=== PATIENT | female | born 1935 | race Caucasian/White ===

== ENCOUNTER 2016-11-14 12:20 | Day surgery (SDC) | payer MEDICARE, MEDICAID ==
[~2016-11-14] VITALS: Ht 154.9 cm; Wt 43.5 kg
[2016-11-14] MEDS ORDERED: NORC7.5T PO (12:42)
[2016-11-14] MEDS ORDERED: NITR0.4S14 PO (12:42)
[2016-11-14] MEDS ORDERED: VITA50003 PO (12:42)
[2016-11-14] MEDS ORDERED: LEVO112T2 PO (12:42)
[2016-11-14] MEDS ORDERED: CLOP75TA2 PO (12:42)
[2016-11-14] MEDS ORDERED: ONDA4TAB6 PO (12:42)
[2016-11-14] MEDS ORDERED: LINZ290C PO ×2 (12:42→16:04)
[2016-11-14] MEDS ORDERED: LOSA25TA8 PO ×2 (12:42→16:04)
[2016-11-14] MEDS ORDERED: MAXI0.1S4 IO (12:42)
[2016-11-14] MEDS ORDERED: NEO/POLY/DEX IO (12:42)
[2016-11-14] MEDS ORDERED: ENEMENE3 PR (12:49)
--- NOTE | 2016-11-14 14:30 | REP ---
CHEST, ONE VIEW: HISTORY: Port placement. COMPARISON: 02/27/2014. The lungs are hyperinflated. The heart is normal in size. The pulmonary vasculature is normal in appearance. An Rtxvny-X-Eklx catheter is present. The catheter tubing is broken and is located in the heart. IMPRESSION: An Ykdkxe-Y-Ltgz catheter is present. The catheter tubing is broken and located in the heart. Results were discussed the Akin Poon at 2:07 p.m. this date. Signed by Mike Guzman MD 11/14/2016 02:41 P
[2016-11-14 15:06] LABS: INR 0.94
[2016-11-14 15:18] LABS: ANION GAP 9 MEQ/L (8-16); BLOOD UREA NITROGEN 20 MG/DL (7-18); CALCIUM LEVEL 8.6 MG/DL (8.8-10.2); CARBON DIOXIDE LEVEL 25 MEQ/L (21-32); CHLORIDE LEVEL 106 MEQ/L (98-107); CREATININE FOR GFR 0.69 MG/DL (0.55-1.02); GLOMERULAR FILTRATION RATE > 60.0 (>39); GLUCOSE, FASTING 100 MG/DL (83-110); POTASSIUM SERUM 4.6 MEQ/L (3.5-5.1); SODIUM LEVEL 140 MEQ/L (136-145)
[2016-11-14 15:20] LABS: BASO % 0.5 % (0.0-1.0); EOS % 0.4 % (0.0-3.0); LARGE UNSTAINED CELL # 0.2 K/mm3 (0.0-0.4); LARGE UNSTAINED CELL % 3.6 % (0.0-4.0); LYMPH # 1.3 K/mm3 (1.5-4.5); LYMPH % 26.2 % (24.0-44.0); MEAN CORPUSCULAR HEMOGLOBIN 31.7 pg (27.0-33.0); MEAN CORPUSCULAR VOLUME 99.3 fl (80.0-96.0); MONO # 0.4 K/mm3 (0.0-0.8); MONO % 8.7 % (0.0-5.0); NEUTROPHILS # 2.9 K/mm3 (1.8-7.7); NEUTROPHILS % 60.7 % (36.0-66.0); PLATELET COUNT, AUTOMATED 229 k/mm3 (150-450); RED CELL DISTRIBUTION WIDTH 13.1 % (11.5-14.5); WHITE BLOOD COUNT 4.8 K/mm3 (4.0-10.0)
[2016-11-14] MEDS ORDERED: HYDR-3716 PO (16:00)
[2016-11-14] MEDS ORDERED: DRIS50002 PO (16:00)
[2016-11-14] MEDS ORDERED: PLAV75TA38 PO (16:00)
[2016-11-14] MEDS ORDERED: NITR4TASL SL (16:04)
[2016-11-14] MEDS ORDERED: LEVO112T25 PO (16:04)
[2016-11-14] MEDS ORDERED: ENEM1ENE4 PR (16:04)
[2016-11-14] MEDS ORDERED: ZOFR4TAB3 PO (16:04)
[2016-11-14] MEDS ORDERED: SYST1SOL OU (16:04)
[2016-11-14] MEDS ORDERED: fentaNYL 100 MCG/2 ML INJECTION (J3010) IV ONE (20:45)
[2016-11-14] MEDS ORDERED: fentaNYL 100 MCG/2 ML INJECTION (J3010) As Ordered ONE ×2 (20:50→22:30)
[2016-11-14] MEDS ORDERED: CONRAY-60 60% 50ML VIAL (Q9961) As Ordered ONE (22:11)
[2016-11-14] MEDS ORDERED: HEPARIN SOD (PORCINE) 5000 UNITS/ML VIAL As Ordered ONE (22:11)
[2016-11-14] MEDS ORDERED: CLINDAMYCIN 600 MG/50 ML PREMIX BAG As Ordered ONE (22:11)
[2016-11-14] MEDS ORDERED: MIDAZOLAM INJ 2 MG/2 ML VIAL (J2250) As Ordered ONE (22:30)
[2016-11-14] MEDS ORDERED: ISOVUE-300 61% 50ML VIAL (Q9967) As Ordered ONE (22:37)
[2016-11-14] MEDS ORDERED: LIDOCAINE 1% SDV INJ 30 ML VIAL As Ordered ONE (22:44)
[2016-11-14] MEDS ORDERED: PROPOFOL 200 MG/20 ML VIAL As Ordered ONE (22:46)
[2016-11-14] MEDS ORDERED: LIDOCAINE 2% INJ 100 MG/5 ML SDV (FOR ANES.) As Ordered ONE (22:46)
[2016-11-15] VITALS (7 sets, daily range): BP systolic 128–177; BP diastolic 61–79
[2016-11-15] MEDS ORDERED: ONDANSETRON 4MG/2ML VIAL (J2405) IV PRN
[2016-11-15] MEDS ORDERED: LR 1,000 ML IV SCH
[2016-11-15] MEDS: fentaNYL 100 MCG/2 ML INJECTION (J3010) IV PRN ×2 (00:14→00:21)
[2016-11-15] MEDS ORDERED: ACETAMINOPHEN TAB 650MG DOSE (2X325MG) PO PRN (06:30)
[2016-11-15] MEDS ORDERED: ACET-654 PO (09:37)
--- NOTE | 2016-11-15 13:57 | REP ---
SINGLE VIEW CHEST: Single view of the chest is performed in the region of the heart during foreign body removal. 15 minutes 6 seconds fluoroscopy time utilized. Signed by Dami Brown MD 11/15/2016 02:28 P
--- NOTE | 2016-11-16 07:10 | ECGEPIP ---
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 Order Number: [id number] Reading MD: Xenia Ponce Measurements Intervals [place] Rate: 74 P: 62 IL: 164 QRS: 62 QRSD: 95 T: 64 QT: 383 QTc: 426 Interpretive Statements SINUS RHYTHM INCREASED RATE 02/28/14 Electronically Signed On 11-16-2016 7:09:36 EDT by Xenia Ponce
--- NOTE | 2016-12-05 13:47 | RO ---
DATE OF PROCEDURE: 11/14/2016 PREPROCEDURE DIAGNOSIS: Pulmonary artery foreign body, right subclavian vein Zybyql-a-Klzy. POSTPROCEDURE DIAGNOSIS: Pulmonary artery foreign body, right subclavian vein Peqqoy-k-Qypq. PROCEDURE: Selective placement with foreign body retrieval, right subclavian vein Umsqje-i-Vhpr removal. Ultrasound-guided right brachial vein cannulation. ATTENDING SURGEON: Dr. Teo Hale [place] [employer] LIMOUSINE: None. ANESTHESIA: Local, monitored anesthesia care (MAC). INDICATION: Patient is a 81-year-old female with an Qnxxbx-t-Ksvg in her right subclavian vein, that had difficulty with flushing and subsequent infiltration in the subcutaneous tissue. An x-ray was performed showing the catheter had fractured and migrated into the left pulmonary artery. Patient will undergo foreign body retrieval and Kbipdy-r-Vmfd removal. Risks, benefits, and alternative treatment options were discussed with the patient. Alternative treatment options included, but were not limited to, no intervention. Risks included, but were not limited to, infection, bleeding, renal failure requiring hemodialysis, possible need for open surgical intervention, cerebrovascular accident, myocardial infarction, pulmonary embolus, deep venous thrombosis (DVT), loss of limb, loss of life, and poor outcome. Patient understands, accepts these risks, and consents to proceed. ESTIMATED BLOOD LOSS: 50 mL. IV FLUID: 400 mL. HEPARIN: None. COMPLICATIONS: None. DRAINS: None. SPECIMENS: Fractured catheter from the right subclavian vein Vgwsbc-a-Kjsh. DESCRIPTION OF PROCEDURE: Patient was taken to the operating room, placed supine on the operating room table, and the right upper extremity neck and chest region was prepped and draped in a standard surgical fashion. Ultrasound was used to evaluate the right upper extremity, and the right brachial vein was noted to be easily compressed but widely patent and free of thrombus. This was cannulated with a micropuncture needle after anesthetizing the overlying skin with 1% lidocaine. The micropuncture wire was advanced through the micropuncture needle, which was upsized to a micropuncture sheath. A Bentson wire was advanced through the micropuncture sheath, which was upsized to a #5-Setswana sheath. A long-angle [place] catheter and angle Glidewire, Bentson wire, and Orellana wires were used to traverse through the heart and into the left pulmonary artery where the catheter was lodged. A snare was then placed with removal of the catheter through the sheath placed in the right brachial vein. The sheath was then removed and manual compression was applied at the puncture site for hemostasis. A small incision was then made overlying the right chest Mravgs-d-Svnp, after anesthetizing the overlying skin with 1% lidocaine mixed with 0.5% Marcaine. The Eiirxz-e-Yiac was then sharply dissected free and removed. The portions of the catheter that were removed matched the fracture site from the hub of the catheter. Final fluoroscopic image showed no further foreign body in the heart, lungs, or pulmonary arteries. The Wjukju-w-Veyk site was then closed using #2-0 Vicryl to approximate the deeper layers and #3-0 Monocryl to approximate the skin in a running subcuticular fashion. Steri-Strips and dressings were applied. Patient tolerated the procedure well. All instruments, sponge, and needle counts were correct at the end of the case. There were no complications. Dr. Hale was present for and directed the entire case. Patient was transferred to the recovery room, awake, alert, extubated, and in stable condition.
== END 2016-11-15 10:20 | disposition home or self-care (01) ==
LOC: M ED 13:05 → M SDC 16:15 → M MS5PR 11-15 01:00 → M SDC 11-15 10:20
PROVIDERS: ATTEND Surgery Vascular Surgery
DX: Z95.828 Presence of other vascular implants and grafts (principal); I10 Essential (primary) hypertension; E03.9 Hypothyroidism, unspecified; M41.9 Scoliosis, unspecified; Z88.0 Allergy status to penicillin; Z88.5 Allergy status to narcotic agent; Z88.6 Allergy status to analgesic agent; Z88.8 Allergy status to other drugs, medicaments and biological substances; Z79.01 Long term (current) use of anticoagulants; Z86.73 Personal history of transient ischemic attack (TIA), and cerebral infarction without residual deficits
CPT/HCPCS: 36590; 37197; 71010; 76000; 80048; 85025; 85610; 85730; 88300; 93005; 93041; 99285; J2250; J3010; Q9961; Q9967

== ENCOUNTER → 2016-12-10 | Outpatient (CLI) | payer MEDICARE, MEDICAID ==
[~2016-12-10] MED LIST: ACET-654 PO; CLOP75TA2 PO; DRIS50002 PO; ENEM1ENE4 PR; ENEMENE3 PR; HYDR-3716 PO; LEVO112T2 PO; LEVO112T25 PO; LINZ290C PO; LOSA25TA8 PO; MAXI0.1S4 IO; NEO/POLY/DEX IO; NITR0.4S14 PO; NITR4TASL SL; NORC7.5T PO; ONDA4TAB6 PO; PLAV75TA38 PO; SYST1SOL OU; VITA50003 PO; ZOFR4TAB3 PO
== END ==
LOC: M LAB 06:05
PROVIDERS: ATTEND Internal Medicine Endocrinology, Diabetes & Metabolism
DX: M81.0 Age-related osteoporosis without current pathological fracture (principal)

== ENCOUNTER → 2017-03-04 | Outpatient (CLI) | payer MEDICARE, MEDICAID ==
[~2017-03-04] MED LIST changes: -ACET-654 PO; +ACET1TAB17 PO; +ENEMENE16 PR; -ENEMENE3 PR; -NORC7.5T PO; +NORC7.5T35 PO; +PLAV1TAB2 PO; -PLAV75TA38 PO; +VITA1CAP40 PO; -VITA50003 PO
[2017-03-04 06:57] LABS: ALBUMIN 3.5 GM/DL (3.2-5.2); ANION GAP 8 MEQ/L (8-16); BLOOD UREA NITROGEN 12 MG/DL (7-18); CALCIUM LEVEL 8.6 MG/DL (8.8-10.2); CARBON DIOXIDE LEVEL 28 MEQ/L (21-32); CHLORIDE LEVEL 104 MEQ/L (98-107); CREATININE FOR GFR 0.56 MG/DL (0.55-1.02); GLOMERULAR FILTRATION RATE > 60.0 (>39); GLUCOSE, FASTING 110 MG/DL (83-110); PHOSPHORUS LEVEL 3.4 MG/DL (2.5-4.9); POTASSIUM SERUM 4.1 MEQ/L (3.5-5.1); SODIUM LEVEL 140 MEQ/L (136-145)
== END ==
LOC: M LAB 06:08
PROVIDERS: ATTEND Internal Medicine Cardiovascular Disease
DX: I11.9 Hypertensive heart disease without heart failure (principal)

== ENCOUNTER 2017-06-04 10:23 | Emergency (ER) | payer MEDICARE, MEDICAID ==
[~2017-06-04] VITALS: Ht 157.5 cm; Wt 43.9 kg
[2017-06-04 12:19] LABS: BASO % 0.4 % (0.0-1.0); EOS % 0.4 % (0.0-3.0); IMMATURE GRANULOCYTE % 0.2 % (0-0); LYMPH # 1.1 10^3/uL (1.5-4.5); LYMPH % 22.7 % (24.0-44.0); MEAN CORPUSCULAR HEMOGLOBIN 31.5 pg (27.0-33.0); MEAN CORPUSCULAR HGB CONC 33.4 g/dl (32.0-36.5); MEAN CORPUSCULAR VOLUME 94.2 fl (80.0-96.0); MONO # 0.5 10^3/uL (0.0-0.8); MONO % 10.8 % (0.0-5.0); NEUTROPHILS % 65.5 % (36.0-66.0); PLATELET COUNT, AUTOMATED 245 10^3/uL (150-450); RED CELL DISTRIBUTION WIDTH 13.2 % (11.5-14.5); WHITE BLOOD COUNT 4.6 10^3/uL (4.0-10.0)
[2017-06-04 12:54] LABS: ANION GAP 7 MEQ/L (8-16); BLOOD UREA NITROGEN 14 MG/DL (7-18); CALCIUM LEVEL 9.1 MG/DL (8.8-10.2); CARBON DIOXIDE LEVEL 28 MEQ/L (21-32); CHLORIDE LEVEL 102 MEQ/L (98-107); CREATININE FOR GFR 0.62 MG/DL (0.55-1.02); GLOMERULAR FILTRATION RATE > 60.0 (>32); GLUCOSE, FASTING 100 MG/DL (83-110); POTASSIUM SERUM 3.9 MEQ/L (3.5-5.1); SODIUM LEVEL 137 MEQ/L (136-145)
[2017-06-04] MEDS ORDERED: CYCL5TAB PO (13:32)
[2017-06-04] MEDS ORDERED: CYCLOBENZAPRINE 5MG TABLET PO ONE (13:45)
[2017-06-04 13:57] VITALS: BP 170/90
--- NOTE | 2017-06-04 19:35 | ECGEPIP ---
Stationary ECG Study [facility] - ED Test Date: 2017-06-04 Pat Name: TODD ADKINS Department: Room: - Gender: F Latrine Cleaner: jackeline : 1935 Requested By: DEREK Hernandez PA-C Order Number: [id number] Reading MD: Sanya Peck Measurements Intervals Fine Rate: 74 P: 75 SD: 149 QRS: 67 QRSD: 89 T: 76 QT: 363 QTc: 404 Interpretive Statements SINUS RHYTHM SIMILAR TO 11/14/16 Electronically Signed On 06-04-2017 19:35:18 EST by Sanya Peck
--- NOTE | 2017-06-04 19:40 | REP ---
LUMBOSACRAL SPINE: Five views of the lumbosacral spine are performed. There is no compression fracture. There is relatively normal lumbar lordosis. There is moderate spurring diffusely. There is moderate disc space narrowing at L1-L2, L2-L3, and L3-L4 with subchondral sclerosis and vacuum. There is sclerosis at the posterior facet joints inferiorly. Moderate curvature of the thoracolumbar spine is noted convex to the left with a rotatory component. The posterior elements appear intact. Multiple metallic clips and sutures are seen in the pelvis. IMPRESSION: Diffuse degenerative changes without evidence of compression fracture. Moderate curvature toward the left. Signed by Dami Brown MD 06/05/2017 08:30 P
--- NOTE | 2017-06-04 19:44 | REP ---
ULTRASOUND ABDOMINAL AORTA: Real-time sonographic of the abdominal aorta performed. Mid abdominal aorta is not visualized due to overlying bowel gas. Proximal abdominal aorta demonstrates no aneurysm with a maximum AP diameter of 2.5 cm, there is also no aneurysm of the distal abdominal aorta which measures 1.4 cm. Common iliac artery is normal in caliber, right measuring 1.0 x 1.2 cm and left 1.1 x 1.3 cm. There is tortuosity and moderate arthrosclerotic calcification of the abdominal aorta. IMPRESSION: Midabdominal aorta is not visualized due to overlying bowel gas. There is no aneurysm of the proximal or distal abdominal aorta. It should be noted that there was no abdominal aortic aneurysm on the CT of the abdomen in 2011. Signed by Dami Brown MD 06/05/2017 08:30 P
== END 2017-06-04 14:07 | disposition home or self-care (01) ==
LOC: M ED 10:23
DX: G89.29 Other chronic pain (principal); M54.5 Low back pain; M41.9 Scoliosis, unspecified; I10 Essential (primary) hypertension; Z86.73 Personal history of transient ischemic attack (TIA), and cerebral infarction without residual deficits; Z79.899 Other long term (current) drug therapy; Z79.01 Long term (current) use of anticoagulants; Z88.0 Allergy status to penicillin; Z88.5 Allergy status to narcotic agent; Z88.8 Allergy status to other drugs, medicaments and biological substances

== ENCOUNTER → 2017-07-02 | Outpatient (CLI) | payer MEDICARE, MEDICAID ==
[2017-07-02 09:58] LABS: CALCIUM LEVEL 8.5 MG/DL (8.8-10.2)
[2017-07-02 10:48] LABS: TOTAL 25(OH) VITAMIN D 58.6 NG/ML (30.0-100.0)
== END ==
LOC: M LAB 08:50
DX: M81.0 Age-related osteoporosis without current pathological fracture (principal); E55.9 Vitamin D deficiency, unspecified
CPT/HCPCS: 82310

== ENCOUNTER → 2017-07-08 | Outpatient (CLI) | payer MEDICARE, MEDICAID ==
[2017-07-08 07:34] LABS: ALBUMIN 3.9 GM/DL (3.2-5.2); ANION GAP 7 MEQ/L (8-16); BLOOD UREA NITROGEN 18 MG/DL (7-18); CALCIUM LEVEL 9.2 MG/DL (8.8-10.2); CARBON DIOXIDE LEVEL 26 MEQ/L (21-32); CHLORIDE LEVEL 105 MEQ/L (98-107); CREATININE FOR GFR 0.69 MG/DL (0.55-1.02); GLOMERULAR FILTRATION RATE > 60.0 (>32); GLUCOSE, FASTING 107 MG/DL (70-100); PHOSPHORUS LEVEL 3.3 MG/DL (2.5-4.9); POTASSIUM SERUM 4.5 MEQ/L (3.5-5.1); SODIUM LEVEL 138 MEQ/L (136-145)
== END ==
LOC: M LAB 06:20
DX: I11.9 Hypertensive heart disease without heart failure (principal)
CPT/HCPCS: 80069

== ENCOUNTER → 2017-08-04 | Outpatient (CLI) | payer MEDICARE, MEDICAID | LOC: M RAD 16:22 | DX: M51.36 Other intervertebral disc degeneration, lumbar region (principal) | CPT/HCPCS: 72148 ==

== ENCOUNTER 2017-08-18 17:56 | Inpatient (IN) | payer MEDICARE, MEDICAID ==
[2017-08-18] MEDS: HEPARIN SOD (PORCINE) 5000 UNITS/ML VIAL SC ×3 (06:00→22:00)
[2017-08-18] MEDS: NS 500 ML IV ×2 (18:30→21:17)
[2017-08-18 19:12] LABS: BASO % 0.1 % (0.0-1.0); HEMATOCRIT 31.4 % (36.0-47.0); HEMOGLOBIN 10.8 g/dl (12.0-16.0); IMMATURE GRANULOCYTE % 0.5 % (0-3.0); LYMPH # 0.9 10^3/uL (1.5-4.5); LYMPH % 9.4 % (24.0-44.0); MEAN CORPUSCULAR HEMOGLOBIN 31.5 pg (27.0-33.0); MEAN CORPUSCULAR HGB CONC 34.4 g/dl (32.0-36.5); MEAN CORPUSCULAR VOLUME 91.5 fl (80.0-96.0); MONO # 0.8 10^3/uL (0.0-0.8); MONO % 8.1 % (0.0-5.0); NEUTROPHILS # 7.7 10^3/uL (1.8-7.7); NEUTROPHILS % 81.9 % (36.0-66.0); PLATELET COUNT, AUTOMATED 197 10^3/uL (150-450); RED BLOOD COUNT 3.43 10^6/uL (4.00-5.40); RED CELL DISTRIBUTION WIDTH 12.9 % (11.5-14.5); WHITE BLOOD COUNT 9.4 10^3/uL (4.0-10.0)
[2017-08-18 19:26] LABS: INR 0.95; PROTHROMBIN TIME 12.8 SECONDS (12.4-14.5)
[2017-08-18 19:47] LABS: LACTIC ACID SEPSIS PROTOCOL 2.4 MMOL/L (0.4-2.0)
[2017-08-18] MEDS: NS 1,000 ML IV (19:50)
[2017-08-18] MEDS: HYDROmorphone HCL 1 MG/ML SYRINGE (J1170) IV ×2 (19:52→21:17)
[2017-08-18] MEDS: GASTROGRAFIN SOLUTION 30ML (Q9963) PO ×2 (20:25→20:45)
[2017-08-18 20:53] LABS: ALBUMIN 3.5 GM/DL (3.2-5.2); ALBUMIN/GLOBULIN RATIO 1.25 (1.00-1.93); ALKALINE PHOSPHATASE 58 U/L (45-117); ALT/SGPT 20 U/L (12-78); ANION GAP 8 MEQ/L (8-16); AST/SGOT 29 U/L (7-37); BILIRUBIN,DIRECT 0.1 MG/DL (0.0-0.2); BILIRUBIN,TOTAL 0.3 MG/DL (0.2-1.0); BLOOD UREA NITROGEN 12 MG/DL (7-18); CALCIUM LEVEL 7.5 MG/DL (8.8-10.2); CARBON DIOXIDE LEVEL 24 MEQ/L (21-32); CHLORIDE LEVEL 99 MEQ/L (98-107); CREATININE FOR GFR 0.58 MG/DL (0.55-1.30); GLOMERULAR FILTRATION RATE > 60.0 (>32); GLUCOSE, FASTING 117 MG/DL (70-100); LIPASE 282 U/L (73-393); POTASSIUM SERUM 4.4 MEQ/L (3.5-5.1); SODIUM LEVEL 131 MEQ/L (136-145); TOTAL PROTEIN 6.3 GM/DL (6.4-8.2)
[2017-08-18] MEDS: ONDANSETRON 4MG/2ML VIAL (J2405) IV (21:17)
[2017-08-18] MEDS ORDERED: ISOVUE-370 76% 100ML VIAL (Q9967) As Ordered (21:37)
[2017-08-18] MEDS ORDERED: HYDROmorphone 2 MG TAB PO (23:30)
[2017-08-19] MEDS ORDERED: SENOKOT S TAB PO
[2017-08-19] MEDS ORDERED: MOM 30ML SUSPENSION UDC PO
[2017-08-19] MEDS: LevoFLOXacin IV 750 MG in APPROPRIATE DILUENT 1 EA IV (00:10)
[2017-08-19] MEDS: PERCOCET 5MG/325MG TAB PO (00:55)
[2017-08-19] MEDS ORDERED: CYCLOBENZAPRINE 5MG TABLET PO (01:00)
[2017-08-19] MEDS ORDERED: POLYVINYL ALCOHOL OPHTH SOLN 15 ML(LIQUITEARS) OU (01:00)
[2017-08-19] MEDS: ONDANSETRON 4MG/2ML VIAL (J2405) IV (01:37)
[2017-08-19] MEDS: HYDROmorphone HCL 1 MG/ML SYRINGE (J1170) IV ×4 (02:06→16:13)
[2017-08-19] MEDS: NS 1,000 ML IV ×2 (02:10→16:09)
[2017-08-19 05:33] LABS: HEMOGLOBIN 9.3 g/dl (12.0-16.0); MEAN CORPUSCULAR HEMOGLOBIN 31.3 pg (27.0-33.0); MEAN CORPUSCULAR HGB CONC 34.4 g/dl (32.0-36.5); MEAN CORPUSCULAR VOLUME 90.9 fl (80.0-96.0); PLATELET COUNT, AUTOMATED 171 10^3/uL (150-450); RED BLOOD COUNT 2.97 10^6/uL (4.00-5.40); RED CELL DISTRIBUTION WIDTH 12.8 % (11.5-14.5); WHITE BLOOD COUNT 11.3 10^3/uL (4.0-10.0)
[2017-08-19 05:44] LABS: ANION GAP 7 MEQ/L (8-16); BLOOD UREA NITROGEN 9 MG/DL (7-18); CARBON DIOXIDE LEVEL 23 MEQ/L (21-32); CHLORIDE LEVEL 104 MEQ/L (98-107); CREATININE FOR GFR 0.53 MG/DL (0.55-1.30); GLOMERULAR FILTRATION RATE > 60.0 (>32); GLUCOSE, FASTING 106 MG/DL (70-100); MAGNESIUM LEVEL 1.2 MG/DL (1.8-2.4); POTASSIUM SERUM 3.9 MEQ/L (3.5-5.1); SODIUM LEVEL 134 MEQ/L (136-145)
[2017-08-19] MEDS: HEPARIN SOD (PORCINE) 5000 UNITS/ML VIAL SC ×3 (06:00→22:00)
[2017-08-19] MEDS: LEVOTHYROXINE 112MCG TABLET (0.112MG) PO (06:18)
[2017-08-19] MEDS: PANTOPRAZOLE 40MG TAB (PROTONIX) PO (08:39)
[2017-08-19] MEDS: CLOPIDOGREL 75 MG TAB PO (08:40)
[2017-08-19] MEDS: LOSARTAN 25 MG TAB PO (08:40)
[2017-08-19] MEDS: ATENOLOL 12.5MG PER 1/2 TABLET PO (08:40)
[2017-08-19] MEDS: OSELTAMIVIR PHOSPHATE 75 MG CAP (TAMIFLU) PO ×2 (08:41→20:05)
[2017-08-19] MEDS: MAG SULF 1GM/100ML (MAG RUN) 1 GM in APPROPRIATE DILUENT 1 EA IV ×3 (09:32→12:13)
[2017-08-19] MEDS ORDERED: ISOVUE-370 76% 100ML VIAL (Q9967) As Ordered (09:52)
[2017-08-19] MEDS: LIDOCAINE 5% (LIDODERM) PATCH TD (14:18)
[2017-08-19 17:17] LABS: MAGNESIUM LEVEL 2.7 MG/DL (1.8-2.4)
[2017-08-19] MEDS: traMADol 50 MG TAB PO (20:05)
[2017-08-19] MEDS: **NOTE PATIENT COMMENT** MISC XX (21:00)
[2017-08-20] MEDS ORDERED: CEPACOL LOZENGE PO (04:45)
[2017-08-20] MEDS: LEVOTHYROXINE 112MCG TABLET (0.112MG) PO (05:29)
[2017-08-20 05:30] LABS: HEMATOCRIT 26.3 % (36.0-47.0); MEAN CORPUSCULAR HEMOGLOBIN 31.6 pg (27.0-33.0); MEAN CORPUSCULAR HGB CONC 34.2 g/dl (32.0-36.5); MEAN CORPUSCULAR VOLUME 92.3 fl (80.0-96.0); PLATELET COUNT, AUTOMATED 174 10^3/uL (150-450); RED BLOOD COUNT 2.85 10^6/uL (4.00-5.40); RED CELL DISTRIBUTION WIDTH 13.3 % (11.5-14.5); WHITE BLOOD COUNT 11.1 10^3/uL (4.0-10.0)
[2017-08-20] MEDS: NS 1,000 ML IV (05:30)
[2017-08-20] MEDS: HEPARIN SOD (PORCINE) 5000 UNITS/ML VIAL SC ×3 (05:30→20:26)
[2017-08-20] MEDS: traMADol 50 MG TAB PO (05:32)
[2017-08-20 06:01] LABS: ANION GAP 8 MEQ/L (8-16); BLOOD UREA NITROGEN 9 MG/DL (7-18); CALCIUM LEVEL 6.9 MG/DL (8.8-10.2); CARBON DIOXIDE LEVEL 23 MEQ/L (21-32); CHLORIDE LEVEL 106 MEQ/L (98-107); CREATININE FOR GFR 0.37 MG/DL (0.55-1.30); GLOMERULAR FILTRATION RATE > 60.0 (>32); GLUCOSE, FASTING 80 MG/DL (70-100); MAGNESIUM LEVEL 2.3 MG/DL (1.8-2.4); POTASSIUM SERUM 3.8 MEQ/L (3.5-5.1); SODIUM LEVEL 137 MEQ/L (136-145)
[2017-08-20] MEDS: CALCIUM GLUCONATE 1,000 MG in D5W MINI-BAG PLUS 100 ML IV (08:45)
[2017-08-20] MEDS: LIDOCAINE 5% (LIDODERM) PATCH TD (08:45)
[2017-08-20] MEDS: LOSARTAN 25 MG TAB PO (08:45)
[2017-08-20] MEDS: OSELTAMIVIR PHOSPHATE 75 MG CAP (TAMIFLU) PO ×2 (08:46→20:56)
[2017-08-20] MEDS: PANTOPRAZOLE 40MG TAB (PROTONIX) PO (08:46)
[2017-08-20] MEDS: CLOPIDOGREL 75 MG TAB PO (08:46)
[2017-08-20] MEDS: ATENOLOL 12.5MG PER 1/2 TABLET PO (08:46)
[2017-08-20] MEDS: PERCOCET 5MG/325MG TAB PO ×3 (09:44→19:53)
[2017-08-20] MEDS: FLEET ENEMA PR (18:00)
[2017-08-20] MEDS: **NOTE PATIENT COMMENT** MISC XX (20:56)
[2017-08-21] MEDS: LEVOTHYROXINE 112MCG TABLET (0.112MG) PO (05:04)
[2017-08-21] MEDS: HEPARIN SOD (PORCINE) 5000 UNITS/ML VIAL SC ×2 (05:04→14:11)
[2017-08-21] MEDS: PERCOCET 5MG/325MG TAB PO ×2 (05:05→11:04)
[2017-08-21 05:34] LABS: HEMOGLOBIN 8.8 g/dl (12.0-16.0); MEAN CORPUSCULAR HEMOGLOBIN 31.5 pg (27.0-33.0); MEAN CORPUSCULAR HGB CONC 33.8 g/dl (32.0-36.5); MEAN CORPUSCULAR VOLUME 93.2 fl (80.0-96.0); PLATELET COUNT, AUTOMATED 183 10^3/uL (150-450); RED BLOOD COUNT 2.79 10^6/uL (4.00-5.40); RED CELL DISTRIBUTION WIDTH 13.5 % (11.5-14.5); WHITE BLOOD COUNT 8.6 10^3/uL (4.0-10.0)
[2017-08-21 05:58] LABS: ANION GAP 7 MEQ/L (8-16); BLOOD UREA NITROGEN 7 MG/DL (7-18); CARBON DIOXIDE LEVEL 25 MEQ/L (21-32); CHLORIDE LEVEL 108 MEQ/L (98-107); CREATININE FOR GFR 0.46 MG/DL (0.55-1.30); GLOMERULAR FILTRATION RATE > 60.0 (>32); GLUCOSE, FASTING 85 MG/DL (70-100); MAGNESIUM LEVEL 1.9 MG/DL (1.8-2.4); POTASSIUM SERUM 3.8 MEQ/L (3.5-5.1); SODIUM LEVEL 140 MEQ/L (136-145)
[2017-08-21] MEDS: CALCIUM GLUCONATE 1,000 MG in D5W MINI-BAG PLUS 100 ML IV (09:31)
[2017-08-21] MEDS: LIDOCAINE 5% (LIDODERM) PATCH TD (09:32)
[2017-08-21] MEDS: LOSARTAN 25 MG TAB PO (09:32)
[2017-08-21] MEDS: ATENOLOL 12.5MG PER 1/2 TABLET PO (09:32)
[2017-08-21] MEDS: CLOPIDOGREL 75 MG TAB PO (09:33)
[2017-08-21] MEDS: OSELTAMIVIR PHOSPHATE 75 MG CAP (TAMIFLU) PO (09:33)
[2017-08-21] MEDS: PANTOPRAZOLE 40MG TAB (PROTONIX) PO (09:33)
== END 2017-08-21 15:59 | disposition home or self-care (01) | DRG 866 ==
LOC: M ED INP 23:45 → M PCU 08-19 01:30 → M ED 17:56
DX: J10.2 Influenza due to other identified influenza virus with gastrointestinal manifestations (principal); R10.31 Right lower quadrant pain; K52.9 Noninfective gastroenteritis and colitis, unspecified; E03.9 Hypothyroidism, unspecified; K21.9 Gastro-esophageal reflux disease without esophagitis; I10 Essential (primary) hypertension; Z90.710 Acquired absence of both cervix and uterus

== ENCOUNTER → 2017-10-01 | Outpatient (CLI) | payer MEDICARE, MEDICAID ==
[2017-10-01 12:21] LABS: HEMOGLOBIN 9.6 g/dl (12.0-15.5); MEAN CORPUSCULAR HEMOGLOBIN 32.9 pg (27.0-33.0); MEAN CORPUSCULAR HGB CONC 33.1 g/dl (32.0-36.5); MEAN CORPUSCULAR VOLUME 99.3 fl (80.0-96.0); PLATELET COUNT, AUTOMATED 223 10^3/uL (150-450); RED BLOOD COUNT 2.92 10^6/uL (4.00-5.40); RED CELL DISTRIBUTION WIDTH 14.7 % (11.5-14.5)
[2017-10-01 13:32] LABS: ALBUMIN 3.5 GM/DL (3.2-5.2); ALBUMIN/GLOBULIN RATIO 1.25 (1.00-1.93); ALKALINE PHOSPHATASE 54 U/L (45-117); ALT/SGPT 18 U/L (12-78); ANION GAP 7 MEQ/L (8-16); AST/SGOT 19 U/L (7-37); BILIRUBIN,TOTAL 0.3 MG/DL (0.2-1.0); BLOOD UREA NITROGEN 16 MG/DL (7-18); CALCIUM LEVEL 8.5 MG/DL (8.8-10.2); CARBON DIOXIDE LEVEL 25 MEQ/L (21-32); CHLORIDE LEVEL 108 MEQ/L (98-107); CREATININE FOR GFR 0.64 MG/DL (0.55-1.30); FERRITIN 36 NG/ML (8-252); GLOMERULAR FILTRATION RATE > 60.0 (>32); GLUCOSE, FASTING 84 MG/DL (70-100); IRON (FE) 65 UG/DL (50-170); PERCENT SATURATION 20.3 % (13.2-45.0); POTASSIUM SERUM 4.8 MEQ/L (3.5-5.1); SODIUM LEVEL 140 MEQ/L (136-145); TOTAL IRON BINDING CAPACITY 320 UG/DL (250-450); TOTAL PROTEIN 6.3 GM/DL (6.4-8.2)
[2017-10-03 08:18] LABS: VITAMIN B12 LEVEL 379 PG/ML (247-911)
== END ==
LOC: M LAB 11:43
DX: D64.9 Anemia, unspecified (principal); I10 Essential (primary) hypertension; M17.11 Unilateral primary osteoarthritis, right knee; B59 Pneumocystosis; M51.36 Other intervertebral disc degeneration, lumbar region
CPT/HCPCS: 71046

== ENCOUNTER → 2017-12-04 | Outpatient (CLI) | payer MEDICARE, MEDICAID ==
[2017-12-04 09:12] LABS: AMYLASE 72 U/L (25-115)
[2017-12-04 09:12] LABS: C REACTIVE PROTEIN QUANTITATIV < 0.30 MG/DL (0.00-0.30); LIPASE 148 U/L (73-393)
[2017-12-04 09:23] LABS: ERYTHROCYTE SEDIMENTATION RATE 12 mm/hr (0-30)
[2017-12-09 00:07] LABS: CHROMOGRANIN A 3 nmol/L (0-5)
[2017-12-09 00:07] LABS: GASTRIN 21 pg/mL (0-115)
== END ==
LOC: M LAB 06:18
DX: K82.9 Disease of gallbladder, unspecified (principal); A04.9 Bacterial intestinal infection, unspecified; R63.4 Abnormal weight loss; R13.10 Dysphagia, unspecified; M41.9 Scoliosis, unspecified; R35.0 Frequency of micturition
CPT/HCPCS: 82150

== ENCOUNTER → 2017-12-05 | Outpatient (CLI) | payer MEDICARE, MEDICAID | LOC: M RAD 07:19 | DX: K82.9 Disease of gallbladder, unspecified (principal); A04.9 Bacterial intestinal infection, unspecified; K59.00 Constipation, unspecified; R63.4 Abnormal weight loss; R13.10 Dysphagia, unspecified; M41.9 Scoliosis, unspecified; N28.1 Cyst of kidney, acquired; K82.4 Cholesterolosis of gallbladder | CPT/HCPCS: 76705 ==

== ENCOUNTER → 2017-12-31 | Outpatient (CLI) | payer MEDICARE, MEDICAID | LOC: M LAB 13:04 | DX: M81.0 Age-related osteoporosis without current pathological fracture (principal) | CPT/HCPCS: 82310 ==

== ENCOUNTER → 2018-01-13 | Outpatient (CLI) | payer MEDICARE, MEDICAID ==
[2018-01-13 06:56] LABS: BASO % 0.7 % (0.0-1.0); EOS # 0.1 10^3/uL (0.0-0.50); EOS % 1.3 % (0.0-3.0); HEMATOCRIT 28.7 % (36.0-47.0); HEMOGLOBIN 9.6 g/dl (12.0-15.5); IMMATURE GRANULOCYTE % 0.5 % (0-3.0); LYMPH # 1.1 10^3/uL (1.5-4.5); LYMPH % 19.8 % (24.0-44.0); MEAN CORPUSCULAR HEMOGLOBIN 32.2 pg (27.0-33.0); MEAN CORPUSCULAR HGB CONC 33.4 g/dl (32.0-36.5); MEAN CORPUSCULAR VOLUME 96.3 fl (80.0-96.0); NEUTROPHILS # 3.3 10^3/uL (1.8-7.7); NEUTROPHILS % 59.7 % (36.0-66.0); PLATELET COUNT, AUTOMATED 214 10^3/uL (150-450); RED BLOOD COUNT 2.98 10^6/uL (4.00-5.40); WHITE BLOOD COUNT 5.6 10^3/uL (4.0-10.0)
[2018-01-13 07:18] LABS: FERRITIN 27 NG/ML (8-252); IRON (FE) 55 UG/DL (50-170); PERCENT SATURATION 16.2 % (13.2-45.0); TOTAL IRON BINDING CAPACITY 340 UG/DL (250-450)
== END ==
LOC: M LAB 06:05
DX: N30.01 Acute cystitis with hematuria (principal)
CPT/HCPCS: 83550

== ENCOUNTER → 2018-02-05 | Outpatient (CLI) | payer MEDICARE, MEDICAID | LOC: M RAD 07:45 | DX: K59.00 Constipation, unspecified (principal); K82.9 Disease of gallbladder, unspecified; R07.81 Pleurodynia | CPT/HCPCS: 74018 ==

== ENCOUNTER → 2018-04-09 | Outpatient (CLI) | payer MEDICARE, MEDICAID ==
[2018-04-09 11:24] LABS: BASO % 0.4 % (0.0-1.0); HEMATOCRIT 30.6 % (36.0-47.0); IMMATURE GRANULOCYTE % 0.4 % (0-3.0); LYMPH # 1.2 10^3/uL (1.5-4.5); LYMPH % 21.3 % (24.0-44.0); MEAN CORPUSCULAR HEMOGLOBIN 32.2 pg (27.0-33.0); MEAN CORPUSCULAR HGB CONC 32.7 g/dl (32.0-36.5); MEAN CORPUSCULAR VOLUME 98.4 fl (80.0-96.0); MONO # 0.6 10^3/uL (0.0-0.8); MONO % 10.5 % (0.0-5.0); NEUTROPHILS # 3.7 10^3/uL (1.8-7.7); NEUTROPHILS % 67.4 % (36.0-66.0); PLATELET COUNT, AUTOMATED 228 10^3/uL (150-450); RED BLOOD COUNT 3.11 10^6/uL (4.00-5.40); RED CELL DISTRIBUTION WIDTH 13.5 % (11.5-14.5); WHITE BLOOD COUNT 5.4 10^3/uL (4.0-10.0)
[2018-04-09 11:36] LABS: TROPONIN I < 0.02 NG/ML (< 0.10)
[2018-04-09 12:01] LABS: ERYTHROCYTE SEDIMENTATION RATE 17 mm/hr (0-30)
== END ==
LOC: M LAB 09:51
DX: R07.2 Precordial pain (principal)
CPT/HCPCS: 84484

== ENCOUNTER 2018-05-05 07:53 | Emergency (ER) | payer MEDICARE, MEDICAID ==
[2018-05-05 08:27] LABS: BASO % 0.4 % (0.0-1.0); HEMATOCRIT 32.6 % (36.0-47.0); HEMOGLOBIN 10.3 g/dl (12.0-15.5); IMMATURE GRANULOCYTE % 0.3 % (0-3.0); LYMPH # 1.4 10^3/uL (1.5-4.5); LYMPH % 21.3 % (24.0-44.0); MEAN CORPUSCULAR HGB CONC 31.6 g/dl (32.0-36.5); MEAN CORPUSCULAR VOLUME 98.2 fl (80.0-96.0); MONO # 0.7 10^3/uL (0.0-0.8); MONO % 9.9 % (0.0-5.0); NEUTROPHILS # 4.6 10^3/uL (1.8-7.7); NEUTROPHILS % 68.1 % (36.0-66.0); PLATELET COUNT, AUTOMATED 246 10^3/uL (150-450); RED BLOOD COUNT 3.32 10^6/uL (4.00-5.40); RED CELL DISTRIBUTION WIDTH 12.9 % (11.5-14.5); WHITE BLOOD COUNT 6.8 10^3/uL (4.0-10.0)
[2018-05-05 08:58] LABS: ANION GAP 6 MEQ/L (8-16); BLOOD UREA NITROGEN 14 MG/DL (7-18); CALCIUM LEVEL 8.8 MG/DL (8.8-10.2); CARBON DIOXIDE LEVEL 29 MEQ/L (21-32); CHLORIDE LEVEL 105 MEQ/L (98-107); CPK CREATINE PHOSPHOKINASE 134 U/L (26-192); CREATININE FOR GFR 0.72 MG/DL (0.55-1.30); GLOMERULAR FILTRATION RATE > 60.0 (>32); GLUCOSE, FASTING 120 MG/DL (70-100); MB/CK RELATIVE INDEX 1.94 (< OR =4); POTASSIUM SERUM 4.5 MEQ/L (3.5-5.1); SODIUM LEVEL 140 MEQ/L (136-145); TROPONIN I < 0.02 NG/ML (< 0.10)
[2018-05-05] MEDS ORDERED: ANEXSIA, NORCO 7.5MG/325MG TABLET(HYDROCODONE/APAP) As Ordered (09:50)
[2018-05-05] MEDS: ANEXSIA, NORCO 7.5MG/325MG TABLET(HYDROCODONE/APAP) PO (09:51)
[2018-05-05] MEDS: GI COCKTAIL 50ML BTL(HYOSCYAMINE/MAALOX/LIDOCAINE VISCOUS)(1:3:1) PO (13:15)
[2018-05-05 14:15] LABS: CPK CREATINE PHOSPHOKINASE 122 U/L (26-192); MB/CK RELATIVE INDEX 2.21 (< OR =4); TROPONIN I < 0.02 NG/ML (< 0.10)
== END 2018-05-05 15:29 | disposition home or self-care (01) ==
LOC: M ED 07:53
DX: R07.89 Other chest pain (principal); R06.02 Shortness of breath; I10 Essential (primary) hypertension; K21.9 Gastro-esophageal reflux disease without esophagitis; K92.2 Gastrointestinal hemorrhage, unspecified; M54.9 Dorsalgia, unspecified; R10.9 Unspecified abdominal pain; M25.551 Pain in right hip; G89.29 Other chronic pain; Z86.73 Personal history of transient ischemic attack (TIA), and cerebral infarction without residual deficits; Z87.891 Personal history of nicotine dependence; Z88.6 Allergy status to analgesic agent; Z88.5 Allergy status to narcotic agent; Z88.0 Allergy status to penicillin; Z88.8 Allergy status to other drugs, medicaments and biological substances; Z79.899 Other long term (current) drug therapy
CPT/HCPCS: 71045

== ENCOUNTER 2018-06-13 06:57 | Emergency (ER) | payer MEDICARE, MEDICAID ==
[~2018-06-13] VITALS: Ht 157.5 cm; Wt 43.6 kg
[~2018-06-13 06:57] MED LIST changes: -ACET1TAB17 PO; +ACET1TAB55 PO; +AMLO2.5T3 PO; +ATEN25TA PO; +CHLO25TA PO; +CYCL5TAB PO; -DRIS50002 PO; +DRIS50003 PO; +DULC5TAB PO; -ENEMENE16 PR; +ENEMENE4 PR; +FLEEENE4 PR; +LOSA25TA14 PO; -LOSA25TA8 PO; +ONDA4TAB5 PO; +OSEL75CA2 PO; +SENN1TAB10 PO; -VITA1CAP40 PO; +VITA50005 PO; +ZANT150T15 PO; +ZOFR4TAB14 PO; -ZOFR4TAB3 PO; +[UNRECOGNIZED DRUG - CODE] PO
[2018-06-13 06:58] VITALS: BP 200/82
[2018-06-13] MEDS ORDERED: DOXY100C37 PO (07:17)
== END 2018-06-13 07:38 | disposition home or self-care (01) ==
LOC: M ED 06:57
DX: H66.92 Otitis media, unspecified, left ear (principal); H91.92 Unspecified hearing loss, left ear; K21.9 Gastro-esophageal reflux disease without esophagitis; E03.9 Hypothyroidism, unspecified; F41.9 Anxiety disorder, unspecified; M41.9 Scoliosis, unspecified; Z86.73 Personal history of transient ischemic attack (TIA), and cerebral infarction without residual deficits; Z79.899 Other long term (current) drug therapy; Z88.6 Allergy status to analgesic agent; Z88.5 Allergy status to narcotic agent; Z88.0 Allergy status to penicillin

== ENCOUNTER → 2018-07-14 | Outpatient (CLI) | payer MEDICARE, MEDICAID ==
[~2018-07-14] MED LIST changes: +DOXY100C37 PO
[2018-07-14 14:07] LABS: CALCIUM LEVEL 8.2 MG/DL (8.8-10.2)
[2018-07-14 14:22] LABS: TOTAL 25(OH) VITAMIN D 62.5 NG/ML (30.0-100.0)
== END ==
LOC: M LAB 13:04
PROVIDERS: ATTEND Internal Medicine Endocrinology, Diabetes & Metabolism
DX: M81.0 Age-related osteoporosis without current pathological fracture (principal)

== ENCOUNTER 2018-08-15 09:47 | Emergency (ER) | payer MEDICARE, MEDICAID ==
[~2018-08-15] VITALS: Ht 152.4 cm; Wt 42.7 kg
[2018-08-15] MEDS ORDERED: PROL60SO SC (09:54)
--- NOTE | 2018-08-15 10:34 | REP ---
Clinical: Trauma/fall. Comparison: 05/21/2007 Findings: Age-related atrophy and microvascular ischemic changes are appreciated. The ventricles and sulci are symmetric. Brown-white differentiation is maintained. There is no evidence for acute intracranial hemorrhage, mass/mass effect, pathology or infarction. No extra-axial fluid collection. Calvarium is intact. Paranasal sinuses and mastoid air cells are clear. Impression: Age related atrophy and microvascular ischemic changes. No acute intracranial hemorrhage, infarction, or mass/mass effect. Electronically Signed by Shay Prince MD 08/15/2018 10:25 A
--- NOTE | 2018-08-15 10:41 | REP ---
Clinical: Trauma/fall. Technique: Axial noncontrast images from the skull base to the thoracic inlet with coronal and sagittal re-formations. Comparison: 08/03/2012. Findings: Advanced degenerative disc osteophyte complexes are appreciated primarily involving the C3-4 through C5-6 levels including elements of anterolisthesis and retrolisthesis along with endplate sclerosis/heterogeneity, osteophytosis, and disc space narrowing. Findings are mildly progressive when compared to 2012. Remainder examination demonstrates moderate multilevel degenerative changes. There is no evidence for acute fracture / compression injury. Impression: Advanced progressive degenerative changes as compared to 2012. No acute fracture / compression injury. Electronically Signed by Shay Prince MD 08/15/2018 10:33 A
--- NOTE | 2018-08-15 10:42 | REP ---
Clinical: Left hip pain. Fall. Technique: Neutral and frog lateral views of the left hip. Findings: No acute fracture dislocation. Skeletal structures, joint spaces, and surrounding soft tissues are normal for age. Impression: No acute fracture or dislocation. Electronically Signed by Shay Prince MD 08/15/2018 10:34 A
[2018-08-15 10:52] LABS: BASO % 0.3 % (0.0-1.0); EOS % 0.1 % (0.0-3.0); HEMATOCRIT 33.5 % (36.0-47.0); HEMOGLOBIN 10.9 g/dl (12.0-15.5); LYMPH # 1.1 10^3/uL (1.5-4.5); LYMPH % 16.1 % (24.0-44.0); MEAN CORPUSCULAR HEMOGLOBIN 31.5 pg (27.0-33.0); MEAN CORPUSCULAR HGB CONC 32.5 g/dl (32.0-36.5); MEAN CORPUSCULAR VOLUME 96.8 fl (80.0-96.0); MONO # 0.6 10^3/uL (0.0-0.8); MONO % 8.3 % (0.0-5.0); NEUTROPHILS # 5.3 10^3/uL (1.8-7.7); NEUTROPHILS % 74.9 % (36.0-66.0); PLATELET COUNT, AUTOMATED 221 10^3/uL (150-450); RED BLOOD COUNT 3.46 10^6/uL (4.00-5.40)
[2018-08-15 11:15] LABS: BLOOD UREA NITROGEN 13 MG/DL (7-18); CALCIUM LEVEL 8.6 MG/DL (8.8-10.2); CARBON DIOXIDE LEVEL 31 MEQ/L (21-32); CHLORIDE LEVEL 104 MEQ/L (98-107); CPK CREATINE PHOSPHOKINASE 243 U/L (26-192); CREATININE FOR GFR 0.66 MG/DL (0.55-1.30); GLOMERULAR FILTRATION RATE > 60.0 (>32); GLUCOSE, FASTING 101 MG/DL (70-100); MB/CK RELATIVE INDEX 1.65 (< OR =4); POTASSIUM SERUM 4.1 MEQ/L (3.5-5.1); SODIUM LEVEL 140 MEQ/L (136-145); TROPONIN I 0.02 NG/ML (< 0.10)
[2018-08-15 11:38] VITALS: BP 176/74
--- NOTE | 2018-08-15 19:16 | ECGEPIP ---
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
== END 2018-08-15 11:42 | disposition home or self-care (01) ==
LOC: M ED 09:47
DX: S06.9X1A Unspecified intracranial injury with loss of consciousness of 30 minutes or less, initial encounter (principal); S70.02XA Contusion of left hip, initial encounter; I20.8 Other forms of angina pectoris; X58.XXXA Exposure to other specified factors, initial encounter; Y92.520 Airport as the place of occurrence of the external cause; Y93.02 Activity, running; Z86.73 Personal history of transient ischemic attack (TIA), and cerebral infarction without residual deficits; Z88.8 Allergy status to other drugs, medicaments and biological substances; Z88.5 Allergy status to narcotic agent; Z88.0 Allergy status to penicillin; Z79.899 Other long term (current) drug therapy

== ENCOUNTER 2018-08-29 09:01 | Emergency (ER) | payer MEDICARE, MEDICAID ==
[~2018-08-29] VITALS: Ht 152.4 cm; Wt 40.9 kg
[~2018-08-29 09:01] MED LIST changes: +PROL60SO SC
[2018-08-29 10:24] LABS: BASO % 0.4 % (0.0-1.0); EOS % 0.1 % (0.0-3.0); HEMATOCRIT 35.7 % (36.0-47.0); HEMOGLOBIN 11.7 g/dl (12.0-15.5); LYMPH # 1.4 10^3/uL (1.5-4.5); LYMPH % 16.8 % (24.0-44.0); MEAN CORPUSCULAR HEMOGLOBIN 31.8 pg (27.0-33.0); MEAN CORPUSCULAR HGB CONC 32.8 g/dl (32.0-36.5); MONO # 0.8 10^3/uL (0.0-0.8); MONO % 9.6 % (0.0-5.0); NEUTROPHILS # 5.8 10^3/uL (1.8-7.7); NEUTROPHILS % 72.7 % (36.0-66.0); PLATELET COUNT, AUTOMATED 279 10^3/uL (150-450); RED BLOOD COUNT 3.68 10^6/uL (4.00-5.40)
[2018-08-29 10:50] LABS: BLOOD UREA NITROGEN 14 MG/DL (7-18); CALCIUM LEVEL 8.8 MG/DL (8.8-10.2); CARBON DIOXIDE LEVEL 28 MEQ/L (21-32); CHLORIDE LEVEL 104 MEQ/L (98-107); CREATININE FOR GFR 0.75 MG/DL (0.55-1.30); GLOMERULAR FILTRATION RATE > 60.0 (>32); GLUCOSE, FASTING 98 MG/DL (70-100); POTASSIUM SERUM 4.8 MEQ/L (3.5-5.1); SODIUM LEVEL 137 MEQ/L (136-145)
[2018-08-29] MEDS ORDERED: ISOVUE-370 76% 125ML VIAL (Q9967 PER ML) As Ordered ONE (10:54)
[2018-08-29] MEDS ORDERED: ACETAMINOPHEN 325 MG TAB PO ONE (11:15)
[2018-08-29] MEDS ORDERED: LIDOCAINE 5% (LIDODERM) PATCH TD ONE (11:15)
--- NOTE | 2018-08-29 12:04 | REP ---
CT Head without contrast HISTORY: Rule out bleed COMPARISON: 08/15/2018 Areas of decreased attenuation are present in the periventricular white matter. This represents small-vessel ischemic disease. There is no intraparenchymal hemorrhage, acute infarct, mass or midline shift. The ventricular system and cortical sulci are dilated consistent with mild volume loss. There is no extra cerebral collection. There is no fracture. The visualized sinuses are clear. IMPRESSION: 1. Small vessel ischemic disease. 2. Mild volume loss. Electronically Signed by Mike Guzman MD 08/29/2018 11:55 A
--- NOTE | 2018-08-29 12:19 | REP ---
CT ANGIO HEAD: HISTORY: Rule out dissection. CONTRAST: Isovue-370, 90 mL There is no aneurysm or arteriovenous malformation. Calcified atherosclerotic plaques are present in the cavernous internal carotid arteries. There is no significant stenosis. Major intracranial vessels are patent. The left vertebral body is dominant. IMPRESSION: 1. There is no aneurysm or arteriovenous malformation. 2. Atherosclerotic disease as described above. Electronically Signed by Mike Guzman MD 08/29/2018 12:21 P
--- NOTE | 2018-08-29 13:20 | REP ---
CT ANGIO HEAD: HISTORY: Rule out dissection. CONTRAST: Isovue-370, 90 mL Small calcified atherosclerotic plaques are present at the origins of the right external and internal carotid arteries. There is no significant stenosis. A calcified atherosclerotic plaque is present at the origin of the left internal carotid artery. There is mild stenosis of 30% of the left internal carotid artery at its origin. The origin of the left external carotid artery is normal. Small calcified atherosclerotic plaques are present at the origins of the subclavian arteries and in the proximal left subclavian artery. There is no significant stenosis. The origins of the remaining great vessels are normal. The vertebral arteries are patent. The left vertebral artery is dominant. There is no definite dissection IMPRESSION: Mild stenosis of 30% of the left internal carotid artery at its origin. There is no definite dissection, however, a small vertebral artery dissection cannot be excluded. Electronically Signed by Mike Guzman MD 08/29/2018 01:28 P
[2018-08-29 13:51] VITALS: BP 136/69
--- NOTE | 2018-08-30 18:36 | ECGEPIP ---
Stationary ECG Study [facility] - ED Test Date: 2018-08-29 Pat Name: TODD ADKINS Department: Room: - Gender: F Program Scheduler: ct : 1935 Requested By: Chuyita Ley PA-C Order Number: [id number] Reading MD: Xenia Ponce Measurements Intervals [place] Rate: 69 P: 60 ME: 160 QRS: 56 QRSD: 86 T: 62 QT: 357 QTc: 383 Interpretive Statements SINUS RHYTHM NSTTW ABNORMALITY BASELINE ARTIFACT LIMITS INTERPRETATION SIMILAR 08/15/18 Electronically Signed On 08-30-2018 18:36:09 EDT by Xenia Ponce
--- NOTE | 2018-08-31 13:41 | ED PDOC ---
Post-Departure Follow-Up dr harvey faxed formal report of cta head and neck for fu Janey Cortez MD Aug 31, 2018 13:41
== END 2018-08-29 14:07 | disposition home or self-care (01) ==
LOC: M ED 09:01
DX: D53.9 Nutritional anemia, unspecified (principal); R27.0 Ataxia, unspecified; F07.81 Postconcussional syndrome; I67.81 Acute cerebrovascular insufficiency; G31.9 Degenerative disease of nervous system, unspecified; I65.23 Occlusion and stenosis of bilateral carotid arteries; I10 Essential (primary) hypertension; E03.9 Hypothyroidism, unspecified; K21.9 Gastro-esophageal reflux disease without esophagitis; M54.9 Dorsalgia, unspecified; G89.29 Other chronic pain; M41.9 Scoliosis, unspecified; Z79.899 Other long term (current) drug therapy; Z79.890 Hormone replacement therapy; Z88.8 Allergy status to other drugs, medicaments and biological substances; Z88.5 Allergy status to narcotic agent; Z88.0 Allergy status to penicillin; Z86.73 Personal history of transient ischemic attack (TIA), and cerebral infarction without residual deficits; Z98.890 Other specified postprocedural states
CPT/HCPCS: 70450; 70496; 70498; 80048; 85025; 93005; 99284; Q9967

== ENCOUNTER 2019-01-06 07:16 | Day surgery (SDC) | payer MEDICARE, MEDICAID ==
[~2019-01-06] VITALS: Ht 157.5 cm; Wt 42.1 kg
[~2019-01-06 07:16] MED LIST changes: +FLEEENE12 PR; +LIDOCAINE 2% INJ 100 MG/5 ML SDV (FOR ANES.) As Ordered ONE; +NORC1TAB8 PO; -NORC7.5T35 PO; +NS 1,000 ML IV ONE; +PROPOFOL 200 MG/20 ML VIAL As Ordered ONE; +ZANT150T40 PO
--- NOTE | 2019-01-06 08:57 | ROOR ---
Patient Name: Suma Forrest Procedure Date: 01/06/2019 8:38 AM Date of : 1935 Age: 83 Room: [facility] Gender: Female Note Status: Finalized Procedure: Upper Endoscopy + Biopsies Indications: Dysphagia Providers: Darrel Stanley MD Referring MD: Harrison Beltran Requesting Provider: Medicines: Monitored Anesthesia Care Complications: No immediate complications. Procedure: Pre-Anesthesia Assessment: - The heart rate, respiratory rate, oxygen saturations, blood pressure, adequacy of pulmonary ventilation, and response to care were monitored throughout the procedure. The Endoscope was introduced through the mouth, and advanced to the second part of duodenum. The upper GI endoscopy was accomplished without difficulty. The patient tolerated the procedure well. Findings: Diffuse, white plaques were found in the entire esophagus. Biopsies were taken with a cold forceps for histology. A large hiatal hernia was present. No other significant abnormalities were identified in a careful examination of the stomach. The exam of the duodenum was otherwise normal. Impression: - Esophageal plaques were found, suspicious for candidiasis. Biopsied. - Large hiatal hernia. - The examination was otherwise normal. Recommendation: - Await pathology results. - Discharge patient to home. - Follow an antireflux regimen. - Diflucan (fluconazole) 100 mg PO daily for 10 days. - Return to referring physician. - The findings and recommendations were discussed with the patient's family. Darrel Stanley MD Darrel Stanley MD 01/06/2019 8:57:01 AM Electronically signed by Darrel Stanley MD Number of Addenda: 0 Note Initiated On: 01/06/2019 8:38 AM Estimated Blood Loss: Estimated blood loss: none.
[2019-01-06 09:20] VITALS: BP 119/60
== END 2019-01-06 09:25 | disposition home or self-care (01) ==
LOC: M OPP 07:16
PROVIDERS: ATTEND Internal Medicine Gastroenterology
DX: K22.9 Disease of esophagus, unspecified (principal); K44.9 Diaphragmatic hernia without obstruction or gangrene; R13.10 Dysphagia, unspecified; Z79.899 Other long term (current) drug therapy; Z88.0 Allergy status to penicillin; Z88.5 Allergy status to narcotic agent; Z88.6 Allergy status to analgesic agent; Z88.8 Allergy status to other drugs, medicaments and biological substances

== ENCOUNTER → 2019-01-18 | Outpatient (CLI) | payer MEDICARE, MEDICAID ==
[~2019-01-18] MED LIST changes: -LIDOCAINE 2% INJ 100 MG/5 ML SDV (FOR ANES.) As Ordered ONE; -NS 1,000 ML IV ONE; -PROPOFOL 200 MG/20 ML VIAL As Ordered ONE
[2019-01-18 13:41] LABS: IONIZED CALCIUM 4.5 MG/DL (4.5-5.3)
[2019-01-18 14:37] LABS: CALCIUM LEVEL 9.1 MG/DL (8.8-10.2)
== END ==
LOC: M LAB 13:19
PROVIDERS: ATTEND Internal Medicine Endocrinology, Diabetes & Metabolism
DX: M81.0 Age-related osteoporosis without current pathological fracture (principal)

== ENCOUNTER 2019-05-02 13:15 | Emergency (ER) | payer MEDICARE, MEDICAID ==
[~2019-05-02] VITALS: Ht 152.4 cm; Wt 42.3 kg
[2019-05-02] MEDS ORDERED: NS 1,000 ML IV ONE (14:30)
[2019-05-02] MEDS ORDERED: ONDANSETRON 4MG/2ML VIAL (J2405) IV ONE (14:30)
[2019-05-02 15:16] LABS: BASO % 0.3 % (0.0-1.0); EOS % 0.2 % (0.0-3.0); HEMATOCRIT 30.9 % (36.0-47.0); HEMOGLOBIN 10.1 g/dl (12.0-15.5); LYMPH # 1.3 10^3/uL (1.5-5.0); LYMPH % 20.4 % (24.0-44.0); MEAN CORPUSCULAR HEMOGLOBIN 32.1 pg (27.0-33.0); MEAN CORPUSCULAR HGB CONC 32.7 g/dl (32.0-36.5); MEAN CORPUSCULAR VOLUME 98.1 fl (80.0-96.0); MONO # 0.6 10^3/uL (0.0-0.8); MONO % 9.8 % (0.0-5.0); NEUTROPHILS # 4.4 10^3/uL (1.5-8.5); PLATELET COUNT, AUTOMATED 236 10^3/uL (150-450); RED BLOOD COUNT 3.15 10^6/uL (4.00-5.40); WHITE BLOOD COUNT 6.4 10^3/uL (4.0-10.0)
[2019-05-02] MEDS ORDERED: NORC1TAB8 (15:30)
[2019-05-02] MEDS ORDERED: ISOVUE-370 76% 100ML VIAL (Q9967) As Ordered ONE (15:40)
[2019-05-02 17:08] VITALS: BP 167/75
[2019-05-02] MEDS ORDERED: ONDA4TAB6 PO (17:25)
--- NOTE | 2019-05-03 07:05 | REP ---
CT abdomen and pelvis with IV but without oral contrast: History: Nausea times 4 days. History of constipation. Comparison abdomen film February 05, 2018. Comparison CT study August 18, 2017. CT contrast dose: 100 ml of intravenous Isovue 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 There are surgical clips in the left mid abdomen and pelvis. On axial CT images, the lung bases are essentially clear. There is a hiatal hernia. Heart is mildly enlarged. No focal liver or spleen lesion is seen. There are bilateral small renal cysts. The gallbladder is unremarkable. The common bile duct is somewhat prominent measuring 10 mm in greatest diameter. Upper abdominal anatomy is somewhat distorted by the scoliosis. No pancreatic cyst or mass is seen. The patient appears to be status post colonic resection, possibly some total colectomy. There is an anastomosis in the left upper abdomen another in the left lower abdomen with scattered clips. There are dilated air and fluid filled loops of small bowel in the right lower quadrant. There is some liquid content in the remaining distal colon. No obstructive lesion is appreciated. Gas pattern is similar to that seen previously and with less dilation. Urinary bladder is intact. The uterus is surgically absent. No bony destructive lesion is seen. No abdominal wall defect is observed. Impression: Hiatal hernia. Bilateral renal cysts. Scoliosis. Mildly dilated extrahepatic biliary tree, 10 mm CBD, unchanged from August 18, 2017 CT. Postoperative changes in the bowel loops with fluid distension of multiple small bowel loops. No obstructive lesion. Post hysterectomy. Electronically Signed by Tyler Hoffman MD 05/03/2019 08:38 A
== END 2019-05-02 17:57 | disposition home or self-care (01) ==
LOC: M ED 13:15
DX: K59.01 Slow transit constipation (principal); R11.0 Nausea; K44.9 Diaphragmatic hernia without obstruction or gangrene; N28.1 Cyst of kidney, acquired; M41.9 Scoliosis, unspecified; Z79.899 Other long term (current) drug therapy; Z88.0 Allergy status to penicillin; Z88.8 Allergy status to other drugs, medicaments and biological substances; Z88.5 Allergy status to narcotic agent
CPT/HCPCS: 74177; 80047; 85025; 96361; 96374; 99284; J2405; Q9967

== ENCOUNTER → 2019-07-15 | Outpatient (CLI) | payer MEDICARE, MEDICAID ==
[~2019-07-15] MED LIST changes: +NORC1TAB8; +ONDA-83 PO; -ONDA4TAB5 PO
[2019-07-15 06:46] LABS: BASO % 0.7 % (0.0-1.0); EOS % 0.3 % (0.0-3.0); HEMATOCRIT 32.6 % (36.0-47.0); HEMOGLOBIN 10.5 g/dl (12.0-15.5); LYMPH # 1.1 10^3/uL (1.5-5.0); LYMPH % 18.9 % (24.0-44.0); MEAN CORPUSCULAR HEMOGLOBIN 31.8 pg (27.0-33.0); MEAN CORPUSCULAR HGB CONC 32.2 g/dl (32.0-36.5); MEAN CORPUSCULAR VOLUME 98.8 fl (80.0-96.0); MONO # 0.6 10^3/uL (0.0-0.8); MONO % 9.4 % (0.0-5.0); NEUTROPHILS # 4.2 10^3/uL (1.5-8.5); NEUTROPHILS % 70.4 % (36.0-66.0); PLATELET COUNT, AUTOMATED 223 10^3/uL (150-450); WHITE BLOOD COUNT 5.9 10^3/uL (4.0-10.0)
[2019-07-15 07:23] LABS: ALBUMIN 3.8 GM/DL (3.2-5.2); ALT/SGPT 21 U/L (12-78); BILIRUBIN,TOTAL 0.3 MG/DL (0.2-1.0); BLOOD UREA NITROGEN 12 MG/DL (7-18); CALCIUM LEVEL 8.1 MG/DL (8.8-10.2); CARBON DIOXIDE LEVEL 28 MEQ/L (21-32); CHLORIDE LEVEL 104 MEQ/L (98-107); CHOLESTEROL LEVEL 163 MG/DL (<200); CHOLESTEROL RISK RATIO 2.232 (<5); CREATININE FOR GFR 0.66 MG/DL (0.55-1.30); FREE T4 0.86 NG/DL (0.76-1.46); GLOMERULAR FILTRATION RATE > 60.0 (>32); GLUCOSE, FASTING 89 MG/DL (70-100); HDL CHOLESTEROL 73 MG/DL (>40); LDL CHOLESTEROL 63 MG/DL (<100); NON-HDL-C 90 MG/DL; POTASSIUM SERUM 3.9 MEQ/L (3.5-5.1); SODIUM LEVEL 138 MEQ/L (136-145); TOTAL PROTEIN 6.5 GM/DL (6.4-8.2); TRIGLYCERIDES LEVEL 135 MG/DL (<150)
[2019-07-15 08:06] LABS: TOTAL 25(OH) VITAMIN D 49.1 NG/ML (30.0-100.0)
== END ==
LOC: M LAB 06:13
PROVIDERS: ATTEND Internal Medicine
DX: M81.0 Age-related osteoporosis without current pathological fracture (principal); I10 Essential (primary) hypertension; E03.9 Hypothyroidism, unspecified

== ENCOUNTER 2019-08-19 09:47 | Emergency (ER) | payer MEDICARE, MEDICAID ==
[~2019-08-19] VITALS: Ht 152.4 cm; Wt 47.2 kg
[2019-08-19] MEDS ORDERED: LIDOCAINE 5% (LIDODERM) PATCH TD ONE (11:00)
[2019-08-19 11:36] LABS: BASO % 0.4 % (0.0-1.0); HEMATOCRIT 35.4 % (36.0-47.0); HEMOGLOBIN 11.4 g/dl (12.0-15.5); LYMPH # 1.5 10^3/uL (1.5-5.0); LYMPH % 18.3 % (24.0-44.0); MEAN CORPUSCULAR HGB CONC 32.2 g/dl (32.0-36.5); MEAN CORPUSCULAR VOLUME 99.4 fl (80.0-96.0); MONO # 0.8 10^3/uL (0.0-0.8); MONO % 9.2 % (0.0-5.0); NEUTROPHILS % 71.7 % (36.0-66.0); PLATELET COUNT, AUTOMATED 237 10^3/uL (150-450); RED BLOOD COUNT 3.56 10^6/uL (4.00-5.40); WHITE BLOOD COUNT 8.4 10^3/uL (4.0-10.0)
--- NOTE | 2019-08-19 11:42 | REP ---
CT abdomen and pelvis without IV or oral contrast: History: Left flank pain. A skin nodule left suprapelvic. Comparison CT study May 02, 2019. CT findings: Preliminary digital network management specialist radiograph demonstrates a marked levoconvex thoracolumbar scoliosis. There is diffuse osteopenia. Multiple surgical clips are noted in the pelvis. Mild gaseous distension of the right colon is seen. On axial CT images there is a ncpsxcbe-sy-haynf hiatal hernia. The lung bases are clear with some linear fibrosis in the left base. No pleural effusion is seen. No abnormalities noted in the gallbladder the common bile duct remains somewhat prominent measuring 10 mm in diameter unchanged from May 02, 2019 prior study. No focal liver lesion is seen. The spleen is unremarkable. There is no visible adrenal lesion. No pancreatic abnormality is observed. There are postoperative bowel sutures. There is moderate gas and fluid content throughout the colon. The rectum is distended with gas and stool. No obstructive lesion is appreciated. No small bowel dilation is appreciated. There is no evidence of abdominal wall defect. No skin or subcutaneous nodule is visible in the left lower quadrant. The anterior abdominal wall bulges asymmetrically in the left lower quadrant from underlying distended colon loops. This is similar to the prior study. No hernia is seen. Uterus is surgically absent. Urinary bladder is unremarkable. There is no evidence of hydronephrosis. Impression: Significant scoliosis. Stool and gas distended colon loops without obvious obstructive lesion. Postoperative changes. Mildly dilated common bile duct, 10 mm. This is unchanged from May 02, 2019. No abdominal wall defect seen. Electronically Signed by Tyler Hoffman MD 08/19/2019 08:03 P
[2019-08-19 11:58] LABS: BLOOD UREA NITROGEN 11 MG/DL (7-18); CALCIUM LEVEL 8.8 MG/DL (8.8-10.2); CARBON DIOXIDE LEVEL 33 MEQ/L (21-32); CHLORIDE LEVEL 102 MEQ/L (98-107); CREATININE FOR GFR 0.69 MG/DL (0.55-1.30); GLOMERULAR FILTRATION RATE > 60.0 (>32); GLUCOSE, FASTING 105 MG/DL (70-100); POTASSIUM SERUM 4.3 MEQ/L (3.5-5.1); SODIUM LEVEL 137 MEQ/L (136-145)
[2019-08-19 13:09] VITALS: BP 129/87
[2019-08-19] MEDS ORDERED: **NOTE PATIENT COMMENT** MISC XX SCH (21:00)
--- NOTE | 2019-08-20 14:42 | ED PDOC ---
Post-Departure Follow-Up maximus diaz faxed formal report of ct abd/p for fu Janey Cortez MD Aug 20, 2019 14:42
== END 2019-08-19 13:11 | disposition home or self-care (01) ==
LOC: M ED 09:47
DX: M54.5 Low back pain (principal); M51.9 Unspecified thoracic, thoracolumbar and lumbosacral intervertebral disc disorder; M41.9 Scoliosis, unspecified; Z79.899 Other long term (current) drug therapy; Z88.0 Allergy status to penicillin; Z88.8 Allergy status to other drugs, medicaments and biological substances; Z88.1 Allergy status to other antibiotic agents; Z88.5 Allergy status to narcotic agent

== ENCOUNTER → 2019-10-02 | Outpatient (CLI) | payer MEDICARE, MEDICAID ==
[2019-10-02 11:37] LABS: IONIZED CALCIUM 4.6 MG/DL (4.5-5.3)
[2019-10-02 11:56] LABS: CALCIUM LEVEL 8.9 MG/DL (8.8-10.2)
[2019-10-07 15:53] LABS: FREE T4 1.8 NG/DL (0.76-1.46); THYROID STIMULATING HORMONE 0.045 uIU/ML (0.358-3.740)
== END ==
LOC: M LAB 10:59
PROVIDERS: ATTEND Internal Medicine Endocrinology, Diabetes & Metabolism
DX: M81.0 Age-related osteoporosis without current pathological fracture (principal); E03.9 Hypothyroidism, unspecified

== ENCOUNTER → 2019-11-23 | Outpatient (CLI) | payer MEDICARE, MEDICAID ==
[2019-11-23 11:26] LABS: FREE T4 1.38 NG/DL (0.76-1.46); THYROID STIMULATING HORMONE 0.278 uIU/ML (0.358-3.740)
== END ==
LOC: M LAB 09:27
PROVIDERS: ATTEND Internal Medicine Endocrinology, Diabetes & Metabolism
DX: E03.9 Hypothyroidism, unspecified (principal)

== ENCOUNTER → 2020-01-25 | Outpatient (CLI) | payer MEDICARE, MEDICAID ==
[~2020-01-25] MED LIST changes: +D31000TA2 PO
[2020-03-09 13:26] LABS: CALCIUM LEVEL 8.7 MG/DL (8.8-10.2); TOTAL 25(OH) VITAMIN D 56.9 NG/ML (30.0-100.0)
== END ==
LOC: M LAB 13:25
PROVIDERS: ATTEND Internal Medicine Endocrinology, Diabetes & Metabolism
DX: E55.9 Vitamin D deficiency, unspecified (principal); M81.0 Age-related osteoporosis without current pathological fracture

== ENCOUNTER → 2020-02-14 | Outpatient (CLI) | payer MEDICARE, MEDICAID ==
[2020-02-14 18:02] LABS: BASO % 0.2 % (0.0-1.0); HEMATOCRIT 32.8 % (36.0-47.0); HEMOGLOBIN 10.7 g/dl (12.0-15.5); LYMPH # 0.9 10^3/uL (1.5-5.0); LYMPH % 9.5 % (24.0-44.0); MEAN CORPUSCULAR HEMOGLOBIN 31.8 pg (27.0-33.0); MEAN CORPUSCULAR HGB CONC 32.6 g/dl (32.0-36.5); MEAN CORPUSCULAR VOLUME 97.6 fl (80.0-96.0); MONO % 10.5 % (0.0-5.0); NEUTROPHILS # 7.5 10^3/uL (1.5-8.5); NEUTROPHILS % 79.5 % (36.0-66.0); PLATELET COUNT, AUTOMATED 259 10^3/uL (150-450); RED BLOOD COUNT 3.36 10^6/uL (4.00-5.40); WHITE BLOOD COUNT 9.4 10^3/uL (4.0-10.0)
[2020-02-14 18:29] LABS: ALBUMIN 3.6 GM/DL (3.2-5.2); ALT/SGPT 24 U/L (12-78); BILIRUBIN,TOTAL 0.5 MG/DL (0.2-1.0); BLOOD UREA NITROGEN 17 MG/DL (7-18); CALCIUM LEVEL 8.5 MG/DL (8.8-10.2); CARBON DIOXIDE LEVEL 23 MEQ/L (21-32); CHLORIDE LEVEL 97 MEQ/L (98-107); CREATININE FOR GFR 0.68 MG/DL (0.55-1.30); GLOMERULAR FILTRATION RATE > 60.0 (>32); GLUCOSE, FASTING 93 MG/DL (70-100); LIPASE 77 U/L (73-393); POTASSIUM SERUM 4.2 MEQ/L (3.5-5.1); SODIUM LEVEL 128 MEQ/L (136-145); TOTAL PROTEIN 6.7 GM/DL (6.4-8.2)
== END ==
LOC: M WUC 14:58
PROVIDERS: ATTEND Physician Assistant
DX: R10.84 Generalized abdominal pain (principal); R19.7 Diarrhea, unspecified

== ENCOUNTER → 2020-03-10 | Outpatient (CLI) | payer MEDICARE, MEDICAID ==
[2020-03-10 12:45] LABS: BASO % 0.3 % (0.0-1.0); HEMATOCRIT 32.7 % (36.0-47.0); HEMOGLOBIN 10.7 g/dl (12.0-15.5); LYMPH # 1.1 10^3/uL (1.5-5.0); LYMPH % 15.8 % (24.0-44.0); MEAN CORPUSCULAR HEMOGLOBIN 32.2 pg (27.0-33.0); MEAN CORPUSCULAR HGB CONC 32.7 g/dl (32.0-36.5); MEAN CORPUSCULAR VOLUME 98.5 fl (80.0-96.0); MONO # 0.7 10^3/uL (0.0-0.8); MONO % 9.5 % (0.0-5.0); NEUTROPHILS # 5.3 10^3/uL (1.5-8.5); PLATELET COUNT, AUTOMATED 275 10^3/uL (150-450); RED BLOOD COUNT 3.32 10^6/uL (4.00-5.40); WHITE BLOOD COUNT 7.2 10^3/uL (4.0-10.0)
[2020-03-10 13:06] LABS: ALBUMIN 3.6 GM/DL (3.2-5.2); ALT/SGPT 20 U/L (12-78); BILIRUBIN,TOTAL 0.2 MG/DL (0.2-1.0); BLOOD UREA NITROGEN 16 MG/DL (7-18); CALCIUM LEVEL 8.5 MG/DL (8.8-10.2); CARBON DIOXIDE LEVEL 28 MEQ/L (21-32); CHLORIDE LEVEL 106 MEQ/L (98-107); CREATININE FOR GFR 0.57 MG/DL (0.55-1.30); GLOMERULAR FILTRATION RATE > 60.0 (>32); GLUCOSE, FASTING 93 MG/DL (70-100); LIPASE 77 U/L (73-393); POTASSIUM SERUM 4.1 MEQ/L (3.5-5.1); SODIUM LEVEL 140 MEQ/L (136-145); TOTAL PROTEIN 6.3 GM/DL (6.4-8.2)
== END ==
LOC: M LAB 12:03
PROVIDERS: ATTEND Internal Medicine Gastroenterology
DX: R19.7 Diarrhea, unspecified (principal); R10.9 Unspecified abdominal pain

== ENCOUNTER → 2020-03-16 | Outpatient (CLI) | payer MEDICARE, MEDICAID ==
[~2020-03-16] MED LIST changes: +GASTROGRAFIN SOLUTION 30ML (Q9963) As Ordered ONE; +ISOVUE-370 76% 100ML VIAL As Ordered ONE
--- NOTE | 2020-03-22 13:15 | REP ---
CT ABDOMEN AND PELVIS WITH INTRAVENOUS (IV) AND ORAL CONTRAST HISTORY: Diarrhea. COMPARISON: CT study 08/19/2019 and 05/02/2019. CT CONTRAST DOSE: 100 mL of intravenous Isovue-370. CT FINDINGS: Preliminary digital crm architect radiograph demonstrates surgical clips in the left pelvis and left mid abdomen. There is a levoconvex thoracolumbar scoliotic curve again noted. There is mild gaseous distention of the transverse colon in the mid abdomen. The patient is status post multiple colonic resections. There is minimal linear fibrosis in the left lung base. The lung bases are otherwise clear. Mildly prominent cardiac chambers. There is a sliding type hiatal hernia again noted. No adrenal mass lesion is seen. There are bilateral small renal cortical cysts. No hydronephrosis or renal mass is observed. The aorta is normal in caliber and quite tortuous in coarse. Gallbladder shows no abnormality. Common bile duct is dilated measuring up to 12 to 13 mm in greatest diameter. This is not a new finding, although it appears slightly more prominent. There is mild intrahepatic ductal dilation. No gallstone is visible. No mass or cyst is appreciated within the pancreas. The main pancreatic duct is slightly prominent 3 to 4 mm in size, unchanged. The spleen is normal in size and homogeneous in texture. There are dilated fluid-filled oral contrast labeled small bowel loops in the central abdomen. No obstructive lesion is seen. There are anastomotic suture lines visible in the pelvis. Uterus is surgically absent. No abdominal wall defect is appreciated. IMPRESSION: Diffusely dilated small and large bowel loops without obstructive lesion seen. Bilateral renal cysts. Prominent common bile duct, somewhat increased from prior study. Mildly prominent intrahepatic bile ducts. Scoliosis is again seen. No mass, ascites, or abscess. No obstructive lesion seen. MTDD
== END ==
LOC: M RAD 11:22
PROVIDERS: ATTEND Internal Medicine Gastroenterology
DX: R19.7 Diarrhea, unspecified (principal); R10.9 Unspecified abdominal pain
CPT/HCPCS: 74177; Q9963; Q9967

== ENCOUNTER → 2020-03-29 | Outpatient (CLI) | payer MEDICARE, MEDICAID ==
[~2020-03-29] MED LIST changes: -GASTROGRAFIN SOLUTION 30ML (Q9963) As Ordered ONE; -ISOVUE-370 76% 100ML VIAL As Ordered ONE
== END ==
LOC: M LABSMTC 11:30
PROVIDERS: ATTEND Anesthesiology
DX: Z01.812 Encounter for preprocedural laboratory examination (principal); Z20.828 Contact with and (suspected) exposure to other viral communicable diseases
CPT/HCPCS: C9803; U0003

== ENCOUNTER 2020-04-03 09:30 | Day surgery (SDC) | payer MEDICARE, MEDICAID ==
[~2020-04-03] VITALS: Ht 170.2 cm; Wt 40.4 kg
[~2020-04-03 09:30] MED LIST changes: +LIDOCAINE 2% 100MG/5ML SDV (FOR ANES.) As Ordered ONE; +NS 1,000 ML IV ONE; +propofoL 200 MG/20 ML VIAL As Ordered ONE
--- NOTE | 2020-04-03 11:02 | ROOR ---
Patient Name: Suma Forrest Procedure Date: 04/03/2020 10:47 AM Date of : 1935 Age: 85 Room: [facility] Gender: Female Note Status: Finalized Procedure: Upper Endoscopy + Biopsies Indications: Abdominal pain in the right upper quadrant, Abdominal pain in the right lower quadrant, Iron deficiency anemia Providers: Darrel Stanley MD Referring MD: 1. No Referring Physician 1. No Referring Physician, Admin. Requesting Provider: Medicines: Monitored Anesthesia Care Complications: No immediate complications. Procedure: Pre-Anesthesia Assessment: - The heart rate, respiratory rate, oxygen saturations, blood pressure, adequacy of pulmonary ventilation, and response to care were monitored throughout the procedure. The Colonoscope was introduced through the anus and advanced to the second part of duodenum. The Endoscope was introduced through the and advanced to the. The upper GI endoscopy was accomplished without difficulty. The patient tolerated the procedure well. Findings: The Z-line was regular and was found 35 cm from the incisors. A large hiatal hernia was present. No other significant abnormalities were identified in a careful examination of the stomach. Biopsies were taken with a cold forceps in the gastric antrum for Helicobacter pylori testing. The exam of the duodenum was otherwise normal. Biopsies for histology were taken with a cold forceps in the first portion of the duodenum for evaluation of celiac disease. The exam was otherwise without abnormality. Impression: - Z-line regular, 35 cm from the incisors. - Large hiatal hernia. - The examination was otherwise normal. - Biopsies were taken with a cold forceps for Helicobacter pylori testing. - Biopsies were taken with a cold forceps for evaluation of celiac disease. - The examination was otherwise normal. Recommendation: - Patient has a contact number available for emergencies. The signs and symptoms of potential delayed complications were discussed with the patient. Return to normal activities tomorrow. Written discharge instructions were provided to the patient. - High fiber diet. - Discharge patient to home. - Follow an antireflux regimen. - Continue present medications. - Await pathology results. - Telephone GI clinic for pathology results in 1 week. - Return to referring physician. - The findings and recommendations were discussed with the patient. Darrel Stanley MD Darrel Stanley MD 04/03/2020 11:02:10 AM Electronically signed by Darrel Stanley MD Number of Addenda: 0 Note Initiated On: 04/03/2020 10:47 AM Estimated Blood Loss: Estimated blood loss: none.
--- NOTE | 2020-04-03 11:17 | ROOR ---
Patient Name: Suma Forrest Procedure Date: 04/03/2020 10:42 AM Date of : 1935 Age: 85 Room: OP03 Gender: Female Note Status: Finalized Procedure: Total Colonoscopy to Cecum + Bx. To r/o Microscopic Colitis Indications: Abdominal pain in the right lower quadrant, Abdominal pain in the right upper quadrant, Iron deficiency anemia Providers: Darrel Stanley MD Referring MD: 1. No Referring Physician 1. No Referring Physician, Admin. Requesting Provider: Medicines: Monitored Anesthesia Care Complications: No immediate complications. Procedure: Pre-Anesthesia Assessment: - The heart rate, respiratory rate, oxygen saturations, blood pressure, adequacy of pulmonary ventilation, and response to care were monitored throughout the procedure. The Colonoscope was introduced through the anus and advanced to the cecum, identified by appendiceal orifice and ileocecal valve. The colonoscopy was performed without difficulty. The patient tolerated the procedure well. The quality of the bowel preparation was excellent. Findings: The perianal and digital rectal examinations were normal. Non-bleeding internal hemorrhoids were found during retroflexion. The hemorrhoids were small and Grade I (internal hemorrhoids that do not prolapse). Scattered small-mouthed diverticula were found in the recto-sigmoid colon, sigmoid colon and descending colon. Biopsies for histology were taken with a cold forceps from the ascending colon, transverse colon and rectosigmoid colon for evaluation of microscopic colitis. The exam was otherwise without abnormality. Impression: - Non-bleeding internal hemorrhoids. - Diverticulosis in the recto-sigmoid colon, in the sigmoid colon and in the descending colon. - The examination was otherwise normal. - Biopsies were taken with a cold forceps from the ascending colon, transverse colon and rectosigmoid colon for evaluation of microscopic colitis. - The exam was otherwise normal to the cecum. Recommendation: - Patient has a contact number available for emergencies. The signs and symptoms of potential delayed complications were discussed with the patient. Return to normal activities tomorrow. Written discharge instructions were provided to the patient. - High fiber diet. - Discharge patient to home. - Continue present medications. - Await pathology results. - Telephone GI clinic for pathology results in 1 week. - Repeat colonoscopy is not recommended due to current age (66 years or older) for screening purposes. - Return to referring physician. - The findings and recommendations were discussed with the patient. Darrel Stanley MD Darrel Stanley MD 04/03/2020 11:17:11 AM Electronically signed by Darrel Stanley MD Number of Addenda: 0 Note Initiated On: 04/03/2020 10:42 AM Estimated Blood Loss: Estimated blood loss: none.
[2020-04-03 11:45] VITALS: BP 105/56
== END 2020-04-03 11:49 | disposition home or self-care (01) ==
LOC: M OPP 09:30
PROVIDERS: ATTEND Internal Medicine Gastroenterology
DX: D50.9 Iron deficiency anemia, unspecified (principal); R10.84 Generalized abdominal pain; K64.0 First degree hemorrhoids; K57.30 Diverticulosis of large intestine without perforation or abscess without bleeding; K44.9 Diaphragmatic hernia without obstruction or gangrene

== ENCOUNTER → 2020-04-21 | Outpatient (CLI) | payer MEDICARE, MEDICAID ==
[~2020-04-21] MED LIST changes: -LIDOCAINE 2% 100MG/5ML SDV (FOR ANES.) As Ordered ONE; -NS 1,000 ML IV ONE; -propofoL 200 MG/20 ML VIAL As Ordered ONE
[2020-04-21 14:57] LABS: FREE T4 1.15 NG/DL (0.76-1.46); THYROID STIMULATING HORMONE 1.36 uIU/ML (0.358-3.740)
== END ==
LOC: M LAB 13:13
PROVIDERS: ATTEND Internal Medicine Endocrinology, Diabetes & Metabolism
DX: E03.9 Hypothyroidism, unspecified (principal)

== ENCOUNTER 2020-07-05 08:52 | Emergency (ER) | payer MEDICARE, MEDICAID ==
[~2020-07-05] VITALS: Ht 152.4 cm; Wt 42.3 kg
--- OUTSIDE RECORDS SUMMARY | 2020-07-05 08:59 | CCD | Continuity of Care Document ---
Author Author Suma COUCH CARD CLOTHIER Organization Unknown Address [address] [place] [address] Phone [phone] Care Team Providers Care Seasonal Delivery Driver Name Role Phone BeauLavon AUTM [phone] Darrel Stanley MD AUTM [phone] Problems Description No Information Available Social History Type Date Description Comments Sex Unknown ETOH Use Occasionally consumes alcohol Tobacco Use Start: Unknown The patient has never vaped Tobacco Use Start: Unknown Patient has never smoked Smoking Status Reviewed: 06/18/20 Patient has never smoked Allergies, Adverse Reactions, Alerts Active Allergies Reaction Severity Comments Date Reglan 02/14/2020 Keflex 02/14/2020 Morphine 02/14/2020 Compazine 02/14/2020 Penicillins 02/14/2020 Aspirin 02/14/2020 Codeine 02/14/2020 Medications Active Medications SIG Qnty Indications Ordering Provide r Date Clindamycin HCL 300mg Capsules 1 tab by mouth four times a day as directed x 7 days 28caps L03.011 Neal Madrigal JR., M.D. 06/18/2020 Mupirocin 2% Ointment apply to affected area twice a day for 7 days 44gm L03.011 Neal Kemp M.D. 06/18/2020 Levothyroxine Sodium 112mcg Tablets qd Unknown Ondansetron 4mg Tablets Dispers dissolve 1 tablet in mouth every 8 hours as needed for nausea Unknown [place] 7.5-325mg Tablets 1 tablet by mouth every 6 hours as needed for severe pain Unknown Prolia 60mg/ml Soln Prefill Syringe Q 6mo Unknown Amlodipine Besylate 2.5mg Tablets qd Unknown Vitamin D 25mcg (1000 Ut) Tablets every other week Unknown Nitroglycerin 0.4mg Tablets Sub Unknown Linzess 290mcg Capsules qd Unknown History Medications Doxycycline Monohydrate 100mg Tabl ets 1 tab by mouth twice a day for 10 days 20tabs L02.512 Col jason Madrigal JR., M.D. 05/26/2020 - 06/05/2020 Immunizations Description No Information Available Vital Signs Date Vital Result Comment 06/18/2020 10:44am BP Systolic 142 mmHg BP Diastolic 74 mmHg Heart Rate 74 /min Respiratory Rate 15 /min O2 % BldC Oximetry 98 % Body Temperature 98.7 F Weight 86.00 lb Height 60 inches 5'0" BMI (Body Mass Index) 16.8 kg/m2 Pain Level 7 05/26/2020 9:03am BP Systolic 118 mmHg BP Diastolic 62 mmHg Heart Rate 68 /min Respiratory Rate 18 /min O2 % BldC Oximetry 97 % Body Temperature 97.8 F Weight 92.00 lb Pain Level 7 Results Test Acquired Date Facility Test Result H/L Range Note CBC With Differential 02/14/2020 [place] [id number] [phone] White Blood Count 9.4 10 Normal 4.0-10.0 Red Blood Count 3.36 10 Low 4.00-5.40 Hemoglobin 10.7 g/dL Low 12.0-15.5 Hematocrit 32.8 % Low 36.0-47.0 Mean Corpuscular Volume 97.6 fl High 80.0-96.0 Mean Corpuscular Hemoglobin 31.8 pg Normal 27.0-33.0 Mean Corpuscular HGB Conc 32.6 g/dL Normal 32.0-36.5 Red Cell Distribution Width 12.5 % Normal 11.5-14.5 Platelet Count, Automated 259 10 Normal 150-450 Neutrophils % 79.5 % High 36.0-66.0 Lymph % 9.5 % Low 24.0-44.0 [place] % 10.5 % High 0.0-5.0 Eos % 0.0 % Normal 0.0-3.0 Baso % 0.2 % Normal 0.0-1.0 Immature Granulocyte % 0.3 % Normal 0-3.0 Nucleated Red Blood Cell % 0.0 % Normal 0-0 Neutrophils # 7.5 10 Normal 1.5-8.5 Lymph # 0.9 10 Low 1.5-5.0 [place] # 1.0 10 High 0.0-0.8 Eos # 0.0 10 Normal 0.0-0.5 Baso # 0.0 10 Normal 0.0-0.2 Comprehensive Metabolic Profil 02/14/[address] [address] [phone] Glucose, Fasting 93 mg/dL Normal 70-100 Blood Urea Nitrogen 17 mg/dL Normal 7-18 Creatinine For GFR 0.68 mg/dL Normal 0.55-1.30 Glomerular Filtration Rate > 60.0 Normal >32 1 Sodium Level 128 mEq/L Low 136-145 Potassium Serum 4.2 mEq/L Normal 3.5-5.1 Chloride Level 97 mEq/L Low 98-107 Carbon Dioxide Level 23 mEq/L Normal 21-32 Anion Gap 8 mEq/L Normal 8-16 Calcium Level 8.5 mg/dL Low 8.8-10.2 Ast/Sgot 23 U/L Normal 7-37 Alt/SGPT 24 U/L Normal 12-78 Alkaline Phosphatase 57 U/L Normal 45-117 Bilirubin,Total 0.5 mg/dL Normal 0.2-1.0 Total Protein 6.7 GM/DL Normal 6.4-8.2 Albumin 3.6 GM/DL Normal 3.2-5.2 Albumin/Globulin Ratio 1.2 Normal 1.2-2.2 Laboratory test finding 02/14/[address] [address] [phone] Lipase 77 U/L Normal 73-393 2 Laboratory test finding 02/14/[address] [address] [phone] Urine Culture FULL REPORT IN L <SEE NOTE> Normal 3 Gastrointestinal (GI) Panel 02/14/[address] [address] [phone] Gastrointestinal (GI) Panel This Gastrointes <SEE NOTE > 4 1 Units are mL/min/1.73 m2 Chronic Kidney Disease Staging per NKF: Stage I & II GFR >=60 Normal to Mildly Decreased Stage III GFR 30-59 Moderately Decreased Stage IV GFR 15-29 Severely Decreased Stage V GFR <15 Very Little GFR Left ESRD GFR <15 on MELT HOUSE CENTRIFUGAL OPERATOR 2 note:<nlbl:uri_chang ed> 3 FULL REPORT IN LAB NOTES (eC W and Medent). NO GROWTH CLINICAL SIGNIFICANCE 2 OR MORE ORGANISMS 4 This Gastrointestinal PCR Pa jonna detects the following bacteria, parasites and viruses: Campylobacter (jejuni, coli and upsaliensis), Clostridium difficile (toxin A/B), Plesiomonas shigelloides, Salmonella, Yersinia enterocolitica, Vibrio (parahaemolyticus, vulnificus and cholerae), Vibrio clolerae, Enteroaggregative E. coli (EAEC), Enteropathogenis E. coli (EPEC), Enterotoxigenic E. coli (ETEC) it/st, Shiga-like producing E. coli (STEC) stx1/stc2, E.coli O157, Shigella/Enteroinvasive E. coli (EIEC), Cryptosporidium, Cyclospora cayetanensis, Entamoeba histolytica, Giardia lamblia, Adenovirus F 40/41, Astrovirus, Norovirus GI/GII, Rotavirus A and Sapovirus (I, II, IV, V). NEGATIVE by MULTIPLEXED NUCLEIC ACID PCR Procedures Description No Information Available Medical Devices Description No Information Available Encounters Type Date Location Provider Dx Diagnosis Office Visit 06/18/2020 9:20a Main Office Ebonie Couch NP L03. 011 Cellulitis of right finger Office Visit 05/26/2020 8:40a Main Office GRAYSON Guaman L02 .512 Cutaneous abscess of left hand Office Visit 02/14/2020 11:50a Main Office Hossein Ochoa R1 9.7 Diarrhea, unspecified R10.84 Generalized abdominal pain Assessments Date Code Description Provider 06/18/2020 L03.011 Cellulitis of right finger Jazlyn Couch NP 05/26/2020 L02.512 Cutaneous abscess of left hand GRAYSON Villafuerte 02/14/2020 R19.7 Diarrhea, unspecified Hossein Ochoa 02/14/2020 R10.84 Generalized abdominal pain Keny VillatoroA. Plan of Treatment 06/18/2020 - Ebonie Couch NP* L03.011 Cellulitis of right finger* New Medication:* Clindamycin HCL 300 mg - 1 tab by mouth four times a day as directed x 7 days * Mupirocin 2 % - apply to affected area twice a day for 7 days * Comments:* warm soaks BIDwound care reviewed with mupirocinabx as directedf/u PRN or with PCPpatient v/u & agrees to plan Functional Status Description No Information Available Mental Status Description No Information Available Referrals Description No Information Available
--- OUTSIDE RECORDS SUMMARY | 2020-07-05 08:59 | CCD | Continuity of Care Document ---
Author Author Suma COUCH MEDICAL STAFF COORDINATOR Organization Unknown Address [address] [place] [address] Phone [phone] Care Team Providers Care Header Operator Name Role Phone BeauLavon AUTM [phone] Darrel Stanley MD AUTM [phone] Problems Description No Information Available Social History [...] 8 hours as needed for nausea Unknown [place] 7.5-325mg Tablets 1 tablet by mouth every [...] H/L Range Note CBC With Differential 02/14/2020 [place] 2008367 [phone] White Blood Count 9.4 10 Normal 4.0-10.0 [...] 36.0-66.0 Lymph % 9.5 % Low 24.0-44.0 [place] % 10.5 % High 0.0-5.0 Eos % 0.0 % Normal 0.0-3.0 Baso % 0.2 % Normal 0.0-1.0 Immature Granulocyte % 0.3 % Normal 0-3.0 Nucleated Red Blood Cell % 0.0 % Normal 0-0 Neutrophils # 7.5 10 Normal 1.5-8.5 Lymph # 0.9 10 Low 1.5-5.0 [place] # 1.0 10 High 0.0-0.8 Eos # 0.0 10 Normal 0.0-0.5 Baso # 0.0 10 Normal 0.0-0.2 Comprehensive Metabolic Profil 02/14/[address] [address] [phone] Glucose, Fasting 93 mg/dL Normal 70-100 Blood [...] 1.2 Normal 1.2-2.2 Laboratory test finding 02/14/[address] [address] [phone] Lipase 77 U/L Normal 73-393 2 Laboratory test finding 02/14/[address] [address] [phone] Urine Culture FULL REPORT IN L <SEE NOTE> Normal 3 Gastrointestinal (GI) Panel 02/14/[address] [address] [phone] Gastrointestinal (GI) Panel This Gastrointes <SEE NOTE > 4 1 Units are mL/min/1.73 m2 Chronic Kidney Disease Staging per NKF: Stage I & II GFR >=60 Normal to Mildly Decreased Stage III GFR 30-59 Moderately Decreased Stage IV GFR 15-29 Severely Decreased Stage V GFR <15 Very Little GFR Left ESRD GFR <15 on METAL BONDING CRIB ATTENDANT 2 note:<nlbl:uri_chang ed> 3 FULL REPORT IN [...]
--- OUTSIDE RECORDS SUMMARY | 2020-07-05 08:59 | CCD | Continuity of Care Document ---
Author Author Suma DUMONT Organization Unknown Address [address] [place] [address] [address] [place] [address] Phone [phone] Care Team Providers Care Shingle Weaver Name Role Phone EZIO DUMONT AUTM [phone] Social History Type Date Description Comments Sex Unknown Encounters Type Date Location Provider Dx Diagnosis Office Visit 06/01/2020 11:30a [facility] GRAYSON James Z03.818 Encntr for obs for susp exps r to oth biolg agents ruled out Assessments Date Code Description Provider 06/01/2020 Z03.818 Encounter for observ ation for suspected exposure to other biological agents ruled out GRAYSON Westbrook
--- OUTSIDE RECORDS SUMMARY | 2020-07-05 09:00 | CCD ---
Continuity of Care Document (CCD) Created on: 05/02/2020 Suma Momin External Reference #: [id number] : 1935 Sex: Female Author Author Suma VOGEL MD Organization Unknown Address [address] [place] [address], [address] [address] Phone [phone] Problems Active Problems Provider Date Senile osteoporosis Alaina Vogel MD Onset: 07/11/2011 Disorder of digestive system Alaina Vogel MD Onset: 06/17 Vitamin D deficiency Alaina Vogel MD Onset: 07/11/2011 Hypocalcemia Alaina Vogel MD Onset: 07/11/2011 Disorder of back Alaina Vogel MD Onset: 07/11/2011 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 Alaina Vogel MD Onset: 05/24/2013 Hypo-osmolality and or hyponatremia Alaina Vogel MD Onse t: 11/25/2013 Acute pancreatitis Alaina Vogel MD Onset: 11/25/2013 Age-related osteoporosis without current pathological fracture Uma Elizabeth PA-C Onset: 05/03/2015 Hematuria syndrome Alaina Vogel MD Onset: 01/12/2018 Malaise and fatigue Alaina Vogel MD Onset: 04/25/2020 Hypothyroidism Alaina Vogel MD Onset: 04/25/2020 Social History Type Date Description Comments Sex Unknown Cigarette Use denies cigarette use Tobacco Use Start: Unknown Patient has never smoked Smoking Status Reviewed: 04/25/20 Patient has never smoked Allergies, Adverse Reactions, Alerts Active Allergies Reaction Severity Comments Date Reglan 06/21/2009 compazine 06/21/2009 Morphine 06/21/2009 Penicillins 06/21/2009 Keflex 06/21/2009 Aspirin 06/21/2009 Medications Active Medications SIG Qnty Indications Ordering Provide r Date Vitamin D (Ergocalciferol) 1.25mg (53887 Ut) Capsules Take 1 Capsule By Mouth Every Other Week. 6caps Alaina Vogel MD 12/26/2019 Levothyroxine Sodium 112mcg Tablet s 1 by mouth every day 90tabs Alaina Vogel MD 10/11/2019 Prolia 60mg/ml Solution once every 6 months subcutaneous 1units Alaina Vogel MD 07/21/19 19 Ondansetron HCL 4mg Tablets p rn Unknown [place] 7.5-325mg Tablets 1-2 po q4hrs prn pain Unknown Linzess 290mg Capsules 1 by mouth every day Unknown Nitroglycerin 0.4mg Tablets Sub one under tongue every 5 minutes x 3 as needed for chest discomfort Unknown Gas Relief Ultra Strength Capsule s 1 by mouth prn Unknown Womens Laxative Tablets DR 1 by mouth prn Unknown Enema Enema daily Unknown Phazyme 180mg Capsules 1 po q d prn Unknown Amlodipine Besylate 2.5mg Tablets 1 by mouth every day Unknown Indapamide 1.25mg Tablets 1 tab by mouth every morning Unknown Pepcid 20mg Tablets 1 daily Unknown Vitamin B12 100mcg Tablets 1 po daily Alaina Vogel MD Medications Administered in Office Medication SIG Qnty Indications Ordering Provider Date Rosalinda FARRELL#[id number] (60mg Syringe) 1M G Injection Alaina Vogel MD 01/31/20 20 Rosalinda FARRELL#[id number] (60mg Syringe) 1M G Injection Alaina Vogel MD 07/29/19 20 Rosalinda FARRELL#[id number] (60mg Syringe) 1M G Injection Alaina Vogel MD 01/26/20 19 Rosalinda FARRELL#[id number] (60mg Syringe) 1M G Injection Alaina Vogel MD 07/21/19 19 Rosalinda FARRELL#[id number] (60mg Syringe) 1M G Injection Alaina Vogel MD 01/13/20 18 Rosalinda FARRELL#[id number] (60mg Syringe) 1M G Injection Alaina Vogel MD 07/10/19 18 Prolia [facility]#[id number] (60mg Syringe) 1M G Injection Alaina Vogel MD 12/14/19 17 Immunizations Description No Information Available Vital Signs Date Vital Result Comment 04/25/2020 10:18am Body Temperature 97.1 F Height 61 inches 5'1" Weight 90.00 lb BMI (Body Mass Index) 17.0 kg/m2 01/31/2020 10:16am BP Systolic 136 mmHg BP Diastolic 70 mmHg Heart Rate 70 /min Height 61 inches 5'1" Weight 91.50 lb BMI (Body Mass Index) 17.3 kg/m2 O2 % BldC Oximetry 98 % Results Test Acquired Date Facility Test Result H/L Range Note FT4&TSH Panel 04/21/2020 [facility] ntr [address] [place] [address] [phone] - Thyroid Stimulating Hormone 1.360 uIU/ML Normal 0.358- 3.740 Free T4 1.15 ng/dL Normal 0.76-1.46 Laboratory test finding 01/25/2020 [facility] [address] [place] [address] [phone] - Calcium Level 8.7 mg/dL Low 8.8-10.2 1 Total 25(Oh) Vitamin D 56.9 NG/ML Normal 30.0-100.0 2 FT4&TSH Panel 11/23/2019 [facility] ntr [address] [place] [address] (315)- - Thyroid Stimulating Hormone 0.278 uIU/ML Low 0.358- 3.740 Free T4 1.38 ng/dL Normal 0.76-1.46 1 note:<nlbl:demographic_chang ed> 2 note:<nlbl:demographic_chang ed> Procedures Date Code Description Status 01/31/2020 83671 Injec Therapeutic Or Diagnostic Subcut Or Intramuscular Completed Medical Devices Description No Information Available Encounters Type Date Location Provider Dx Diagnosis Office Visit 04/25/2020 10:45a DR. Alaina Vogel MD E 03.9 Hypothyroidism, unspecified R53.83 Other fatigue Office Visit 01/31/2020 10:30a DR. Alaina Vogel MD E 03.9 Hypothyroidism, unspecified M81.0 Age-related osteoporosis w/o current pathological fracture E55.9 Vitamin D deficiency, unspec ified Office Visit 12/06/2019 2:30p DR. Alaina Cuenca NP E0 3.9 Hypothyroidism, unspecified Assessments Date Code Description Provider 04/25/2020 E03.9 Hypothyroidism, unspecified Sandra Vogel MD 04/25/2020 R53.83 Other fatigue Alaina Vogel MD 01/31/2020 E03.9 Hypothyroidism, unspecified Sandra Vogel MD 01/31/2020 M81.0 Age-related osteoporosis without current pathological fractu Alaina Vogel MD 01/31/2020 E55.9 Vitamin D deficiency, unspecifie d Alaina Vogel MD 12/06/2019 E03.9 Hypothyroidism, unspecified Pako Cuenca NP Plan of Treatment Future Appointment(s):* 08/03/2020 10:00 am - Alaina Vogel MD at DR. Alaina Vogel 04/25/2020 - Alaina Vogel MD* E03.9 Hypothyroidism, unspecified* Comments:* Labs from PCP show elevated TSH, She " just started taking Pepcid" instead of zantac. Timing unclear. 06/2019 TSH= 33, FT4=0.86--Dose raised from 0.112 mg up to 0.125 mg09/2019 TSH= 0.045, FT4=1.80--Dose lowered to 0.112 mg dailyCurrently on Levothyroxine 112mcg po qd 11/23/2019- TSH= 0.278, FT4= 1.38 04/21/2020, TSH = 1.36, free T4 = 1.15. No change in dosing. * Follow up:* 6 months prolia * R53.83 Other fatigue* Comments:* She continues to complain of fatigue. She had esophageal stretching. Drinking and short twice a day. Encouraged to drink milk shakes and high calorie foods whenever possible. Has lost 1 pound. Also advised to take a multivitamin daily. She reports she has taken in vitamin B12. Functional Status Description No Information Available Mental Status Description No Information Available Referrals Refer to Dr Reason for Referral Status Appt Date Alaina Vogel MD PROLIA- PER TAYLOR @ [facility] NO AUTH REQUIRED. 20% COIN. REF # [id number]. LS Created [address] [facility], [address] [place] [address] [phone]
--- OUTSIDE RECORDS SUMMARY | 2020-07-05 09:00 | CCD | Continuity of Care Document ---
Author Author Suma VOGEL MD Organization Unknown Address [address] [place] [address], [address] [address] Phone [phone] Problems Active Problems Provider Date Senile osteoporosis [...] Hematuria syndrome Alaina Vogel MD Onset: 01/12/2018 Social History Type Date Description Comments Sex [...] Provide r Date Vitamin D (Ergocalciferol) 1.25mg (99274 Ut) Capsules Take 1 Capsule By Mouth Every Other Week. 6caps E55.9 Alaina Vogel MD 12/26/2019 Levothyroxine Sodium 112mcg Tablet s 1 by mouth every day 90tabs Alaina Vogel MD 10/11/2019 Prolia 60mg/ml Solution once every 6 months subcutaneous 1units Alaina Vogel MD 07/21/19 19 Ondansetron HCL 4mg Tablets p rn Unknown [place] 7.5-325mg Tablets 1-2 po q4hrs prn pain [...] SIG Qnty Indications Ordering Provider Date Rosalinda FARRELL#[id number] (60mg Syringe) 1M G Injection Alaina Vogel MD 01/31/20 20 Rosalinda FARRELL#[id number] (60mg Syringe) 1M G Injection Alaina Vogel MD 07/29/19 20 Rosalidna FARRELL#[id number] (60mg Syringe) 1M G Injection Alaina Vogel MD 01/26/20 19 Rosalinda FARRELL#[id number] (60mg Syringe) 1M G Injection Alaina Vogel MD 07/21/19 19 Rosalinda FARRELL#[id number] (60mg Syringe) 1M G Injection Alaina Vogel MD 01/13/20 18 Rosalinda FARRELL#[id number] (60mg Syringe) 1M G Injection Alaina Vogel MD 07/10/19 18 Rosalinda FARRELL#[id number] (60mg Syringe) 1M G Injection Alaina Vogel [...] Result H/L Range Note FT4&TSH Panel 04/21/2020 [email or web address] n[facility] [address] [place] [address] (315)- - Thyroid Stimulating Hormone 1.360 uIU/ML Normal 0.358- 3.740 Free T4 1.15 ng/dL Normal 0.76-1.46 Laboratory test finding 01/25/2020 [facility] [address] [place] [address] (315)- - Calcium Level 8.7 mg/dL Low 8.8-10.2 1 Total 25(Oh) Vitamin D 56.9 NG/ML Normal 30.0-100.0 2 FT4&TSH Panel 11/23/2019 [email or web address] [address] [place] [address] (315)- - Thyroid Stimulating Hormone 0.278 uIU/ML Low 0.358- 3.740 Free T4 1.38 ng/dL Normal 0.76-1.46 1 note:<nlbl:demographic_chang ed> 2 note:<nlbl:demographic_chang ed> Procedures Date Code Description Status 01/31/2020 61200 Injec Therapeutic Or Diagnostic Subcut Or Intramuscular Completed Medical Devices Description No Information Available Encounters Type Date Location Provider Dx Diagnosis Office Visit 01/31/2020 10:30a DR. Alaina Vogel MD E 03.9 Hypothyroidism, unspecified M81.0 Age-related osteoporosis w/o current pathological fracture E55.9 Vitamin D deficiency, unspec ified Office Visit 12/06/2019 2:30p DR. Alaina Cuenca NP E0 3.9 Hypothyroidism, unspecified Assessments Date Code Description Provider 04/25/2020 E03.9 Hypothyroidism, unspecified Sandra cam B. Fish, MD 04/25/2020 M81.0 Age-related osteoporosis without current pathological fractu Alaina Vogel MD 04/25/2020 E55.9 Vitamin D deficiency, unspecifie d Alaina Vogel MD 01/31/2020 E03.9 Hypothyroidism, unspecified Sandra cam Vogel MD 01/31/2020 M81.0 Age-related osteoporosis without [...] of zantac. Timing unclear. 06/2019 TSH= 33, FT4=0.86Dose was raised from 0.112 mg up to 0.125 mg09/2019 TSH= 0.045, FT4=1.80Dose lowered to 0.112 mg dailyCurrently on Levothyroxine 112mcg po qdLabs done 11/23/2019- TSH= 0.278, FT4= 1.38 * Follow up:* 6 months prolia * M81.0 Age-related osteoporosis without current pathological fractu* Comments: * Calcium- 07/15/2019: 8.1- low due to poor absorption of oral cacliumInstructed on calcium 1200 mg daily in divided doses with meals. But has difficulty since she is so constipated.Patient reports stress fracture of left hip diagnosed via Xray by Dr. Chambers ([facility] [place] 04/2016. fell 07/2018- hit front of head, no fracturesDEXA :November 2016 Remains osteoporotic with a T score in the left femoral neck = -2.8. She has had a 5% increase in total hip scores over the past 5 years.based on age no need for further DXA- she agrees.Prolia is indicated for :--women with osteoporosis at high risk for fracture (hx of fracture or multiple risk factors for fracture)FRAX tool demonstrated she is at high risk for fracture--postmenopausal women with osteoporosis who have failed/intolerant to other therapies calcium=8.6 01/25/2020 * E55.9 Vitamin D deficiency, unspecified* Comments:* Vitamin D normal at 56, 01/25/2020Stable. Current dose: Drisdol every other week. * All * Comments:* The risks and benefits of Prolia were reviewed with the patient and included but were not limited to:The risk of infection,including infections of the abdomen, urinary tract and ear. Skin problems including dermatitis, eczema and other skin infections.Low blood calcium, and osteonecrosis of the jaw.Patient reviewed the medication guide and agreed to the injection.The patient is aware to contact us with any concerns or signs of the above. Prolia (denosumab) 60 mg was injected SQ into the right upper extremityLot #, [id number] 04/06 Functional Status Description No Information Available Mental Status Description No Information Available Referrals Refer to Reason for Referral Status Appt Date Alaina Vogel MD PROLIA- JIMMY VAZQUEZ @ [facility] NO AUTH REQUIRED. 20% COIN. REF # [id number]. LS Created [facility], [address] [place] [address] [phone]
--- OUTSIDE RECORDS SUMMARY | 2020-07-05 09:00 | CCD | Continuity of Care Document ---
Author Author Suma STANLEY Organization Unknown Address [address] [place] [address] Phone [phone] Care Team Providers Care Merchandise Presentation Associate Name Role Phone Lavon Yanez M.D. AUTM [phone] Problems Active Problems Provider Date Anemia Darrel Stanley M.D. Onset: 03/21/20 20 Diarrhea Darrel Stanley M.D. Onset: 02/17/20 20 Gastroesophageal reflux disease Darrel Stanley M.D. Ons et: 12/04/2018 Social History Type Date Description Comments Sex Unknown ETOH Use Denies alcohol use Tobacco Use Start: Unknown Patient has never smoked Allergies, Adverse Reactions, Alerts Active Allergies Reaction Severity Comments Date Reglan 12/04/2018 Keflex 12/04/2018 Morphine 12/04/2018 Compazine 12/04/2018 Penicillin 12/04/2018 Codeine 12/04/2018 Aspirin 12/04/2018 Medications Active Medications SIG Qnty Indications Ordering Provide r Date Levothyroxine Sodium 112mcg Tablet s TK 1 T PO D Unknown [place] 7.5-325mg Tablets TK 2 TS PO qid prn P. MDD 8 TS Unknown Amlodipine Besylate 5mg Tablets TK 1 T PO qd Unknown Nitroglycerin 0.4mg Tablets Sub Dissolve LAURYN Q 5 Min X3 Doses Unknown Linzess 290mcg Capsules TK 1 C PO qam B Nelly Unknown Ondansetron 4mg Tablets Dispers Unknown Prolia 60mg/ml Soln Prefill Syringe Unknown Fleet Enema 7-19GM/118ML Enema Unknown Vitamin D 2000Unit Capsules Unknown History Medications Omeprazole 20mg Capsules DR 1 tab by mouth every morning 90caps Darrel Stanley M.D. 020 - 03/20/2020 Immunizations Description No Information Available Vital Signs Date Vital Result Comment 2020 4:25pm Height 60 inches 5'0" Weight 92.00 lb BP Systolic 129 mmHg BP Diastolic 77 mmHg Heart Rate 77 /min BMI (Body Mass Index) 18.0 kg/m2 Weight 41.731 kg Body Temperature 97.5 F 02/17/2020 2:08pm Height 60 inches 5'0" Weight 89.00 lb Temp 97.9 BP Systolic 123 mmHg BP Diastolic 76 mmHg Heart Rate 74 /min BMI (Body Mass Index) 17.4 kg/m2 Weight 40.370 kg Results Test Acquired Date Facility Test Result H/L Range Note Comprehensive Metabolic Profil 03/10/[address] [address] Glucose, Fasting 93 mg/dL Normal 70-100 1 Blood Urea Nitrogen 16 mg/dL Normal 7-18 Creatinine For GFR 0.57 mg/dL Normal 0.55-1.30 Glomerular Filtration Rate > 60.0 Normal >32 2 Sodium Level 140 mEq/L Normal 136-145 Potassium Serum 4.1 mEq/L Normal 3.5-5.1 Chloride Level 106 mEq/L Normal 98-107 Carbon Dioxide Level 28 mEq/L Normal 21-32 Anion Gap 6 mEq/L Low 8-16 Calcium Level 8.5 mg/dL Low 8.8-10.2 Ast/Sgot 19 U/L Normal 7-37 Alt/SGPT 20 U/L Normal 12-78 Alkaline Phosphatase 50 U/L Normal 45-117 Bilirubin,Total 0.2 mg/dL Normal 0.2-1.0 Total Protein 6.3 GM/DL Low 6.4-8.2 Albumin 3.6 GM/DL Normal 3.2-5.2 Albumin/Globulin Ratio 1.3 Normal 1.2-2.2 CBC With Differential 03/10/[address] [address] White Blood Count 7.2 10 Normal 4.0-10.0 Red Blood Count 3.32 10 Low 4.00-5.40 Hemoglobin 10.7 g/dL Low 12.0-15.5 Hematocrit 32.7 % Low 36.0-47.0 Mean Corpuscular Volume 98.5 fl High 80.0-96.0 Mean Corpuscular Hemoglobin 32.2 pg Normal 27.0-33.0 Mean Corpuscular HGB Conc 32.7 g/dL Normal 32.0-36.5 Red Cell Distribution Width 13.7 % Normal 11.5-14.5 Platelet Count, Automated 275 10 Normal 150-450 Neutrophils % 74.0 % High 36.0-66.0 Lymph % 15.8 % Low 24.0-44.0 [place] % 9.5 % High 0.0-5.0 Eos % 0.0 % Normal 0.0-3.0 Baso % 0.3 % Normal 0.0-1.0 Immature Granulocyte % 0.4 % Normal 0-3.0 Nucleated Red Blood Cell % 0.0 % Normal 0-0 Neutrophils # 5.3 10 Normal 1.5-8.5 Lymph # 1.1 10 Low 1.5-5.0 [place] # 0.7 10 Normal 0.0-0.8 Eos # 0.0 10 Normal 0.0-0.5 Baso # 0.0 10 Normal 0.0-0.2 Laboratory test finding 03/10/2020 [facility] [place] [address] [place] [address] Lipase 77 U/L Normal 73-393 3 1 mild anemia otherwise labs a re all normal. 2 Units are mL/min/1.73 m2 Chronic Kidney Disease Staging per NKF: Stage I & II GFR >=60 Normal to Mildly Decreased Stage III GFR 30-59 Moderately Decreased Stage IV GFR 15-29 Severely Decreased Stage V GFR <15 Very Little GFR Left ESRD GFR <15 on TRUCK DRIVER TEAMSTER 3 note:<nlbl:demographic_chang ed> Procedures Date Code Description Status 04/03/2020 89299 Colonoscopy Flexible W/Biopsy Co mpleted 04/03/2020 18069 Endoscopy Upper GI Biopsy Comple Domob Description No Information Available Encounters Type Date Location Provider Dx Diagnosis Office Visit 2020 3:45p Main Office Coretta Spencer 64.9 Anemia, unspecified R10.9 Unspecified abdominal pain R19.7 Diarrhea, unspecified Office Visit 02/17/2020 1:45p Main Office Darrel Stanley M.D. R 19.7 Diarrhea, unspecified Office Visit 01/18/2020 3:30p Main Office Darrel Stanley M.D. R 13.10 Dysphagia, unspecified K21.0 Gastro-esophageal reflux dis ease with esophagitis R10.9 Unspecified abdominal pain Assessments Date Code Description Provider 04/03/2020 D64.9 Anemia, unspecified Darrel phipps M.D. 04/03/2020 K63.89 Other specified diseases of inte simon Darrel Stanley M.D. 04/03/2020 K64.0 First degree hemorrhoids Darrel Stanley M.D. 04/03/2020 K57.30 Diverticulosis of la rge intestine without perforation or abscess without bleeding Darrel Stanley M.D. 04/03/2020 R10.9 Unspecified abdominal pain Angelica Stanley M.D. 04/03/2020 K31.89 Other diseases of stomach and du odenum Darrel Stanley M.D. 04/03/2020 K44.9 Diaphragmatic hernia without obs truction or gangrene Darrel Stanley M.D. 2020 D64.9 Anemia Darrel pantoja M.D. 2020 R10.9 Abdominal pain Darrel pantoja M.D. 2020 R19.7 Diarrhea Darrel pantoja M.D. 02/17/2020 R19.7 Diarrhea Darrel pantoja M.D. 01/18/2020 R13.10 Dysphagia, unspecified Darrel Stanley M.D. 01/18/2020 K21.0 Gastro-esophageal reflux disease with esophagitis Darrel Stanley M.D. 01/18/2020 R10.9 Abdominal pain Darrel pantoja M.D. Plan of Treatment 2020 - Darrel Stanley M.D.* D64.9 Anemia* Comments:* 85 yo wf who presented for a h/o chronic adominal pain, mostly in the right flank, ruq area. She had surgery, by Hilario in 2003. 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 She has severe pain if she is not able to have a good bowel movement. She is also on chronic narcotic meds. No weight loss, or nausea, or vomiting.Pt has had labs which are normal except, for anemia. She continues to show symptoms of abdominal pain. She also has irregular bowel habits. Plan:1. Colonoscopy + egd2. Informed consent.3. Need abdominal ct scan results. * R10.9 Abdominal pain* Comments:* As above. * R19.7 Diarrhea* Comments:* As above. Functional Status Description No Information Available Mental Status Description No Information Available Referrals Description No Information Available
--- OUTSIDE RECORDS SUMMARY | 2020-07-05 09:00 | CCD ---
Continuity of Care Document (CCD) Created on: 05/26/2020 Suma Momin External Reference #: [id number] : [id number] Sex: Female Author Author Suma ORELLANA PA Organization Unknown Address [address] [place] [address] Phone [phone] Care Team Providers Care Air Control/Anti Air Warfare Officer Name Role Phone Laovn Yanez AUTM [phone] Darrel Stanley MD AUTM [phone] Problems Description No Information Available Social History Type Date Description Comments Sex Unknown ETOH Use Occasionally consumes alcohol Tobacco Use Start: Unknown The patient has never vaped Tobacco Use Start: Unknown Patient has never smoked Smoking Status Reviewed: 05/26/20 Patient has never smoked Allergies, Adverse Reactions, Alerts Active Allergies Reaction Severity Comments Date Reglan 02/14/2020 Keflex 02/14/2020 Morphine 02/14/2020 Compazine 02/14/2020 Penicillins 02/14/2020 Aspirin 02/14/2020 Codeine 02/14/2020 Medications Active Medications SIG Qnty Indications Ordering Provide r Date Doxycycline Monohydrate 100mg Tabl ets 1 tab by mouth twice a day for 10 days 20tabs L02.512 Col jason Madrigal JR., M.D. 05/26/2020 Levothyroxine Sodium 112mcg Tablets qd Unknown Ondansetron 4mg Tablets Dispers dissolve 1 tablet in mouth every 8 hours as needed for nausea Unknown [place] 7.5-325mg Tablets 1 tablet by mouth every 6 hours as needed for severe pain Unknown Prolia 60mg/ml Soln Prefill Syringe Q 6mo Unknown Amlodipine Besylate 2.5mg Tablets qd Unknown Vitamin D 25mcg (1000 Ut) Tablets every other week Unknown Nitroglycerin 0.4mg Tablets Sub Unknown Linzess 290mcg Capsules qd Unknown Immunizations Description No Information Available Vital Signs Date Vital Result Comment 05/26/2020 9:03am BP Systolic 118 mmHg BP Diastolic 62 mmHg Heart Rate 68 /min Respiratory Rate 18 /min O2 % BldC Oximetry 97 % Body Temperature 97.8 F Weight 92.00 lb Pain Level 7 02/14/2020 12:17pm BP Systolic 92 mmHg BP Diastolic 54 mmHg Heart Rate 71 /min Respiratory Rate 12 /min O2 % BldC Oximetry 98 % Body Temperature 97.9 F Weight 88.00 lb Height 61 inches 5'1" BMI (Body Mass Index) 16.6 kg/m2 Pain Level 8 Results Test Acquired Date Facility Test Result H/L Range Note CBC With Differential 02/14/2020 [place] [id number] [phone] White Blood Count 9.4 10 Normal 4.0-10.0 [...] 36.0-66.0 Lymph % 9.5 % Low 24.0-44.0 [place] % 10.5 % High 0.0-5.0 Eos % 0.0 % Normal 0.0-3.0 Baso % 0.2 % Normal 0.0-1.0 Immature Granulocyte % 0.3 % Normal 0-3.0 Nucleated Red Blood Cell % 0.0 % Normal 0-0 Neutrophils # 7.5 10 Normal 1.5-8.5 Lymph # 0.9 10 Low 1.5-5.0 [place] # 1.0 10 High 0.0-0.8 Eos # 0.0 10 Normal 0.0-0.5 Baso # 0.0 10 Normal 0.0-0.2 Comprehensive Metabolic Profil 02/14/[address] [id number] [phone] Glucose, Fasting 93 mg/dL Normal 70-100 Blood [...] 1.2 Normal 1.2-2.2 Laboratory test finding 02/14/[address] [address] [phone] Lipase 77 U/L Normal 73-393 2 Laboratory test finding 02/14/[address] [address] [phone] Urine Culture FULL REPORT IN L <SEE NOTE> Normal 3 Gastrointestinal (GI) Panel 02/14/[address] [address] [phone] Gastrointestinal (GI) Panel This Gastrointes <SEE NOTE > 4 1 Units are mL/min/1.73 m2 Chronic Kidney Disease Staging per NKF: Stage I & II GFR >=60 Normal to Mildly Decreased Stage III GFR 30-59 Moderately Decreased Stage IV GFR 15-29 Severely Decreased Stage V GFR <15 Very Little GFR Left ESRD GFR <15 on SWAGING MACHINE OPERATOR 2 note:<nlbl:demographic_chang ed> 3 FULL REPORT IN LAB NOTES [...] Date Location Provider Dx Diagnosis Office Visit 05/26/2020 8:40a Main Office GRAYSON Guaman L02 .512 Cutaneous abscess of left hand Office Visit 02/14/2020 11:50a Main Office Jose Terry, Elisabeth.AHardik R1 9.7 Diarrhea, unspecified R10.84 Generalized abdominal pain Assessments Date Code Description Provider 05/26/2020 L02.512 Cutaneous abscess of left hand GRAYSON Villafuerte 02/14/2020 R19.7 Diarrhea, unspecified Jose Terry, Elisabeth.A. 02/14/2020 R10.84 Generalized abdominal pain Elisabeth Villatoro.A. Plan of Treatment 05/26/2020 - GRAYSON Guaman* L02.512 Cutaneous abscess of left hand* New Medication:* Doxycycline Monohydrate 100 mg - 1 tab by mouth twice a day for 10 days Functional Status Description No Information Available Mental Status Description No Information Available Referrals Description No Information Available
--- OUTSIDE RECORDS SUMMARY | 2020-07-05 09:00 | CCD | Continuity of Care Document ---
Author Author Suma ORELLANA PA Organization Unknown Address [address] [place] [address] Phone [phone] Care Team Providers Care Antisqueak Worker Name Role Phone Lavon Yanez AUTM [phone] Darrel Stanley MD AUTM [phone] Problems Description No Information Available Social History [...] 8 hours as needed for nausea Unknown [place] 7.5-325mg Tablets 1 tablet by mouth every [...] H/L Range Note CBC With Differential 02/14/2020 [place] [id number] [phone] White Blood Count 9.4 10 Normal 4.0-10.0 [...] 36.0-66.0 Lymph % 9.5 % Low 24.0-44.0 [place] % 10.5 % High 0.0-5.0 Eos % 0.0 % Normal 0.0-3.0 Baso % 0.2 % Normal 0.0-1.0 Immature Granulocyte % 0.3 % Normal 0-3.0 Nucleated Red Blood Cell % 0.0 % Normal 0-0 Neutrophils # 7.5 10 Normal 1.5-8.5 Lymph # 0.9 10 Low 1.5-5.0 [place] # 1.0 10 High 0.0-0.8 Eos # 0.0 10 Normal 0.0-0.5 Baso # 0.0 10 Normal 0.0-0.2 Comprehensive Metabolic Profil 02/14/[address] [phone] Glucose, Fasting 93 mg/dL Normal 70-100 Blood [...] 1.2 Normal 1.2-2.2 Laboratory test finding 02/14/[address] [address] [phone] Lipase 77 U/L Normal 73-393 2 Laboratory test finding 02/14/[address] [address] [phone] Urine Culture FULL REPORT IN L <SEE NOTE> Normal 3 Gastrointestinal (GI) Panel 02/14/[address] [address] [phone] Gastrointestinal (GI) Panel This Gastrointes <SEE NOTE > 4 1 Units are mL/min/1.73 m2 Chronic Kidney Disease Staging per NKF: Stage I & II GFR >=60 Normal to Mildly Decreased Stage III GFR 30-59 Moderately Decreased Stage IV GFR 15-29 Severely Decreased Stage V GFR <15 Very Little GFR Left ESRD GFR <15 on OUTSOLE LEVELER 2 note:<nlbl:demographic_chang ed> 3 FULL REPORT IN [...]
--- OUTSIDE RECORDS SUMMARY | 2020-07-05 09:00 | CCD | Continuity of Care Document ---
Author Author Suma VOGEL MD Organization Unknown Address [address] [place] [address], [address] [address] Phone [phone] Problems Active Problems Provider Date Senile osteoporosis [...] Patient has never smoked Smoking Status Reviewed: 01/31/20 Patient has never smoked Allergies, Adverse Reactions, Alerts Active Allergies Reaction Severity Comments Date Reglan 06/21/2009 compazine 06/21/2009 Morphine 06/21/2009 Penicillins 06/21/2009 Keflex 06/21/2009 Aspirin 06/21/2009 Medications Active Medications SIG Qnty Indications Ordering Provide r Date Vitamin D (Ergocalciferol) 1.25mg (55187 Ut) Capsules Take 1 Capsule By Mouth Every Other Week. 6caps E55.9 Alaina Vogel MD 12/26/2019 Levothyroxine Sodium 112mcg Tablet s 1 by mouth every day 90tabs Alaina Vogel MD 10/11/2019 Prolia 60mg/ml Solution once every 6 months subcutaneous 1units Alaina Vogel MD 07/21/19 19 Ondansetron HCL 4mg Tablets p rn Unknown [place] 7.5-325mg Tablets 1-2 po q4hrs prn pain [...] Unknown Pepcid 20mg Tablets 1 daily Unknown Medications Administered in Office Medication SIG Qnty Indications Ordering Provider Date Rosalinda FARRELL#[id number] (60mg Syringe) 1M G Injection Alaina Vogel MD 01/31/20 20 Prolbety FARRELL#[id number] (60mg Syringe) 1M G Injection Alaina Vogel MD 07/29/19 20 Rosalinda FARRELL#[id number] (60mg Syringe) 1M G Injection Alaina Vogel MD 01/26/20 19 Prolbety FARRELL#[id number] (60mg Syringe) 1M G Injection Alaina Vogel MD 07/21/19 19 Rosalinda FARRELL#[id number] (60mg Syringe) 1M G Injection Alaina Vogel MD 01/13/20 18 Rosalinda FARRELL#[id number] (60mg Syringe) 1M G Injection Alaina Vogel MD 07/10/19 18 Rosalinda FARRELL#[id number] (60mg Syringe) 1M G Injection Alaina Vogel MD 12/14/19 17 Immunizations Description No Information Available Vital Signs Date Vital Result Comment 01/31/2020 10:16am BP Systolic 136 mmHg BP Diastolic 70 mmHg Heart Rate 70 /min Height 61 inches 5'1" Weight 91.50 lb BMI (Body Mass Index) 17.3 kg/m2 O2 % BldC Oximetry 98 % 12/06/2019 2:20pm BP Systolic 110 mmHg BP Diastolic 88 mmHg Heart Rate 67 /min Height 61 inches 5'1" Weight 92.00 lb BMI (Body Mass Index) 17.4 kg/m2 O2 % BldC Oximetry 98 % Results Test Acquired Date Facility Test Result H/L Range Note FT4&TSH Panel 04/21/2020 [facility] ntr [address] [place] [address] [phone])- - Thyroid Stimulating Hormone 1.360 uIU/ML Normal 0.358- 3.740 Free T4 1.15 ng/dL Normal 0.76-1.46 Laboratory test finding 01/25/2020 [facility] Cent[facility] [address] [place] [address] (315)- - Calcium Level 8.7 mg/dL Low 8.8-10.2 1 Total 25(Oh) Vitamin D 56.9 NG/ML Normal 30.0-100.0 2 FT4&TSH Panel 11/23/2019 [facility] ntr [address] [place] [address] (315)- - Thyroid Stimulating Hormone 0.278 uIU/ML Low 0.358- 3.740 Free T4 1.38 ng/dL Normal 0.76-1.46 1 note:<nlbl:demographic_chang ed> 2 note:<nlbl:demographic_chang ed> Procedures Date Code Description Status 01/31/2020 69984 Injec Therapeutic Or Diagnostic Subcut Or Intramuscular Completed Medical Devices Description No Information Available Encounters Type Date Location Provider Dx Diagnosis Office Visit 01/31/2020 10:30a DR. Alaina Vogel MD E 03.9 Hypothyroidism, unspecified M81.0 Age-related osteoporosis w/o current pathological fracture E55.9 Vitamin D deficiency, unspec ified Office Visit 12/06/2019 2:30p DR. Alaina Cuenca NP E0 3.9 Hypothyroidism, unspecified Assessments Date Code Description Provider 01/31/2020 E03.9 Hypothyroidism, unspecified Sandra Vogel MD 01/31/2020 M81.0 Age-related osteoporosis without current pathological fractu Alaina Vogel MD 01/31/2020 E55.9 Vitamin D deficiency, unspecifie d Alaina Vogel MD 12/06/2019 E03.9 Hypothyroidism, unspecified Pako Cuenca NP Plan of Treatment Future Appointment(s):* 08/03/2020 10:00 am - Alaina Vogel MD at DR. Alaina Vogel * 04/25/2020 10:45 am - Alaina Vogel MD at DR. Alaina Vogel 01/31/2020 - Alaina Vogel MD* E03.9 Hypothyroidism, unspecified* New Labs:* Thyroid Stimulating Hormone, Scheduled: 07/31/20 * Comments:* Labs from PCP show elevated TSH, She " just started taking Pepcid" instead of zantac. Timing unclear. 06/2019 TSH= 33, FT4=0.86Dose was raised from 0.112 mg up to 0.125 mg09/2019 TSH= 0.045, FT4=1.80Dose lowered to 0.112 mg dailyCurrently on Levothyroxine 112mcg po qdLabs done 11/23/2019- TSH= 0.278, FT4= 1.38 recheck before follow up * Follow up:* 6 months prolia * M81.0 Age-related osteoporosis without current pathological fractu* New Labs: * Calcium Level, Scheduled: 07/31/20 * Comments:* Calcium- 07/15/2019: 8.1- low due to poor absorption of oral cacliumInstructed on calcium 1200 mg daily in divided doses with meals. But has difficulty since she is so constipated.Patient reports stress fracture of left hip [place]. Chambers [place]. fell 07/2018- hit front of head, [...] SQ into the right upper extremityLot #, [id number] 04/06 Functional Status Description No Information Available Mental Status Description No Information Available Referrals Refer to Reason for Referral Status Appt Date Alaina Vogel MD PROLIA- JIMMY VAZQUEZ @ [facility] NO AUTH REQUIRED. 20% COIN. REF # [id number]. LS Created [facility], [facility] [address] [place] [address] [phone]
--- OUTSIDE RECORDS SUMMARY | 2020-07-05 09:01 | CCD ---
Author Author [facility] Organization [facility] Address Unknown Phone Unavailable Care Team Providers Care Nude Model Name Role Phone Tyrone Stanley MD Unavailable Unavailable Tyrone Stanley MD Unavailable Unavailable Tyrone Stanley MD Unavailable Unavailable Tyrone Stanley MD Unavailable Unavailable Tyrone Stanley MD Unavailable Unavailable Tyrone Stanley MD Unavailable Unavailable Tyrone Stanley MD Unavailable Unavailable Tyrone Stanley MD Unavailable Unavailable Tyrone Stanley MD Unavailable Unavailable Tyrone Stanley MD Unavailable Unavailable Tyrone Stanley MD Unavailable Unavailable Tyrone Stanley MD Unavailable Unavailable Tyrone Stanley MD Unavailable Unavailable Tyrone Stanley MD Unavailable Unavailable Tyrone Stanley MD Unavailable Unavailable Tyrone Stanley MD Unavailable Unavailable Tyrone Stanley MD Unavailable Unavailable Tyrone Stanley MD Unavailable Unavailable Tyrone Stanley MD Unavailable Unavailable Tyrone Stanley MD Unavailable Unavailable Tyrone Stanley MD Unavailable Unavailable Tyrone Stanley MD Unavailable Unavailable Tyrone Stanley MD Unavailable Unavailable Tyrone Stanley MD Unavailable Unavailable Tyrone Stanley MD Unavailable Unavailable Tyrone Stanley MD Unavailable Unavailable Tyrone Stanley MD Unavailable Unavailable Tyrone Stanley MD Unavailable Unavailable Tyrone Stanley MD Unavailable Unavailable Tyrone Stanley MD Unavailable Unavailable Tyrone Stanley MD Unavailable Unavailable Tyrone Stanley MD Unavailable Unavailable Tyrone Stanley MD Unavailable Unavailable Tyrone Stanley MD Unavailable Unavailable Tyrone Stanley MD Unavailable Unavailable Tyrone Stanley MD Unavailable Unavailable Tyrone Stanley MD Unavailable Unavailable Tyrone Stanley MD Unavailable Unavailable Tyrone Stanley MD Unavailable Unavailable Tyrone Stanley MD Unavailable Unavailable Tyrone Stanley MD Unavailable Unavailable Tyrone Stanley MD Unavailable Unavailable Tyrone Stanley MD Unavailable Unavailable Tyrone Stanley MD Unavailable Unavailable Tyrone Stanley MD Unavailable Unavailable Tyrone Stanley MD Unavailable Unavailable Tyrone Stanley MD Unavailable Unavailable Tyrone Stanley MD Unavailable Unavailable DRAZEK, I WALE PA Unavailable Unavailable DRAZEK, I WALE PA Unavailable Unavailable DRAZEK, I WALE PA Unavailable Unavailable DRAZEK, I WALE PA Unavailable Unavailable DRAZEK, I WALE PA Unavailable Unavailable DRAZEK, I WALE PA Unavailable Unavailable DRAZEK, I WALE PA Unavailable Unavailable DRAZEK, I WALE PA Unavailable Unavailable DRAZEK, I WALE PA Unavailable Unavailable DRAZEK, I WALE PA Unavailable Unavailable DRAZEK, I WALE PA Unavailable Unavailable DRAZEK, I WALE PA Unavailable Unavailable DRAZEK, I WALE PA Unavailable Unavailable DRAZEK, I WALE PA Unavailable Unavailable DRAZEK, I WALE PA Unavailable Unavailable DRAZEK, I WALE PA Unavailable Unavailable DRAZEK, I WALE PA Unavailable Unavailable DRAZEK, I WALE PA Unavailable Unavailable DRAZEK, I WALE PA Unavailable Unavailable DRAZEK, I WALE PA Unavailable Unavailable DRAZEK, I WALE PA Unavailable Unavailable DRAZEK, I WALE PA Unavailable Unavailable DRAZEK, I WALE PA Unavailable Unavailable DRAZEK, I WALE PA Unavailable Unavailable DRAZEK, I WALE PA Unavailable Unavailable DRAZEK, I WALE PA Unavailable Unavailable DRAZEK, I WALE PA Unavailable Unavailable DRAZEK, I WALE PA Unavailable Unavailable DRAZEK, I WAEL PA Unavailable Unavailable DRAZEK, I WALE PA Unavailable Unavailable Mccormack Blackman, Jil Swartz MD, FACS Unavailable Unavailable Mccormack Blackman, Jil Swartz MD, FACS Unavailable Unavailable Mccormack Blackman, Jil Swartz MD, FACS Unavailable Unavailable Mccormack Blackman, Jil Swartz MD, FACS Unavailable Unavailable Mccormack Blackman, Jil Swartz MD, FACS Unavailable Unavailable Mccormack Blackman, Jil Swartz MD, FACS Unavailable Unavailable Mccormack Blackman, Jil Swartz MD, FACS Unavailable Unavailable Mccormack Balckman, Jil Swartz MD, FACS Unavailable Unavailable Mccormack Blackman, Jil Swartz MD, FACS Unavailable Unavailable Mccormack Blackman, Jil Swartz MD, FACS Unavailable Unavailable Mccormack Blackman, Jil Swartz MD, FACS Unavailable Unavailable Mccormack Blackman, Jil Swartz MD, FACS Unavailable Unavailable Mccormack Blackman, Jil Swartz MD, FACS Unavailable Unavailable Mccormack Blackman, Jil Swartz MD, FACS Unavailable Unavailable Mccormack Blackman, Jil Swartz MD, FACS Unavailable Unavailable Mccormack Blackman, Jil Swartz MD, FACS Unavailable Unavailable Mccormack Blackman, Jil Swartz MD, FACS Unavailable Unavailable Mccormack Blackman, Jil Swartz MD, FACS Unavailable Unavailable Mccormack Blackman, Jil Swartz MD, FACS Unavailable Unavailable Mccormack Blackman, Jil Swartz MD, FACS Unavailable Unavailable Mccormack Blackman, Jil Swartz MD, FACS Unavailable Unavailable Mccormack Blackman, Jil Swartz MD, FACS Unavailable Unavailable Mccormack Blackman, Jil Swartz MD, FACS Unavailable Unavailable Mccormack Blackman, Jil Swartz MD, FACS Unavailable Unavailable Mccormack Blackman, Jil Swartz MD, FACS Unavailable Unavailable Mccormack Blackman, Jil Swartz MD, FACS Unavailable Unavailable Mccormack Blackman, Jil Swartz MD, FACS Unavailable Unavailable Mccormack Blackman, Jil Swartz MD, FACS Unavailable Unavailable Mccormack Blackman, Jil Swartz MD, FACS Unavailable Unavailable Mccormack Blackman, Jil Swartz MD, FACS Unavailable Unavailable Mccormack Blackman, Jil Swartz MD, FACS Unavailable Unavailable Mccormack Blackman, Jil Swartz MD, FACS Unavailable Unavailable Mccormack Blackman, Jil Swartz MD, FACS Unavailable Unavailable Mccormack Blackman, Jil Swartz MD, FACS Unavailable Unavailable Uli MENDOZA MD Unavailable Unavailable Uli MENDOZA MD Unavailable Unavailable Uli MENDOZA MD Unavailable Unavailable Uli MENDOZA MD Unavailable Unavailable Uli MENDOZA MD Unavailable Unavailable Uli MENDOZA MD Unavailable Unavailable Uli MENDOZA MD Unavailable Unavailable Uli MENDOZA MD Unavailable Unavailable Uli MENDOZA MD Unavailable Unavailable KELLYUli GONSALES MD Unavailable Unavailable KELLYUli GONSALES MD Unavailable Unavailable KELLYUli GONSALES MD Unavailable Unavailable KELLYUli GONSALES MD Unavailable Unavailable KELLYUli GONSALES MD Unavailable Unavailable Uli MENDOZA MD Unavailable Unavailable KELLYUli GONSALES MD Unavailable Unavailable KELLYUli GONSALES MD Unavailable Unavailable KELLYUli GONSALES MD Unavailable Unavailable Uli MENDOZA MD Unavailable Unavailable Uli MENDOZA MD Unavailable Unavailable Uli MENDOZA MD Unavailable Unavailable Uli MENDOZA MD Unavailable Unavailable Uli MNEDOZA MD Unavailable Unavailable Uli MENDOZA MD Unavailable Unavailable Uli MENDOZA MD Unavailable Unavailable Uli MENDOZA MD Unavailable Unavailable Uli MENDOZA MD Unavailable Unavailable Uli MENDOZA MD Unavailable Unavailable Uli MENDOZA MD Unavailable Unavailable Uli MENDOZA MD Unavailable Unavailable Uli MENDOZA MD Unavailable Unavailable Uli MENDOZA MD Unavailable Unavailable Uli MENDOZA MD Unavailable Unavailable Uli MENDOZA MD Unavailable Unavailable Uli MENDOZA MD Unavailable Unavailable Uli MENDOZA MD Unavailable Unavailable Uli MENDOZA MD Unavailable Unavailable Uli MENDOZA MD Unavailable Unavailable Uli MENDOZA MD Unavailable Unavailable Uli MENDOZA MD Unavailable Unavailable Uli MENDOZA MD Unavailable Unavailable Uli MENDOZA MD Unavailable Unavailable Uli MENDOZA MD Unavailable Unavailable Uli MENDOZA MD Unavailable Unavailable Uli MENDOZA MD Unavailable Unavailable Uli MENDOZA MD Unavailable Unavailable Uli MENDOZA MD Unavailable Unavailable Uli MENDOZA MD Unavailable Unavailable Uli MENDOZA MD Unavailable Unavailable Uli MENDOZA MD Unavailable Unavailable Uli MENDOZA MD Unavailable Unavailable Uli MENDOZA MD Unavailable Unavailable Uli MENDOZA MD Unavailable Unavailable Uli MENDOZA MD Unavailable Unavailable Uli MENDOZA MD Unavailable Unavailable Uli MENDOZA MD Unavailable Unavailable Uli MENDOZA MD Unavailable Unavailable Uli MENDOZA MD Unavailable Unavailable Uli MENDOZA MD Unavailable Unavailable Uli MENDOZA MD Unavailable Unavailable Uli MENDOZA MD Unavailable Unavailable Uli MENDOZA MD Unavailable Unavailable Uli MENDOZA MD Unavailable Unavailable Uli MENDOZA MD Unavailable Unavailable Uli MENDOZA MD Unavailable Unavailable Uli MENDOZA MD Unavailable Unavailable Uli MENDOZA MD Unavailable Unavailable Uli MENDOZA MD Unavailable Unavailable Uli MENDOZA MD Unavailable Unavailable Uli MENDOZA MD Unavailable Unavailable Uli MENDOZA MD Unavailable Unavailable Uli MENDOZA MD Unavailable Unavailable Uli MENDOZA MD Unavailable Unavailable Uli MENDOZA MD Unavailable Unavailable Uli MENDOZA MD Unavailable Unavailable Uli MENDOZA MD Unavailable Unavailable Uli MENDOZA MD Unavailable Unavailable Uli MENDOZA MD Unavailable Unavailable Uli MENDOZA MD Unavailable Unavailable Uli MENDOZA MD Unavailable Unavailable Uli MENDOZA MD Unavailable Unavailable Uli MENDOZA MD Unavailable Unavailable Uli MENDOZA MD Unavailable Unavailable Uli MENDOZA MD Unavailable Unavailable Uli MENDOZA MD Unavailable Unavailable Uli MENDOZA MD Unavailable Unavailable Uli MENDOZA MD Unavailable Unavailable Uli MENDOZA MD Unavailable Unavailable Uli MENDOZA MD Unavailable Unavailable Uli MENDOZA MD Unavailable Unavailable Uli MENDOZA MD Unavailable Unavailable Uli MENDOZA MD Unavailable Unavailable Uli MENDOZA MD Unavailable Unavailable Uli MENDOZA MD Unavailable Unavailable DRAZEK, I WALE PA Unavailable Unavailable DRAZEK, I WALE PA Unavailable Unavailable DRAZEK, I WALE PA Unavailable Unavailable DRAZEK, I WALE PA Unavailable Unavailable DRAZEK, I WALE PA Unavailable Unavailable DRAZEK, I WALE PA Unavailable Unavailable DRAZEK, I WALE PA Unavailable Unavailable DRAZEK, I WALE PA Unavailable Unavailable DRAZEK, I WALE PA Unavailable Unavailable DRAZEK, I WALE PA Unavailable Unavailable DRAZEK, I WALE PA Unavailable Unavailable DRAZEK, I WALE PA Unavailable Unavailable DRAZEK, I WALE PA Unavailable Unavailable DRAZEK, I WALE PA Unavailable Unavailable DRAZEK, I WALE PA Unavailable Unavailable DRAZEK, I WALE PA Unavailable Unavailable DRAZEK, I WALE PA Unavailable Unavailable DRAZEK, I WALE PA Unavailable Unavailable DRAZEK, I WALE PA Unavailable Unavailable DRAZEK, I WALE PA Unavailable Unavailable DRAZEK, I WALE PA Unavailable Unavailable DRAZEK, I WALE PA Unavailable Unavailable DRAZEK, I WALE PA Unavailable Unavailable DRAZEK, I WALE PA Unavailable Unavailable DRAZEK, I WALE PA Unavailable Unavailable DRAZEK, I WALE PA Unavailable Unavailable DRAZEK, I WALE PA Unavailable Unavailable DRAZEK, I WALE PA Unavailable Unavailable DRAZEK, I WALE PA Unavailable Unavailable DRAZEK, I WALE PA Unavailable Unavailable Noemy España MD Unavailable Unavailable Noemy España MD Unavailable Unavailable Noemy España MD Unavailable Unavailable Noemy España MD Unavailable Unavailable Noemy España MD Unavailable Unavailable Noemy España MD Unavailable Unavailable Noemy España MD Unavailable Unavailable Noemy España MD Unavailable Unavailable Noemy España MD Unavailable Unavailable Noemy España MD Unavailable Unavailable Noemy España MD Unavailable Unavailable Noemy España MD Unavailable Unavailable Noemy España MD Unavailable Unavailable Noemy España MD Unavailable Unavailable Noemy España MD Unavailable Unavailable Noemy España MD Unavailable Unavailable Noemy España MD Unavailable Unavailable Noemy España MD Unavailable Unavailable Noemy España MD Unavailable Unavailable Noemy España MD Unavailable Unavailable Noemy España MD Unavailable Unavailable Noemy España MD Unavailable Unavailable Noemy España MD Unavailable Unavailable Noemy España MD Unavailable Unavailable Noemy España MD Unavailable Unavailable Noemy España MD Unavailable Unavailable Noemy España MD Unavailable Unavailable Noemy España MD Unavailable Unavailable Noemy España MD Unavailable Unavailable Noemy España MD Unavailable Unavailable Noemy España MD Unavailable Unavailable Noemy España MD Unavailable Unavailable Noemy España MD Unavailable Unavailable Noemy España MD Unavailable Unavailable Noemy España MD Unavailable Unavailable Noemy España MD Unavailable Unavailable Noemy España MD Unavailable Unavailable Noemy España MD Unavailable Unavailable Noemy España MD Unavailable Unavailable Noemy España MD Unavailable Unavailable Noemy España MD Unavailable Unavailable Noemy España MD Unavailable Unavailable Fish, B Alaina SALES Unavailable Unavailable Fish, B Alaina SALES Unavailable Unavailable Fish, B Alaina SALES Unavailable Unavailable Fish, B Alaina SALES Unavailable Unavailable Fish, B Alaina SALES Unavailable Unavailable Fish, B Alaina SALES Unavailable Unavailable Fish, B Alaina SALES Unavailable Unavailable Fish, B Alaina SALES Unavailable Unavailable Fish, B Alaina SALES Unavailable Unavailable Fish, B Alaina SALES Unavailable Unavailable Fish, B Alaina SALES Unavailable Unavailable Fish, B Alaina SALES Unavailable Unavailable Fish, B Alaina SALES Unavailable Unavailable Fish, B Alaina SALES Unavailable Unavailable Fish, B Alaina SALES Unavailable Unavailable Fish, B Alaina SALES Unavailable Unavailable Fish, B Alaina SALES Unavailable Unavailable Fish, B Alaina SALES Unavailable Unavailable Fish, B Alaina SALES Unavailable Unavailable Fish, B Alaina SALES Unavailable Unavailable Fish, B Alaina SALES Unavailable Unavailable Fish, B Alaina SALES Unavailable Unavailable COOK, B HANK PROFESSOR OF ASTRONOMY Unavailable Unavailable COOK, B HANK PROFESSOR OF ASTRONOMY Unavailable Unavailable COOK, B HANK PROFESSOR OF ASTRONOMY Unavailable Unavailable COOK, B HANK PROFESSOR OF ASTRONOMY Unavailable Unavailable COOK, B HANK PROFESSOR OF ASTRONOMY Unavailable Unavailable COOK, B HANK PROFESSOR OF ASTRONOMY Unavailable Unavailable COOK, B HANK PROFESSOR OF ASTRONOMY Unavailable Unavailable COOK, B HANK PROFESSOR OF ASTRONOMY Unavailable Unavailable COOK, B HANK PROFESSOR OF ASTRONOMY Unavailable Unavailable COOK, B HANK PROFESSOR OF ASTRONOMY Unavailable Unavailable COOK, B HANK PROFESSOR OF ASTRONOMY Unavailable Unavailable COOK, B HANK PROFESSOR OF ASTRONOMY Unavailable Unavailable COOK, B HANK PROFESSOR OF ASTRONOMY Unavailable Unavailable COOK, B HANK PROFESSOR OF ASTRONOMY Unavailable Unavailable COOK, B HANK PROFESSOR OF ASTRONOMY Unavailable Unavailable COOK, B HANK PROFESSOR OF ASTRONOMY Unavailable Unavailable COOK, B HANK PROFESSOR OF ASTRONOMY Unavailable Unavailable COOK, B HANK PROFESSOR OF ASTRONOMY Unavailable Unavailable COOK, B HANK PROFESSOR OF ASTRONOMY Unavailable Unavailable COOK, B HANK PROFESSOR OF ASTRONOMY Unavailable Unavailable COOK, B HANK PROFESSOR OF ASTRONOMY Unavailable Unavailable COOK, B HANK PROFESSOR OF ASTRONOMY Unavailable Unavailable COOK, B HANK PROFESSOR OF ASTRONOMY Unavailable Unavailable COOK, B HANK PROFESSOR OF ASTRONOMY Unavailable Unavailable COOK, B HANK PROFESSOR OF ASTRONOMY Unavailable Unavailable COOK, B HANK PROFESSOR OF ASTRONOMY Unavailable Unavailable COOK, B HANK PROFESSOR OF ASTRONOMY Unavailable Unavailable COOK, B HANK PROFESSOR OF ASTRONOMY Unavailable Unavailable COOK, B HANK PROFESSOR OF ASTRONOMY Unavailable Unavailable COOK, B HANK PROFESSOR OF ASTRONOMY Unavailable Unavailable COOK, B HANK PROFESSOR OF ASTRONOMY Unavailable Unavailable COOK, B HANK PROFESSOR OF ASTRONOMY Unavailable Unavailable COOK, B HANK PROFESSOR OF ASTRONOMY Unavailable Unavailable COOK, B HANK PROFESSOR OF ASTRONOMY Unavailable Unavailable COOK, B HANK PROFESSOR OF ASTRONOMY Unavailable Unavailable COOK, B HANK PROFESSOR OF ASTRONOMY Unavailable Unavailable COOK, B HANK PROFESSOR OF ASTRONOMY Unavailable Unavailable COOK, B HANK PROFESSOR OF ASTRONOMY Unavailable Unavailable COOK, B HANK PROFESSOR OF ASTRONOMY Unavailable Unavailable COOK, B HANK PROFESSOR OF ASTRONOMY Unavailable Unavailable COOK, B HANK PROFESSOR OF ASTRONOMY Unavailable Unavailable COOK, B HANK PROFESSOR OF ASTRONOMY Unavailable Unavailable COOK, B HANK PROFESSOR OF ASTRONOMY Unavailable Unavailable COOK, B HANK PROFESSOR OF ASTRONOMY Unavailable Unavailable COOK, B HANK PROFESSOR OF ASTRONOMY Unavailable Unavailable COOK, B HANK PROFESSOR OF ASTRONOMY Unavailable Unavailable COOK, B HANK PROFESSOR OF ASTRONOMY Unavailable Unavailable COOK, B HANK PROFESSOR OF ASTRONOMY Unavailable Unavailable COOK, B HANK PROFESSOR OF ASTRONOMY Unavailable Unavailable COOK, B HANK PROFESSOR OF ASTRONOMY Unavailable Unavailable COOK, B HANK PROFESSOR OF ASTRONOMY Unavailable Unavailable COOK, B HANK PROFESSOR OF ASTRONOMY Unavailable Unavailable COOK, B HANK PROFESSOR OF ASTRONOMY Unavailable Unavailable COOK, B HANK PROFESSOR OF ASTRONOMY Unavailable Unavailable COOK, B HANK PROFESSOR OF ASTRONOMY Unavailable Unavailable COOK, B HANK PROFESSOR OF ASTRONOMY Unavailable Unavailable COOK, B HANK PROFESSOR OF ASTRONOMY Unavailable Unavailable COOK, B HANK PROFESSOR OF ASTRONOMY Unavailable Unavailable COOK, B HANK PROFESSOR OF ASTRONOMY Unavailable Unavailable COOK, B HANK PROFESSOR OF ASTRONOMY Unavailable Unavailable COOK, B HANK PROFESSOR OF ASTRONOMY Unavailable Unavailable COOK, B HANK PROFESSOR OF ASTRONOMY Unavailable Unavailable COOK, B HANK PROFESSOR OF ASTRONOMY Unavailable Unavailable COOK, B HANK PROFESSOR OF ASTRONOMY Unavailable Unavailable MARIANNE, DEVI PA Unavailable Unavailable MARIANNE, DEVI PA Unavailable Unavailable MARIANNE, DEVI PA Unavailable Unavailable MARIANNE, DEVI PA Unavailable Unavailable MARIANNE, DEVI PA Unavailable Unavailable MARIANNE, DEVI PA Unavailable Unavailable MARIANNE, DEVI PA Unavailable Unavailable MARIANNE, DEVI PA Unavailable Unavailable MARIANNE, DEVI PA Unavailable Unavailable MARIANNE, DEVI PA Unavailable Unavailable MARIANNE, DEVI PA Unavailable Unavailable MARIANNE, DEVI PA Unavailable Unavailable MARIANNE, DEVI PA Unavailable Unavailable MARIANNE, DEVI PA Unavailable Unavailable MARIANNE, DEVI PA Unavailable Unavailable MARIANNE, DEVI PA Unavailable Unavailable MARIANNE, DEVI PA Unavailable Unavailable MARIANNE, DEVI PA Unavailable Unavailable MARIANNE, DEVI PA Unavailable Unavailable MARIANNE, DEVI PA Unavailable Unavailable MARIANNE, DEVI PA Unavailable Unavailable MARIANNE, DEVI PA Unavailable Unavailable MARIANNE, DEVI PA Unavailable Unavailable MARIANNE, DEVI PA Unavailable Unavailable MARIANNE, DEVI PA Unavailable Unavailable MARIANNE, DEVI PA Unavailable Unavailable MARIANNE, DEVI PA Unavailable Unavailable MARIANNE, DEVI PA Unavailable Unavailable MARIANNE, DEVI PA Unavailable Unavailable MARIANNE, DEVI PA Unavailable Unavailable MARIANNE, DEVI PA Unavailable Unavailable MARIANNE, DEVI PA Unavailable Unavailable MARIANNE, DEVI PA Unavailable Unavailable MARIANNE, DEVI PA Unavailable Unavailable MARIANNE, DEVI PA Unavailable Unavailable MARIANNE, DEVI PA Unavailable Unavailable MARIANNE, DEVI PA Unavailable Unavailable MARIANNE, DEVI PA Unavailable Unavailable TONTARSANDREW, G EZIO PA Unavailable Unavailable TONTARSANDREW, G EZIO PA Unavailable Unavailable TONTARSANDREW, G EZIO PA Unavailable Unavailable TONTARSANDREW, G EZIO PA Unavailable Unavailable TONTARSANDREW, G EZIO PA Unavailable Unavailable TONTARSANDREW, G EZIO PA Unavailable Unavailable TONTARSANDREW, G EZIO PA Unavailable Unavailable TONTARSANDREW, G EZIO PA Unavailable Unavailable TONTARSANDREW, G EZIO PA Unavailable Unavailable TONTARSANDREW, G EZIO PA Unavailable Unavailable TONTARSANDREW, G EZIO PA Unavailable Unavailable TONTARSANDREW, G EZIO PA Unavailable Unavailable TONTARSANDREW, G EZIO PA Unavailable Unavailable TONTARSANDREW, G EZIO PA Unavailable Unavailable TONTARSANDREW, G EZIO PA Unavailable Unavailable TONTARSANDREW, G EZIO PA Unavailable Unavailable TONTARSANDREW, G EZIO PA Unavailable Unavailable TONTARSANDREW, G EZIO PA Unavailable Unavailable TONTARSANDREW, G EZIO PA Unavailable Unavailable TONTARSANDREW, G EZIO PA Unavailable Unavailable TONTARSANDREW, G EZIO PA Unavailable Unavailable TONTARSANDREW, G EZIO PA Unavailable Unavailable TONTARSANDREW, G EZIO PA Unavailable Unavailable TONTARSANDREW, G EZIO PA Unavailable Unavailable TONTARSANDREW, G EZIO PA Unavailable Unavailable TONTARSANDREW, G EZIO PA Unavailable Unavailable TONTARSANDREW, G EZIO PA Unavailable Unavailable TONTARSANDREW, G EZIO PA Unavailable Unavailable TONTARSANDREW, G EZIO PA Unavailable Unavailable TONTARSANDREW, G EZIO PA Unavailable Unavailable TONTARSANDREW, G EZIO PA Unavailable Unavailable TONTARSANDREW, G EZIO PA Unavailable Unavailable TONTARSANDREW, G EZIO PA Unavailable Unavailable TONTARSKI, G EZIO PA Unavailable Unavailable TONTARSKI, G EZIO PA Unavailable Unavailable TONTARSKI, G EZIO PA Unavailable Unavailable TONTARSKI, G EZIO PA Unavailable Unavailable TONTARSKI, G EZIO PA Unavailable Unavailable TONTARSKI, G EZIO PA Unavailable Unavailable TONTARSKI, G EZIO PA Unavailable Unavailable TONTARSKI, G EZIO PA Unavailable Unavailable TONTARSKI, G EZIO PA Unavailable Unavailable TONTARSKI, G EZIO PA Unavailable Unavailable TONTARSKI, G EZIO PA Unavailable Unavailable TONTARSKI, G EZIO PA Unavailable Unavailable TONTARSKI, G EZIO PA Unavailable Unavailable TONTARSKI, G EZIO PA Unavailable Unavailable GUGA, IRVIN PA Unavailable Unavailable GUGA, IRVIN PA Unavailable Unavailable GUGA, IRVIN PA Unavailable Unavailable GUGA, IRVIN PA Unavailable Unavailable GUGA, IRVIN PA Unavailable Unavailable GUGA, IRVIN PA Unavailable Unavailable Arguello, Ebonie PROFESSOR OF ASTRONOMY Unavailable Unavailable Arguello, Ebonie PROFESSOR OF ASTRONOMY Unavailable Unavailable Arguello, Ebonie PROFESSOR OF ASTRONOMY Unavailable Unavailable Arguello, Ebonie PROFESSOR OF ASTRONOMY Unavailable Unavailable Arguello, Ebonie PROFESSOR OF ASTRONOMY Unavailable Unavailable Arguello, Ebonie PROFESSOR OF ASTRONOMY Unavailable Unavailable Arguello, Ebonie PROFESSOR OF ASTRONOMY Unavailable Unavailable Arguello, Ebonie PROFESSOR OF ASTRONOMY Unavailable Unavailable Arguello, Ebonie PROFESSOR OF ASTRONOMY Unavailable Unavailable Arguello, Ebonie PROFESSOR OF ASTRONOMY Unavailable Unavailable Arguello, Ebonie PROFESSOR OF ASTRONOMY Unavailable Unavailable LETTIERE, A REY PA Unavailable Unavailable LETTIERE, A REY PA Unavailable Unavailable LETTIERE, A REY PA Unavailable Unavailable LETTIERE, A REY PA Unavailable Unavailable LETTIERE, A REY PA Unavailable Unavailable LETTIERE, A REY PA Unavailable Unavailable LETTIERE, A REY PA Unavailable Unavailable LETTIERE, A REY PA Unavailable Unavailable LETTIERE, A REY PA Unavailable Unavailable LETTIERE, A REY PA Unavailable Unavailable LETTIERE, A REY PA Unavailable Unavailable LETTIERE, A REY PA Unavailable Unavailable LETTIERE, A REY PA Unavailable Unavailable LETTIERE, A REY PA Unavailable Unavailable LETTIERE, A REY PA Unavailable Unavailable LETTIERE, A REY PA Unavailable Unavailable LETTIERE, A REY PA Unavailable Unavailable LETTIERE, A REY PA Unavailable Unavailable LETTIERE, A REY PA Unavailable Unavailable LETTIERE, A REY PA Unavailable Unavailable LETTIERE, A REY PA Unavailable Unavailable LETTIERE, A REY PA Unavailable Unavailable LETTIERE, A REY PA Unavailable Unavailable LETTIERE, A REY PA Unavailable Unavailable LETTIERE, A REY PA Unavailable Unavailable LETTIERE, A REY PA Unavailable Unavailable LETTIERE, A REY PA Unavailable Unavailable LETTIERE, A REY PA Unavailable Unavailable LETTIERE, A REY PA Unavailable Unavailable Re-disclosure Warning The records that you are about to access may contain information from federally-assisted alcohol or drug abuse programs. If such information is present, then the following federally mandated warning applies: This information has been disclosed to you from records protected by federal confidentiality rules (42 CFR part 2). The federal rules prohibit you from making any further disclosure of this information unless further disclosure is expressly permitted by the written consent of the person to whom it pertains or as otherwise permitted by 42 CFR part 2. A general authorization for the release of medical or other information is NOT sufficient for this purpose. The Federal rules restrict any use of the information to criminally investigate or prosecute any alcohol or drug abuse patient.The records that you are about to access may contain highly sensitive health information, the redisclosure of which is protected by Article 27-F of the [facility] Public Health law. If you continue you may have access to information: Regarding HIV / AIDS; Provided by facilities licensed or operated by the [facility] Office of Mental Health; or Provided by the [facility] Office for People With Developmental Disabilities. If such information is present, then the following [facility] mandated warning applies: This information has been disclosed to you from confidential records which are protected by state law. State law prohibits you from making any further disclosure of this information without the specific written consent of the person to whom it pertains, or as otherwise permitted by law. Any unauthorized further disclosure in violation of state law may result in a fine or chcf sentence or both. A general authorization for the release of medical or other information is NOT sufficient authorization for further disc losure. Allergies and Adverse Reactions Type Description Substance Reaction Status Data Source(s ) Allergy to substance No Known Allergies No known allergies (situation ) LO (Maxime Blackman MD [facility]) Allergy to substance No Known Allergies No known allergies (situation ) LO (Maxime Blackman MD [facility]) Allergy to substance No Known Allergies No known allergies (situation ) LO (Maxime Blackman MD [facility]) Allergy to substance No Known Allergies No known allergies (situation ) LO (Maxime Blackman MD [facility]) Allergy to substance No Known Allergies No known allergies (situation ) LO (Maxime Blackman MD [facility]) Family History Family Member Name Family Member Gender Family Member Status Date o f Status Description Data Source(s) Unknown Male Problem [facility] ([facility]) Unknown Unknown Problem [facility] ([facility]) Unknown Female Problem [facility] ([facility]) Encounters Encounter Providers Location Date Indications Data Source(s ) Outpatient Attender: REY MENDOZA MD [facility] 0 06/26/2020 12:00:00 AM EST - 06/26/2020 10:18:[address] [facility] Rene[facility] kristin Outpatient Attender: Ebonie high 06/18/2020 08:20:00 AM EST [facility] ([facility]) Outpatient Attender: EZIO Schreiberin vane 06/01/2020 10:30:00 AM EST MED[facility] (Moe Padilla MD) Outpatient Attender: REY burns 05/26/2020 07:40:00 AM EST [facility] ([facility]) Outpatient Attender: Alaina España MD Physical Therapy 04/25 09:45:00 AM EST [facility] ([facility]) Outpatient Attender: Darrel Stanley MD Main Office 2020 03:45:00 PM EDT [facility] ([facility]) Outpatient Attender: Darrel Stanley MD Main Office 02/17/2020 01:45:00 PM EDT [facility] ([facility]) Outpatient Attender: DEVI aguirre 02/14/2020 11:50:00 AM EDT [facility] ([facility]) Outpatient Attender: Alaina España MD Physical Therapy 01/30 10:30:00 AM EDT [facility] ([facility]) Outpatient Attender: Drarel Stanley MD Main Office 01/18/2020 03:30:00 PM EDT [facility] ([facility]) Outpatient<td ID="encounterTypeDescripti onID0">1 Year Follow-Up</td><td>Maxime Mon MD, FACS</td><td>Maxime Mon MD [facility]</td><td>01/10/2020</td><td>1:12PM</td><td>04/20/2019 11:59PM</td> <td><content ID="encounterDiagnosisID0-0">Blepharitis Squamous</content>, <content ID="encounterDiagnosisID0-1">Dry Eye Syndrome Both Eyes</content>, <content ID="encounterDiagnosisID0-2">Vitreous Disorders Degeneration</content>, <content ID="encounterDiagnosisID0-3">Retinopathy Hypertensive Both Eyes</content>, <content ID="encounterDiagnosisID0-4">Pseudophakia</content>, <content ID="encounterDiagnosisID0-5">History of Nicotine Dependence</content>, <content ID="encounterDiagnosisID0-6">Essential Hypertension</content></td> Attender: Maxime Blackman MD, FACS Maxime Mon MD [facility] 01/10/2020 01:12:0 0 PM EDT - 04/20/2019 11:59:00 PM EST PseudophakiaEssential HypertensionHistor y of Nicotine DependenceRetinopathy Hypertensive Both EyesVitreous Disorders DegenerationDry Eye Syndrome Both EyesBlepharitis Squamous LO (Maxime Blackman MD [facility]) Pseudophakia Essential Hypertension History of Nicotine Dependence 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) Outpatient Attender: Alaina España MD Physical Therapy 10/10 11:15:00 AM EDT [facility] ([facility]) [facility] 09/03/2019 12:24:30 PM EDT [facility] Outpatient Referrer: WALE GALICIA 09/03/2019 11:38:00 AM EDT [facility] Outpatient Referrer: WALE GALICIA 09/03/2019 11:38:00 AM EDT [facility] Outpatient Referrer: WALE GALICIA 09/02/2019 01:55:00 PM EDT [facility] Outpatient Referrer: WALE GALICIA 09/02/2019 01:49:00 PM EDT [facility] Outpatient Referrer: WALE GALICIA 09/02/2019 01:47:00 PM EDT [facility] Outpatient Referrer: WALE GALICIA 09/01/2019 01:08:00 PM EDT [facility] Outpatient Referrer: WALE GALICIA 08/31/2019 01:41:00 PM EDT [facility] Outpatient Referrer: WALE GALICIA 08/31/2019 01:04:00 PM EDT [facility] Outpatient Referrer: IRVIN GALICIA 08/31/2019 01:03:00 PM EDT [facility] Outpatient Referrer: IRVIN GALICIA 08/31/2019 12:59:00 PM EDT [facility] Outpatient Referrer: IRVIN GALICIA 08/31/2019 12:52:00 PM EDT [facility] Outpatient Attender: WALE GALICIA Physical Therapy 08/27/2019 1 0:00:00 AM EDT [facility] ([facility]) Outpatient Attender: Alaina España MD Physical Therapy 07/29 09:30:00 AM EST [facility] ([facility]) [facility]OCAM[facility]MOCAM 07/06/2019 04:24:41 PM EST [facility] Outpatient Attender: REY MENDOZA MD [facility] 0 07/06/2019 12:00:00 AM EST - 07/06/2019 12:35:[facility] IRVIN GALICIA 05/23/2019 09:08:00 PM EST [facility] Medications Medication Brand Name Start Date Product Form Dose Route Admi nistrative Instructions Pharmacy Instructions Status Indications Reaction Description Data Source(s) Acetaminophen 325 MG / Hydrocodone Romina trate 7.5 MG Oral Tablet [[place]] NORCO 7.5-325 MG per tablet NORCO 7.5-325 MG per tablet 06/23/2020 12:00:00 AM EST active Pain Take 2 tab lets by oral route 4 times everyday as needed for pain MDD 8 [facility] Pain 5-325 mg 06/23/2020 12:00:00 AM EST tablet 240 TAKE TWO TABLETS BY MOUTH FOUR TIMES A DAY NEEDED FOR PAIN MAXIMUM DAILY DOSE = 8 TABLETS TAKE TWO TABLETS BY MOUTH FOUR TIMES A DAY NEEDED FOR PAIN MAXIMUM DAILY DOSE = 8 TABLETS SOLD: 06/23/2020 [facility] Clindamycin 300 MG Oral Capsule Clindamycin HCL 06/18/2020 12:00:00 A M EST ORAL active [facility] ([facility]) Mupirocin 0.02 MG/MG Topical Ointment Mupirocin 06/18/2020 12:00:00 AM EST active [facility] ([facility]) Doxycycline Monohydrate 100 MG Oral Tablet Doxycycline Monoh ydrate 05/26/2020 12:00:00 AM EST ORAL completed [facility] ([facility]) Amlodipine 5 MG Oral Tablet amLODIPine (NORVASC) 5 MG tablet amLODIPine (NORVASC) 5 MG tablet 05/05/2020 12:00:00 AM EST active TAKE 1 TABLET(5 MG) BY MOUTH DAILY [facility] linaclotide 0.29 MG Oral Capsule linaclotide (LINZESS) 290 MCG CAPS linaclotide (LINZESS) 290 MCG CAPS 03/06/2020 12:00:00 AM EDT active TAKE 1 CAPSULE BY MOUTH EVERY MORNING BEFORE BREAKFAST [facility] Prolia [facility]#[id number] (60mg Syringe) 1MG 01/31/2020 12:00:00 AM EDT completed MEDENT ([facility]) Medication administered onsite Omeprazole 20 MG Delayed Release Oral Capsule Omeprazole 01/18/2020 12:00:00 AM EDT ORAL completed [facility] ([facility]) Sertraline 50 MG Oral Tablet sertraline (ZOLOFT) 50 MG tablet sertraline (ZOLOFT) 50 MG tablet 12/28/2019 12:00:00 AM EDT active .5 tab po qd for 6 days then 1 po qd [facility] Ergocalciferol 70378 UNT Oral Capsule Vitamin D (Ergocalcife rol) 12/26/2019 12:00:00 AM EDT active M EDENT ([facility]) Ondansetron 4 MG Oral Tablet ondansetron (ZOFRAN) 4 MG tablet ondansetron (ZOFRAN) 4 MG tablet 11/26/2019 12:00:00 AM EDT active TAKE 1 TABLET BY MOUTH FOUR TIMES DAILY NEEDED FOR NAUSEA [facility] Levothyroxine Sodium 0.112 MG Oral Table t levothyroxine (SYNTHROID, LEVOTHROID) 112 MCG tablet levothyroxine (SYNTHROID, LEVOTHROID) 112 MCG tablet 0 11/22/2019 12:00:00 AM EDT active Hypothyroidism, acquired TAKE 1 TABLET BY MOUTH DAILY [facility] Hypothyroidism, acquired Levothyroxine Sodium 0.112 MG Oral Tablet Levothyroxine Sodi um 10/11/2019 12:00:00 AM EDT ORAL active M EDENT ([facility]) gabapentin 100 MG Oral Capsule Gabapentin 09/01/2019 12:00:00 AM EDT ORAL active MED[facility] ([facility]) tizanidine 4 MG Oral Tablet Tizanidine HCL 08/27/2019 12:00:00 AM EDT active MED[facility] ([facility]) Prolia [facility]#[id number] (60mg Syringe) 1MG 07/29/2019 12:00:00 AM EST completed [facility] ([facility]) Medication administered onsite Levothyroxine Sodium 0.125 MG Oral Tablet Levothyroxine Sodi um 07/29/2019 12:00:00 AM EST ORAL completed [facility] ([facility]) Insurance Providers Payer name Policy type / Coverage type Policy ID Covered green party ID Covered green party's relationship to brown Policy Brown Plan Information EMEDNY [id number] SP [id number] MEDICARE COMPLETE [id number] MEDICAID [id number] [facility] MEDICARE [id number] MEDICARE COMPLETE-[facility] O [id number] S [id number] MEDICAID M [id number] S [id number] [facility] MEDICARE [id number] [place] [id number] MEDICAID [id number] Gege [id number] MEDICAID [id number] SP [id number] MEDICARE C [id number] S [id number] MEDICARE COMPLETE-UHC O [id number] S [id number] MEDICARE COMPLETE [id number] SP [id number] Medicare (Part B) Medicare Primary [id number] Self [id number] Medicaid Medigap Part B [id number] Self [id number] [facility]-Medicare [employer] Commercial [id number] Self [id number] BCBS [employer] U/W Medigap Part B [id number] Self [id number] BCBS [employer] U/W Medigap Part B [id number] Self [id number] [email or web address] Commercial [id number] Self [id number] Medicare (Part B) Medicare Primary [id number] Self [id number] Medicaid Medigap Part B [id number] Self [id number] [facility]-[employer] Commercial [id number] Self [id number] [place] Med[place] Part B [id number] Self [id number] Twitter/Medicare Commercial [id number] Self [id number] [place] Med[place] Part [place] [id number] Self [id number] Twitter/Medicare Commercial [id number] Self [id number] Medicare (Part B) Medicare Primary [id number] Self [id number] Medicaid Medigap Part B [id number] Self [id number] [facility]-[employer] Commercial [id number] Self [id number] Medicare (Part B) Medicare Primary [id number] Self [id number] Medicaid Medigap Part B [id number] Self [id number] [facility]-[employer] Commercial [id number] Self [id number] MEDICAID [id number] [place] [id number] [facility] MEDICARE [id number] Gege [id number] Medicaid [facility] S D [id number] SELF [id number] [facility] Medicare Complete F [id number] SELF [id number] Medicare (Part B) Medicare Primary [id number] Self [id number] Medicaid Medigap Part B [id number] Self [id number] [employer]icare [employer] Commercial [id number] Self [id number] Medicare (Part B) Medicare Primary [id number] Self [id number] Medicaid Medigap Part B [id number] Self [id number] [employer]-Medicare [employer] Commercial [id number] Self [id number] [place]Medicare) Medigap Part B [id number] Self [id number] [place] Medigap Part B [id number] Self [id number] [place] Primary [id number] Self [id number] Ever[employer] Medigap Part B [id number] Self [id number] Ever[employer] Medigap Part B [id number] Self [id number] [place] [employer] (Medicare) Medigap Part B [id number] Self [id number] [place] Medig[place] Part [place] [id number] Self [id number] [employer] Commercial [id number] Self [id number] Medicare (Part B) Medicare Primary [id number] Self [id number] Medicaid Medigap Part B [id number] Self [id number] [facility]-Medicare [employer] Commercial [id number] Self [id number] Medicaid [facility] Healthcare S D [id number] SELF [id number] Medicare (Part B) Medicare Primary [id number] Self [id number] Medicaid Medigap Part B [id number] Self [id number] [facility]-[employer] Commercial [id number] Self [id number] Medicare (Part B) Medicare Primary [id number] Self [id number] Medicaid Medigap Part B [id number] Self [id number] [facility]-[employer] Commercial [id number] Self [id number] MEDICARE COMPLETE [id number] SP [id number] MEDICAID [id number] SP [id number] MEDICAID [facility] [id number] [place] [employer] Medicare Complete [id number] 0 [id number] [place] [employer] [id number] 0 [id number] [place] [employer] (Medicare) Medigap Part B [id number] Self [id number] BS [place] Medigap Part B [id number] Self [id number] [place] Primary [id number] Self [id number] Medicare (Part B) Medicare Primary [id number] Self [id number] Medicaid Medigap Part B [id number] Self [id number] [employer]-Medicare [employer] Commercial [id number] Self [id number] Medicare (Part B) Medicare Primary [id number] Self [id number] Medicaid Medigap Part B [id number] Self [id number] [employer] Commercial [id number] Self [id number] MEDICAID [id number] 0 [id number] MEDICAID PI PI [facility] MEDICARE PI PI Medicare (Part B) Medicare Primary [id number] Self [id number] Medicaid Medigap Part B [id number] Self [id number] c-Medicare Solutions Commercial [id number] Self [id number] BCBS [employer] Ppo U/W Medigap Part B [id number] Self [id number] BCBS [employer] Ppo U/W Medigap Part B [id number] Self [id number] [place] Part B [id number] Self [id number] BS [place] Medigap Part B [id number] Self [id number] [facility] Medigap Part B [id number] Self [id number] [place] Part [place] [id number] Self [id number] United Healthcare Medigap Part B [id number] Self [id number] [place] Medig[place] Part B [id number] Self [id number] [employer] ([facility]) Commercial [id number] Self [id number] United Healthcare (Medicare) Medigap Part B [id number] Self [id number] BS [place] Medigap Part B [id number] Self [id number] [place] Primary [id number] Self [id number] Medicare (Part B) Medicare Primary [id number] Self [id number] Medicaid Medigap Part B [id number] Self [id number] c-Medic[employer] Commercial [id number] Self [id number] Medicare (Part B) Medicare Primary [id number] Self [id number] Medicaid Medigap Part B [id number] Self [id number] [employer]-Medicare [employer] Commercial [id number] Self [id number] Medicare (Part B) Medicare Primary [id number] Self [id number] Medicaid Medigap Part B [id number] Self [id number] [facility]-[employer] Commercial [id number] Self [id number] Medicare (Part B) Medicare Primary [id number] Self [id number] Medicaid Medigap Part B [id number] Self [id number] [employer] Commercial [id number] Self [id number] Medicare (Part B) Medicare Primary [id number] Self [id number] Medicaid Medigap Part B [id number] Self [id number] [employer] Commercial [id number] Self [id number] [place] Medigap Part B [id number] Self [id number] Medicare (Part B) Medicare Primary [id number] Self [id number] Medicaid Medigap Part B [id number] Self [id number] [facility]-[employer] Commercial [id number] Self [id number] United Healthcare (Medicare) Medigap Part B [id number] Self [id number] BS [place] Medigap Part B [id number] Self [id number] [place] Primary [id number] Self [id number] United Healthcare (Medicare) Medigap Part B [id number] Self [id number] BS [place] Medigap Part B [id number] Self [id number] [place] Medicare Primary [id number] Self [id number] Medicare (Part B) Medicare Primary Self BCBS [employer] Ppo U/W Medigap Part B Self BCBS [employer] Ppo U/W Medigap Part B Self Evercare Commercial Self Medicaid Medigap Part B [id number] Self 2 2 F 7 [employer]-Medicare Solutions Commercial Self BS [place] Medigap Part B Self [employer] Medigap Part B Self [place]ig[place] Part [place] Self [place] Part B ] Self ] United Healthcare Medigap Part B [id number] Self [id number] [place] Part B Self United Healthcare ([facility]) Commercial [id number] Self [id number] United Healthcare (Medicare) Medigap Part B Self Ever[employer]/Uhc Medigap Part B Self Evercare Medigap Part B Self BS [place] Medigap Part B Self Medicare [facility] Medicare Primary Self United Healthcare (Medicare) Medigap Part B Self UNHC COMMUNITY PLAN MCDO [id number] SP [id number] MEDICAID [id number] SP [id number] MEDICARE COMPLETE [id number] SP [id number] UNITED HEALTHCARE O [id number] S [id number] UNITED HEALTHCARE P [id number] S [id number] MEDICAID [id number] SP [id number] MEDICARE COMPLETE [id number] SP [id number] MEDICARE COMPLETE-[facility] P [id number] O [id number] Medicare Complete C1 [id number] Medicaid [id number] SELF PAY 2 UNAVAILABLE 1 UNAVAILA BLE MEDICARE 4 [id number] 1 [id number] [place] 3 [id number] [facility] MEDICARE SOLUTIO 11 [id number] 1 [id number] Self [id number] Problems, Conditions, and Diagnoses Code Display Name Description Problem Type Effective Dates Data Source(s) R68.89 Forgetfulness Forgetfulness [id number] 06/26/2020 12:00:00 AM Health system Z87.820 History of closed head injury History of closed head i njury [id number] 06/26/2020 12:00:00 AM Health system 81862284 Hypothyroidism Hypothyroidism Problem 04/25/2020 12:00: 00 AM EST [facility] ([facility]) [id number] Malaise and fatigue Malaise and fatigue Problem 1 06/25/2019 12:00:00 AM EST [facility] ([facility]) [id number] Anemia Anemia Problem 2020 12:00:00 AM ED T [facility] ([facility]) 18016932 Diarrhea Diarrhea Problem 02/17/2020 12:00:00 AM ED T [facility] ([facility]) Z00.00 Physical exam, annual Physical exam, annual [id number] 07/06/2019 12:00:00 AM EST [facility] R68.89 Other general symptoms and signs Other general s ymptoms and signs Diagnosis 06/26/2020 09:29:13 AM [facility] Z87.820 Personal history of traumatic brain inju ry Personal history of traumatic brain inju Diagnosis 06/26/2020 09:29:13 AM [facility] H61.21 Impacted cerumen, right ear Impacted cerumen, right ea r Diagnosis 06/26/2020 09:29:13 AM [facility] I10 Essential (primary) hypertension Essential (primary) h ypertension Diagnosis 06/26/2020 09:29:13 AM [facility] F32.9 Major depressive disorder, single episod e, unspecified Major depressive disorder, single episod Diagnosis 06/26/2020 09:29:13 AM [facility] G89.29 Other chronic pain Other chronic pain Diagnosis 04/2021 09:29:13 AM [facility] F41.1 Generalized anxiety disorder Generalized anxiety disor cole Diagnosis 06/26/2020 09:29:13 AM [facility] R10.11 Right upper quadrant pain Right upper quadrant pain Di agnosis 12/28/2019 12:50:44 PM EDT [facility] R52 Pain, unspecified Pain, unspecified Diagnosis 12/28/2019 12:50:44 PM EDT [facility] M41.20 Other idiopathic scoliosis, site unspeci fied Other idiopathic scoliosis, site unspeci Diagnosis 07/06/2019 11:27:01 AM [facility] E44.0 Moderate protein-calorie malnutrition Mo derate protein-calorie malnutrition Diagnosis 07/06/2019 11:27:01 AM [facility] K56.50 Intestinal adhesions [bands] , unspecified as to partial versus complete obstruction Intestinal adhesions (bands), unspecifie Diagnosis 07/06/2019 11:27:01 AM [facility] K21.9 Gastro-esophageal reflux disease without esophagitis Gastro-esophageal reflux disease without Diagnosis 07/06/2019 11:27:01 AM EST [facility] E03.9 Hypothyroidism, unspecified Hypothyroidism, unspecifie d Diagnosis 07/06/2019 11:27:01 AM [facility] Z00.00 Encounter for general adult medical examination without abnormal findings Encounter for general adult medical exam Diagnosis 020 11:27:01 AM [facility] Surgeries/Procedures Procedure Description Date Indications Data Source(s) UPPER NDSC BIOPSY SINGLE/MULTIPLE 04/03/2020 12:00:00 AM EDT [facility] ([facility]) COLONOSCOPY W/BIOPSY SINGLE/MULTIPLE 04/03/2020 12:00: 00 AM EDT [facility] ([facility]) THERAPEUTIC PROPHYLACTIC/DX INJECTION SUBQ/IM 01/31/20 20 12:00:00 AM EDT [facility] ([facility] Intermediate Eye Exam Established Patient Intermediate Eye Exam Established Patient 01/10/2020 12:00:00 AM EDT LO (Osman Blackman MD [facility]) Surgical / procedural history Surgical / procedural history 09/06/2019 12:00:00 AM EDT LO (Maxime Blackman MD [facility]) Extracapsular extraction of lens (procedure) History o f extracapsular cataract extraction OU 09/06/2019 12:00:00 AM EDT OL (Osman Blackman MD [facility]) 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 09/06/2019 12:00:00 AM EDT LO (Maxime powell MD [facility]) Reported medical history Anemia, Fall after angina 2018 Reported medical history Anemia, Fall after angina 08/201809/06/2019 12:00:00 AM EDT LO (Maxime Blackman MD [facility]) Reported medical history Anemia, Fall after angina 2018 Reported medical history Anemia, Fall after angina 08/201809/06/2019 12:00:00 AM EDT LO (Maxime Blackman MD [facility]) Reported medical history Anemia, Fall after angina 2018 Reported medical history Anemia, Fall after angina 08/201809/06/2019 12:00:00 AM EDT LO (Maxime Blackman MD [facility]) Surgical / procedural history Surgical / procedural history 09/06/2019 12:00:00 AM EDT LO (Maxime Blackman MD [facility]) History of extracapsular cataract extraction OU Histo ry of extracapsular cataract extraction OU 09/06/2019 12:00:00 AM EDT LO (Maxime Blackman MD [facility]) 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 09/06/2019 12:00:00 AM EDT LO (Maxime powell MD [facility]) Reported medical history Anemia, Fell after angina sp ell 08/2018 Reported medical history Anemia, Fell after angina spell 08/201809/06/2019 12:00:00 AM EDT LO (Maxime Blackman MD [facility]) Recent change in medical history Fell after angina sp ell 08/2018 Recent change in medical history Fell after angina spell 08/201809/06/2019 12:00:00 AM EDT LO (Maxime Blackman MD [facility]) Surgical / procedural history Surgical / procedural history 09/06/2019 12:00:00 AM EDT LO (Maxime Blackman MD [facility]) History of extracapsular cataract extraction OU Histo ry of extracapsular cataract extraction OU 09/06/2019 12:00:00 AM EDT LO (Maxime Blackman MD [facility]) 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 09/06/2019 12:00:00 AM EDT LO (Maxime powell MD [facility]) RADEX SPINE LUMBOSACRAL MINIMUM 4 VIEWS 08/27/2019 12: 00:00 AM EDT [facility] ([facility] ) X-Ray Hip Unilateral With Pelvis 2-3 Views 08/27/2019 12:00:00 AM EDT [facility] ([facility] ) THERAPEUTIC PROPHYLACTIC/DX INJECTION SUBQ/IM 07/29/19 20 12:00:00 AM EST [facility] ([facility] ) Results ID Date Data Source [id number] 06/28/2020 09:58:56 AM EST [facility]FORMATIONPatient MRN Name Date of Age Gend*PT [id number] Suma Adkins 1935 85 years F ---PT Location Admission Date/Time Visit ID Attending Provider --- --- --- --- EPI ID CSN Admitting Provider [id number] ---Assessment/Plan:Problem List Items Addressed This Visit Anxiety, unspecified - Primary (Chronic) Patient with history of anxiety. She readily admits that she tries to copewith it but is very difficult. She is on the sertraline low- dose and does seemto tolerate it well I encouraged that she increase it to full dose. That mayhelp. 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 She gets bythough bowels are moving however it is difficult. Discussed we will hold on anyfurther treatment she recently did have CT scan of the abdomen. Depression (Chronic) Discussion as above difficult situation she agrees she does seem to be gettingby the pain meds treatment is stable and it does seem to be fairly effective theanxiety seems to be quite severe now and is the main issue she is also worriedabout forgetfulness discussed that testing today did not suggest any issues ofAlzheimer's it is mainly from decreased focus and concentration secondary tomood. She agrees I discussed that we could do an MRI of the brain to look forother things including strokes fluid collections tumors I believe those are lesslikely but possible. She would like to have that done and will order it. Srinivas has headaches which can be evaluated by the MRI scan as well HTN (Chronic) Hypertension is stable. She had the one episode when she was in a panic thatthe blood pressure was severely elevated since then it is down discussed thatthis is a severe stress response. Main treatment for it is not additional bloodpressure medication but to work with the stress she agreesContinue current treatment regimen.Reviewed blood pressure goals with patient.Reviewed health dietary changes that can im prove blood pressure (ie. low-sodiumDASH diet)Recommended regular aerobic exercise.Blood pressure will be reassessed at the next regular appointment. Chronic pain Patient with chronic pain syndrome mainly in the abdominal area and back. Shehas been on high-dose narcotic therapy for this but the dosing is quite stableshe knows that she is dependent on it I discussed though that her pain is severeand that the dosing is stable and that she is tolerating it I believe the bestoption is to continue what she is doing and she agrees. Discussed this is verydifficult times with her own health distress at [facility] and thecoronavirus pandemic issues she agrees she states there is other stressors tobut she did not elaborate them today. She denies any suicidal ideation Impacted cerumen of right ear Patient had fullness sensation in the right ear patient would hard dry waxwhich was removed completely with curette patient tolerated procedure wellintact tympanic membrane then seen no evidence of infection. Patient and shewas feeling better after wax removed there was only minimal wax left side and itwas not treated History of closed head injury She did hit her head though clinically feels better that too is indication forthe MRI scan exam today is symmetric localized tenderness in the left eyebrowarea from the injury site no ecchymosis or swelling Relevant Orders MRI brain without contrast Forgetfulness Discussion as above await MRI scan results discussed the stress reductionissues Relevant Orders MRI brain without contrastFollow Up Return for Next scheduled follow up.Subjective:Patient ID: Suma Adkins is a 85 years female. Patient resents follow-upof her chronic abdominal and back pain syndrome chronic narcotic use severeanxiety, depression hypertension recent head injury and now with plugging in herright ear. 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 She is very frustratedthat she needs to be on the chronic narcotic therapy but it does help her painin the abdomen from the adhesions and her back pain. 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 She did fall recently and hit theleft side of her head she thought her balance was off. She has had noevaluation for it she like me to check it out. She denies any fevers or chillsno cough cold symptoms no cardiopulmonary complaints her bowels again are verydifficult she needs cathartics to keep them moving but that is not new.HPIPHQ-2/PHQ-9 Depression ScreeningFrequency of the following problems over the past two weeks:Little interest or pleasure in doing things: 1 - several daysFeeling down, depressed, or hopeless: 1 - several daysTrouble falling or staying asleep, or sleeping too much: 0 - not at allFeeling tired or having little energy: 1 - several daysPoor appetite or overeatin - several daysFeeling bad about yourself - or that you are a failure or have let yourself oryour family down: 1 - several daysTrouble concentrating on things, such as reading the newspaper or watchingtelevision: 1 - several daysMoving or speaking so slowly that other people could have noticed. Or theopposite - being so fidgety or restless that you have been moving around a lotmore than usual: 1 - several daysThoughts that you would be better off , or of hurting yourself in some way:0 - not at allPHQ-9 Score: 7Interpretation of the PHQ depression score severity: MildThe following portions of the patient's history were reviewed and updated asappropriate: allergies, current medications were reconciled with dischargemedications if applicable, past family history, past medical history, pastsocial history, past surgical history, problem list and nutrition. Encouragedregular exercise and healthy diet. BMI management plan discussed..Review of SystemsConstitutional: Positive for activity change and fatigue.HENT: Positive for facial swelling and hearing loss. Negative for congestion.Eyes: Negative for visual disturbance.Respiratory: Negative for cough and wheezing.Cardiovascular: Negative for chest pain.Gastrointestinal: Positive for abdominal pain and nausea.Musculoskeletal: Positive for arthralgias, back pain and myalgias.Neurological: Positive for dizziness, weakness, light- headedness, numbness andheadaches. Negative for seizures.Psychiatric/Behavioral: Positive for decreased concentration and dysphoric mood.The patient is nervous/anxious.Objective:Vitals: BP 127/60 | Pulse 72 | Temp 97.2 F (Tympanic) | Resp 18 | Ht 1.575m (5' 2") | Wt (!) 42.2 kg (93 lb) | SpO2 98% | BMI 17.01 kg/m Physical ExamConstitutional: She is oriented to person, place, and time.ThinHENT:Head: Normocephalic.Mild tenderness above left eyebrow no laceration no ecchymosisRight ear impacted with dry wax left ear essentially clearEyes: Conjunctivae and EOM are normal.Neck: Neck supple. No thyromegaly present.Cardiovascular: Normal rate and regular rhythm.Pulmonary/Chest: Effort normal and breath sounds normal.Abdominal: Soft. Bowel sounds are normal. There is no tenderness.Musculoskeletal: She exhibits no edema.Lymphadenopathy: She has no cervical adenopathy.Neurological: She is alert and oriented to person, place, and time.Skin: Skin is warm and dry.Psychiatric:Very anxious today Name Value Range Interpretation Code Description Data Betty rce(s) Supporting Document(s) ID Date Data Source [id number] 06/01/2020 12:00:00 AM EST [facility] Name Value Range Interpretation Code Description Data Betty rce(s) Supporting Document(s) SARS-CoV2 Rapid Antigen [facility] This lab was ordered by [facility] and reported by Moe Padilla MD. ID Date Data Source [id number] 04/21/2020 01:21:00 PM EST [facility] ([facility] ) Name Value Range Interpretation Code Description Data Betty rce(s) Supporting Document(s) Free T4 1.15 ng/dL 0.76-1.46 [facility] ([facility]) Thyroid Stimulating Hormone 1.360 uIU/ML 0.358-3.740 [facility] ([facility]) ID Date Data Source [id number] 03/29/2020 12:00:00 PM EDT [facility] Name Value Range Interpretation Code Description Data Betty rce(s) Supporting Document(s) SARS coronavirus 2 RNA [facility] This lab was ordered by [facility] and reported by [facility]. ID Date Data Source [id number] 03/10/2020 12:07:00 PM EDT [facility] ([facility]) Name Value Range Interpretation Code Description Data Betty rce(s) Supporting Document(s) Lipoprotein lipase [Enzymatic activity/volume] in Serum or Plasm a 77 U/L 73-393 [facility] ([facility]) mild anemia otherwise labs are all caesar l. ID Date Data Source [id number] 03/10/2020 12:07:00 PM EDT [facility] ([facility]) Name Value Range Interpretation Code Description Data Betty rce(s) Supporting Document(s) White Blood Count 7.2 10 4.0-10.0 [facility] mild anemia otherwise labs are all caesar l. Hematocrit 32.7 % 36.0-47.0 [facility] mild anemia otherwise labs are all caesar l. Red Blood Count 3.32 10 4.00-5.40 [facility] mild anemia otherwise labs are all caesar l. Hemoglobin 10.7 g/dL 12.0-15.5 [facility] mild anemia otherwise labs are all caesar l. Mean Corpuscular Hemoglobin 32.2 pg 27.0-33.0 [facility] ([facility]) mild anemia otherwise labs are all caesar l. Mean Corpuscular HGB Conc 32.7 g/dL 32.0-36.5 MEDE NT ([facility]) mild anemia otherwise labs are all caesar l. Mean Corpuscular Volume 98.5 fl 80.0-96.0 [facility] ([facility]) mild anemia otherwise labs are all caesar l. Platelet Count, Automated 275 10 150-450 [facility] NT ([facility]) mild anemia otherwise labs are all caesar l. Neutrophils % 74.0 % 36.0-66.0 [facility] ([facility]) mild anemia otherwise labs are all caesar l. Red Cell Distribution Width 13.7 % 11.5-14.5 [facility] ([facility]) mild anemia otherwise labs are all caesar l. Radford % 9.5 % 0.0-5.0 [facility] mild anemia otherwise labs are all caesar l. Eos % 0.0 % 0.0-3.0 [facility] mild anemia otherwise labs are all caesar l. Lymph % 15.8 % 24.0-44.0 [facility] mild anemia otherwise labs are all caesar l. Nucleated Red Blood Cell % 0.0 % 0-0 MED E[facility] ([facility]) mild anemia otherwise labs are all caesar l. Baso % 0.3 % 0.0-1.0 [facility] mild anemia otherwise labs are all caesar l. Immature Granulocyte % 0.4 % 0-3.0 [facility] ([facility]) mild anemia otherwise labs are all caesar l. Radford # 0.7 10 0.0-0.8 [facility] mild anemia otherwise labs are all caesar l. Lymph # 1.1 10 1.5-5.0 [facility] mild anemia otherwise labs are all caesar l. Neutrophils # 5.3 10 1.5-8.5 [facility] ([facility]) mild anemia otherwise labs are all caesar l. Eos # 0.0 10 0.0-0.5 [facility] mild anemia otherwise labs are all caesar l. Baso # 0.0 10 0.0-0.2 [facility] mild anemia otherwise labs are all caesar l. ID Date Data Source [id number] 03/10/2020 12:07:00 PM EDT [facility] Name Value Range Interpretation Code Description Data Betty rce(s) Supporting Document(s) Blood Urea Nitrogen 16 mg/dL 7-18 [facility] mild anemia otherwise labs are all caesar l. Glucose, Fasting 93 mg/dL 70-100 [facility] mild anemia otherwise labs are all caesar l. Creatinine For GFR 0.57 mg/dL 0.55-1.30 [facility]) mild anemia otherwise labs are all caesar l. Sodium Level 140 meq/L 136-145 [facility] ([facility]) mild anemia otherwise labs are all caesar l. Glomerular Filtration Rate Laboratory test result [facility] ([facility]) mild anemia otherwise labs are all caesar l. Potassium Serum 4.1 meq/L 3.5-5.1 [facility] ([facility] mild anemia otherwise labs are all caesar l. Carbon Dioxide Level 28 meq/L 21-32 [facility] mild anemia otherwise labs are all caesar l. Chloride Level 106 meq/L 98-107 [facility] mild anemia otherwise labs are all caesar l. Anion Gap 6 meq/L 8-16 [facility] mild anemia otherwise labs are all caesar l. Calcium Level 8.5 mg/dL 8.8-10.2 [facility] ([facility]) mild anemia otherwise labs are all caesar l. Alt/SGPT 20 U/L 12-78 [facility] mild anemia otherwise labs are all caesar l. Ast/Sgot 19 U/L 7-37 [facility] mild anemia otherwise labs are all caesar l. Alkaline Phosphatase 50 U/L 45-117 [facility] mild anemia otherwise labs are all caesar l. Bilirubin,Total 0.2 mg/dL 0.2-1.0 [facility] ([facility] mild anemia otherwise labs are all caesar l. Total Protein 6.3 GM/DL 6.4-8.2 [facility] ([facility]) mild anemia otherwise labs are all caesar l. Albumin/Globulin Ratio 1.3 1.2-2.2 [facility] ([facility]) mild anemia otherwise labs are all caesar l. Albumin 3.6 GM/DL 3.2-5.2 [facility] mild anemia otherwise labs are all caesar l. ID Date Data Source [id number] 02/14/2020 02:58:00 PM EDT [facility] ([facility]) Name Value Range Interpretation Code Description Data Betty rce(s) Supporting Document(s) Lipoprotein lipase [Enzymatic activity/volume] in Serum or Plasm a 77 U/L 73-393 [facility] ([facility]) <content>note:<nlbl:demographic_changed> </content>
<content></content> ID Date Data Source [id number] 02/14/2020 02:58:00 PM EDT [facility] ([facility]) Name Value Range Interpretation Code Description Data Betty rce(s) Supporting Document(s) Blood Urea Nitrogen 17 mg/dL 7-18 [facility] ([facility], [facility]) Glucose, Fasting 93 mg/dL 70-100 [facility] ([facility]) Creatinine For GFR 0.68 mg/dL 0.55-1.30 [facility] ([facility]) Sodium Level 128 meq/L 136-145 [facility] ([facility], [facility]) Glomerular Filtration Rate Laboratory test result [facility] ([facility], [facility]) <content>Units are mL/min/1.73 m2</content>
<content></content>
<content>Chronic Kidney Disease Staging per NKF:</content>
<content></content>
<content>Stage I & II GFR >=60 Normal to Mildly Decreased</content>
<content>Stage III GFR 30-59 Moderately Decreased</content>
<content>Stage IV GFR 15-29 Severely Decreased</content>
<content>Stage V GFR <15 Very Little GFR Left</content>
<content>ESRD GFR <15 on CAR PACKER</content>
<content></content> Potassium Serum 4.2 meq/L 3.5-5.1 [facility] ([facility], [facility]) Chloride Level 97 meq/L 98-107 [facility] ([facility], [facility]) Carbon Dioxide Level 23 meq/L 21-32 [facility] ([facility], [facility]) Ast/Sgot 23 U/L 7-37 [facility] ([facility], [facility]) Calcium Level 8.5 mg/dL 8.8-10.2 [facility] ([facility], [facility]) Anion Gap 8 meq/L 8-16 [facility] ([facility], [facility]) Alkaline Phosphatase 57 U/L 45-117 [facility] Alt/SGPT 24 U/L 12-78 [facility] ([facility], [facility]) Bilirubin,Total 0.5 mg/dL 0.2-1.0 [facility] ([facility], [facility]) Albumin 3.6 GM/DL 3.2-5.2 [facility] ([facility], [facility]) Albumin/Globulin Ratio 1.2 1.2-2.2 [facility] ([facility], [facility]) Total Protein 6.7 GM/DL 6.4-8.2 [facility] ([facility], [facility]) ID Date Data Source [id number] 02/14/2020 02:58:00 PM EDT [facility] ([facility], [facility]) Name Value Range Interpretation Code Description Data Betty rce(s) Supporting Document(s) White Blood Count 9.4 10 4.0-10.0 [facility] ([facility], [facility]) Hemoglobin 10.7 g/dL 12.0-15.5 [facility] ([facility]) Red Blood Count 3.36 10 4.00-5.40 [facility] ([facility], [facility]) Hematocrit 32.8 % 36.0-47.0 [facility] ([facility], [facility]) Mean Corpuscular Volume 97.6 fl 80.0-96.0 M EDENT ([facility], [facility]) Mean Corpuscular HGB Conc 32.6 g/dL 32.0-36.5 [facility] ([facility], [facility]) Mean Corpuscular Hemoglobin 31.8 pg 27.0-33.0 [facility] ([facility], [facility]) Platelet Count, Automated 259 10 150-450 [facility] ([facility], [facility]) Neutrophils % 79.5 % 36.0-66.0 [facility] ([facility], [facility]) Red Cell Distribution Width 12.5 % 11.5-14.5 [facility] ([facility], [facility]) Lymph % 9.5 % 24.0-44.0 [facility] ([facility], [facility]) Radford % 10.5 % 0.0-5.0 [facility] ([facility], [facility]) Eos % 0.0 % 0.0-3.0 [facility] ([facility], [facility]) Nucleated Red Blood Cell % 0.0 % 0-0 MED [facility] ([facility], [facility]) Immature Granulocyte % 0.3 % 0-3.0 [facility] ([facility] Baso % 0.2 % 0.0-1.0 [facility] ([facility], [facility]) Lymph # 0.9 10 1.5-5.0 [facility] ([facility]) Neutrophils # 7.5 10 1.5-8.5 [facility] ([facility]) Radford # 1.0 10 0.0-0.8 [facility] ([facility]) Baso # 0.0 10 0.0-0.2 [facility] ([facility]) Eos # 0.0 10 0.0-0.5 [facility] ([facility]) ID Date Data Source [id number] 02/14/2020 01:01:00 PM EDT [facility] ([facility]) Name Value Range Interpretation Code Description Data Betty rce(s) Supporting Document(s) Bacteria identified in Urine by Culture Laboratory test result [facility] ([facility]) FULL REPORT IN LAB NOTES ([facility] and [facility] ). NO GROWTH CLINICAL SIGNIFICANCE 2 OR MORE ORGANISMS ID Date Data Source [id number] 02/14/2020 01:00:00 PM EDT [facility] ([facility]) Name Value Range Interpretation Code Description Data Betty rce(s) Supporting Document(s) Gastrointestinal (GI) Panel Laboratory test result [facility] ([facility]) This Gastrointestinal PCR Panel detects the following bacteria, parasites and viruses: [...] V). NEGATIVE by MULTIPLEXED NUCLEIC ACID PCR ID Date Data Source [id number] 01/25/2020 09:00:00 AM EDT [facility] ([facility]) Name Value Range Interpretation Code Description Data Betty rce(s) Supporting Document(s) Calcium [Mass/volume] in Serum or Plasma 8.7 mg/dL 8.8-10.2 [facility] ([facility]) <content>note:<nlbl:demographic_changed> </content>
<content></content> Calcidiol [Mass/volume] in Serum or Plasma 56.9 ng/mL 30.0-100.0 [facility] ([facility]) <content>note:<nlbl:demographic_changed> </content>
<content></content> ID Date Data Source [id number] 01/04/2020 12:56:49 PM EDT [facility]FORMATION[facility] Name Date of Age Gend*PT [id number] Suma Adkins 1935 84 years F ---PT Location Admission Date/Time Visit ID Attending Provider --- --- --- --- EPI ID CSN Admitting Provider [id number] ---Addended by: REY MENDOZA on: 01/04/2020 12:56 PM Modules accepted: Orders Name Value Range Interpretation Code Description Data Betty rce(s) Supporting Document(s) ID Date Data Source [id number] 11/23/2019 09:57:00 AM EDT [facility] ([facility]) Name Value Range Interpretation Code Description Data Betty rce(s) Supporting Document(s) Thyroid Stimulating Hormone 0.278 uIU/ML 0.358-3.740 [facility] ([facility]) Free T4 1.38 ng/dL 0.76-1.46 [facility] ([facility]) ID Date Data Source [id number] 10/02/2019 11:24:00 AM EDT [facility] ([facility]) Name Value Range Interpretation Code Description Data Betty rce(s) Supporting Document(s) Thyroid Stimulating Hormone 0.045 uIU/ML 0.358-3.740 [facility] ([facility]) Free T4 1.80 ng/dL 0.76-1.46 [facility] ([facility]) ID Date Data Source [id number] 10/02/2019 11:24:00 AM EDT [facility] ([facility]) Name Value Range Interpretation Code Description Data Betty rce(s) Supporting Document(s) Calcium.ionized [Mass/volume] in Serum o r Plasma by Ion-selective membrane electrode (ISE) 4.6 mg/dL 4.5-5.3 [facility] ([facility]) <content>note:<nlbl:demographic_changed></content>
<content>note:<nlbl:demog raphic_changed></content>
<content>note:<nlbl:demographic_changed></content>
<content></content> Calcium [Mass/volume] in Serum or Plasma 8.9 mg/dL 8.8-10.2 [facility] ([facility]) <content>note:<nlbl:demographic_changed></content>
<content>note:<nlbl:demog raphic_changed></content>
<content>note:<nlbl:demographic_changed></content>
<content></content> ID Date Data Source [id number] 09/03/2019 12:24:30 PM EDT [facility] INFORMATIONPatient [facility] Name Date of Age Gend*PT [id number] Suma Adkins 1935 84 years F ---PT Location Admission Date/Time Visit ID Attending Provider --- --- --- --- EPI ID CSN Admitting Provider [id number] ---Addended by: REY MENDOZA on: 09/03/2019 12:24 PM Modules accepted: Orders Name Value Range Interpretation Code Description Data Betty rce(s) Supporting Document(s) ID Date Data Source [id number] 09/02/2019 12:00:00 AM EDT [facility] Patient Name: SUMA ADKINS [id number] [facility] Date of : 1935[place] [id number] Date of Exam: 09/02/2019PH#: Fax: [phone] EXAM: MRI LUMBAR SPINE WITHOUT CONTRASTCLINICAL INFORMATION: Intervertebral disc degeneration.Comparison lumbar spine radiographs 10/01/2017. Comparison is made withimages from recent CT abdomen and pelvis 08/19/2019.TECHNIQUE:3T multiplanar MRI imaging of the lumbar spine was obtained using varioussequences.MRI FINDINGS:There is a severe levoconvex lumbar scoliosis.Axial and sagittal images at L5-S1 demonstrate moderate facet and m ildligamentum flavum hypertrophy bilaterally. These features indent thethecal sac from a dorsolateral aspect. There is minimal diffuse discbulging. There is no evidence of spondylolysis or spondylolisthesis.At L4-5, there is diffuse disc bulging which indents the ventral margin ofthe thecal sac. Moderate facet and ligamentum flavum hypertrophy are notedbilaterally at L4-5, left more so than right. There is mild central canalstenosis at L4-5. The thecal sac has a triangular shape, and in themidline its AP dimension is 7 mm. There is left- sided neural foraminalnarrowing due to disc bulging at L4-5 along with facet hypertrophy.At L3-4, there is diffuse posterior disc bulging and osteophytic lipping.There is a subtle 2 to 3 mm retrolisthesis. Canal size is borderline.There is left-sided facet hypertrophy indenting the left lateral margin ofthe thecal sac and there is severe left foraminal narrowing due to discbulging and facet hypertrophy and discogenic spurring.At L2-3, there is posterior disc bulging diffusely with osteophytic ridgingindenting the ventral margin of the thecal sac. Borderline canal size.The cauda equina is eccentric within the thecal sac at this level due tothe scoliosis. It is eccentric to the right. On the right, there is discbulging. There is mild right-sided foraminal narrowing.At L1-2, there is left lateral disc bulging. No spinal stenosis is seen.Mild ligamentum flavum hypertrophy. Mild diffuse disc bulging is seen.IMPRESSION:Fairly severe scoliosis and degenerative spondylosis changes as notedabove.Accredited by the [employer] in MR.NANDINI Ga/Roque you for referring SUMA LUCILLE to our office. Electronically Signed - MARICRUZ YARBROUGH MD 09/03/19 12:32 Name Value Range Interpretation Code Description Data Betty rce(s) Supporting Document(s) ID Date Data Source [id number] 07/07/2019 08:57:39 AM EST [facility] INFORMATIONPatient MRN Name Date of Age Gend*PT [id number] GatoLaurita woodsonn Vijay 1935 84 years F ---PT Location Admission Date/Time Visit ID Attending Provider --- --- --- --- EPI ID CSN Admitting Provider [id number] ---Subjective: Suma Adkins is a 84 years female who presents for an Annual MedicareVisit and CPE. and and follow up of chronic medical problems. Including chronicabdominal pain and constipation felt secondary to severe abdominal adhesionsespecially in the right upper quadrant with chronic pain syndrome on chronicnarcotic therapy, COPD GERD anxiety depression osteoporosis severekyphoscoliosis hypothyroidism mitral valve disorder and history of falls withpostconcussion syndrome. Patient doing okay actually her mood is a bit bettershe is still very stressed over her work responsibilities but also her overallhealth she continues to have the chronic abdominal pain especially in the rightupper quadrant he is very frustrated by it she continues with her aggressivebowel regimen for it and narcotics she does state steady with the narcotictherapy. She unfortunately has had several falls recently and did haveconcussion she was evaluated for this. She is up-to-date with herendocrinologist for her osteoporosis treatment is up-to-date with hercardiologist for her valvular heart issues. She denies any cough cold symptomsno significant respiratory issues. No reflux symptoms she is to be carefulwithswallowing but that is not newHPICurrent Providers List:Patient Care Team:Rey eMndoza MD as PCP - General (Internal Medicine)Elena Arteaga NP as Referring Physician (Nurse Practitioner)Yandel Berrios MD as MD (Cardiology)Alaina España MD as Consulting Physician (Endocrinology)Remy Elaine MD as Consulting Physician (Gastroenterology)Mike Rich MD as Referring Physician (Colon and Rectal Surgery)eTo Dsouza MD as Consulting Physician (Internal Medicine)Alvin Capellan MD as Consulting Physician (Orthopedic Surgery)Hearing And VisionHearing:Whisper Test: PASSVision Screening:Was a Snellen eye exam done?: (Comment: january 2019 last exam)Health Status:In general, patient reports health as: Amanda general, patient reports life as: goodPatient reports sleep pattern as: sleeping wellHave you seen a dentist in the last year?: Yes (Comment: Dr Aparicio- last exam06/2019)IADLs and ADLsDo you need help from others for your personal care such as eating, dressing,toileting ,or getting around the house?: NoDo you experience incontinence?: NoDo you need help with using the telephone?: NoDo you need help with shopping?: NoDo you need help with food preparation?: NoDo you need help with housekeeping?: NoDo you need help with laundry?: NoDo you need help handling finances?: NoDo you drive: YesDo you manage your your own medication: Yes, independentPhysical Activity:Physical Activity:Do you excerise for about 20 minutes or more three days a week?: Yes, sometimesNutritional Assessment:Nutritional Assessment:Do you eat a balanced diet including daily serving of fruits, vegetables, andwhole grains?: No (Comment: pt reports poor appetite, is drinking 2-3 ensuredaily)Mini COGClock Drawing Test: AbnormalWord Recall: Three WordsMini Cog Results: Negative screen for dementiaGet up and GoTime in seconds to complete: 18Safety in current home environment:Does the patient live alone?: NoDoes you home have throw rugs, poor lighting, or a slippery bathtub/shower?: NoDoes your home have functioning smoke detectors?: YesDo you use any assistive devices?: noneDo you always fasten your seatbelt: YesComprehensive Medical and Social HistoryPatient Active Problem ListDiagnosis Abdominal Pain Osteoporosis Hypothyroidism, acquired GERD Constipation Mitral valve disorders COPD Anxiety, unspecified Intestinal or peritoneal adhesions with obstructio Malnutrition of moderate degree Dysuria Depression Scoliosis (and kyphoscoliosis), idiopathic Incomplete tear of rotator cuff HTN Nausea without vomiting Diaphragmatic hernia Chronic pain Rib pain on right side Common bile duct dilatation Pain of right hip joint Anemia Post concussion syndrome Impacted cerumen of right ear Syncope due to orthostatic hypotension Dysphasia Physical exam, annualPast Medical History:Diagnosis Date Anemia Cancer skin cancer Disease of thyroid gland Hypertension Hypothyroidism LLL pneumonia 08/19/2017 Osteoporosis TIA (transient ischemic attack) had episode of tingling on one side of body Twisting of colon on long axisFamily HistoryProblem Relation Age of Onset Other Unknown Brother stroke Other Unknown Mother OBS Other Unknown Father CAD Heart disease Mother Alzheimer's disease Father Heart disease Brother Heart disease DaughterSocial HistorySocioeconomic History Marital status: Single Spouse name: Not on file Number of children: Not on file Years of education: Not on file Highest education level: Not on fileOccupational History Not on fileTobacco Use Smoking status: Former Smoker Smokeless tobacco: Never UsedSubstance and Sexual Activity Alcohol use: Yes Comment: wine Drug use: No Sexual activity: Not on fileSubstance/Opiate AssessmentIn the past year,how often have you used prescription drugs for non-medicalreasons or illegal drugs?: NeverHave you EVER used any drug by injection? (Non-Medical use only): NeverPast Surgical History:Procedure Laterality Date APPENDECTOMY BUNIONECTOMY COLON SURGERY COLONOSCOPY N/A 12/12/2015 Procedure: COLONOSCOPY W ANESTHESIA ; Surgeon: Mike Rich MD; [facility]; Service: Colorectal; Laterality: N/A; ESOPHAGOGASTRODUODENOSCOPY 01/06/2019 Bx+ EYE SURGERY cataracts HYSTERECTOMY PORTACATH PLACEMENT SKIN CANCER EXCISIONAllergiesAllergen Reactions Aspirin Swelling of eyes and extremities Bentyl [Dicyclomine Hcl] Swelling Tongue & Lips swollen Cephalexin (Keflex) - Convulsions Codeine Nausea Only Metoclopramide Hcl Comment: Reglan Morphine Severe agitation / nervousness. Prochlorperazine Ampicillin Rash Penicillins RashCurrent Outpatient MedicationsMedication Sig Dispense Refill amLODIPine (NORVASC) 5 MG tablet Take 1 tablet (5 mg total) by mouth daily 90tablet 3 bisacodyl (DULCOLAX) 5 MG EC tablet take 1-2 Tablets by ORAL route every dayPRN cyanocobalamin (B12) [address] under the tongue daily Denosumab (PROLIA) 60 MG/ML SOLN inject 1 milliliter by subcutaneous routeevery 6 months in the upper arm, upper thigh or abdomen levothyroxine (SYNTHROID, LEVOTHROID) 112 MCG tablet TAKE 1 TABLET BY MOUTHDAILY 90 tablet 1 LINZESS 290 MCG CAPS TAKE 1 CAPSULE BY MOUTH EVERY MORNING BEFORE BREAKFAST 30capsule 5 nitroglycerin (NITROSTAT) 0.4 MG SL tablet sl as needed cp-take up to 3 tabs 5minutes apart to resolve cp NORCO 7.5-325 MG per tablet Take 2 tablets by oral route 4 times everyday asneeded for pain MDD 8 240 tablet 0 ondansetron (ZOFRAN) 4 MG tablet TAKE 1 TABLET BY MOUTH FOUR TIMES DAILY ASNEEDED FOR NAUSEA 120 tablet 0 Sodium Phosphates (FLEET ENEMA) 7-19 GM/118ML ENEM USE DIRECTED DAILY PRN12 Bottle 12 vitamin D, Ergocalciferol, 08427 UNITS CAPS Take 1 capsule by mouth Everyother weekNo current facility-administered medications for this visit.Review of SystemsConstitutional: Positive for fatigue. Negative for activity change, appetitechange, fever and unexpected weight change.HENT: Negative for congestion, ear pain, mouth sores, sinus pressure and sorethroat.Eyes: Negative for visual disturbance.Respiratory: Negative for cough, chest tightness, shortness of breath andwheezing.Cardiovascular: Negative for chest pain and palpitations.Gastrointestinal: Positive for abdominal pain, constipation and nausea. Negativefor abdominal distention and diarrhea.Endocrine: Negative for polydipsia and polyuria.Genitourinary: Negative for dysuria, hematuria and urgency.Musculoskeletal: Positive for arthralgias, back pain and myalgias.Skin: Negative for rash.Neurological: Positive for weakness and headaches. Negative for syncope.Hematological: Negative for adenopathy.Psychiatric/Behavioral: Negative for dysphoric mood. The patient isnervous/anxious.Objective:BP 120/70 | Pulse 72 | Temp 97.7 F (Oral) | Ht 1.575 m (5' 2") | Wt (!)42.6 kg (94 lb) | SpO2 97% | BMI 17.19 kg/m Physical ExamConstitutional: She is oriented to person, place, and time.ThinHENT:Head: Normocephalic and atraumatic.Mouth/Throat: Oropharynx is clear and moist.Eyes: Conjunctivae are normal.Neck: Neck supple. No JVD present.Cardiovascular: Normal rate and regular rhythm.Pulmonary/Chest: Effort normal and breath sounds normal.Abdominal: Soft. Bowel sounds are normal. There is tenderness.Musculoskeletal: She exhibits no edema.Severe kyphoscoliosisLymphadenopathy: She has no cervical adenopathy.Neurological: She is alert and oriented to person, place, and time.Skin: Skin is warm and dry.Psychiatric: Her behavior is normal. Judgment and thought content normal.Anxious but appropriate. Affect not blunted todayAssessment/Plan:Health MaintenanceTopic Date Due DXA Scan 1935 Tetanus Vaccines (1 - Tdap) 1948 Zoster Recombinant Vaccine (RZV) (Shingrix) (1 of 2) 1987 Adult Pneumococcal Vaccine (1 of 2 - PCV13) 2002 Annual Medicare Well Visit 07/27/2015 TSH Level 11/20/2016 Influenza Vaccine 01/14/2019 PHQ Depression Screening 06/16/2019 Risk To Fall Survey Annual (Elderly Patients 65+) 07/06/2020 Colonoscopy Non Routine Discontinued Mammogram Historical DiscontinuedPreventative recommendations were reviewed and discussed with the patient.During the visit we discussed:Code status was discussed.Advanced Directives: Full CodeRisk Assessments: Body mass index is 17.19 kg/m . The BMI is below average; healthy eatinghabits discussed. BMI management plan is completedFall Risk: In the past 12 months, did you fall or have a problem with balance orwalking?: Yes. Discuss/suggested the following plan with patient:: (2 falls inthe past year. last fall pt was playing with dog. both falls resulted inconcussions). screen negativePatient Instructions (the written plan) was given to the patient.Problem List Items Addressed This Visit Abdominal Pain (Chronic) Patient with chronic abdominal pain especially in the right upper quadrant shehas had multiple exams including multiple colonoscopies. She has had multipleprevious surgeries with significant adhesions. I reiterated I believe this iswhy she continues to have the chronic abdominal pain syndrome unfortunately notmuch can be done with adhesions. Fortunately bowels are still moving despiteneeding aggressive medications to do so she agrees. She remains on thenarcotics for the abdominal pain unfortunately it is significant amount per dayshe has been very steady and very compliant with this treatment plan and itworks well. 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 She is on Prolia and vitamin D supplement shetries to get calcium here but it is difficult Hypothyroidism, acquired (Chronic) Thyroid disease stableContinue current treatment regimen. Will get regular lab work promptly GERD (Chronic) GERD is stableContinue current treatment regimen. Constipation (Chronic) Patient with long history of constipation I suspect worsened by the abdominaladhesions plus the chronic narcotic use she agrees she has a Linzess which ishelpful she also uses enemas frequently and Dulcolax also. This plan works wellfor her. 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 Anxiety, unspecified (Chronic) Patient continues with much stress both over her own health but her situation.She continues to have many responsibilities. Discussed. Told her if I can beof any further assistance let me know. 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 Malnutrition of moderate degree (Chronic) Patient is having better time with her diet she has been taking on average 3Ensure cans per day and tolerates it well told her this is a great supplementshe can actually increase it if needed. She did wonder about a liquid diet Isaid she could do that but I would do it with the Ensure at least 4 cans/day sheagrees she will consider it Depression (Chronic) Psychological condition is stable.Continue current treatment plan patient very frustrated over her health buttoday her mood is a bit brighter she agrees she has been feeling a bit betterrecently. Continue current plan. Scoliosis (and kyphoscoliosis), idiopathic (Chronic) Patient with severe kyphoscoliosis. Respiratory status stable. Certainly sheis with si gnificant mobility limitations because of this. She agrees HTN - Primary (Chronic) Hypertension is stable.Continue current treatment regimen.Reviewed blood pressure goals with patient.Reviewed health dietary changes that can improve blood pressure (ie. low-sodiumDASH diet)Recommended regular aerobic exercise.Blood pressure will be reassessed at the next regular appointment. Chronic pain Patient continues with chronic hydrocodone use. Dose is stable she is withstable dosage Anemia History of that she is due for lab work will get it promptly Post concussion syndrome Patient has had several falls with history of concussion she actually is feltmuch better recently discussed safety issues Dysphasia She has to be careful swallowing. She is up-to-date with GI Physical exam, annual Discussed health maintenance discussed heart disease risk reduction ideasdiscussed healthy diet and activity she certainly is as active as she can be.She did have several falls discussed safety issues associated with them she isdue for lab work will get it done promptly she had colonoscopy several yearsago. Discussed immunizationsReturn in about 6 months (around 01/04/2020). Name Value Range Interpretation Code Description Data Betty rce(s) Supporting Document(s) ID Date Data Source [id number] 07/06/2019 04:24:41 [facility] INFORMATIONPatient MRN Name Date of Age Gend*PT [id number] Suma Adkins 1935 84 years F ---PT Location Admission Date/Time Visit ID Attending Provider --- --- --- --- EPI ID CSN Admitting Provider [id number] ---Addended by: REY MENDOZA on: 07/06/2019 04:24 PM Modules accepted: Orders Name Value Range Interpretation Code Description Data Betty rce(s) Supporting Document(s) Procedure Social History Code Duration Value Status Description Data Source(s ) Alcohol intake 06/26/2020 12:00:00 AM EST Yes completed [facility] Smoking 06/26/2020 12:00:00 AM EST Former smoker completed Former smoker [facility] Smoking 06/18/2020 12:00:00 AM EST Patient has never smoked co mpleted Patient has never smoked [facility] ([facility]) Smoking 04/25/2020 12:00:00 AM EST Patient has never smoked co mpleted Patient has never smoked [facility] ([facility]) Smoking 01/10/2020 02:10:49 PM EDT Ex-smoker (finding) complet ed Ex-smoker (finding) [place] (Maxime Blackman MD [facility]) Smoking 09/15/2019 07:34:19 PM EDT Ex-smoker (finding) complet ed Ex-smoker (finding) [facility] (Maxime Blackman MD [facility]) Smoking 09/15/2019 07:30:53 PM EDT Ex-smoker (finding) complet ed Ex-smoker (finding) [facility] (Maxime Blackman MD [facility]) Smoking 09/15/2019 07:28:21 PM EDT Ex-smoker (finding) complet ed Ex-smoker (finding) [facility] (Maxime Blackman MD [facility]) Smoking 09/15/2019 07:25:10 PM EDT Ex-smoker (finding) complet ed Ex-smoker (finding) [facility] (Maxime Blackman MD [facility]) Vital Signs ID Date Data Source UNK Name Value Range Interpretation Code Description Data Source(s) Diastolic blood pressure 60 mm[Hg] 60 mm[Hg] [facility] Systolic blood pressure 127 mm[Hg] 127 mm[Hg] [facility] Oxygen saturation in Arterial blood by Pulse oximetry 98 % 98 % [facility] Body mass index (BMI) [Ratio] 17.01 kg/m2 17.01 kg/m2 [facility] Body weight 42.185 kg 42.185 kg [facility] Body height 157.5 cm 157.5 cm [facility] Respiratory rate 18 /min 18 /min [facility] Body temperature 36.22 Marsha 36.22 Marsha [facility] Heart rate 72 /min 72 /min [facility] Body mass index (BMI) [Ratio] 16.8 kg/m2 16.8 k g/m2 [facility] ([facility], [facility]) Body height 60 [in_i] 60 [in_i] [facility] ([facility], [facility]) 5'0" Body weight 86.00 [lb_av] 86.00 [lb_av] [facility] ([facility], [facility]) Body temperature 98.7 [degF] 98.7 [degF] [facility] ([facility], [facility]) Oxygen saturation in Arterial blood by Pulse oximetry 98 % 98 % [facility] ([facility], [facility]) Respiratory rate 15 /min 15 /min [facility] ( [facility], [facility]) Heart rate 74 /min 74 /min [facility] ([facility]) Diastolic blood pressure 74 mm[Hg] 74 mm[Hg] [facility] ([facility], [facility]) Systolic blood pressure 142 mm[Hg] 142 mm[Hg] [facility] ([facility], [facility]) Oxygen saturation in Arterial blood by Pulse oximetry 97 % 97 % [facility] ([facility], [facility]) Respiratory rate 18 /min 18 /min [facility] ( [facility], [facility]) Heart rate 68 /min 68 /min [facility] Diastolic blood pressure 62 mm[Hg] 62 mm[Hg] [facility] ([facility], [facility]) Systolic blood pressure 118 mm[Hg] 118 mm[Hg] [facility] Body weight 92.00 [lb_av] 92.00 [lb_av] [facility] ([facility], [facility]) Body temperature 97.8 [degF] 97.8 [degF] [facility] ([facility], [facility]) Body mass index (BMI) [Ratio] 17.0 kg/m2 17.0 k g/m2 [facility] ([facility]) Body weight 90.00 [lb_av] 90.00 [lb_av] [facility] ([facility]) Body height 61 [in_i] 61 [in_i] [facility] ([facility]) 5'1" Body temperature 97.1 [degF] 97.1 [degF] [facility] ([facility]) Body temperature 97.5 [degF] 97.5 [degF] [facility] ([facility]) Body weight 41.731 kg 41.731 kg [facility] Body mass index (BMI) [Ratio] 18.0 kg/m2 18.0 k g/m2 [facility] ([facility]) Heart rate 77 /min 77 /min [facility] ([facility]) Diastolic blood pressure 77 mm[Hg] 77 mm[Hg] [facility] ([facility]) Systolic blood pressure 129 mm[Hg] 129 mm[Hg] M [facility] ([facility]) Body weight 92.00 [lb_av] 92.00 [lb_av] [facility] ([facility]) Body height 60 [in_i] 60 [in_i] [facility]) 5'0" Body weight 40.370 kg 40.370 kg [facility] ([facility]) Body mass index (BMI) [Ratio] 17.4 kg/m2 17.4 k g/m2 [facility] ([facility]) Heart rate 74 /min 74 /min [facility] ([facility]) Diastolic blood pressure 76 mm[Hg] 76 mm[Hg] [facility] ([facility]) Systolic blood pressure 123 mm[Hg] 123 mm[Hg] [facility] Body weight 89.00 [lb_av] 89.00 [lb_av] [facility] ([facility]) Temp 97.9 Body height 60 [in_i] 60 [in_i] [facility] 5'0" Body mass index (BMI) [Ratio] 16.6 kg/m2 16.6 k g/m2 [facility] ([facility], [facility]) Body height 61 [in_i] 61 [in_i] [facility] ([facility], [facility]) 5'1" Body weight 88.00 [lb_av] 88.00 [lb_av] [facility] ([facility], [facility]) Body temperature 97.9 [degF] 97.9 [degF] [facility] ([facility], [facility]) Oxygen saturation in Arterial blood by Pulse oximetry 98 % 98 % [facility] ([facility], [facility]) Respiratory rate 12 /min 12 /min [facility] ( [facility], [facility]) Heart rate 71 /min 71 /min [facility] ([facility], [facility]) Diastolic blood pressure 54 mm[Hg] 54 mm[Hg] [facility] ([facility], [facility]) Systolic blood pressure 92 mm[Hg] 92 mm[Hg] M [facility] ([facility], [facility]) Oxygen saturation in Arterial blood by Pulse oximetry 98 % 98 % [facility] ([facility]) Body mass index (BMI) [Ratio] 17.3 kg/m2 17.3 k g/m2 [facility] ([facility]) Body weight 91.50 [lb_av] 91.50 [lb_av] [facility] ([facility]) Body height 61 [in_i] 61 [in_i] [facility] ([facility]) 5'1" Heart rate 70 /min 70 /min [facility] ([facility]) Diastolic blood pressure 70 mm[Hg] 70 mm[Hg] [facility] ([facility]) Systolic blood pressure 136 mm[Hg] 136 mm[Hg] M [facility] ([facility]) Body weight 41.731 kg 41.731 kg [facility] Body mass index (BMI) [Ratio] 18.0 kg/m2 18.0 k g/m2 [facility] ([facility]) Heart rate 67 /min 67 /min [facility] ([facility]) Diastolic blood pressure 82 mm[Hg] 82 mm[Hg] [facility] ([facility]) Systolic blood pressure 135 mm[Hg] 135 mm[Hg] M [facility] ([facility]) Body weight 92.00 [lb_av] 92.00 [lb_av] [facility] ([facility]) Temp 97.6 Body height 60 [in_i] 60 [in_i] [facility] ([facility]) 5'0" Oxygen saturation in Arterial blood by Pulse oximetry 98 % 98 % [facility] ([facility]) Body mass index (BMI) [Ratio] 17.4 kg/m2 17.4 k g/m2 [facility] ([facility] Body weight 92.00 [lb_av] 92.00 [lb_av] [facility] ([facility] ) Body height 61 [in_i] 61 [in_i] [facility] ([facility] ) 5'1" Heart rate 67 /min 67 /min [facility] ([facility] ) Diastolic blood pressure 88 mm[Hg] 88 mm[Hg] [facility] ([facility] ) Systolic blood pressure 110 mm[Hg] 110 mm[Hg] M [facility] ([facility] ) Body mass index (BMI) [Ratio] 17.8 kg/m2 17.8 k g/m2 [facility] ([facility] ) Body weight 91.00 [lb_av] 91.00 [lb_av] [facility] ([facility] ) Body height 60 [in_i] 60 [in_i] [facility] ([facility] ) 5'0" Oxygen saturation in Arterial blood by Pulse oximetry 97 % 97 % [facility] ([facility] ) Body mass index (BMI) [Ratio] 18.2 kg/m2 18.2 k g/m2 [facility] ([facility] ) Body weight 96.50 [lb_av] 96.50 [lb_av] [facility] ([facility] ) Body height 61 [in_i] 61 [in_i] [facility] ([facility] ) 5'1" Heart rate 88 /min 88 /min [facility] ([facility] ) Diastolic blood pressure 70 mm[Hg] 70 mm[Hg] [facility] Systolic blood pressure 124 mm[Hg] 124 mm[Hg] [facility] Patient Treatment Plan of Care Planned Activity Planned Date Details Description Data Source (s) Acetaminophen 325 MG / Hydrocodone Bitartrate 7.5 MG O ral Tablet [[place]] 06/23/2020 12:00:00 AM Health system Amlodipine 5 MG Oral Tablet 05/05/2020 12:00:00 AM EST [facility] linaclotide 0.29 MG Oral Capsule 03/06/2020 12:00:00 AM EDT [facility] Sertraline 50 MG Oral Tablet 12/28/2019 12:00:00 AM EDT [facility] Ondansetron 4 MG Oral Tablet 11/26/2019 12:00:00 AM EDT [facility] Levothyroxine Sodium 0.112 MG Oral Tablet 11/22/2019 12:00:00 AM ED T [facility]
--- NOTE | 2020-07-05 10:25 | REP ---
INDICATION: pain, redness swelling of middle finger COMPARISON: None. TECHNIQUE: AP, lateral, bilateral oblique views left hand. FINDINGS: Moderate osteoarthritic degenerative changes are appreciated including subchondral sclerosis and joint space narrowing involving the distal interphalangeal joints with soft tissue swelling overlying the 3rd DIP joint. No acute fracture or dislocation. No subcutaneous emphysema or foreign body. 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 No associated fracture or obvious soft tissue abnormality otherwise noted. <Electronically signed by Shay Prince > 07/05/20 1020
--- OUTSIDE RECORDS SUMMARY | 2020-07-05 10:38 | CCD ---
Author Author [facility] Organization [facility] Address Unknown Phone Unavailable Care Team Providers Care Graves Registration Specialist Name Role Phone Tyrone Stanley MD Unavailable [...] Unavailable Unavailable Tyrone Stanley MD Unavailable Unavailable Tryone Stanley MD Unavailable Unavailable Tyrone Stanley MD [...] Unavailable Unavailable Uli MENDOZA MD Unavailable Unavailable lUi MENDOZA MD Unavailable Unavailable Uli MENDOZA MD [...] I WALE PA Unavailable Unavailable DRAZEK, I WLAE PA Unavailable Unavailable DRAZEK, I WALE PA Unavailable Unavailable DRAZEK, I WALE PA Unavailable Unavailable DRAZEK, I WALE PA Unavailable Unavailable DRAZEK, I WALE PA Unavailable Unavailable DRAZEK, I WALE PA Unavailable Unavailable DRAZEK, I WALE PA Unavailable Unavailable DRAZEK, I WALE PA Unavailable Unavailable Noeym España MD Unavailable Unavailable Noemy España MD [...] Alaina SALES Unavailable Unavailable COOK, B HANK OVER THE HORIZON TARGETING SUPERVISOR Unavailable Unavailable COOK, B HANK OVER THE [employer]ORIZON TARGETING SUPERVISOR Unavailable Unavailable COOK, B HANK OVER THE [employer]ORIZON TARGETING SUPERVISOR Unavailable Unavailable COOK, B HANK OVER THE [employer]ORIZON TARGETING SUPERVISOR Unavailable Unavailable COOK, B HANK OVER THE HORIZON TARGETING SUPERVISOR Unavailable Unavailable COOK, B HANK OVER THE HORIZON TARGETING SUPERVISOR Unavailable Unavailable COOK, B HANK OVER THE HORIZON TARGETING SUPERVISOR Unavailable Unavailable COOK, B HANK OVER THE HORIZON TARGETING SUPERVISOR Unavailable Unavailable COOK, B HANK OVER THE HORIZON TARGETING SUPERVISOR Unavailable Unavailable COOK, B HANK OVER THE HORIZON TARGETING SUPERVISOR Unavailable Unavailable COOK, B HANK OVER THE HORIZON TARGETING SUPERVISOR Unavailable Unavailable COOK, B HANK OVER THE HORIZON TARGETING SUPERVISOR Unavailable Unavailable COOK, B HANK OVER THE HORIZON TARGETING SUPERVISOR Unavailable Unavailable COOK, B HANK OVER THE HORIZON TARGETING SUPERVISOR Unavailable Unavailable COOK, B HANK OVER THE HORIZON TARGETING SUPERVISOR Unavailable Unavailable COOK, B HANK OVER THE HORIZON TARGETING SUPERVISOR Unavailable Unavailable COOK, B HANK OVER THE HORIZON TARGETING SUPERVISOR Unavailable Unavailable COOK, B HANK OVER THE HORIZON TARGETING SUPERVISOR Unavailable Unavailable COOK, B HANK OVER THE HORIZON TARGETING SUPERVISOR Unavailable Unavailable COOK, B HANK OVER THE HORIZON TARGETING SUPERVISOR Unavailable Unavailable COOK, B HANK OVER THE HORIZON TARGETING SUPERVISOR Unavailable Unavailable COOK, B HANK OVER THE HORIZON TARGETING SUPERVISOR Unavailable Unavailable COOK, B HANK OVER THE HORIZON TARGETING SUPERVISOR Unavailable Unavailable COOK, B HANK OVER THE HORIZON TARGETING SUPERVISOR Unavailable Unavailable COOK, B HANK OVER THE HORIZON TARGETING SUPERVISOR Unavailable Unavailable COOK, B HANK OVER THE HORIZON TARGETING SUPERVISOR Unavailable Unavailable COOK, B HANK OVER THE HORIZON TARGETING SUPERVISOR Unavailable Unavailable COOK, B HANK OVER THE HORIZON TARGETING SUPERVISOR Unavailable Unavailable COOK, B HANK OVER THE HORIZON TARGETING SUPERVISOR Unavailable Unavailable COOK, B HANK OVER THE HORIZON TARGETING SUPERVISOR Unavailable Unavailable COOK, B HANK OVER THE HORIZON TARGETING SUPERVISOR Unavailable Unavailable COOK, B HANK OVER THE HORIZON TARGETING SUPERVISOR Unavailable Unavailable COOK, B HANK OVER THE HORIZON TARGETING SUPERVISOR Unavailable Unavailable COOK, B HANK OVER THE HORIZON TARGETING SUPERVISOR Unavailable Unavailable COOK, B HANK OVER THE HORIZON TARGETING SUPERVISOR Unavailable Unavailable COOK, B HANK OVER THE HORIZON TARGETING SUPERVISOR Unavailable Unavailable COOK, B HANK OVER THE HORIZON TARGETING SUPERVISOR Unavailable Unavailable COOK, B HANK OVER THE HORIZON TARGETING SUPERVISOR Unavailable Unavailable COOK, B HANK OVER THE HORIZON TARGETING SUPERVISOR Unavailable Unavailable COOK, B HANK OVER THE HORIZON TARGETING SUPERVISOR Unavailable Unavailable COOK, B HANK OVER THE HORIZON TARGETING SUPERVISOR Unavailable Unavailable COOK, B HANK OVER THE HORIZON TARGETING SUPERVISOR Unavailable Unavailable COOK, B HANK OVER THE HORIZON TARGETING SUPERVISOR Unavailable Unavailable COOK, B HANK OVER THE HORIZON TARGETING SUPERVISOR Unavailable Unavailable COOK, B HANK OVER THE HORIZON TARGETING SUPERVISOR Unavailable Unavailable COOK, B HANK OVER THE HORIZON TARGETING SUPERVISOR Unavailable Unavailable COOK, B HANK OVER THE HORIZON TARGETING SUPERVISOR Unavailable Unavailable COOK, B HANK OVER THE HORIZON TARGETING SUPERVISOR Unavailable Unavailable COOK, B HANK OVER THE HORIZON TARGETING SUPERVISOR Unavailable Unavailable COOK, B HANK OVER THE HORIZON TARGETING SUPERVISOR Unavailable Unavailable COOK, B HANK OVER THE HORIZON TARGETING SUPERVISOR Unavailable Unavailable COOK, B HANK OVER THE HORIZON TARGETING SUPERVISOR Unavailable Unavailable COOK, B HANK OVER THE HORIZON TARGETING SUPERVISOR Unavailable Unavailable COOK, B HANK OVER THE HORIZON TARGETING SUPERVISOR Unavailable Unavailable COOK, B HANK OVER THE HORIZON TARGETING SUPERVISOR Unavailable Unavailable COOK, B HANK OVER THE HORIZON TARGETING SUPERVISOR Unavailable Unavailable COOK, B HANK OVER THE HORIZON TARGETING SUPERVISOR Unavailable Unavailable COOK, B HANK OVER THE HORIZON TARGETING SUPERVISOR Unavailable Unavailable COOK, B HANK OVER THE HORIZON TARGETING SUPERVISOR Unavailable Unavailable COOK, B HANK OVER THE HORIZON TARGETING SUPERVISOR Unavailable Unavailable COOK, B HAKN OVER THE HORIZON TARGETING SUPERVISOR Unavailable Unavailable COOK, B HANK OVER THE HORIZON TARGETING SUPERVISOR Unavailable Unavailable COOK, B HANK OVER THE HORIZON TARGETING SUPERVISOR Unavailable Unavailable COOK, B HANK OVER THE HORIZON TARGETING SUPERVISOR Unavailable Unavailable MARIANNE, DEVI PA Unavailable Unavailable [...] GUGA, IRVIN PA Unavailable Unavailable Arguello, Ebonie OVER THE HORIZON TARGETING SUPERVISOR Unavailable Unavailable Arguello, Ebonie OVER THE HORIZON TARGETING SUPERVISOR Unavailable Unavailable Arguello, Ebonie OVER THE HORIZON TARGETING SUPERVISOR Unavailable Unavailable Arguello, Ebonie OVER THE HORIZON TARGETING SUPERVISOR Unavailable Unavailable Arguello, Ebonie OVER THE HORIZON TARGETING SUPERVISOR Unavailable Unavailable Arguello, Ebonie OVER THE HORIZON TARGETING SUPERVISOR Unavailable Unavailable Arguello, Ebonie OVER THE HORIZON TARGETING SUPERVISOR Unavailable Unavailable Arguello, Ebonie OVER THE HORIZON TARGETING SUPERVISOR Unavailable Unavailable Arguello, Ebonie OVER THE HORIZON TARGETING SUPERVISOR Unavailable Unavailable Arguello, Ebonie OVER THE HORIZON TARGETING SUPERVISOR Unavailable Unavailable Arguello, Ebonie OVER THE HORIZON TARGETING SUPERVISOR Unavailable Unavailable LETTIERE, A REY PA Unavailable [...] is protected by Article 27-F of the [facility] Public Health law. If you continue you may have access to information: Regarding HIV / AIDS; Provided by facilities licensed or operated by the [facility] Office of Mental Health; or Provided by the [facility] Office for People With Developmental Disabilities. If such information is present, then the following [facility] mandated warning applies: This information has been [...] law may result in a fine or intermediate sentence or both. A general authorization for the release of medical or other information is NOT sufficient authorization for further disc losure. Allergies and Adverse Reactions Type Description Substance Reaction Status Data Source(s ) Allergy to substance No Known Allergies No known allergies (situation ) LO (Maxime Blackman MD [facility]) Allergy to substance No Known Allergies No known allergies (situation ) LO (Maxime Blackman MD [facility]) Allergy to substance No Known Allergies No known allergies (situation ) LO (Maxime Blackman MD [facility]) Allergy to substance No Known Allergies No known allergies (situation ) LO (Maxime Blackman MD [facility]) Allergy to substance No Known Allergies No known allergies (situation ) LO (Maxime Blackman MD [facility]) Family History Family Member Name Family Member Gender Family Member Status Date o f Status Description Data Source(s) Unknown Male Problem [facility] ([facility]) Unknown Unknown Problem [facility] ([facility]) Unknown Female Problem [facility] ([facility]) Encounters Encounter Providers Location Date Indications Data Source(s ) Outpatient Attender: REY MENDOZA MD [facility] 0 06/26/2020 12:00:00 AM EST - 06/26/2020 10:18:[address] [facility] kristin Outpatient Attender: Ebonie high 06/18/2020 08:20:00 AM EST [facility] ([facility], [facility]) Outpatient Attender: EZIO Schreiberin vane 06/01/2020 10:30:00 AM EST [facility] ([facility]illa [facility]) Outpatient Attender: REY burns 05/26/2020 07:40:00 AM EST [facility] ([facility], [facility]) Outpatient Attender: Alaina España MD Physical Therapy 04/25 09:45:00 AM EST [facility] ([facility]) Outpatient Attender: Darrel Stanley MD Main Office 2020 03:45:00 PM EDT [facility] ([facility]) Outpatient Attender: Darrel Stanley MD Main Office 02/17/2020 01:45:00 PM EDT [facility] ([facility]) Outpatient Attender: DEVI aguirre 02/14/2020 11:50:00 AM EDT [facility] ([facility], [facility]) Outpatient Attender: Alaina España MD Physical Therapy 01/30 10:30:00 AM EDT [facility] ([facility]) Outpatient Attender: Darrel Stanley MD Main Office 01/18/2020 03:30:00 PM EDT [facility] ([facility]) Outpatient<td ID="encounterTypeDescripti onID0">1 Year Follow-Up</td><td>Mxaime Mon MD, FACS</td><td>Maxime Mon MD [facility]</td><td>01/10/2020</td><td>1:12PM</td><td>04/20/2019 11:59PM</td> <td><content ID="encounterDiagnosisID0-0">Blepharitis Squamous</content>, <content ID="encounterDiagnosisID0-1">Dry Eye Syndrome Both Eyes</content>, <content ID="encounterDiagnosisID0-2">Vitreous Disorders Degeneration</content>, <content ID="encounterDiagnosisID0-3">Retinopathy Hypertensive Both Eyes</content>, <content ID="encounterDiagnosisID0-4">Pseudophakia</content>, <content ID="encounterDiagnosisID0-5">History of Nicotine Dependence</content>, <content ID="encounterDiagnosisID0-6">Essential Hypertension</content></td> Attender: Maxime Blackman MD, FACS Maxime Mon MD [facility] 01/10/2020 01:12:0 0 PM EDT - 04/20/2019 11:59:00 PM EST PseudophakiaEssential HypertensionHistor y of Nicotine DependenceRetinopathy Hypertensive Both EyesVitreous Disorders DegenerationDry Eye Syndrome Both EyesBlepharitis Squamous LO (Maxime Blackman MD [facility]) Pseudophakia Essential Hypertension History of Nicotine Dependence 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 Outpatient Attender: HANK PROCTOR NP Physical Therapy 12/06/2019 0 2:30:00 PM EDT MEDANGEL ([facility]) Outpatient Attender: Alaina España MD Physical Therapy 10/10 11:15:00 AM EDT [facility] ([facility]) MOCAM-MOCAM 09/03/2019 12:24:30 PM EDT [facility] Outpatient Referrer: WALE GALICIA 09/03/2019 11:38:00 AM [...] Therapy 08/27/2019 1 0:00:00 AM EDT [facility] ([facility]) Outpatient Attender: Alaina España MD Physical Therapy 07/29 09:30:00 AM EST [facility] ([facility]) [facility]OCAM[facility]MOCAM 07/06/2019 04:24:41 PM EST [facility] Outpatient Attender: REY MENDOZA MD [facility] 0 07/06/2019 12:00:00 AM EST - 07/06/2019 12:35:45 [facility] IRVIN GALICIA 05/23/2019 09:08:00 PM EST [facility] Medications Medication Brand Name Start Date Product Form Dose Route Admi nistrative Instructions Pharmacy Instructions Status Indications Reaction Description Data Source(s) Acetaminophen 325 MG / Hydrocodone Romina trate 7.5 MG Oral Tablet [Trosper] NORCO 7.5-325 MG per tablet NORCO 7.5-325 MG per tablet 06/23/2020 12:00:00 AM EST active Pain Take 2 tab lets by oral route 4 times everyday as needed for pain MDD 8 [facility] Pain 5-325 mg 06/23/2020 12:00:00 AM [...] 12:00:00 A M EST ORAL active [facility] ([facility]) Mupirocin 0.02 MG/MG Topical Ointment Mupirocin 06/18/2020 12:00:00 AM EST active [facility] ([facility]) Doxycycline Monohydrate 100 MG Oral Tablet Doxycycline Monoh ydrate 05/26/2020 12:00:00 AM EST ORAL completed [facility] ([facility]) Amlodipine 5 MG Oral Tablet amLODIPine (NORVASC) 5 MG tablet amLODIPine (NORVASC) 5 MG tablet 05/05/2020 12:00:00 AM EST active TAKE 1 TABLET(5 MG) BY MOUTH DAILY [facility] linaclotide 0.29 MG Oral Capsule linaclotide (LINZESS) 290 MCG CAPS linaclotide (LINZESS) 290 MCG CAPS 03/06/2020 12:00:00 AM EDT active TAKE 1 CAPSULE BY MOUTH EVERY MORNING BEFORE BREAKFAST [facility] Prolia [facility]#[id number] (60mg Syringe) 1MG 01/31/2020 12:00:00 AM EDT completed [facility] ([facility]) Medication administered onsite Omeprazole 20 MG Delayed Release Oral Capsule Omeprazole 01/18/2020 12:00:00 AM EDT ORAL completed [facility] ([facility]) Sertraline 50 MG Oral Tablet sertraline (ZOLOFT) 50 MG tablet sertraline (ZOLOFT) 50 MG tablet 12/28/2019 12:00:00 AM EDT active .5 tab po qd for 6 days then 1 po qd [facility] Ergocalciferol [id number] UNT Oral Capsule Vitamin D (Ergocalcife rol) 12/26/2019 12:00:00 AM EDT active M EDENT ([facility]) Ondansetron 4 MG Oral Tablet ondansetron (ZOFRAN) 4 MG tablet ondansetron (ZOFRAN) 4 MG tablet 11/26/2019 12:00:00 AM EDT active TAKE 1 TABLET BY MOUTH FOUR TIMES DAILY NEEDED FOR NAUSEA [facility] Levothyroxine Sodium 0.112 MG Oral Table t levothyroxine (SYNTHROID, LEVOTHROID) 112 MCG tablet levothyroxine (SYNTHROID, LEVOTHROID) 112 MCG tablet 0 11/22/2019 12:00:00 AM EDT active Hypothyroidism, acquired TAKE 1 TABLET BY MOUTH DAILY [facility] Hypothyroidism, acquired Levothyroxine Sodium 0.112 MG Oral Tablet Levothyroxine Sodi um 10/11/2019 12:00:00 AM EDT ORAL active M EDENT ([facility]) gabapentin 100 MG Oral Capsule Gabapentin 09/01/2019 12:00:00 AM EDT ORAL active MED[facility] ([facility]) tizanidine 4 MG Oral Tablet Tizanidine HCL 08/27/2019 12:00:00 AM EDT active [facility] ([facility]) Prolia [facility]#[id number] (60mg Syringe) 1MG 07/29/2019 12:00:00 AM EST completed [facility] ([facility]) Medication administered onsite Levothyroxine Sodium 0.125 MG Oral Tablet Levothyroxine Sodi um 07/29/2019 12:00:00 AM EST ORAL completed [facility] ([facility]) Insurance Providers Payer name Policy type / Coverage type Policy ID Covered democrat ID Covered democrat's relationship to brown Policy Brown Plan Information EMEDNY [id number] SP [id number] MEDICARE COMPLETE [id number] MEDICAID [id number] [facility] MEDICARE [id number] MEDICARE COMPLETE-[facility] O [id number] S [id number] MEDICAID M [id number] [facility] MEDICARE [id number] Gege [id number] MEDICAID [id number] [place] [id number] MEDICAID [id number] SP [id number] MEDICARE C [id number] S [id number] MEDICARE COMPLETE-UHC O [id number] S [id number] MEDICARE COMPLETE [id number] SP [id number] Medicare (Part B) Medicare Primary [id number] Self [id number] Medicaid Medigap Part B [id number] Self [id number] [facility] Commercial [id number] Self [id number] BCBS [employer] U/[place] Medigap Part B [id number] Self [id number] BCBS Excell[employer] U/W Medigap Part B [id number] Self [id number] [employer] Commercial [id number] Self [id number] Medicare (Part B) Medicare Primary [id number] Self [id number] Medicaid Medigap Part B [id number] Self [id number] [facility] Commercial [id number] Self [id number] [place] Medig[place] Part B [id number] Self [id number] [employer]/Medicare Commercial [id number] Self [id number] [place] Med[place] Part [place] [id number] Self [id number] [employer]/Medicare Commercial [id number] Self [id number] Medicare (Part B) Medicare Primary [id number] Self [id number] Medicaid Medigap Part B [id number] Self [id number] [facility] Commercial [id number] Self [id number] Medicare (Part B) Medicare Primary [id number] Self [id number] Medicaid Medigap Part B [id number] Self [id number] [facility] Commercial [id number] Self [id number] MEDICAID [id number] Gege [id number] [facility] MEDICARE [id number] Gege [id number] Medicaid [facility] S D [id number] SELF [id number] [facility] Medicare Complete F [id number] SELF [id number] Medicare (Part B) Medicare Primary [id number] Self [id number] Medicaid Medigap Part B [id number] Self [id number] [employer] Commercial [id number] Self [id number] Medicare (Part B) Medicare Primary [id number] Self [id number] Medicaid Medigap Part B [id number] Self [id number] [employer] Commercial [id number] Self [id number] [place] [employer] (Medicare) Medigap Part B [id number] Self [id number] [place] Medigap Part B [id number] Self [id number] [place] Primary [id number] Self [id number] Ever[employer]/[facility] Medigap Part B [id number] Self [id number] Ever[employer] Medigap Part B [id number] Self [id number] [place] [employer] (Medicare) Medigap Part B [id number] Self [id number] Medicaid [place] Medigap Part B [id number] Self [id number] [employer] ([facility]) Commercial [id number] Self [id number] Medicare (Part B) Medicare Primary [id number] Self [id number] Medicaid Medigap Part B [id number] Self [id number] [employer] Commercial [id number] Self [id number] [place] [facility] S D [id number] SELF [id number] Medicare (Part B) Medicare Primary [id number] Self [id number] Medicaid Medigap Part B [id number] Self [id number] [employer] Commercial [id number] Self [id number] Medicare (Part B) Medicare Primary [id number] Self [id number] Medicaid Medigap Part B [id number] Self [id number] [employer] Commercial [id number] Self [id number] MEDICARE COMPLETE [id number] SP [id number] MEDICAID [id number] SP [id number] MEDICAID [facility] [place] [id number] DM [id number] [place] [employer] Medicare Complete [id number] 0 [id number] [place] [employer] [id number] 0 [id number] [place] [employer] (Medicare) Medigap Part B [id number] Self [id number] BS [place] Medigap Part B [id number] Self [id number] [place] Primary [id number] Self [id number] Medicare (Part B) Medicare Primary [id number] Self [id number] Medicaid Medigap Part B [id number] Self [id number] [employer] Commercial [id number] Self [id number] Medicare (Part B) Medicare Primary [id number] Self [id number] Medicaid Medigap Part B [id number] Self [id number] [employer] Commercial [id number] Self [id number] MEDICAID [id number] MEDICAID PI PI [facility] MEDICARE PI PI Medicare (Part B) Medicare Primary [id number] Self [id number] Medicaid Medigap Part B [id number] Self [id number] [employer] Commercial [id number] Self [id number] BCBS [employer] Ppo U/W Medigap Part B [id number] Self [id number] BCBS [employer] Ppo U/W Medigap Part B [id number] Self [id number] [place] Medig[place] Part B [id number] Self [id number] BS [place] Medigap Part B [id number] Self [id number] [facility] Medigap Part B [id number] Self [id number] [place] Part B [id number] Self [id number] United Healthcare Medigap Part B [id number] Self [id number] [place] Med[place] Part B [id number] Self [id number] [employer] ([facility]) Commercial [id number] Self [id number] United Healthcare (Medicare) Medigap Part B [id number] Self [id number] BS [place] Medigap Part B [id number] Self [id number] [place] Primary [id number] Self [id number] Medicare (Part B) Medicare Primary [id number] Self [id number] Medicaid Medigap Part B [id number] Self [id number] [employer] Commercial [id number] Self [id number] Medicare (Part B) Medicare Primary [id number] Self [id number] Medicaid Medigap Part B [id number] Self [id number] [employer] Commercial [id number] Self [id number] Medicare (Part B) Medicare Primary [id number] Self [id number] Medicaid Medigap Part B [id number] Self [id number] [facility] Commercial [id number] Self [id number] Medicare (Part B) Medicare Primary [id number] Self [id number] Medicaid Medigap Part B [id number] Self [id number] [employer] Commercial [id number] Self [id number] Medicare (Part B) Medicare Primary [id number] Self [id number] Medicaid Medigap Part B [id number] Self [id number] [employer] Commercial [id number] Self [id number] [place] Medigap Part B [id number] Self [id number] Medicare (Part B) Medicare Primary [id number] Self [id number] Medicaid Medigap Part B [id number] Self [id number] [facility] Commercial [id number] Self [id number] United Healthcare (Medicare) Medigap Part B [id number] Self [id number] BS [place] Medigap Part B [id number] Self [id number] [place] Primary [id number] Self [id number] United Healthcare (Medicare) Medigap Part B [id number] Self [id number] BS [place] Medigap Part B [id number] Self [id number] [place] Primary [id number] Self [id number] Medicare (Part B) Medicare Primary Self BCBS [employer] Ppo U/W Medigap Part B Self BCBS Excell[employer] Ppo U/W Medigap Part B Self Ever[employer] Commercial Self Medicaid Medigap Part B [id number] Self [id number] 2 F [id number] [employer] Commercial Self BS [place] Medigap Part B Self [employer] Medigap Part B Self [place]ig[place]ig[place] Part B ] Self ] United Healthcare Medigap Part B [id number] Self [id number] [place] Med[place] Part B Self United Healthcare ([facility]) Commercial [id number] Self [id number] United Healthcare (Medicare) Medigap Part B Self [employer]/[facility] Medigap Part B Self Ever[employer] Medigap Part B Self BS [place] Medigap Part B Self Medicare [facility] Medicare Primary Self United Healthcare (Medicare) Medigap Part B Self UNHC COMMUNITY PLAN MCDO [id number] SP [id number] MEDICAID [id number] SP [id number] MEDICARE COMPLETE [id number] SP [id number] UNITED HEALTHCARE O [id number] S [id number] UNITED HEALTHCARE P [id number] S [id number] MEDICAID [id number] SP [id number] MEDICARE COMPLETE [id number] SP [id number] MEDICARE COMPLETE-[facility] P [id number] O [id number] Medicare Complete C1 [id number] Medicaid [id number] SELF PAY 2 UNAVAILABLE 1 UNAVAILA BLE MEDICARE 4 [id number] 1 [id number] A [place] [id number] [facility] MEDICARE SOLUTIO 11 [id number] 1 [id number] Self [id number] Problems, Conditions, and Diagnoses Code Display Name Description Problem Type Effective Dates Data Source(s) R68.89 Forgetfulness Forgetfulness [id number] 06/26/2020 12:00:00 AM [facility] Z87.820 History of closed head injury History of closed head i njury [id number] 06/26/2020 12:00:00 AM [facility] [id number] Hypothyroidism Hypothyroidism Problem 04/25/2020 12:00: 00 AM EST MEDENT ([facility]) [id number] Malaise and fatigue Malaise and fatigue Problem 1 06/25/2019 12:00:00 AM EST MED[facility] ([facility]) [id number] Anemia Anemia Problem 2020 12:00:00 AM ED T [facility] ([facility]) [id number] Diarrhea Diarrhea Problem 02/17/2020 12:00:00 AM ED T [facility] ([facility]) Z00.00 Physical exam, annual Physical exam, annual [id number] 07/06/2019 12:00:00 AM EST [facility] R68.89 Other general symptoms and signs Other general s ymptoms and signs Diagnosis 06/26/2020 09:29:13 AM [facility] Z87.820 Personal history of traumatic brain inju ry Personal history of traumatic brain inju Diagnosis 06/26/2020 09:29:13 AM [facility] H61.21 Impacted cerumen, right ear Impacted cerumen, right ea r Diagnosis 06/26/2020 09:29:13 AM [facility] I10 Essential (primary) hypertension Essential (primary) h ypertension Diagnosis 06/26/2020 09:29:13 AM [facility] F32.9 Major depressive disorder, single episod e, unspecified Major depressive disorder, single episod Diagnosis 06/26/2020 09:29:13 AM [facility] G89.29 Other chronic pain Other chronic pain Diagnosis 04/2021 09:29:13 AM [facility] F41.1 Generalized anxiety disorder Generalized anxiety disor cole Diagnosis 06/26/2020 09:29:13 AM [facility] R10.11 Right upper quadrant pain Right upper quadrant pain Di agnosis 12/28/2019 12:50:44 PM EDT [facility] R52 Pain, unspecified Pain, unspecified Diagnosis 12/28/2019 12:50:44 PM EDT [facility] M41.20 Other idiopathic scoliosis, site unspeci fied Other idiopathic scoliosis, site unspeci Diagnosis 07/06/2019 11:27:01 AM [facility] E44.0 Moderate protein-calorie malnutrition Mo derate protein-calorie malnutrition Diagnosis 07/06/2019 11:27:01 AM [facility] K56.50 Intestinal adhesions [bands] , unspecified as to partial versus complete obstruction Intestinal adhesions (bands), unspecifie Diagnosis 07/06/2019 11:27:01 AM [facility] K21.9 Gastro-esophageal reflux disease without esophagitis Gastro-esophageal reflux disease without Diagnosis 07/06/2019 11:27:01 AM EST [facility] E03.9 Hypothyroidism, unspecified Hypothyroidism, unspecifie d Diagnosis 07/06/2019 11:27:01 AM [facility] Z00.00 Encounter for general adult medical examination without abnormal findings Encounter for general adult medical exam Diagnosis 020 11:27:01 AM [facility] Surgeries/Procedures Procedure Description Date Indications Data Source(s) UPPER NDSC BIOPSY SINGLE/MULTIPLE 04/03/2020 12:00:00 AM EDT [facility] ([facility]) COLONOSCOPY W/BIOPSY SINGLE/MULTIPLE 04/03/2020 12:00: 00 AM EDT [facility] ([facility]) THERAPEUTIC PROPHYLACTIC/DX INJECTION SUBQ/IM 01/31/20 20 12:00:00 AM EDT [facility] ([facility] Intermediate Eye Exam Established Patient Intermediate Eye Exam Established Patient 01/10/2020 12:00:00 AM EDT LO (Osman Blackman MD [facility]) Surgical / procedural history Surgical / procedural history 09/06/2019 12:00:00 AM EDT LO (Maxime Blackman MD [facility]) Extracapsular extraction of lens (procedure) History o f extracapsular cataract extraction OU 09/06/2019 12:00:00 AM EDT LO (Osman Blackman MD [facility]) 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 09/06/2019 12:00:00 AM EDT LO (Maxime powell MD [facility]) Reported medical history Anemia, Fall after angina 2018 Reported medical history Anemia, Fall after angina 08/201809/06/2019 12:00:00 AM EDT LO (Maxime Blackman MD [facility]) Reported medical history Anemia, Fall after angina 2018 Reported medical history Anemia, Fall after angina 08/201809/06/2019 12:00:00 AM EDT LO (Maxime Blackman MD [facility]) Reported medical history Anemia, Fall after angina 2018 Reported medical history Anemia, Fall after angina 08/201809/06/2019 12:00:00 AM EDT LO (Maxime Blackman MD [facility]) Surgical / procedural history Surgical / procedural history 09/06/2019 12:00:00 AM EDT LO (Maxime Blackman MD [facility]) History of extracapsular cataract extraction OU Histo ry of extracapsular cataract extraction OU 09/06/2019 12:00:00 AM EDT LO (Maxime Blackman MD [facility]) 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 09/06/2019 12:00:00 AM EDT LO (Maxime powell MD [facility]) Reported medical history Anemia, Fell after angina sp ell 08/2018 Reported medical history Anemia, Fell after angina spell 08/201809/06/2019 12:00:00 AM EDT LO (Maxime Blackman MD [facility]) Recent change in medical history Fell after angina sp ell 08/2018 Recent change in medical history Fell after angina spell 08/201809/06/2019 12:00:00 AM EDT LO (Maxime Blackman MD [facility]) Surgical / procedural history Surgical / procedural history 09/06/2019 12:00:00 AM EDT LO (Maxime Blackman MD [facility]) History of extracapsular cataract extraction OU Histo ry of extracapsular cataract extraction OU 09/06/2019 12:00:00 AM EDT LO (Maxime Blackman MD [facility]) 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 09/06/2019 12:00:00 AM EDT LO (Maxime powell MD [facility]) RADEX SPINE LUMBOSACRAL MINIMUM 4 VIEWS 08/27/2019 12: 00:00 AM EDT MED[facility] ([facility] X-Ray Hip Unilateral With Pelvis 2-3 Views 08/27/2019 12:00:00 AM EDT [facility] ([facility] ) THERAPEUTIC PROPHYLACTIC/DX INJECTION SUBQ/IM 07/29/19 20 12:00:00 AM EST [facility] ([facility] ) Results ID Date Data Source [id number] 06/28/2020 09:58:56 AM [facility] Name Date of Age Gend*PT [id number] Suma Adkins 1935 85 years F ---PT Location Admission Date/Time Visit ID Attending Provider --- --- --- --- EPI ID CSN Admitting Provider [id number] ---Assessment/Plan:Problem List Items Addressed This Visit Anxiety, [...] 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 She is very frustratedthat she needs [...] Antigen NYSDOH This lab was ordered by [facility] and reported by Moe Padilla MD. ID Date Data Source [id number] 04/21/2020 01:21:00 PM EST [facility] ([facility] Name Value Range Interpretation Code Description Data Betty rce(s) Supporting Document(s) Free T4 1.15 ng/dL 0.76-1.46 MED[facility] ([facility]) Thyroid Stimulating Hormone 1.360 uIU/ML 0.358-3.740 [facility] ([facility]) ID Date Data Source [id number] 03/29/2020 12:00:00 PM EDT [facility] Name Value Range Interpretation Code Description Data Betty rce(s) Supporting Document(s) SARS coronavirus 2 RNA [facility] This lab was ordered by [facility] and reported by [facility]. ID Date Data Source [id number] 03/10/2020 12:07:00 PM EDT MEDENT ([facility]) Name Value Range Interpretation Code Description Data Betty rce(s) Supporting Document(s) Lipoprotein lipase [Enzymatic activity/volume] in Serum or Plasm a 77 U/L 73-393 [facility] ([facility]) mild anemia otherwise labs are all caesar l. ID Date Data Source [id number] 03/10/2020 12:07:00 PM EDT [facility] ([facility] [...] l. Mean Corpuscular Hemoglobin 32.2 pg 27.0-33.0 IN DENT ([facility]) mild anemia otherwise labs [...] Red Cell Distribution Width 13.7 % 11.5-14.5 IN DENT ([facility]) mild anemia otherwise labs are all caesar l. Z[place]ata % 9.5 % 0.0-5.0 [facility] ([facility] [...] anemia otherwise labs are all caesar l. [place]apata # 0.7 10 0.0-0.8 [facility] ([facility] [...] all caesar l. ID Date Data Source [id number] 03/10/2020 12:07:00 PM EDT [facility] ([facility]) Name Value Range Interpretation Code Description Data Betty rce(s) Supporting Document(s) Blood Urea Nitrogen 16 mg/dL 7-18 [facility]) mild anemia otherwise labs are all caesar l. Glucose, Fasting 93 mg/dL 70-100 [facility]) mild anemia otherwise labs are [...] all caesar l. ID Date Data Source [id number] 02/14/2020 02:58:00 PM EDT [facility] ([facility]) Name Value Range Interpretation Code Description Data Betty rce(s) Supporting Document(s) Lipoprotein lipase [Enzymatic activity/volume] in Serum or Plasm a 77 U/L 73-393 [facility] ([facility]) <content>note:<nlbl:demographic_changed> </content>
<content></content> ID Date Data Source [id number] 02/14/2020 02:58:00 PM EDT MED[facility] ([facility]) Name Value Range Interpretation Code Description Data Betty rce(s) Supporting Document(s) Blood Urea Nitrogen 17 mg/dL 7-18 MED[facility] ([facility], [facility]) Glucose, Fasting 93 mg/dL 70-100 [facility] ([facility]) Creatinine For GFR 0.68 mg/dL 0.55-1.30 [facility] ([facility]) Sodium Level 128 meq/L 136-145 MED[facility] ([facility], [facility]) Glomerular Filtration Rate Laboratory test result [facility] ([facility], [facility]) <content>Units are mL/min/1.73 m2</content>
<content></content>
<content>Chronic Kidney Disease Staging per NKF:</content>
<content></content>
<content>Stage I & II GFR >=60 Normal to Mildly Decreased</content>
<content>Stage III GFR 30-59 Moderately Decreased</content>
<content>Stage IV GFR 15-29 Severely Decreased</content>
<content>Stage V GFR <15 Very Little GFR Left</content>
<content>ESRD GFR <15 on BOSS MINER</content>
<content></content> Potassium Serum 4.2 meq/L 3.5-5.1 MED[facility] ([facility], [facility]) Chloride Level 97 meq/L 98-107 MED[facility] ([facility], [facility]) Carbon Dioxide Level 23 meq/L 21-32 MED[facility] ([facility], [facility]) Ast/Sgot 23 U/L 7-37 MED[facility] ([facility], [facility]) Calcium Level 8.5 mg/dL 8.8-10.2 [facility] ([facility], [facility]) Anion Gap 8 meq/L 8-16 MED[facility] ([facility], [facility]) Alkaline Phosphatase 57 U/L 45-117 [facility] ( [facility]) Alt/SGPT 24 U/L 12-78 MED[facility] ([facility], [facility]) Bilirubin,Total 0.5 mg/dL 0.2-1.0 MED[facility] ([facility], [facility]) Albumin 3.6 GM/DL 3.2-5.2 MED[facility] ([facility], [facility]) Albumin/Globulin Ratio 1.2 1.2-2.2 MED[facility] ([facility], [facility]) Total Protein 6.7 GM/DL 6.4-8.2 MED[facility] ([facility], [facility]) ID Date Data Source [id number] 02/14/2020 02:58:00 PM EDT MEDENT ([facility], [facility]) Name Value Range Interpretation Code Description Data Betty rce(s) Supporting Document(s) White Blood Count 9.4 10 4.0-10.0 MED[facility] ([facility], [facility]) Hemoglobin 10.7 g/dL 12.0-15.5 [facility]) Red Blood Count 3.36 10 4.00-5.40 MED[facility] ([facility], [facility]) Hematocrit 32.8 % 36.0-47.0 MEDENT ([facility], [facility]) Mean Corpuscular Volume 97.6 fl 80.0-96.0 M EDENT ([facility], [facility]) Mean Corpuscular HGB Conc 32.6 g/dL 32.0-36.5 MED[facility] ([facility], [facility]) Mean Corpuscular Hemoglobin 31.8 pg 27.0-33.0 MED[facility] ([facility], [facility]) Platelet Count, Automated 259 10 150-450 MED[facility] ([facility], [facility]) Neutrophils % 79.5 % 36.0-66.0 MEDENT ([facility], [facility]) Red Cell Distribution Width 12.5 % 11.5-14.5 MED[facility] ([facility], [facility]) Lymph % 9.5 % 24.0-44.0 MED[facility] ([facility], [facility]) Zapata % 10.5 % 0.0-5.0 MED[facility] ([facility], [facility]) Eos % 0.0 % 0.0-3.0 MEDENT ([facility], [facility]) Nucleated Red Blood Cell % 0.0 % 0-0 MED ENT ([facility], [facility]) Immature Granulocyte % 0.3 % 0-3.0 MED[facility] ([facility] Baso % 0.2 % 0.0-1.0 MEDENT ([facility], [facility]) Lymph # 0.9 10 1.5-5.0 MEDENT ([facility]) Neutrophils # 7.5 10 1.5-8.5 MEDENT ([facility]) Zapata # 1.0 10 0.0-0.8 MED[facility] ([facility]) Baso # 0.0 10 0.0-0.2 MED[facility] ([facility]) Eos # 0.0 10 0.0-0.5 MED[facility] ([facility]) ID Date Data Source [id number] 02/14/2020 01:01:00 PM EDT MED[facility] ([facility]) Name Value Range Interpretation Code Description Data Betty rce(s) Supporting Document(s) Bacteria identified in Urine by Culture Laboratory test result MEDENT ([facility]) FULL REPORT IN LAB NOTES ([facility] and [facility] ). NO GROWTH CLINICAL SIGNIFICANCE 2 OR MORE ORGANISMS ID Date Data Source [id number] 02/14/2020 01:00:00 PM EDT MED[facility] ([facility]) Name Value Range Interpretation Code Description Data Betty rce(s) Supporting Document(s) Gastrointestinal (GI) Panel Laboratory test result MEDENT ([facility]) This Gastrointestinal PCR Panel detects the following [...] NUCLEIC ACID PCR ID Date Data Source [id number] 01/25/2020 09:00:00 AM EDT MED[facility] ([facility]) Name Value Range Interpretation Code Description Data Betty rce(s) Supporting Document(s) Calcium [Mass/volume] in Serum or Plasma 8.7 mg/dL 8.8-10.2 MED[facility] ([facility]) <content>note:<nlbl:demographic_changed> </content>
<content></content> Calcidiol [Mass/volume] in Serum or Plasma 56.9 ng/mL 30.0-100.0 MED[facility] ([facility]) <content>note:<nlbl:demographic_changed> </content>
<content></content> ID Date Data Source [id number] 01/04/2020 12:56:49 PM EDT [facility]FORMATION[facility] Name Date of Age Gend*PT [id number] Suma Adkins 1935 84 years F ---PT Location Admission Date/Time Visit ID Attending Provider --- --- --- --- EPI ID CSN Admitting Provider [id number] ---Addended by: REY MENDOZA on: 01/04/2020 12:56 PM Modules accepted: Orders Name Value Range Interpretation Code Description Data Betty rce(s) Supporting Document(s) ID Date Data Source [id number] 11/23/2019 09:57:00 AM EDT MED[facility] ([facility]) Name Value Range Interpretation Code Description Data Betty rce(s) Supporting Document(s) Thyroid Stimulating Hormone 0.278 uIU/ML 0.358-3.740 MED[facility] ([facility]) Free T4 1.38 ng/dL 0.76-1.46 [facility] ([facility] ID Date Data Source [id number] 10/02/2019 11:24:00 AM EDT MED[facility] ([facility]) Name Value Range Interpretation Code Description Data Betty rce(s) Supporting Document(s) Thyroid Stimulating Hormone 0.045 uIU/ML 0.358-3.740 MED[facility] ([facility]) Free T4 1.80 ng/dL 0.76-1.46 [facility] ([facility]) ID Date Data Source [id number] 10/02/2019 11:24:00 AM EDT [facility] ([facility]) Name Value Range Interpretation Code Description Data Betty rce(s) Supporting Document(s) Calcium.ionized [Mass/volume] in Serum o r Plasma by Ion-selective membrane electrode (ISE) 4.6 mg/dL 4.5-5.3 MED[facility] ([facility]) <content>note:<nlbl:demographic_changed></content>
<content>note:<nlbl:demog raphic_changed></content>
<content>note:<nlbl:demographic_changed></content>
<content></content> Calcium [Mass/volume] in Serum or Plasma 8.9 mg/dL 8.8-10.2 [facility] ([facility]) <content>note:<nlbl:demographic_changed></content>
<content>note:<nlbl:demog raphic_changed></content>
<content>note:<nlbl:demographic_changed></content>
<content></content> ID Date Data Source [id number] 09/03/2019 12:24:30 PM EDT [facility]FORMATION[facility] Name Date of Age Gend*PT [id number] Suma Adkins 1935 84 years F ---PT Location Admission Date/Time Visit ID Attending Provider --- --- --- --- EPI ID CSN Admitting Provider [id number] ---Addended by: REY MENDOZA on: 09/03/2019 12:24 PM Modules accepted: Orders Name Value Range Interpretation Code Description Data Betty rce(s) Supporting Document(s) ID Date Data Source [id number] 09/02/2019 12:00:00 AM EDT [facility]IC[facility] Patient Name: SUMA ADKINS [id number] [facility] Date of : 1935[place] [id number] Date of Exam: 09/02/2019PH#: Fax: [phone] EXAM: [...] degenerative spondylosis changes as notedabove.Accredited by the [employer] in MR.NANDINI Ga/Roque you for referring SUMA LUCILLE to our office. Electronically Signed - MARICRUZ YARBROUGH MD 09/03/19 12:32 Name Value Range Interpretation Code Description Data Betty rce(s) Supporting Document(s) ID Date Data Source [id number] 07/07/2019 08:57:39 AM EST [facility] Name Date of Age Gend*PT [id number] GatoLaurita woodsonn Vijay 1935 84 years F ---PT Location Admission Date/Time Visit ID Attending Provider --- --- --- --- EPI ID CSN Admitting Provider [id number] ---Subjective: Suma Adkins is a 84 years [...] is not newHPICurrent Providers List:Patient Care Team:Rey Mendoza MD as PCP - General (Internal Medicine)Elena Arteaga NP as Referring Physician (Nurse Practitioner)Yandel Berrios MD as MD (Cardiology)Alaina España MD as Consulting Physician (Endocrinology)Remy Eliane MD as Consulting Physician (Gastroenterology)Mike Rich MD as Referring Physician (Colon and Rectal Surgery)Teo Dsouza MD as Consulting Physician (Internal Medicine)Alvin [...] W ANESTHESIA ; Surgeon: Mike Rich MD; Location:[facility] Endoscopy; Service: Colorectal; Laterality: N/A; ESOPHAGOGASTRODUODENOSCOPY 01/06/2019 [...] DAILY PRN12 Bottle 12 vitamin D, Ergocalciferol, 53711 UNITS CAPS Take 1 capsule by mouth [...] she agrees Osteoporosis (Chronic) 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 [place] COPD (Chronic) COPD is stable.Goal of prevention [...] rce(s) Supporting Document(s) ID Date Data Source [id number] 07/06/2019 04:24:41 PM [facility] Name Date of Age Gend*PT [id number] Suma Adkins 1935 84 years F ---PT Location Admission Date/Time Visit ID Attending Provider --- --- --- --- EPI ID CSN Admitting Provider [id number] ---Addended by: REY MENDOZA on: 07/06/2019 04:24 PM Modules accepted: Orders Name Value Range Interpretation Code Description Data Betty rce(s) Supporting Document(s) Procedure Social History Code Duration Value Status Description Data Source(s ) Alcohol intake 06/26/2020 12:00:00 AM EST Yes completed [facility] Smoking 06/26/2020 12:00:00 AM EST Former smoker completed Former smoker [facility] Smoking 06/18/2020 12:00:00 AM EST Patient has never smoked co mpleted Patient has never smoked MEDENT ([facility], [facility]) Smoking 04/25/2020 12:00:00 AM EST Patient has never smoked co mpleted Patient has never smoked MEDENT ([facility]) Smoking 01/10/2020 02:10:49 PM EDT Ex-smoker (finding) complet ed Ex-smoker (finding) LO (Maxime Blackman MD [facility]) Smoking 09/15/2019 07:34:19 PM EDT Ex-smoker (finding) complet ed Ex-smoker (finding) LO (Maxime Blackman MD [facility]) Smoking 09/15/2019 07:30:53 PM EDT Ex-smoker (finding) complet ed Ex-smoker (finding) LO (Maxime Blackman MD [facility]) Smoking 09/15/2019 07:28:21 PM EDT Ex-smoker (finding) complet ed Ex-smoker (finding) MELLEN (Maxime Blackman MD [facility]) Smoking 09/15/2019 07:25:10 PM EDT Ex-smoker (finding) complet ed Ex-smoker (finding) MELLEN (Maxime Blackman MD [facility]) Vital Signs ID Date Data Source UNK Name Value Range Interpretation Code Description Data Source(s) Diastolic blood pressure 60 mm[Hg] 60 mm[Hg] [facility] Systolic blood pressure 127 mm[Hg] 127 mm[Hg] [facility] Oxygen saturation in Arterial blood by Pulse oximetry 98 % 98 % [facility] Body mass index (BMI) [Ratio] 17.01 kg/m2 17.01 kg/m2 [facility] Body weight 42.185 kg 42.185 kg [facility] Body height 157.5 cm 157.5 cm [facility] Respiratory rate 18 /min 18 /min [facility] Body temperature 36.22 Marsha 36.22 Marsha [facility] Heart rate 72 /min 72 /min [facility] Body mass index (BMI) [Ratio] 16.8 kg/m2 16.8 k g/m2 MEDENT ([facility], [facility]) Body height 60 [in_i] 60 [in_i] MEDENT ([facility], [facility]) 5'0" Body weight 86.00 [lb_av] 86.00 [lb_av] MEDENT ([facility], [facility]) Body temperature 98.7 [degF] 98.7 [degF] MED[facility] ([facility], [facility]) Oxygen saturation in Arterial blood by Pulse oximetry 98 % 98 % [facility] ([facility], [facility]) Respiratory rate 15 /min 15 /min MED[facility] ( [facility], [facility]) Heart rate 74 /min 74 /min MED[facility] ([facility], [facility]) Diastolic blood pressure 74 mm[Hg] 74 mm[Hg] MED[facility] ([facility], [facility]) Systolic blood pressure 142 mm[Hg] 142 mm[Hg] [facility] ([facility], [facility]) Oxygen saturation in Arterial blood by Pulse oximetry 97 % 97 % [facility] ([facility], [facility]) Respiratory rate 18 /min 18 /min MED[facility] ( [facility], [facility]) Heart rate 68 /min 68 /min [facility] Diastolic blood pressure 62 mm[Hg] 62 mm[Hg] MED[facility] ([facility], [facility]) Systolic blood pressure 118 mm[Hg] 118 mm[Hg] [facility] ([facility], [facility]) Body weight 92.00 [lb_av] 92.00 [lb_av] MEDENT ([facility], [facility]) Body temperature 97.8 [degF] 97.8 [degF] MEDENT ([facility], [facility]) Body mass index (BMI) [Ratio] 17.0 kg/m2 17.0 k g/m2 MEDENT ([facility]) Body weight 90.00 [lb_av] 90.00 [lb_av] MEDENT ([facility]) Body height 61 [in_i] 61 [in_i] MEDENT ([facility]) 5'1" Body temperature 97.1 [degF] 97.1 [degF] MEDENT ([facility]) Body temperature 97.5 [degF] [...] blood pressure 123 mm[Hg] 123 mm[Hg] M [facility] ([facility]) Body weight 89.00 [lb_av] 89.00 [lb_av] MEDENT ([facility]) Temp 97.9 Body height 60 [in_i] 60 [in_i] [facility] ([facility]) 5'0" Body mass index (BMI) [Ratio] 16.6 kg/m2 16.6 k g/m2 MEDENT ([facility], [facility]) Body height 61 [in_i] 61 [in_i] MEDENT ([facility], [facility]) 5'1" Body weight 88.00 [lb_av] 88.00 [lb_av] MEDENT ([facility], [facility]) Body temperature 97.9 [degF] 97.9 [degF] MEDENT ([facility], [facility]) Oxygen saturation in Arterial blood by Pulse oximetry 98 % 98 % MEDENT ([facility], [facility]) Respiratory rate 12 /min 12 /min MEDENT ( [facility], [facility]) Heart rate 71 /min 71 /min MEDENT ([facility], [facility]) Diastolic blood pressure 54 mm[Hg] 54 mm[Hg] MEDENT ([facility], [facility]) Systolic blood pressure 92 mm[Hg] 92 mm[Hg] M EDENT ([facility], [facility]) Oxygen saturation in Arterial blood by Pulse oximetry 98 % 98 % MEDENT ([facility]) Body mass index (BMI) [Ratio] 17.3 kg/m2 17.3 k g/m2 MEDENT ([facility]) Body weight 91.50 [lb_av] 91.50 [lb_av] MED[facility] ([facility]) Body height 61 [in_i] 61 [in_i] MEDENT ([facility]) 5'1" Heart rate 70 /min 70 /min MED[facility] ([facility]) Diastolic blood pressure 70 mm[Hg] 70 mm[Hg] MEDENT ([facility]) Systolic blood pressure 136 mm[Hg] 136 mm[Hg] M EDENT ([facility]) Body weight 41.731 kg 41.731 kg [facility] ([facility]) Body mass index (BMI) [Ratio] 18.0 kg/m2 [...] 60 [in_i] 60 [in_i] [facility] ([facility]) 5'0" Oxygen saturation in Arterial blood by Pulse oximetry 98 % 98 % MEDENT ([facility]) Body mass index (BMI) [Ratio] 17.4 kg/m2 17.4 k g/m2 MED[facility] ([facility] ) Body weight 92.00 [lb_av] 92.00 [lb_av] MEDENT ([facility] ) Body height 61 [in_i] 61 [in_i] MED[facility] ([facility] ) 5'1" Heart rate 67 /min 67 /min MED[facility] ([facility] ) Diastolic blood pressure 88 mm[Hg] 88 mm[Hg] MED[facility] ([facility] ) Systolic blood pressure 110 mm[Hg] 110 mm[Hg] M EDENT ([facility] ) Body mass index (BMI) [Ratio] 17.8 kg/m2 17.8 k g/m2 MED[facility] ([facility] ) Body weight 91.00 [lb_av] 91.00 [lb_av] MED[facility] ([facility] ) Body height 60 [in_i] 60 [in_i] MED[facility] ([facility] ) 5'0" Oxygen saturation in Arterial blood by Pulse oximetry 97 % 97 % MEDENT ([facility] ) Body mass index (BMI) [Ratio] 18.2 kg/m2 18.2 k g/m2 MED[facility] ([facility] ) Body weight 96.50 [lb_av] 96.50 [lb_av] MEDENT ([facility] ) Body height 61 [in_i] 61 [in_i] MED[facility] ([facility] ) 5'1" Heart rate 88 /min 88 /min MED[facility] ([facility] ) Diastolic blood pressure 70 mm[Hg] 70 mm[Hg] [facility] ([facility] ) Systolic blood pressure 124 mm[Hg] 124 mm[Hg] [facility] ([facility] ) Patient Treatment Plan of Care Planned Activity Planned Date Details Description Data Source (s) Acetaminophen 325 MG / Hydrocodone Bitartrate 7.5 MG O ral Tablet [Trosper] 06/23/2020 12:00:00 AM [facility] Amlodipine 5 MG Oral Tablet 05/05/2020 12:00:00 AM EST [facility] linaclotide 0.29 MG Oral Capsule 03/06/2020 12:00:00 AM EDT [facility] Sertraline 50 MG Oral Tablet 12/28/2019 12:00:00 AM EDT [facility] Ondansetron 4 MG Oral Tablet 11/26/2019 12:00:00 AM EDT [facility] Levothyroxine Sodium 0.112 MG Oral Tablet 11/22/2019 12:00:00 AM ED T [facility]
[2020-07-05 10:46] LABS: BASO % 0.3 % (0.0-1.0); EOS % 0.1 % (0.0-3.0); HEMATOCRIT 34.6 % (36.0-47.0); HEMOGLOBIN 11.2 g/dl (12.0-15.5); LYMPH # 1.2 10^3/uL (1.5-5.0); LYMPH % 12.6 % (24.0-44.0); MEAN CORPUSCULAR HEMOGLOBIN 31.5 pg (27.0-33.0); MEAN CORPUSCULAR HGB CONC 32.4 g/dl (32.0-36.5); MEAN CORPUSCULAR VOLUME 97.2 fl (80.0-96.0); MONO # 0.7 10^3/uL (0.0-0.8); NEUTROPHILS # 7.5 10^3/uL (1.5-8.5); NEUTROPHILS % 79.7 % (36.0-66.0); PLATELET COUNT, AUTOMATED 299 10^3/uL (150-450); RED BLOOD COUNT 3.56 10^6/uL (4.00-5.40); WHITE BLOOD COUNT 9.4 10^3/uL (4.0-10.0)
[2020-07-05 11:07] LABS: ERYTHROCYTE SEDIMENTATION RATE 9 mm/hr (0-30)
[2020-07-05 11:12] LABS: C REACTIVE PROTEIN QUANTITATIV < 0.30 MG/DL (0.00-0.30)
[2020-07-05] MEDS ORDERED: predniSONE 20 MG TAB PO ONE (11:30)
[2020-07-05] MEDS ORDERED: PRED20TA PO (11:31)
[2020-07-05 11:39] VITALS: BP 150/67
== END 2020-07-05 11:45 | disposition home or self-care (01) ==
LOC: M ED 08:52
DX: M19.042 Primary osteoarthritis, left hand (principal); Z86.73 Personal history of transient ischemic attack (TIA), and cerebral infarction without residual deficits; R51.9 Headache, unspecified; I10 Essential (primary) hypertension; R07.9 Chest pain, unspecified; Z87.01 Personal history of pneumonia (recurrent); K59.00 Constipation, unspecified; K21.9 Gastro-esophageal reflux disease without esophagitis; Z87.440 Personal history of urinary (tract) infections; M41.9 Scoliosis, unspecified; M81.0 Age-related osteoporosis without current pathological fracture; E07.9 Disorder of thyroid, unspecified; D75.9 Disease of blood and blood-forming organs, unspecified; E34.9 Endocrine disorder, unspecified; Z79.899 Other long term (current) drug therapy; Z88.0 Allergy status to penicillin; Z88.8 Allergy status to other drugs, medicaments and biological substances; Z88.5 Allergy status to narcotic agent

== ENCOUNTER → 2020-07-19 | Outpatient (CLI) | payer MEDICARE, MEDICAID ==
[~2020-07-19] MED LIST changes: +PRED20TA PO
[2020-07-19 09:46] LABS: C REACTIVE PROTEIN QUANTITATIV < 0.30 MG/DL (0.00-0.30); RHEUMATOID FACTOR QUANT < 10.0 IU/ML (<15.0); URIC ACID 4.2 MG/DL (2.6-6.0)
== END ==
LOC: M LAB 08:41
PROVIDERS: ATTEND Orthopaedic Surgery
DX: M79.645 Pain in left finger(s) (principal); R22.32 Localized swelling, mass and lump, left upper limb; M15.1 Heberden's nodes (with arthropathy)

== ENCOUNTER → 2020-07-21 | Outpatient (CLI) | payer MEDICARE, MEDICAID ==
[~2020-07-21] MED LIST changes: +CLEO300C2 PO; +PEPC1TAB5 PO
[2020-07-21 08:30] LABS: BASO % 0.4 % (0.0-1.0); HEMATOCRIT 33.9 % (36.0-47.0); HEMOGLOBIN 10.8 g/dl (12.0-15.5); LYMPH # 1.3 10^3/uL (1.5-5.0); LYMPH % 16.6 % (24.0-44.0); MEAN CORPUSCULAR HEMOGLOBIN 31.5 pg (27.0-33.0); MEAN CORPUSCULAR HGB CONC 31.9 g/dl (32.0-36.5); MEAN CORPUSCULAR VOLUME 98.8 fl (80.0-96.0); MONO # 0.8 10^3/uL (0.0-0.8); MONO % 10.1 % (0.0-5.0); NEUTROPHILS # 5.4 10^3/uL (1.5-8.5); NEUTROPHILS % 72.4 % (36.0-66.0); PLATELET COUNT, AUTOMATED 255 10^3/uL (150-450); RED BLOOD COUNT 3.43 10^6/uL (4.00-5.40); WHITE BLOOD COUNT 7.5 10^3/uL (4.0-10.0)
== END ==
LOC: M LAB 07:52
PROVIDERS: ATTEND Physician Assistant
DX: R22.32 Localized swelling, mass and lump, left upper limb (principal); M79.645 Pain in left finger(s); M15.1 Heberden's nodes (with arthropathy)

== ENCOUNTER 2020-07-25 16:31 | Emergency (ER) | payer MEDICARE, MEDICAID ==
[~2020-07-25] VITALS: Ht 152.4 cm; Wt 42.8 kg
[~2020-07-25 16:31] MED LIST changes: -CLEO300C2 PO; -PEPC1TAB5 PO
[2020-07-25] MEDS ORDERED: PEPC1TAB5 PO (16:42)
[2020-07-25] MEDS ORDERED: PERCOCET 5MG/325MG TAB PO ONE (17:45)
--- NOTE | 2020-07-25 17:54 | REP ---
INDICATION: left middle finger pain and swelling COMPARISON: 07/05/2020. TECHNIQUE: Four views left 3rd digit FINDINGS: There is no evidence of acute fracture, dislocation, or intrinsic bone disease.There is moderate soft tissue swelling particularly at the level of the distal interphalangeal joint. There is moderately severe joint space narrowing at that location with arose of change along the articulating surfaces. IMPRESSION: No fracture or dislocation. Moderate soft tissue swelling. 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 <Electronically signed by Dami Brown > 07/25/20 [id number]
[2020-07-25 18:08] LABS: BASO % 0.5 % (0.0-1.0); HEMATOCRIT 32.8 % (36.0-47.0); HEMOGLOBIN 10.4 g/dl (12.0-15.5); LYMPH # 1.3 10^3/uL (1.5-5.0); LYMPH % 14.1 % (24.0-44.0); MEAN CORPUSCULAR HEMOGLOBIN 30.9 pg (27.0-33.0); MEAN CORPUSCULAR HGB CONC 31.7 g/dl (32.0-36.5); MEAN CORPUSCULAR VOLUME 97.3 fl (80.0-96.0); MONO # 0.8 10^3/uL (0.0-0.8); NEUTROPHILS # 6.7 10^3/uL (1.5-8.5); NEUTROPHILS % 75.9 % (36.0-66.0); PLATELET COUNT, AUTOMATED 276 10^3/uL (150-450); RED BLOOD COUNT 3.37 10^6/uL (4.00-5.40); WHITE BLOOD COUNT 8.9 10^3/uL (4.0-10.0)
[2020-07-25 18:23] LABS: BLOOD UREA NITROGEN 18 MG/DL (7-18); C REACTIVE PROTEIN QUANTITATIV 1.12 MG/DL (0.00-0.30); CALCIUM LEVEL 9.2 MG/DL (8.8-10.2); CARBON DIOXIDE LEVEL 25 MEQ/L (21-32); CHLORIDE LEVEL 104 MEQ/L (98-107); CREATININE FOR GFR 0.72 MG/DL (0.55-1.30); GLOMERULAR FILTRATION RATE > 60.0 (>32); GLUCOSE, FASTING 91 MG/DL (70-100); POTASSIUM SERUM 4.4 MEQ/L (3.5-5.1); SODIUM LEVEL 138 MEQ/L (136-145)
[2020-07-25 19:09] LABS: ERYTHROCYTE SEDIMENTATION RATE 26 mm/hr (0-30)
[2020-07-25] MEDS ORDERED: CLEO300C2 PO (19:39)
[2020-07-25] MEDS ORDERED: PRED20TA PO (19:39)
[2020-07-25] MEDS ORDERED: predniSONE 20 MG TAB PO ONE (19:45)
[2020-07-25] MEDS ORDERED: CLINDAMYCIN 300 MG in IV 1 EA IV ONE (19:45)
[2020-07-25 19:51] VITALS: BP 151/70
[2020-07-25] MEDS ORDERED: CLINDAMYCIN 150MG CAPSULE PO ONE (20:00)
--- OUTSIDE RECORDS SUMMARY | 2020-07-25 21:03 | CCD | Continuity of Care Document ---
Author Author Suma CAPUTO Organization Unknown Address [address] [facility], it e [address] [place] [address] Phone [phone] Care Team Providers Care Motor And Generator Assembler Name Role Phone Sanya Peck MD AUTFrank Unavailable Problems Description No Information Available Social History Type Date Description Comments Sex Unknown ETOH Use Denies alcohol use Tobacco Use Start: Unknown Patient has never smoked Allergies, Adverse Reactions, Alerts Active Allergies Reaction Severity Comments Date Reglan 12/12/2014 Compazine 12/12/2014 Morphine 12/12/2014 Penicillin 12/12/2014 Keflex 12/12/2014 Codeine 12/12/2014 Aspirin 12/12/2014 Coumadin 05/14/2016 Medications Active Medications SIG Qnty Indications Ordering Provide r Date Gabapentin 100mg Capsules 1 by mouth bid for first week, tid there after. 60caps DHardik rivas MD 09/01/2019 Tizanidine HCL 4mg Tablets 1 every day as needed at bedtime 30tabs M54.5 DHardik Ordoñez MD 08/26 Levothyroxine Sodium 125mcg Tablet s TK 1 T PO Q Day. MDD 1 Unknown Neomycin/Polymyxin/Hydrocortisone (Otic) 3.5-59194-4 Solution Apply 1 To 2 Drops To Toe bid Unknown Ondansetron 4mg Tablets Sima Quezada FNP-C Ondansetron HCL 4mg Tablets TK 1 T PO Four Times A Day as Needed For Nausea Unknown Vitamin D (Ergocalciferol) 1.25mg (89069 Ut) Capsules TK 1 C PO Q Other Week. Unknown Sertraline HCL 50mg Tablets Lavon Yanez MD Polyethylene Glycol 3350 17GM/Scoop Powder Mix 1 Capful In 8 Ounces Of Water And Drink bid Unknown Omeprazole 20mg Capsules Darrel Andino MD Hyoscyamine Sulfate 0.125mg Tablet s Sub Dissolve 1 T Unt Q 4 H PRF Abdominal Pain Unknow n Fluconazole 100mg Tablets Darrel Stanley MD Levothyroxine Sodium 112mcg Tablet s TK 1 T PO Q Day. MDD 1 Unknown Doxycycline Monohydrate 100mg Tablets Lavon Hanson PA Clindamycin HCL 300mg Capsules Ebonie Arguello FNP Mupirocin 2% Ointment Apply Externally To The Affected Area Twice Daily For 7 Days Unknown Hydrocodone-Acetaminophen 5-325mg Tablets Lavon Yanez MD 000 Linzess 290mcg Capsules Lavon Yanez MD Nitroglycerin 0.4mg Tablets Sub Teo Dsouza MD Prednisone 20mg Tablets Akin Poon PA Amlodipine Besylate 2.5mg Tablets Unknown Prolia 60mg/ml Solution once every 6 months subcutaneous Unknown Dulcolax Tablets DR Frazier Plavix Tablets Unknown [place] 7.5-325mg Tablets Unknown Ondansetron HCL 4mg Tablets a s needed Unknown Losartan Potassium 50mg Tablets 1 by mouth every day Unknown Immunizations Description No Information Available Vital Signs Date Vital Result Comment 07/12/2020 1:10pm Body Temperature 96.9 F Height 60 inches 5'0" Weight 90.00 lb BMI (Body Mass Index) 17.6 kg/m2 08/27/2019 10:19am Height 60 inches 5'0" Weight 91.00 lb BMI (Body Mass Index) 17.8 kg/m2 Results Test Acquired Date Facility Test Result H/L Range Note CBC With Differential 07/21/[address] [place] [address] [phone] - White Blood Count 7.5 10 Normal 4.0-10.0 Red Blood Count 3.43 10 Low 4.00-5.40 Hemoglobin 10.8 g/dL Low 12.0-15.5 Hematocrit 33.9 % Low 36.0-47.0 Mean Corpuscular Volume 98.8 fl High 80.0-96.0 Mean Corpuscular Hemoglobin 31.5 pg Normal 27.0-33.0 Mean Corpuscular HGB Conc 31.9 g/dL Low 32.0-36.5 Red Cell Distribution Width 13.9 % Normal 11.5-14.5 Platelet Count, Automated 255 10 Normal 150-450 Neutrophils % 72.4 % High 36.0-66.0 Lymph % 16.6 % Low 24.0-44.0 [place] % 10.1 % High 0.0-5.0 Eos % 0.0 % Normal 0.0-3.0 Baso % 0.4 % Normal 0.0-1.0 Immature Granulocyte % 0.5 % Normal 0-3.0 Nucleated Red Blood Cell % 0.0 % Normal 0-0 Neutrophils # 5.4 10 Normal 1.5-8.5 Lymph # 1.3 10 Low 1.5-5.0 [place] # 0.8 10 Normal 0.0-0.8 Eos # 0.0 10 Normal 0.0-0.5 Baso # 0.0 10 Normal 0.0-0.2 Laboratory test finding 07/19/2020 [facility] [address] [place] [address] [phone] - Erythrocyte Sedimentation Rate 9 mm/hr Normal 0-30 Uric Acid 4.2 mg/dL Normal 2.6-6.0 1 Rheumatoid Factor Quant < 10.0 IU/mL Normal <15.0 2 C Reactive Protein Quantitativ < 0.30 mg/dL Normal 0.00-0.30 3 1 note:<nlbl:demographic_chang ed> 2 note:<nlbl:demographic_chang ed> 3 note:<nlbl:demographic_chang ed> Procedures Date Code Description Status 07/18/2020 41793 MRI Upper Extremity Other Than J oint Completed Medical Devices Description No Information Available Encounters Type Date Location Provider Dx Diagnosis Office Visit 07/12/2020 1:00p [place] GRAYSON Maddox R22.32 Localized swelling, mass and lump, left upper limb M79.645 Pain in left finger(s) 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) Assessments Date Code Description Provider 07/18/2020 R22.32 Localized swelling, mass and lum p, left upper limb Marcel España MD 07/18/2020 R22.32 Localized swelling, mass and lum p, left upper limb MRI 07/18/2020 M79.645 Pain in left finger(s) Marcel España MD 07/18/2020 M79.645 Pain in left finger(s) MRI 07/12/2020 R22.32 Localized swelling, mass and lum p, left upper limb GRAYSON Maddox 07/12/2020 M79.645 Pain in left finger(s) GRAYSON Pickett 07/12/2020 M15.1 [place]berden's nodes (with arthropat hy) GRAYSON Maddox Plan of Treatment No Information Available Functional Status Description No Information Available Mental Status Description No Information Available Referrals Refer to Dr Reason for Referral Status Appt Date Miguelito Vasquez Pac MRI OF LEFT HAND NO AUTH REQUIRED TO X-RAY N T Created [facility] [address] [address] [phone] Migueilto Vasquez Pac MRI OF LEFT HAND PER [place] NO AUTH REQU IRED TO X-RAY NT Created [address] [place] [phone]
--- OUTSIDE RECORDS SUMMARY | 2020-07-25 21:03 | CCD | Continuity of Care Document ---
Author Author Suma VASQUEZ PA Organization Unknown Address [address] [facility], [facility] [address] [place] [address] Phone [phone] Care Team Providers Care Gas Welder Name Role Phone Sanya Peck MD Unavailable Problems Description No Information Available Social [...] for first week, tid there after. 60caps Tano rivas MD 09/01/2019 Tizanidine HCL 4mg Tablets 1 every day as needed at bedtime 30tabs M54.5 DHardik Ordoñez MD 08/26 Levothyroxine Sodium 125mcg Tablet s TK 1 T PO Q Day. MDD 1 Unknown Neomycin/Polymyxin/Hydrocortisone (Otic) 3.5-01827-7 Solution Apply 1 To 2 Drops To Toe bid Unknown Ondansetron 4mg Tablets Sima Quezada FNP-C Ondansetron HCL 4mg Tablets TK 1 T PO Four Times A Day as Needed For Nausea Unknown Vitamin D (Ergocalciferol) 1.25mg (61675 Ut) Capsules TK 1 C PO Q [...] For 7 Days Unknown Hydrocodone-Acetaminophen 5-325mg Tablets Lvaon Yanez MD 000 Linzess 290mcg Capsules Lavon Yanez MD Nitroglycerin 0.4mg Tablets Teo Cortés MD Prednisone 20mg Tablets Akin Poon PA Amlodipine Besylate 2.5mg Tablets Unknown Prolia 60mg/ml Solution once every 6 months subcutaneous Unknown Dulcolax Tablets DR Frazier Plavix Tablets Unknown [place] 7.5-325mg Tablets Unknown Ondansetron HCL 4mg Tablets [...] H/L Range Note CBC With Differential 07/21/[address] [place] [address] [phone] - White Blood Count 7.5 10 Normal [...] 36.0-66.0 Lymph % 16.6 % Low 24.0-44.0 [place] % 10.1 % High 0.0-5.0 Eos % 0.0 % Normal 0.0-3.0 Baso % 0.4 % Normal 0.0-1.0 Immature Granulocyte % 0.5 % Normal 0-3.0 Nucleated Red Blood Cell % 0.0 % Normal 0-0 Neutrophils # 5.4 10 Normal 1.5-8.5 Lymph # 1.3 10 Low 1.5-5.0 [place] # 0.8 10 Normal 0.0-0.8 Eos # 0.0 10 Normal 0.0-0.5 Baso # 0.0 10 Normal 0.0-0.2 Laboratory test finding 07/19/2020 [facility] [address] [place] [address] [phone] - Erythrocyte Sedimentation Rate 9 mm/hr Normal 0-30 Uric Acid 4.2 mg/dL Normal 2.6-6.0 1 Rheumatoid Factor Quant < 10.0 IU/mL Normal <15.0 2 C Reactive Protein Quantitativ < 0.30 mg/dL Normal 0.00-0.30 3 1 note:<nlbl:demographic_chang ed> 2 note:<nlbl:demographic_chang ed> 3 note:<nlbl:demographic_chang ed> Procedures Date Code Description Status 07/18/2020 12086 MRI Upper Extremity Other Than J oint Completed Medical Devices Description No Information Available Encounters Type Date Location Provider Dx Diagnosis Office Visit 07/12/2020 1:00p [place] GRAYSON Maddox R22.32 Localized swelling, mass and lump, left upper limb M79.645 Pain in left finger(s) 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
--- OUTSIDE RECORDS SUMMARY | 2020-07-25 21:04 | CCD | Continuity of Care Document ---
Author Author Suma DELACRUZ PA Organization Unknown Address [address] [facility], [facility] [address] [place] [address] Phone [phone] Care Team Providers Care Underwriting Internship Name Role Phone Sanya Peck MD Unavailable [...] Q Day. MDD 1 Unknown Neomycin/Polymyxin/Hydrocortisone (Otic) 3.5-53234-2 Solution Apply 1 To 2 Drops To Toe bid Unknown Ondansetron 4mg Tablets Sima Quezada FNP-C Ondansetron HCL 4mg Tablets TK 1 T PO Four Times A Day as Needed For Nausea Unknown Vitamin D (Ergocalciferol) 1.25mg (84160 Ut) Capsules TK 1 C PO Q [...] Dulcolax Tablets DR Frazier Plavix Tablets Unknown [place] 7.5-325mg Tablets Unknown Ondansetron HCL 4mg Tablets [...] BMI (Body Mass Index) 17.8 kg/m2 Results Description No Information Available Procedures Description No Information Available Medical Devices Description No Information Available Encounters Description No Information Available Assessments Date Code Description Provider 07/12/2020 R22.32 Localized swelling, mass and lum p, left upper limb GRAYSON Maddox 07/12/2020 M79.645 Pain in left finger(s) GRAYSON Pickett Plan of Treatment Future Appointment(s):* 07/18/2020 1:30 pm - MRI at MRI 07/12/2020 - GRAYSON Maddox* R22.32 Localized swelling, mass and lump, left upper limb * M79.645 Pain in left finger(s)* New Labs:* Uric Acid, Ordered: 07/12/20 * Rheumatoid Factor Quant, Ordered: 07/12/20 * Erythrocyte Sedimentation Rate, Ordered: 07/12/20 * High Sensitivity C-Reactive Protein, Ordered: 07/12/20 * New Xrays:* MRI Left Hand, Scheduled: 07/18/20 * Follow up:* [facility] ( sent as stat) f/u after MRI results and lab results with IID Functional Status Description No Information Available Mental Status Description No Information Available Referrals Description No Information Available
--- OUTSIDE RECORDS SUMMARY | 2020-07-25 21:04 | CCD | Continuity of Care Document ---
Author Author Suma CAPUTO Organization Unknown Address [address] [facility], it e [address] [place] [address] Phone [phone] Care Team Providers Care Book Retailer Name Role Phone Sanya Peck MD AUTFrank [...] Q Day. 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) Assessments Date Code Description Provider 07/12/2020 R22.32 Localized swelling, mass and lum p, left upper limb GRAYSON Maddox 07/12/2020 M79.645 Pain in left finger(s) GRAYSON Pickett 07/12/2020 M15.1 [place]berden's nodes (with arthropat hy) GRAYSON Maddox Plan of Treatment 07/12/2020 - GRAYSON Maddox* R22.32 Localized swelling, mass and lump, left upper limb* New Labs:* Uric Acid, Ordered: 07/12/20 * Rheumatoid Factor Quant, Ordered: 07/12/20 * Erythrocyte Sedimentation Rate, Ordered: 07/12/20 * High Sensitivity C-Reactive Protein, Ordered: 07/12/20 * M79.645 Pain in left finger(s)* New Labs:* Uric Acid, Ordered: 07/12/20 * Rheumatoid Factor Quant, Ordered: 07/12/20 * Erythrocyte Sedimentation Rate, Ordered: 07/12/20 * High Sensitivity C-Reactive Protein, Ordered: 07/12/20 * Follow up:* [facility] BOOK IT ( sent as stat) f/u after MRI results and lab results with IID * 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)* New Labs:* Uric Acid, Ordered: 07/12/20 * Rheumatoid Factor Quant, Ordered: 07/12/20 * Erythrocyte Sedimentation Rate, Ordered: 07/12/20 * High Sensitivity C-Reactive Protein, Ordered: 07/12/20 Functional Status Description No Information Available Mental Status Description No Information Available Referrals Refer to Dr Reason for Referral Status Appt Date Miguelito Vasquez Pac MRI OF LEFT HAND NO AUTH REQUIRED TO X-RAY N T Created [address] [place] [address] [address] [place] [address] [phone] Drazek, Miguelito I, Pac MRI OF LEFT HAND PER [place] NO AUTH REQU IRED TO X-RAY NT Created [address] [facility] [address] [place] [address] [phone]
--- OUTSIDE RECORDS SUMMARY | 2020-07-25 21:04 | CCD | Continuity of Care Document ---
Author Author Suma VOGEL MD Organization Unknown Address [address] [facility], [facility] e [address] [place] [address] Phone [phone] Care Team Providers Care Middle [employer] Resource Teacher Name Role Phone Sanya Peck MD AUT Unavailable Problems Description No Information Available Social [...] Q Day. MDD 1 Unknown Neomycin/Polymyxin/Hydrocortisone (Otic) 3.5-93894-2 Solution Apply 1 To 2 Drops To Toe bid Unknown Ondansetron 4mg Tablets Sima Quezada FNP-C Ondansetron HCL 4mg Tablets TK 1 T PO Four Times A Day as Needed For Nausea Unknown Vitamin D (Ergocalciferol) 1.25mg (31357 Ut) Capsules TK 1 C PO Q [...] Dulcolax Tablets DR Frazier Plavix Tablets Unknown [place] 7.5-325mg Tablets Unknown Ondansetron HCL 4mg Tablets [...] Date Facility Test Result H/L Range Note Laboratory test finding 07/19/2020 [facility] [address] [place] [address] [phone] - Erythrocyte Sedimentation Rate 9 mm/hr Normal 0-30 Uric Acid 4.2 mg/dL Normal 2.6-6.0 1 Rheumatoid Factor Quant < 10.0 IU/mL Normal <15.0 2 C Reactive Protein Quantitativ < 0.30 mg/dL Normal 0.00-0.30 3 1 note:<nlbl:demographic_chang ed> 2 note:<nlbl:demographic_chang ed> 3 note:<nlbl:demographic_[facility] ed> Procedures Description No Information Available Medical Devices [...] with IID * 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
--- OUTSIDE RECORDS SUMMARY | 2020-07-25 21:13 | CCD ---
Author Author [facility] Organization [facility] Address Unknown Phone Unavailable Care Team Providers Care Gold Leaf Layer Name Role Phone Tyrone Stanley MD Unavailable [...] I WALE PA Unavailable Unavailable Mccormack Blackman, Jli Swartz MD, FACS Unavailable Unavailable Mccormack Blackman, [...] MD, FACS Unavailable Unavailable Mccormack Blackman, Jil wSartz MD, FACS Unavailable Unavailable Mccormack Blackman, Jil [...] Unavailable Uli MENDOZA MD Unavailable Unavailable Uli MEDNOZA MD Unavailable Unavailable Uli MENDOZA MD Unavailable [...] Alaina SALES Unavailable Unavailable COOK, B HANK CASE WORK AIDE Unavailable Unavailable COOK, B HANK CASE WORK AIDE Unavailable Unavailable COOK, B HANK CASE WORK AIDE Unavailable Unavailable COOK, B HANK CASE WORK AIDE Unavailable Unavailable COOK, B HANK CASE WORK AIDE Unavailable Unavailable COOK, B HANK CASE WORK AIDE Unavailable Unavailable COOK, B HANK CASE WORK AIDE Unavailable Unavailable COOK, B HANK CASE WORK AIDE Unavailable Unavailable COOK, B HANK CASE WORK AIDE Unavailable Unavailable COOK, B HANK CASE WORK AIDE Unavailable Unavailable COOK, B HANK CASE WORK AIDE Unavailable Unavailable COOK, B HANK CASE WORK AIDE Unavailable Unavailable COOK, B HANK CASE WORK AIDE Unavailable Unavailable COOK, B HANK CASE WORK AIDE Unavailable Unavailable COOK, B HANK CASE WORK AIDE Unavailable Unavailable COOK, B HANK CASE WORK AIDE Unavailable Unavailable COOK, B HANK CASE WORK AIDE Unavailable Unavailable COOK, B HANK CASE WORK AIDE Unavailable Unavailable COOK, B HANK CASE WORK AIDE Unavailable Unavailable COOK, B HANK CASE WORK AIDE Unavailable Unavailable COOK, B HANK CASE WORK AIDE Unavailable Unavailable COOK, B HANK CASE WORK AIDE Unavailable Unavailable COOK, B HANK CASE WORK AIDE Unavailable Unavailable COOK, B HANK CASE WORK AIDE Unavailable Unavailable COOK, B HANK CASE WORK AIDE Unavailable Unavailable COOK, B HANK CASE WORK AIDE Unavailable Unavailable COOK, B HANK CASE WORK AIDE Unavailable Unavailable COOK, B HANK CASE WORK AIDE Unavailable Unavailable COOK, B HANK CASE WORK AIDE Unavailable Unavailable COOK, B HANK CASE WORK AIDE Unavailable Unavailable COOK, B HANK CASE WORK AIDE Unavailable Unavailable COOK, B HANK CASE WORK AIDE Unavailable Unavailable COOK, B HANK CASE WORK AIDE Unavailable Unavailable COOK, B HANK CASE WORK AIDE Unavailable Unavailable COOK, B HANK CASE WORK AIDE Unavailable Unavailable COOK, B HANK CASE WORK AIDE Unavailable Unavailable COOK, B HANK CASE WORK AIDE Unavailable Unavailable COOK, B HANK CASE WORK AIDE Unavailable Unavailable COOK, B HANK CASE WORK AIDE Unavailable Unavailable COOK, B HANK CASE WORK AIDE Unavailable Unavailable COOK, B HANK CASE WORK AIDE Unavailable Unavailable COOK, B HANK CASE WORK AIDE Unavailable Unavailable COOK, B HANK CASE WORK AIDE Unavailable Unavailable COOK, B HANK CASE WORK AIDE Unavailable Unavailable COOK, B HANK CASE WORK AIDE Unavailable Unavailable COOK, B HANK CASE WORK AIDE Unavailable Unavailable COOK, B HANK CASE WORK AIDE Unavailable Unavailable COOK, B HANK CASE WORK AIDE Unavailable Unavailable COOK, B HANK CASE WORK AIDE Unavailable Unavailable COOK, B HANK CASE WORK AIDE Unavailable Unavailable COOK, B HANK CASE WORK AIDE Unavailable Unavailable COOK, B HANK CASE WORK AIDE Unavailable Unavailable COOK, B HANK CASE WORK AIDE Unavailable Unavailable COOK, B HANK CASE WORK AIDE Unavailable Unavailable COOK, B HANK CASE WORK AIDE Unavailable Unavailable COOK, B HANK CASE WORK AIDE Unavailable Unavailable COOK, B HANK CASE WORK AIDE Unavailable Unavailable COOK, B HANK CASE WORK AIDE Unavailable Unavailable COOK, B HANK CASE WORK AIDE Unavailable Unavailable COOK, B HANK CASE WORK AIDE Unavailable Unavailable COOK, B HANK CASE WORK AIDE Unavailable Unavailable COOK, B HANK CASE WORK AIDE Unavailable Unavailable COOK, B HANK CASE WORK AIDE Unavailable Unavailable COOK, B HANK CASE WORK AIDE Unavailable Unavailable MARIANNE, DEVI PA Unavailable Unavailable [...] G EZIO PA Unavailable Unavailable TONTARSANDREW, G EIZO PA Unavailable Unavailable TONTARSANDREW, G EZIO PA [...] GUGA, IRVIN PA Unavailable Unavailable Arguello, Ebonie CASE WORK AIDE Unavailable Unavailable Arguello, Ebonie CASE WORK AIDE Unavailable Unavailable Arguello, Ebonie CASE WORK AIDE Unavailable Unavailable Arguello, Ebonie CASE WORK AIDE Unavailable Unavailable Arguello, Ebonie CASE WORK AIDE Unavailable Unavailable Arguello, Ebonie CASE WORK AIDE Unavailable Unavailable Arguello, Ebonie CASE WORK AIDE Unavailable Unavailable Arguello, Ebonie CASE WORK AIDE Unavailable Unavailable Arguello, Ebonie CASE WORK AIDE Unavailable Unavailable Arguello, Ebonie CASE WORK AIDE Unavailable Unavailable Arguello, Ebonie CASE WORK AIDE Unavailable Unavailable LETTIERE, A REY PA Unavailable [...] is protected by Article 27-F of the [facility] Public Health law. If you continue you may have access to information: Regarding HIV / AIDS; Provided by facilities licensed or operated by the [facility] Office of Mental Health; or Provided by the [facility] Office for People With Developmental Disabilities. If such information is present, then the following [facility] mandated warning applies: This information has [...] law may result in a fine or care home sentence or both. A general authorization for the release of medical or other information is NOT sufficient authorization for further disc losure. Allergies and Adverse Reactions Type Description Substance Reaction Status Data Source(s ) Allergy to substance No Known Allergies No known allergies (situation ) LO (Maxime Blackman MD [facility]) Allergy to substance No Known Allergies No known allergies (situation ) LO (Maxime Blackman MD [facility]) Allergy to substance No Known Allergies No known allergies (situation ) LO (Maxime Blackman MD [facility]) Allergy to substance No Known Allergies No known allergies (situation ) LO (Maxime Blackman MD [facility]) Allergy to substance No Known Allergies No known allergies (situation ) LO (Maxime Blackman MD [facility]) Family History Family Member Name Family Member Gender Family Member Status Date o f Status Description Data Source(s) Unknown Male Problem [facility] ([facility]) Unknown Unknown Problem [facility] ([facility]) Unknown Female Problem MEDENT ([facility]) Encounters Encounter Providers Location Date Indications Data Source(s ) [facility]MOCAM 07/25/2020 03:42:30 PM EST [facility] OFFICE OUTPATIENT VISIT 15 MINUTES Attender: WALE GALICIA Phys ical Therapy 07/12/2020 12:00:00 PM EST MED[facility] ([facility]) Outpatient Attender: REY MENDOZA MD MOCAM[facility]MOCAM 0 07/11/2020 12:00:00 AM EST - 07/11/2020 01:42:36 PM EST [facility] Out[facility] Attender: REY MENDOZA MD MOCAM-MOCAM 0 06/26/2020 12:00:00 AM EST - 06/26/2020 10:18:02 AM EST [facility] Out[facility] Attender: Ebonie high 06/18/2020 08:20:00 AM EST [facility] ([facility]) Outpatient Attender: EZIO GALICIA Medical [facility] 06/01/2020 10:30:00 AM EST MEDENT ([facility] Padilla [facility]) Outpatient Attender: REY burns 05/26/2020 07:40:00 AM EST [facility] ([facility], [facility]) Outpatient Attender: Alaina España MD Physical Therapy 04/25 09:45:00 AM EST MED[facility] ([facility]) Outpatient Attender: Darrel Stanley MD Main Office 2020 03:45:00 PM EDT [facility] ([facility]) Outpatient Attender: Darrel Stanley MD Main Office 02/17/2020 01:45:00 PM EDT [facility] ([facility]) Outpatient Attender: DEVI aguirre 02/14/2020 11:50:00 AM EDT MED[facility] ([facility]) Outpatient Attender: Alaina España MD Physical Therapy 01/30 10:30:00 AM EDT MED[facility] ([facility] ) Outpatient Attender: Darrel Stanley MD Main Office 01/18/2020 03:30:00 PM EDT MED[facility] ([facility]) Outpatient<td ID="encounterTypeDescripti onID0">1 Year Follow-Up</td><td>Maxime Mon MD, FACS</td><td>Maxime Mon MD [facility]</td><td>01/10/2020</td><td>1:12PM</td><td>04/20/2019 11:59PM</td> <td><content ID="encounterDiagnosisID0-0">Blepharitis Squamous</content>, <content ID="encounterDiagnosisID0-1">Dry Eye Syndrome Both Eyes</content>, <content ID="encounterDiagnosisID0-2">Vitreous Disorders Degeneration</content>, <content ID="encounterDiagnosisID0-3">Retinopathy Hypertensive Both Eyes</content>, <content ID="encounterDiagnosisID0-4">Pseudophakia</content>, <content ID="encounterDiagnosisID0-5">History of Nicotine Dependence</content>, <content ID="encounterDiagnosisID0-6">Essential Hypertension</content></td> Attender: Maxime Blackman MD, FACS Maxime Mon MD [facility] 01/10/2020 01:12:0 0 PM EDT - 04/20/2019 11:59:00 PM EST PseudophakiaEssential HypertensionHistor y of Nicotine DependenceRetinopathy Hypertensive Both EyesVitreous Disorders DegenerationDry Eye Syndrome Both EyesBlepharitis Squamous LO (Maxime Blackman MD [facility]) Pseudophakia Essential Hypertension History of Nicotine Dependence 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 [facility]OC[facility]MOCAM 01/04/2020 12:56:49 PM EDT [facility] Outpatient Attender: REY MENDOZA MD MOCAM-MOCAM 0 12/28/2019 12:00:00 AM EDT - 12/28/2019 01:38:56 [facility]: HANK PROCTOR NP Physical Therapy 12/06/2019 0 2:30:00 PM EDT MEDENT ([facility]) Outpatient Attender: Alaina España MD Physical Therapy 10/10 11:15:00 AM EDT MEDENT ([facility]) MOCAM-MOCAM 09/03/2019 12:24:30 PM EDT [facility] Outpatient Referrer: WALE GALICIA 09/03/2019 11:38:00 AM EDT [facility] Outpatient Referrer: WALE GALICIA 09/03/2019 11:38:00 AM EDT [facility] Outpatient Referrer: WALE GALICIA 09/02/2019 01:55:00 PM EDT [facility] Outpatient Referrer: WALE DELACRUZ PA 09/02/2019 01:49:00 PM EDT [facility] Outpatient Referrer: WALE DELACRUZ PA 09/02/2019 01:47:00 PM EDT [facility] Outpatient Referrer: WALE DELACRUZ PA 09/01/2019 01:08:00 PM EDT [facility] Outpatient Referrer: WALE DELACRUZ PA 08/31/2019 01:41:00 PM EDT [facility] Outpatient Referrer: WALE DELACRUZ PA 08/31/2019 01:04:00 PM EDT [facility] Outpatient Referrer: IRVIN STARK PA 08/31/2019 01:03:00 PM EDT [facility] Outpatient Referrer: IRVIN STARK PA 08/31/2019 12:59:00 PM EDT [facility] Outpatient Referrer: IRVIN STARK PA 08/31/2019 12:52:00 PM EDT [facility] Outpatient Attender: WALE GALICIA Physical Therapy 08/27/2019 1 0:00:00 AM EDT MED[facility] ([facility]) Outpatient Attender: Alaina España MD Physical Therapy 07/29 09:30:00 AM EST MED[facility] ([facility]) MOCAM-MOCAM 07/06/2019 04:24:41 PM EST [facility] Outpatient Attender: REY MENDOZA MD MOCAM-MOCAM 0 07/06/2019 12:00:00 AM EST - 07/06/2019 12:35:45 PM [facility] Medications Medication Brand Name Start Date Product Form Dose Route Admi nistrative Instructions Pharmacy Instructions Status Indications Reaction Description Data Source(s) Amlodipine 10 MG Oral Tablet amLODIPine (NORVASC) 10 M G tablet amLODIPine (NORVASC) 10 MG tablet 07/07/2020 12:00:00 AM EST Oral active Take by mouth [facility] Acetaminophen 325 MG / Hydrocodone Romina trate 7.5 MG Oral Tablet [[place]] NORCO 7.5-325 MG per tablet NORCO 7.5-325 MG per tablet 06/23/2020 12:00:00 AM EST active Pain Take 2 tab lets by oral route 4 times everyday as needed for pain MDD 8 [facility] Pain 5-325 mg 06/23/2020 12:00:00 [...] 12:00:00 A M EST ORAL active MEDENT ([facility]) Mupirocin 0.02 MG/MG Topical Ointment Mupirocin 06/18/2020 12:00:00 AM EST active MEDENT ([facility]) Doxycycline Monohydrate 100 MG Oral Tablet Doxycycline Monoh ydrate 05/26/2020 12:00:00 AM EST ORAL completed [facility] ([facility]) Amlodipine 5 MG Oral Tablet amLODIPine (NORVASC) 5 MG tablet amLODIPine (NORVASC) 5 MG tablet 05/05/2020 12:00:00 AM EST active TAKE 1 TABLET(5 MG) BY MOUTH DAILY [facility] linaclotide 0.29 MG Oral Capsule linaclotide (LINZESS) 290 MCG CAPS linaclotide (LINZESS) 290 MCG CAPS 03/06/2020 12:00:00 AM EDT active TAKE 1 CAPSULE BY MOUTH EVERY MORNING BEFORE BREAKFAST [facility] 2001#[id number] (60mg Syringe) 1MG 01/31/2020 12:00:00 AM EDT completed MEDENT ([facility]) Medication administered onsite Omeprazole 20 MG Delayed Release Oral Capsule Omeprazole 01/18/2020 12:00:00 AM EDT ORAL completed MEDENT ([facility]) Sertraline 50 MG Oral Tablet sertraline (ZOLOFT) 50 MG tablet sertraline (ZOLOFT) 50 MG tablet 12/28/2019 12:00:00 AM EDT active .5 tab po qd for 6 days then 1 po qd [facility] Ergocalciferol 52993 UNT Oral Capsule Vitamin D (Ergocalcife rol) 12/26/2019 12:00:00 AM EDT active M EDENT ([facility]) Ondansetron 4 MG Oral Tablet ondansetron (ZOFRAN) 4 MG tablet ondansetron (ZOFRAN) 4 MG tablet 11/26/2019 12:00:00 AM EDT active TAKE 1 TABLET BY MOUTH FOUR TIMES DAILY NEEDED FOR NAUSEA [facility] Levothyroxine Sodium 0.112 MG Oral Table t levothyroxine (SYNTHROID, LEVOTHROID) 112 MCG tablet levothyroxine (SYNTHROID, LEVOTHROID) 112 MCG tablet 0 11/22/2019 12:00:00 AM EDT active Hypothyroidism, acquired TAKE 1 TABLET BY MOUTH DAILY [facility] Hypothyroidism, acquired Levothyroxine Sodium 0.112 MG Oral Tablet Levothyroxine Sodi um 10/11/2019 12:00:00 AM EDT ORAL active M EDENT ([facility]) gabapentin 100 MG Oral Capsule Gabapentin 09/01/2019 12:00:00 AM EDT ORAL active MEDENT ([facility]) tizanidine 4 MG Oral Tablet Tizanidine HCL 08/27/2019 12:00:00 AM EDT active [facility] ([facility] 2001#[id number] (60mg Syringe) 1MG 07/29/2019 12:00:00 AM EST completed [facility] ([facility] ) Medication administered onsite Levothyroxine Sodium 0.125 MG Oral Tablet Levothyroxine Sodi um 07/29/2019 12:00:00 AM EST ORAL completed MEDENT ([facility]) Insurance Providers Payer name Policy type / Coverage type Policy ID Covered alliance party ID Covered alliance party's relationship to brown Policy Brown Plan Information EMEDNY [id number] SP [id number] MEDICARE COMPLETE [id number] SP [id number] MEDICARE COMPLETE-[facility] O [id number] S [id number] MEDICAID M [id number] S [id number] [facility] MEDICARE [id number] Gege [id number] MEDICAID [id number] Ge[place] [id number] MEDICAID [id number] [facility] MEDICARE [id number] MEDICARE COMPLETE-[facility] O [id number] S [id number] MEDICAID [id number] SP [id number] MEDICARE C [id number] S [id number] MEDICARE COMPLETE [id number] SP [id number] Medicare (Part B) Medicare Primary [id number] Self [id number] Medicaid Medigap Part B [id number] Self [id number] [facility] Commercial [id number] Self [id number] BCBS [employer] U/W Medigap Part B [id number] Self [id number] BCBS [employer] U/W Medigap Part B [id number] Self [id number] [employer] Commercial [id number] Self [id number] Medicare (Part B) Medicare Primary [id number] Self [id number] Medicaid Medigap Part B [id number] Self [id number] [facility] [employer] Commercial [id number] Self [id number] [place] Medig[place] Part [place] [id number] Self [id number] [employer]/Medicare Commercial [id number] Self [id number] [place] Medig[place] Part [place] [id number] Self [id number] [employer]/Medicare Commercial [id number] Self [id number] Medicare (Part B) Medicare Primary [id number] Self [id number] Medicaid Medigap Part B [id number] Self [id number] [facility] [employer] Commercial [id number] Self [id number] Medicare (Part B) Medicare Primary [id number] Self [id number] Medicaid Medigap Part B [id number] Self [id number] [facility] [employer] Commercial [id number] Self [id number] MEDICAID [id number] Ge[place] [id number] [facility] MEDICARE [id number] Ge[place] [id number] Medicaid [facility] S D [id number] SELF [id number] [facility] Medicare Complete F [id number] SELF [id number] Medicare (Part B) Medicare Primary [id number] Self [id number] Medicaid Medigap Part B [id number] Self [id number] [facility] Commercial [id number] Self [id number] Medicare (Part B) Medicare Primary [id number] Self [id number] Medicaid Medigap Part B [id number] Self [id number] [facility] Commercial [id number] Self [id number] [employer] (Medicare) Medigap Part B [id number] Self [id number] [facility] [place] [id number] Self [id number] [place] [id number] Self [id number] [employer] Medigap Part B [id number] Self [id number] [employer] Medigap Part B [id number] Self [id number] United [employer] (Medicare) Medigap Part B [id number] Self [id number] [place] Medig[place] Part [place] [id number] Self [id number] [employer] ([facility]) Commercial [id number] Self [id number] Medicare (Part B) Medicare Primary [id number] Self [id number] Medicaid Medigap Part B [id number] Self [id number] [facility] [employer] Commercial [id number] Self [id number] Medicaid [facility] S D [id number] SELF [id number] Medicare (Part B) Medicare Primary [id number] Self [id number] Medicaid Medigap Part B [id number] Self [id number] c-[employer] Commercial [id number] Self [id number] Medicare (Part B) Medicare Primary [id number] Self [id number] Medicaid Medigap Part B [id number] Self [id number] [facility] Commercial [id number] Self [id number] MEDICARE COMPLETE [id number] SP [id number] MEDICAID [id number] SP [id number] MEDICAID [facility] [place] [id number] DM [id number] [employer] Medicare Complete [id number] 0 [id number] [facility] [id number] 0 [id number] [facility] (Medicare) Medigap Part B [id number] Self [id number] [facility] [employer] Medigap Part B [id number] Self [id number] [place] Primary [id number] Self [id number] Medicare (Part B) Medicare Primary [id number] Self [id number] Medicaid Medigap Part B [id number] Self [id number] [facility] Commercial [id number] Self [id number] Medicare (Part B) Medicare Primary [id number] Self [id number] Medicaid Medigap Part B [id number] Self [id number] c-[employer] Commercial [id number] Self [id number] MEDICAID [id number] MEDICAID PI PI [facility] MEDICARE PI PI Medicare (Part B) Medicare Primary [id number] Self [id number] Medicaid Medigap Part B [id number] Self [id number] c-[employer] Commercial [id number] Self [id number] BCBS [employer] Ppo U/W Medigap Part B [id number] Self [id number] BCBS [employer] Ppo U/W Medigap Part B [id number] Self [id number] [place] Medigap Part B [id number] Self [id number] BS [facility] Medigap Part B [id number] Self [id number] [facility] Medigap Part B [id number] Self [id number] [place] Part B [id number] Self [id number] [facility] Medigap Part B [id number] Self [id number] [place] Medig[place] Part B [id number] Self [id number] [employer] ([facility]) Commercial [id number] Self [id number] [facility] (Medicare) Medigap Part B [id number] Self [id number] BS [facility] Medigap Part B [id number] Self [id number] [place] Primary [id number] Self [id number] Medicare (Part B) Medicare Primary [id number] Self [id number] Medicaid Medigap Part B [id number] Self [id number] [employer] Commercial [id number] Self [id number] Medicare (Part B) Medicare Primary [id number] Self [id number] Medicaid Medigap Part B [id number] Self [id number] [employer] Commercial [id number] Self [id number] Medicare (Part B) Medicare Primary [id number] Self [id number] Medicaid Medigap Part B [id number] Self [id number] [employer] Commercial [id number] Self [id number] Medicare (Part B) Medicare Primary [id number] Self [id number] Medicaid Medigap Part B [id number] Self [id number] [employer] Commercial [id number] Self [id number] Medicare (Part B) Medicare Primary [id number] Self [id number] Medicaid Medigap Part B [id number] Self [id number] [employer] Commercial [id number] Self [id number] [place] Medigap Part B [id number] Self [id number] Medicare (Part B) Medicare Primary [id number] Self [id number] Medicaid Medigap Part B [id number] Self [id number] [employer] Commercial [id number] Self [id number] [employer] (Medicare) Medigap Part B [id number] Self [id number] [facility] Medigap Part B [id number] Self [id number] [place] Primary [id number] Self [id number] United Healthcare (Medicare) Medigap Part B [id number] Self [id number] BS [facility] Medigap Part B [id number] Self [id number] [place] Primary [id number] Self [id number] Medicare (Part B) Medicare Primary Self BCBS [employer] Ppo U/W Medigap Part B Self BCBS Excell[employer] Ppo U/W Medigap Part B Self Ever[employer] Commercial Self Medicaid Medigap Part B [id number] Self [id number] F 7 Uh-Medicare Solutions Commercial Self BS [facility] Medigap Part B Self [employer] Medigap Part B Self [place]ig[place] Self [place]ig[place] Part B ] Self ] United Healthcare Medigap Part B [id number] Self [id number] [place] Med[place] Part B Self United Healthcare ([facility]) Commercial [id number] Self [id number] United Healthcare (Medicare) Medigap Part B Self [employer] Medigap Part B Self Ever[employer] Medigap Part B Self BS [facility] Medigap Part B Self [place] Primary Self United Healthcare (Medicare) Medigap Part B Self [facility] [employer] [id number] SP [id number] MEDICAID [id number] SP [id number] MEDICARE COMPLETE [id number] SP [id number] UNITED HEALTHCARE O [id number] S [id number] UNITED HEALTHCARE P [id number] S [id number] MEDICAID [id number] SP [id number] MEDICARE COMPLETE [id number] SP [id number] MEDICARE COMPLETE-[facility] P [id number] O [id number] Medicare Complete C1 [id number] Medicaid [place] [id number] SELF PAY 2 UNAVAILABLE 1 UNAVAILA BLE MEDICARE 4 [id number] 1 [id number] [place] 3 [id number] Y [facility] MEDICARE SOLUTIO 11 [id number] Self [id number] Problems, Conditions, and Diagnoses Code Display Name Description Problem Type Effective Dates Data Source(s) M19.049 Arthritis of finger Arthritis of finger [id number] 0 07/11/2020 12:00:00 AM [facility] R68.89 Forgetfulness Forgetfulness [id number] 06/26/2020 12:00:00 AM [facility] Z87.820 History of closed head injury History of closed head i njury [id number] 06/26/2020 12:00:00 AM [facility] [id number] Hypothyroidism Hypothyroidism Problem 04/25/2020 12:00: 00 AM EST [facility] ([facility]) [id number] Malaise and fatigue Malaise and fatigue Problem 1 06/25/2019 12:00:00 AM EST [facility] ([facility]) [id number] Anemia Anemia Problem 2020 12:00:00 AM ED T [facility] ([facility]) 53387721 Diarrhea Diarrhea Problem 02/17/2020 12:00:00 AM ED T [facility] ([facility]) Z00.00 Physical exam, annual Physical exam, annual [id number] 07/06/2019 12:00:00 AM [facility] M41.20 Other idiopathic scoliosis, site unspeci fied Other idiopathic scoliosis, site unspeci Diagnosis 07/11/2020 12:44:29 PM [facility] M81.0 Age-related osteoporosis without current pathological fracture Age-related osteoporosis without current Diagnosis 07/11/2020 12:44:29 PM [facility] E44.0 Moderate protein-calorie malnutrition Mo derate protein-calorie malnutrition Diagnosis 07/11/2020 12:44:29 PM [facility] E03.9 Hypothyroidism, unspecified Hypothyroidism, unspecifie d Diagnosis 07/11/2020 12:44:29 PM [facility] K21.9 Gastro-esophageal reflux disease without esophagitis Gastro-esophageal reflux disease without Diagnosis 07/11/2020 12:44:29 PM [facility] J44.9 Chronic obstructive pulmonary disease, u nspecified Chronic obstructive pulmonary disease, u Diagnosis 07/11/2020 12:44:29 PM [facility] R10.11 Right upper quadrant pain Right upper quadrant pain Di agnosis 07/11/2020 12:44:29 PM [facility] M19.049 Primary osteoarthritis, unspecified hand Primary osteoarthritis, unspecified hand Diagnosis 07/11/2020 12:44:29 PM [facility] Z00.00 Encounter for general adult medical examination without abnormal findings Encounter for general adult medical exam Diagnosis 021 12:44:29 PM [facility] K56.50 Intestinal adhesions [bands] , unspecified as to partial versus complete obstruction Intestinal adhesions (bands), unspecifie Diagnosis 06/26/2020 09:29:13 AM [facility] R68.89 Other general symptoms and signs Other general s ymptoms and signs Diagnosis 06/26/2020 09:29:13 AM [facility] Z87.820 Personal history of traumatic brain inju ry Personal history of traumatic brain inju Diagnosis 06/26/2020 09:29:13 AM [facility] H61.21 Impacted cerumen, right ear Impacted cerumen, right ea r Diagnosis 06/26/2020 09:29:13 AM [facility] I10 Essential (primary) hypertension Essential (primary) h ypertension Diagnosis 06/26/2020 09:29:13 AM [facility] F32.9 Major depressive disorder, single episod e, unspecified Major depressive disorder, single episod Diagnosis 06/26/2020 09:29:[address] [facility] G89.29 Other chronic pain Other chronic pain Diagnosis 04/2021 09:29:13 AM [facility] F41.1 Generalized anxiety disorder Generalized anxiety disor cole Diagnosis 06/26/2020 09:29:13 AM [facility] R52 Pain, unspecified Pain, unspecified Diagnosis 12/28/2019 12:50:44 PM EDT [facility] Surgeries/Procedures Procedure Description Date Indications Data Source(s) MRI Upper Extremity Other Than Joint 07/18/2020 12:00: 00 AM EST [facility] ([facility] ) UPPER NDSC BIOPSY SINGLE/MULTIPLE 04/03/2020 12:00:00 AM EDT [facility] ([facility]) COLONOSCOPY W/BIOPSY SINGLE/MULTIPLE 04/03/2020 12:00: 00 AM EDT [facility] ([facility]) THERAPEUTIC PROPHYLACTIC/DX INJECTION SUBQ/IM 01/31/20 20 12:00:00 AM EDT [facility] ([facility] ) Intermediate Eye Exam Established Patient Intermediate Eye Exam Established Patient 01/10/2020 12:00:00 AM EDT LO (Osman Blackman MD [facility]) Surgical / procedural history Surgical / procedural history 09/06/2019 12:00:00 AM EDT LO (Maxime Blackman MD [facility]) Extracapsular extraction of lens (procedure) History o f extracapsular cataract extraction OU 09/06/2019 12:00:00 AM EDT LO (Osman Blackman MD [facility]) 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 09/06/2019 12:00:00 AM EDT LO (Maxime powell MD [facility]) Reported medical history Anemia, Fall after angina 2018 Reported medical history Anemia, Fall after angina 08/201809/06/2019 12:00:00 AM EDT LO (Maxime Blackman MD [facility]) Reported medical history Anemia, Fall after angina 2018 Reported medical history Anemia, Fall after angina 08/201809/06/2019 12:00:00 AM EDT LO (Maxime Blackman MD [facility]) Reported medical history Anemia, Fall after angina 2018 Reported medical history Anemia, Fall after angina 08/201809/06/2019 12:00:00 AM EDT LO (Maxime Blackman MD [facility]) Surgical / procedural history Surgical / procedural history 09/06/2019 12:00:00 AM EDT LO (Maxime Blackman MD [facility]) History of extracapsular cataract extraction OU Histo ry of extracapsular cataract extraction OU 09/06/2019 12:00:00 AM EDT LO (Maxime Blackman MD [facility]) 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 09/06/2019 12:00:00 AM EDT LO (Maxime powell MD [facility]) Reported medical history Anemia, Fell after angina sp ell 08/2018 Reported medical history Anemia, Fell after angina spell 08/201809/06/2019 12:00:00 AM EDT LO (Maxime Blackman MD [facility]) Recent change in medical history Fell after angina sp ell 08/2018 Recent change in medical history Fell after angina spell 08/201809/06/2019 12:00:00 AM EDT LO (Maxime Blackman MD [facility]) Surgical / procedural history Surgical / procedural history 09/06/2019 12:00:00 AM EDT LO (Maxime Blackman MD [facility]) History of extracapsular cataract extraction OU Histo ry of extracapsular cataract extraction OU 09/06/2019 12:00:00 AM EDT LO (Maxime Blackman MD [facility]) 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 09/06/2019 12:00:00 AM EDT LO (Maxime powell MD [facility]) RADEX SPINE LUMBOSACRAL MINIMUM 4 VIEWS 08/27/2019 12: 00:00 AM EDT [facility] ([facility] ) X-Ray Hip Unilateral With Pelvis 2-3 Views 08/27/2019 12:00:00 AM EDT [facility] ([facility] ) THERAPEUTIC PROPHYLACTIC/DX INJECTION SUBQ/IM 07/29/19 20 12:00:00 AM EST [facility] ([facility]) Results ID Date Data Source [id number] 07/25/2020 03:42:30 PM [facility] MRN Name Date of Age Gend*PT [id number] Suma Adkins 1935 85 years F ---PT Location Admission Date/Time Visit ID Attending Provider --- --- --- --- EPI ID CSN Admitting Provider [id number] ---Addended by: REY MENDOZA on: 07/25/2020 03:42 PM Modules accepted: Orders Name Value Range Interpretation Code Description Data Betty rce(s) Supporting Document(s) ID Date Data Source [id number] 07/21/2020 08:08:00 AM EST [facility] ([facility]) Name Value Range Interpretation Code Description Data Betty rce(s) Supporting Document(s) White Blood Count 7.5 10 4.0-10.0 [facility]) Hemoglobin 10.8 g/dL 12.0-15.5 [facility] ([facility]) Hematocrit 33.9 % 36.0-47.0 [facility] ([facility]) Red Blood Count 3.43 10 4.00-5.40 [facility] ([facility]) Mean Corpuscular HGB Conc 31.9 g/dL 32.0-36.5 [facility] ([facility]) Mean Corpuscular Hemoglobin 31.5 pg 27.0-33.0 [facility] ([facility]) Mean Corpuscular Volume 98.8 fl 80.0-96.0 M [facility] ([facility]) Platelet Count, Automated 255 10 150-450 [facility] ([facility]) Red Cell Distribution Width 13.9 % 11.5-14.5 [facility] ([facility]) Neutrophils % 72.4 % 36.0-66.0 [facility] ([facility]) [place] % 10.1 % 0.0-5.0 [facility] Lymph % 16.6 % 24.0-44.0 [facility]) Eos % 0.0 % 0.0-3.0 [facility]) Immature Granulocyte % 0.5 % 0-3.0 [facility] ([facility]) Baso % 0.4 % 0.0-1.0 [facility] ([facility]) Lymph # 1.3 10 1.5-5.0 [facility] Nucleated Red Blood Cell % 0.0 % 0-0 [facility] ([facility]) Neutrophils # 5.4 10 1.5-8.5 [facility] ([facility]) [place] # 0.8 10 0.0-0.8 [facility] ([facility]) Eos # 0.0 10 0.0-0.5 [facility] ([facility]) Baso # 0.0 10 0.0-0.2 [facility] ([facility]) ID Date Data Source [id number] 07/19/2020 08:53:00 AM EST [facility] ([facility]) Name Value Range Interpretation Code Description Data Betty rce(s) Supporting Document(s) Erythrocyte sedimentation rate by Westergren method 9 mm/hr 0-30 [facility] ([facility]) Urate [Mass/volume] in Serum or Plasma 4.2 mg/dL 2.6-6.0 [facility] ([facility]) <content>note:<nlbl:demographic_changed> </content>
<content></content> Rheumatoid factor [Units/volume] in Serum or Plasma Laboratory test result [facility] ([facility]) <content>note:<nlbl:demographic_changed> </content>
<content></content> C reactive protein [Mass/volume] in Serum or Plasma by High sensitivity method Laboratory test result 0.00-0.30 [facility] ([facility]) <content>note:<nlbl:demographic_changed> </content>
<content></content> ID Date Data Source [id number] 07/18/2020 12:00:00 AM EST [facility] Rey Mendoza Patient Name: [facility] Date of : [place] [address] Date of Exam: 07/18/2020JOCE ortiz [id number]#: Fax: [phone] EXAM: CT BRAIN WITHOUT CONTRASTPROCEDURE INFORMATION:Exam: CT Head Without ContrastExam date and time: 07/18/2020 9:47 AM Age: 85 years old Clinical indication:Injury or trauma; Fall; Concussion/head injuryTECHNIQUE: Imaging protocol: Computed tomography of the head withoutcontrast. Radiation optimization: All CT scans at this facility use atleast one of these dose optimization techniques: automated exposurecontrol; mA and/or kV adjustment per patient size (includes targeted examswhere dose is matched to clinical indication); or iterative reconstruction.COMPARISON: MRI BRAIN WITHOUT CONTRAST 07/17/2020 10:02 AMFINDINGS:Brain: There is moderate atrophy and chronic white matter microangiopathicchanges.Cerebral ventricles: There is compensatory ventricular dilation.Bones/joints: Unremarkable. No acute fracture.Paranasal sinuses: Visualized sinuses are unremarkable. No fluid levels.Mastoid air cells: Visualized mastoid air cells are well aerated.Vasculature: There is mild calcification of the carotid siphons.Soft tissues: Unremarkable.IMPRESSION:No acute intracranial process is identified.Thank you for allowing us to participate in the care of your patient.Dictated and Authenticated by: Erwin Arroyo MD 07/18/2020 10:[address] [facility] ( & [place])VradV/jmcThank you for referring SR SUMA ADKINS to our office. Electronically Signed - [facility] 07/18/20 10:57 Name Value Range Interpretation Code Description Data Betty rce(s) Supporting Document(s) ID Date Data Source [id number] 07/17/2020 12:00:00 AM [facility] Rey Mendoza Patient Name: EDISONSR Velma ZepedaHardik [facility] Date of : [address] [place] [address] Date of Exam: 07/17/2020JOCE ortiz [id number]#: Fax: [phone] EXAM: MRI BRAIN WITHOUT CONTRASTAddendum created by Soila Molina MD on 07/17/2020 11:10 AM Eastern Time([place] & [place]): 07/17/2020 10:[address] Mendoza was notified of criticalfindings. In Initial Report created on 07/17/2020 10:54 AM Eastern Time ([place] &[place]):PROCEDURE INFORMATION:Exam: MR Head Without ContrastExam date and time: 07/17/2020 10:02 AM Age: 85 years oldClinical indication: Injury or trauma; Fall; Concussion/head injuryTECHNIQUE: Imaging protocol: MR of the head without contrast.COMPARISON: No relevant prior studies available.FINDINGS: Brain: 5 mm well-circumscribed peripheral cortical frontal areaof restricted diffusion with associated FLAIR signal abnormality , withpossible small signal drop on the ADC imaging, no associated increased [id number]. (no gradient echo images are performed for comparison to see signaldrop for hemorrhage). Additionally on FLAIR signal image, trace associatedincrease signal is seen in the adjacent frontal extra-axial space measuring2.1 mm. No mass effect or midline shift. Moderate periventricular,subcortical, and deep white matter small vessel ischemic changes. Cerebralventricles: Ventricles and sulci are enlarged presenting moderate volumeloss.Bones/joints: Unremarkable.Paranasal sinuses: Mild mucosal thickening of the ethmoidal air cells.Mastoid air cells: Normal as visualized. No mastoid effusion.Orbital cavity: Unremarkable.Soft tissues: Unremarkable. IMPRESSION:5 mm well-circumscribed peripheral cortical frontal area of restricteddiffusion with associated FLAIR signal abnormality , with possible smallsignal drop on the ADC imaging, no associated increased T1 signal. (nogradient echo images are performed for comparison to see signal drop forhemorrhage). Additionally on FLAIR signal image, trace associated increasesignal is seen in the adjacent frontal extra-axial space measuring 2.1 mm.No mass effect or midline shift. Constellation of findings most likelyrepresent small frontal contusion with trace subdural hemorrhage, however,given well- circumscribed restricted diffusion small area of acute infarctcannot be completely excluded, comparison with CT head is recommended.Thank you for allowing us to participate in the care of your patient.Dictated and Authenticated by: Soila Molina MD 07/17/2020 10:54 AMEastern Time ([place] & [place])VradV/Adriannak you for referring SR SUMA ADKINS to our office. Electronically Signed - [facility] 07/17/20 12:29 Name Value Range Interpretation Code Description Data Betty rce(s) Supporting Document(s) ID Date Data Source [id number] 07/12/2020 09:47:01 AM [facility] NT INFORMATIONPatient MRN Name Date of Age Gend*PT [id number] Suma Adkins 1935 85 years F ---PT Location Admission Date/Time Visit ID Attending Provider --- --- --- --- EPI ID CSN Admitting Provider [id number] ---Patient was identified by name and date of .Subjective: Suma Adkins is a 85 years female who presents for an Annual MedicareVisit and CPE. and and follow up of chronic medical problems. Including chronicpain syndrome on chronic narcotic therapy, secondary to chronic abdominal painfrom abdominal adhesions from previous surgeries, hypertension anxietydepression kyphoscoliosis osteoporosis GERD hypothyroidism COPD and now with newdiagnosis of severe left third finger pain. Symptoms started a little over aweek ago she went to urgent care was given antibiotics she also went to theemergency department. Pain is getting worse the distal finger joint of thethird finger on left hand is exquisitely painful to touch slightly red andswollen. She cannot move it without pain. 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 She gets by. Denies any falls or injuries recently she is getting moreevaluation through cardiology blood pressures have been fluctuatingsignificantly respiratory status has been fine she is tolerating her chronicnarcotic therapy dosing has not changed in quantity per month. She does varythe time of the hydrocodone.HPICurrent Providers List:Patient Care Team:Rey Mendoza MD as [...] PASSVision Screening:Was a Snellen eye exam done?: NoWas an eye exam done by an eye doctor in last year: NoHealth Status:In general, patient reports health as: Amanda general, patient reports life as: goodPatient reports sleep pattern as: sleeping wellHave you seen a dentist in the last year?: YesIADLs and ADLsDo you need help from others [...] daily serving of fruits, vegetables, andwhole grains?: Yes, alwaysMini COGClock Drawing Test: NormalWord Recall: Three WordsMini Cog Results: Negative screen for dementiaGet up and GoTime in seconds to complete: 16Observations: Little or no arm swingSafety in current home environment:Does the patient live alone?: NoDoes you home have throw rugs, poor lighting, or a slippery bathtub/shower?: NoDoes your home have functioning smoke detectors?: YesDo you use any assistive devices?: noneDo you always fast en your seatbelt: YesComprehensive Medical and Social HistoryPatient [...] due to orthostatic hypotension Dysphasia Physical exam, annual History of closed head injury Forgetfulness Arthritis of fingerPast Medical History:Diagnosis Date Anemia Cancer skin cancer [...] W ANESTHESIA ; Surgeon: Mike Rich MD; Location:[facility] Endoscopy; Service: Colorectal; Laterality: N/A; ESOPHAGOGASTRODUODENOSCOPY 01/06/2019 Bx+ EYE SURGERY cataracts HYSTERECTOMY PORTACATH PLACEMENT SKIN CANCER EXCISIONAllergiesAllergen Reactions Aspirin Swelling of eyes and extremities Bentyl [Dicyclomine Hcl] Swelling Tongue & Lips swollen Cephalexin (Keflex) - Convulsions Codeine Nausea Only Metoclopramide Hcl Comment: Reglan Morphine Severe agitation / nervousness. Prochlorperazine Ampicillin Rash Penicillins RashCurrent Outpatient MedicationsMedication Sig Dispense Refill amLODIPine (NORVASC) 10 MG tablet Take by mouth amLODIPine (NORVASC) 5 MG tablet TAKE 1 TABLET(5 MG) BY MOUTH DAILY 90 tablet3 bisacodyl (DULCOLAX) 5 MG EC tablet take 1-2 Tablets by ORAL route every dayPRN cyanocobalamin (B12) [address] under the tongue daily Denosumab (PROLIA) 60 MG/ML SOLN inject 1 milliliter by subcutaneous routeevery 6 months in the upper arm, upper thigh or abdomen levothyroxine (SYNTHROID, LEVOTHROID) 112 MCG tablet TAKE 1 TABLET BY MOUTHDAILY 90 tablet 1 linaclotide (LINZESS) 290 MCG CAPS TAKE 1 CAPSULE BY MOUTH EVERY MORNINGBEFORE BREAKFAST 30 capsule 5 nitroglycerin (NITROSTAT) 0.4 MG SL tablet sl as needed cp-take up to 3 tabs 5minutes apart to resolve cp NORCO 7.5-325 MG per tablet Take 2 tablets by oral route 4 times everyday asneeded for pain MDD 8 240 tablet 0 ondansetron (ZOFRAN) 4 MG tablet TAKE 1 TABLET BY MOUTH FOUR TIMES DAILY ASNEEDED FOR NAUSEA 120 tablet 2 sertraline (ZOLOFT) 50 MG tablet .5 tab po qd for 6 days then 1 po qd 30tablet 5 Sodium Phosphates (FLEET ENEMA) 7-19 GM/118ML ENEM USE DIRECTED DAILY PRN12 Bottle 12 vitamin D, Ergocalciferol, 36222 UNITS CAPS Take 1 capsule by mouth Everyother weekNo current facility-administered medications for this visit.Review of SystemsConstitutional: Positive for fatigue. Negative for activity change, appetitechange and fever.HENT: Negative for congestion, sinus pressure and sore throat.Eyes: Negative for visual disturbance.Respiratory: Negative for cough, chest tightness and wheezing.Cardiovascular: Negative for chest pain and palpitations.Gastrointestinal: Positive for abdominal distention, abdominal pain,constipation and nausea. Negative for diarrhea.Endocrine: N egative for polydipsia and polyuria.Genitourinary: Negative for dysuria and urgency.Musculoskeletal: Positive for arthralgias and back pain.Skin: Negative for rash.Neurological: Positive for weakness and numbness. Negative for syncope andheadaches.Hematological: Negative for adenopathy.Psychiatric/Behavioral: Positive for dysphoric mood. The patient isnervous/anxious.Objective:BP 126/70 | Pulse 81 | Temp 96.3 F (Tympanic) | Resp 18 | Ht 1.575 m (5'2") | Wt (!) 42.2 kg (93 lb) | SpO2 97% | BMI 17.01 kg/m Physical ExamConstitutional: She appears well-developed and well-nourished.HEN T:Head: Normocephalic and atraumatic.Neck: Neck supple.Cardiovascular: Normal rate and regular rhythm.Pulmonary/Chest: Effort normal and breath sounds normal.Abdominal: Soft. Bowel sounds are normal.Mild tenderness to palpation throughout abdominal area no reboundMusculoskeletal:Mildly swollen slightly pink very tender to touch third left finger, DIP alsoobvious degenerative arthritis in all fingersNeurological: She is alert.Psychiatric: She has a normal mood and affect.Mood anxious but affect is a bit brighter than last time.This visit was performed in person.Assessment/Plan:Health MaintenanceTopic Date Due Tetanus Vaccines (1 - Tdap) 1946 Zoster Recombinant Vaccine (RZV) (Shingrix) (1 of 2) 1987 Adult Pneumococcal Vaccine (1 of 2 - PCV13) 2002 DXA Scan 07/15/2015 TSH Level 11/20/2016 Annual Medicare Well Visit 07/06/2020 Risk To Fall Survey Annual (Elderly Patients 65+) 07/11/2021 PHQ Depression Screening Completed Influenza Vaccine Completed Colonoscopy Non Routine Discontinued Mammogram Historical DiscontinuedPreventative recommendations were reviewed and discussed with the patient.During the visit we discussed:Code status was discussed.Advanced Directives: Full CodeRisk Assessments: Body mass index is 17.01 kg/m . The BMI is below average; healthy eatinghabits discussed. BMI management plan is completedFall Risk: In the past 12 months, did you fall or have a problem with balance orwalking?: Yes(fell at home playing iwth the dog, having a scan done of the brain). . screen negativePatient Instructions (the written plan) was given to the patient.Problem List Items Addressed This Visit Abdominal Pain - Primary (Chronic) Patient with chronic abdominal pain felt secondary to previous surgeries withresultant adhesions. Multiple CAT scans and related testing have been done. Heis followed by GI is also seen Dr. Mike Rich [place] the [place]. He was uncomfortable doing any surgical procedures in light of hercomplex GI history. Reviewed this again. She agrees that she would not wantsurgery unless emergent Osteoporosis (Chronic) Managed by endocrinology up in [place]. 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 Stable GERD (Chronic) Patient does get reflux symptoms at times she has to be very careful with herdiet she is to keep the bowels moving too COPD (Chronic) History of this by radiographic studies. Patient never smoked or had anyexposures. Malnutrition of moderate degree (Chronic) Patient has difficult time trying to get food in because of pain syndrome andconstipation secondary to the adhesions and cramping. Per GI agree with currentmedication strategies. She is stabilizing weight a bit better now. Depression (Chronic) Long history of this. I started her on sertraline recently. She doestolerate it well she does feel it does help a little bit she really does notwant to adjust the dose currently. 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 She is hopeful that we willcut down some of the stress and I agree. Scoliosis (and kyphoscoliosis), idiopathic (Chronic) Stable. HTN (Chronic) Hypertension is stable. Tolerating the amlodipine well now at 10 mg daily.Dis cussed I agree with cardiology blood pressures have shot up recently withassociated with pain and distress. Cardiology has set up Holter monitorechocardiogram went over this in detail I agree both those tests are helpful Isuspect they are considering a beta-julia for further blood pressuremanagement if these tests are acceptable. Went over this in detail with patientand she agreesContinue current treatment regimen.Reviewed blood pressure goals with patient.Reviewed health dietary changes that can improve blood pressure (ie. low-sodiumDASH diet)Recommended regular aerobic exercise.Blood pressure will be reassessed at the next regular appointment. Relevant Medications amLODIPine (NORVASC) 10 MG tablet Chronic pain Patient with chronic pain syndrome on chronic stable narcotics. She toleratesthem well and customize as the dose depending upon her pain. She has triedtapering them in the past without success. We will continue current plan Physical exam, annual Discussed health maintenance discussed heart disease risk reduction ideas sheis seeing cardiology regularly. Discussed as above. Discussed relevant cancerscreenings. Discussed immunizations. Discussed safety issues I did recommendthe Covid vaccine strongly for her she was hesitant. I believe benefitsoutweigh risks Forgetfulness Patient notes that at times she forgets where she places things. Sometimesshe has to think a bit to remember some things that she is done. I discussedthat while that is some forgetfulness that it most likely would be from thechronic anxiety and depression and pain syndrome. Testing done today does n otsuggest Alzheimer's. She is relieved Arthritis of finger New issue the left third finger DIP joint is mildly swollen very tender totouch. Unable to clarify whether this is infectious gout or pseudogout. Shefinds it extremely painful despite her chronic history of chronic pain syndromeon chronic high-dose narcotics. She has been seen in urgent care then emergencydepartment antibiotics prescribed with no success. I recommended urgentorthopedic evaluation. She agrees refer to the orthopedic group up [facility] she has been there before. She agrees we will try to get appointmenttomorrow. She is appreciative Relevant Orders Ambulatory referral to Orthopedic SurgeryReturn in about 6 months (around 01/08/2021). Name Value Range Interpretation Code Description Data Betty rce(s) Supporting Document(s) ID Date Data Source [id number] 06/28/2020 09:58:56 AM [facility] INFORMATIONPatient MRN Name Date of Age Gend*PT [id number] Suma Adkins 1935 85 years F ---PT Location Admission Date/Time Visit ID Attending Provider --- --- --- --- EPI ID CSN Admitting Provider [id number] ---Assessment/Plan:Problem List Items Addressed This Visit Anxiety, [...] down from being the leader of her [employer].She this happens in the couple weeks she [...] be gettingby the pain meds treatment is st able and it does seem to be fairly [...] mainly in the abdominal area and back. Amparos been on high-dose narcotic therapy for this [...] with her own health distress at her [facility] and thecoronavirus pandemic issues she agrees [...] steppingdown from her leadership prescription at her [facility]. She is very frustratedthat she needs [...] Antigen NYSDOH This lab was ordered by [facility] and reported by Moe Padilla MD. ID Date Data Source [id number] 04/21/2020 01:21:00 PM EST [facility] ([facility]) Name Value Range Interpretation Code Description Data Betty rce(s) Supporting Document(s) Free T4 1.15 ng/dL 0.76-1.46 [facility] ([facility]) Thyroid Stimulating Hormone 1.360 uIU/ML 0.358-3.740 [facility] ([facility]) ID Date Data Source [id number] 03/29/2020 12:00:00 PM EDT [facility] Name Value Range Interpretation Code Description Data Betty rce(s) Supporting Document(s) SARS coronavirus 2 RNA [facility] This lab was ordered by [facility] and reported by [facility]. ID Date Data Source [id number] 03/10/2020 12:07:00 PM EDT [facility] ([facility]) Name Value Range Interpretation Code Description Data Betty rce(s) Supporting Document(s) Lipoprotein lipase [Enzymatic activity/volume] in Serum or Plasm a 77 U/L 73-393 [facility] ([facility]) mild anemia otherwise labs are all caesar l. ID Date Data Source [id number] 03/10/2020 12:07:00 PM EDT [facility] ([facility]) Name Value Range Interpretation Code Description Data Betty rce(s) Supporting Document(s) White Blood Count 7.2 10 4.0-10.0 [facility] ([facility]) mild anemia otherwise labs are all caesar [...] l. Mean Corpuscular Hemoglobin 32.2 pg 27.0-33.0 [facility] ([facility]) mild anemia otherwise labs [...] Red Cell Distribution Width 13.7 % 11.5-14.5 [facility] ([facility]) mild anemia otherwise labs are all caesar l. [place] % 9.5 % 0.0-5.0 [facility] ([facility] [...] anemia otherwise labs are all caesar l. [place] # 0.7 10 0.0-0.8 [facility] ([facility] [...] all caesar l. ID Date Data Source [id number] 03/10/2020 12:07:00 PM EDT [facility] ([facility]) Name Value Range Interpretation Code Description Data Betty rce(s) Supporting Document(s) Blood Urea Nitrogen 16 mg/dL 7-18 [facility] ([facility]) mild anemia otherwise labs are all caesar l. Glucose, Fasting 93 mg/dL 70-100 [facility] ([facility]) mild anemia otherwise labs are [...] Phosphatase 50 U/L 45-117 [facility] ([facility]) mild anemia otherwise labs are all caesar l. Bilirubin,Total 0.2 mg/dL 0.2-1.0 [facility] ([facility]) mild anemia otherwise labs are all caesar l. Total Protein 6.3 GM/DL 6.4-8.2 [facility] ([facility]) mild anemia otherwise labs are all caesar l. Albumin/Globulin Ratio 1.3 1.2-2.2 [facility] ([facility]) mild anemia otherwise labs are all caesar l. Albumin 3.6 GM/DL 3.2-5.2 [facility] mild anemia otherwise labs are all caesar l. ID Date Data Source [id number] 02/14/2020 02:58:00 PM EDT [facility] ([facility]) Name Value Range Interpretation Code Description Data Betty rce(s) Supporting Document(s) Lipoprotein lipase [Enzymatic activity/volume] in Serum or Plasm a 77 U/L 73-393 [facility] ([facility]) <content>note:<nlbl:demographic_changed> </content>
<content></content> ID Date Data Source [id number] 02/14/2020 02:58:00 PM EDT [facility] ([facility]) Name Value Range Interpretation Code Description Data Betty rce(s) Supporting Document(s) Blood Urea Nitrogen 17 mg/dL 7-18 [facility] ([facility]) Glucose, Fasting 93 mg/dL 70-100 [facility] ([facility]) Creatinine For GFR 0.68 mg/dL 0.55-1.30 [facility] ([facility]) Sodium Level 128 meq/L 136-145 [facility] ([facility]) Glomerular Filtration Rate Laboratory test result [facility] ([facility]) <content>Units are mL/min/1.73 m2</content>
<content></content>
<content>Chronic Kidney Disease Staging per NKF:</content>
<content></content>
<content>Stage I & II GFR >=60 Normal to Mildly Decreased</content>
<content>Stage III GFR 30-59 Moderately Decreased</content>
<content>Stage IV GFR 15-29 Severely Decreased</content>
<content>Stage V GFR <15 Very Little GFR Left</content>
<content>ESRD GFR <15 on ARTIST RELATIONSHIP MANAGER</content>
<content></content> Potassium Serum 4.2 meq/L 3.5-5.1 [facility] ([facility]) Chloride Level 97 meq/L 98-107 [facility] ([facility], [facility]) Carbon Dioxide Level 23 meq/L 21-32 [facility] ([facility], [facility]) Ast/Sgot 23 U/L 7-37 [facility] ([facility], [facility]) Calcium Level 8.5 mg/dL 8.8-10.2 [facility] ([facility], [facility]) Anion Gap 8 meq/L 8-16 [facility] ([facility], [facility]) Alkaline Phosphatase 57 U/L 45-117 [facility] ([facility], [facility]) Alt/SGPT 24 U/L 12-78 [facility] ([facility], [facility]) Bilirubin,Total 0.5 mg/dL 0.2-1.0 [facility] ([facility]) Albumin 3.6 GM/DL 3.2-5.2 [facility] ([facility], [facility]) Albumin/Globulin Ratio 1.2 1.2-2.2 [facility] ([facility], [facility]) Total Protein 6.7 GM/DL 6.4-8.2 [facility] ([facility], [facility]) ID Date Data Source [id number] 02/14/2020 02:58:00 PM EDT [facility] ([facility]) Name Value Range Interpretation Code Description Data Betty rce(s) Supporting Document(s) White Blood Count 9.4 10 4.0-10.0 [facility] ([facility], [facility]) Hemoglobin 10.7 g/dL 12.0-15.5 [facility] ([facility]) Red Blood Count 3.36 10 4.00-5.40 [facility] ([facility], [facility]) Hematocrit 32.8 % 36.0-47.0 [facility] ([facility], [facility]) Mean Corpuscular Volume 97.6 fl 80.0-96.0 M EDENT ([place] [facility], [facility]) Mean Corpuscular HGB Conc 32.6 g/dL 32.0-36.5 [facility] ([facility], [facility]) Mean Corpuscular Hemoglobin 31.8 pg 27.0-33.0 [facility] ([place] [facility], [facility]) Platelet Count, Automated 259 10 150-450 [facility] ([facility], [facility]) Neutrophils % 79.5 % 36.0-66.0 [facility] ([facility], [facility]) Red Cell Distribution Width 12.5 % 11.5-14.5 [facility] ([facility] [place] [facility], [facility]) Lymph % 9.5 % 24.0-44.0 [facility] ([place] [facility], [facility]) [place] % 10.5 % 0.0-5.0 [facility] ([facility] [place] [facility], [facility]) Eos % 0.0 % 0.0-3.0 [facility] ([facility], [facility]) Nucleated Red Blood Cell % 0.0 % 0-0 MED E[facility] ([place] [facility], [facility]) Immature Granulocyte % 0.3 % 0-3.0 [facility] ([facility], [facility]) Baso % 0.2 % 0.0-1.0 [facility] ([facility], [facility]) Lymph # 0.9 10 1.5-5.0 [facility] ([place] [facility], [facility]) Neutrophils # 7.5 10 1.5-8.5 [facility] ([facility], [facility]) [place] # 1.0 10 0.0-0.8 [facility] ([facility] [place] [facility] Baso # 0.0 10 0.0-0.2 [facility] ([facility]) Eos # 0.0 10 0.0-0.5 [facility] ([facility]) ID Date Data Source [id number] 02/14/2020 01:01:00 PM EDT [facility] ([facility]) Name Value Range Interpretation Code Description Data Betty rce(s) Supporting Document(s) Bacteria identified in Urine by Culture Laboratory test result [facility] ([facility]) FULL REPORT IN LAB NOTES ([facility] and [facility] ). NO GROWTH CLINICAL SIGNIFICANCE 2 OR MORE ORGANISMS ID Date Data Source [id number] 02/14/2020 01:00:00 PM EDT [facility] ([facility]) Name Value Range Interpretation Code Description Data Betty rce(s) Supporting Document(s) Gastrointestinal (GI) Panel Laboratory test result [facility] ([facility]) This Gastrointestinal PCR Panel detects the [...] NUCLEIC ACID PCR ID Date Data Source [id number] 01/25/2020 09:00:00 AM EDT [facility] ([facility]) Name Value Range Interpretation Code Description Data Betty rce(s) Supporting Document(s) Calcium [Mass/volume] in Serum or Plasma 8.7 mg/dL 8.8-10.[address] [facility] ([facility]) <content>note:<nlbl:demographic_changed> </content>
<content></content> Calcidiol [Mass/volume] in Serum or Plasma 56.9 ng/mL 30.0-100.0 [facility] ([facility]) <content>note:<nlbl:demographic_changed> </content>
<content></content> ID Date Data Source [id number] 01/04/2020 12:56:49 PM EDT [facility] NT INFORMATIONPatient MRN Name Date of Age Gend*PT [id number] Suma Adkins 1935 84 years F ---PT Location Admission Date/Time Visit ID Attending Provider --- --- --- --- EPI ID CSN Admitting Provider [id number] ---Addended by: REY MENDOZA on: 01/04/2020 12:56 PM Modules accepted: Orders Name Value Range Interpretation Code Description Data Betty rce(s) Supporting Document(s) ID Date Data Source [id number] 11/23/2019 09:57:00 AM EDT [facility] ([facility]) Name Value Range Interpretation Code Description Data Betty rce(s) Supporting Document(s) Thyroid Stimulating Hormone 0.278 uIU/ML 0.358-3.740 [facility] ([facility]) Free T4 1.38 ng/dL 0.76-1.46 [facility] ([facility]) ID Date Data Source [id number] 10/02/2019 11:24:00 AM EDT [facility] ([facility]) Name Value Range Interpretation Code Description Data Betty rce(s) Supporting Document(s) Thyroid Stimulating Hormone 0.045 uIU/ML 0.358-3.740 [facility] ([facility]) Free T4 1.80 ng/dL 0.76-1.46 [facility] ([facility]) ID Date Data Source [id number] 10/02/2019 11:24:00 AM EDT [facility] ([facility]) Name Value Range Interpretation Code Description Data Betty rce(s) Supporting Document(s) Calcium.ionized [Mass/volume] in Serum o r Plasma by Ion-selective membrane electrode (ISE) 4.6 mg/dL 4.5-5.3 [facility] ([facility] <content>note:<nlbl:demographic_changed></content>
<content>note:<nlbl:demog raphic_changed></content>
<content>note:<nlbl:demographic_changed></content>
<content></content> Calcium [Mass/volume] in Serum or Plasma 8.9 mg/dL 8.8-10.2 [facility] ([facility]) <content>note:<nlbl:demographic_changed></content>
<content>note:<nlbl:demog raphic_changed></content>
<content>note:<nlbl:demographic_changed></content>
<content></content> ID Date Data Source [id number] 09/03/2019 12:24:[address] [facility] NT INFORMATIONPatient MRN Name Date of Age Gend*PT [id number] Suma Adkins 1935 84 years F ---PT Location Admission Date/Time Visit ID Attending Provider --- --- --- --- EPI ID CSN Admitting Provider [id number] ---Addended by: REY MENDOZA on: 09/03/2019 12:24 PM Modules accepted: Orders Name Value Range Interpretation Code Description Data Betty rce(s) Supporting Document(s) ID Date Data Source [id number] 09/02/2019 12:00:00 AM EDT [facility] [place] GALICIA Patient Name: SUMA ADKINS [id number] [facility] Date [facility] : 1935[facility] [address] Date of Exam: 09/02/2019PH#: Fax: [phone] EXAM: [...] degenerative spondylosis changes as notedabove.Accredited by the [employer] in MR.NANDINI [place] you for referring SUMA ADKINS to our office. Electronically Signed - MARICRUZ YARBROUGH MD 09/03/19 12:32 Name Value Range Interpretation Code Description Data Betty rce(s) Supporting Document(s) ID Date Data Source [id number] 07/07/2019 08:57:39 AM EST [facility] NT INFORMATIONPatient MRN Name Date of Age Gend*PT [id number] Suma Adkins 1935 84 years F ---PT Location Admission Date/Time Visit ID Attending Provider --- --- --- --- EPI ID CSN Admitting Provider [id number] ---Subjective: Suma Adkins is a 84 years [...] Physician (Endocrinology)Remy Elaine MD as Consulting Physician (Gastroenterology)Miek Rich MD as Referring Physician (Colon and [...] W ANESTHESIA ; Surgeon: Mike Rich MD; Location:[facility] Endoscopy; Service: Colorectal; Laterality: N/A; [...] DAILY PRN12 Bottle 12 vitamin D, Ergocalciferol, 25664 UNITS CAPS Take 1 capsule by mouth [...] she agrees Osteoporosis (Chronic) 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 She is on Prolia and vitamin D [...] Clinically stable she is up-to-date with her medical translator up in [place] COPD (Chronic) COPD is stable.Goal of prevention [...] rce(s) Supporting Document(s) ID Date Data Source [id number] 07/06/2019 04:24:41 PM EST [facility] NT INFORMATIONPatient MRN Name Date of Age Gend*PT [id number] Suma Adkins 1935 84 years F ---PT Location Admission Date/Time Visit ID Attending Provider --- --- --- --- EPI ID CSN Admitting Provider [id number] ---Addended by: REY MENDOZA on: 07/06/2019 04:24 PM Modules accepted: Orders Name Value Range Interpretation Code Description Data Betty rce(s) Supporting Document(s) Procedure Social History Code Duration Value Status Description Data Source(s ) Alcohol intake 07/11/2020 12:00:00 AM EST Yes completed [facility] Smoking 07/11/2020 12:00:00 AM EST Former smoker completed Former smoker [facility] Alcohol intake 06/26/2020 12:00:00 AM EST Yes completed [facility] Smoking 06/26/2020 12:00:00 AM EST Former smoker completed Former smoker [facility] Smoking 06/18/2020 12:00:00 AM EST Patient has never smoked co mpleted Patient has never smoked [facility] ([place] [facility]) Smoking 04/25/2020 12:00:00 AM EST Patient has never smoked co mpleted Patient has never smoked [facility] ([facility]) Smoking 01/10/2020 02:10:49 PM EDT Ex-smoker (finding) complet ed Ex-smoker (finding) LO (Maxime Blackman MD [facility]) Smoking 09/15/2019 07:34:19 PM EDT Ex-smoker (finding) complet ed Ex-smoker (finding) LO (Maxime Blackman MD [facility]) Smoking 09/15/2019 07:30:53 PM EDT Ex-smoker (finding) complet ed Ex-smoker (finding) LO (Maxime Blackman MD [facility]) Smoking 09/15/2019 07:28:21 PM EDT Ex-smoker (finding) complet ed Ex-smoker (finding) LO (Maxime Blackman MD [facility]) Smoking 09/15/2019 07:25:10 PM EDT Ex-smoker (finding) complet ed Ex-smoker (finding) LO (Maxime Blackman MD [facility]) Vital Signs ID Date Data Source UNK Name Value Range Interpretation Code Description Data Source(s) Body mass index (BMI) [Ratio] 17.6 kg/m2 17.6 k g/m2 [facility] ([facility]) Body weight 90.00 [lb_av] 90.00 [lb_av] [facility] ([facility]) Body height 60 [in_i] 60 [in_i] [facility] ([facility]) 5'0" Body temperature 96.9 [degF] 96.9 [degF] [facility] ([facility]) Diastolic blood pressure 70 mm[Hg] 70 mm[Hg] [facility] Systolic blood pressure 126 mm[Hg] 126 mm[Hg] [facility] Oxygen saturation in Arterial blood by Pulse oximetry 97 % 97 % [facility] Body mass index (BMI) [Ratio] 17.01 kg/m2 17.01 kg/m2 [facility] Body weight 42.185 kg 42.185 kg [facility] Body height 157.5 cm 157.5 cm [facility] Respiratory rate 18 /min 18 /min [facility] Body temperature 35.72 Marsha 35.72 Marsha [facility] Heart rate 81 /min 81 /min [facility] Diastolic blood pressure 60 mm[Hg] 60 mm[Hg] [facility] Systolic blood pressure 127 mm[Hg] 127 mm[Hg] [facility] Oxygen saturation in Arterial blood by Pulse oximetry 98 % 98 % [facility] Body mass index (BMI) [Ratio] 17.01 kg/m2 17.01 kg/m2 [facility] Body weight 42.185 kg 42.185 kg [facility] Body height 157.5 cm 157.5 cm [facility] Respiratory rate 18 /min 18 /min [facility] Body temperature 36.22 Marsha 36.22 Marsha [facility] Heart rate 72 /min 72 /min [facility] Body mass index (BMI) [Ratio] 16.8 kg/m2 16.8 k g/m2 [facility] ([place] [facility], [facility]) Body height 60 [in_i] 60 [in_i] [facility] ([facility], [facility]) 5'0" Body weight 86.00 [lb_av] 86.00 [lb_av] [facility] ([place] [facility], [facility]) Body temperature 98.7 [degF] 98.7 [degF] [facility] ([facility], [facility]) Oxygen saturation in Arterial blood by Pulse oximetry 98 % 98 % [facility] ([place] [facility], [facility]) Respiratory rate 15 /min 15 /min [facility] ( [facility], [facility]) Heart rate 74 /min 74 /min [facility] ([facility], [facility]) Diastolic blood pressure 74 mm[Hg] 74 mm[Hg] [facility] ([place] [facility], [facility]) Systolic blood pressure 142 mm[Hg] 142 mm[Hg] M EDENT ([place] [facility], [facility]) Oxygen saturation in Arterial blood by Pulse oximetry 97 % 97 % [facility] ([place] [facility], [facility]) Respiratory rate 18 /min 18 /min [facility] ( [place] [facility], [facility]) Heart rate 68 /min 68 /min [facility] ([facility], [facility]) Diastolic blood pressure 62 mm[Hg] 62 mm[Hg] [facility] ([place] [facility], [facility]) Systolic blood pressure 118 mm[Hg] 118 mm[Hg] M EDENT ([place] [facility], [facility]) Body weight 92.00 [lb_av] 92.00 [lb_av] [facility] ([place] [facility], [facility]) Body temperature 97.8 [degF] 97.8 [degF] [facility] ([place] [facility], [facility]) Body mass index (BMI) [Ratio] 17.0 kg/m2 17.0 k g/m2 [facility] ([facility] Body weight 90.00 [lb_av] 90.00 [lb_av] [facility] ([facility] Body height 61 [in_i] 61 [in_i] [facility] ([facility] 5'1" Body temperature 97.1 [degF] 97.1 [degF] [facility] ([facility] Body temperature 97.5 [degF] 97.5 [degF] [facility] ([facility]) Body weight 41.731 kg 41.731 kg [facility] Body mass index (BMI) [Ratio] 18.0 kg/m2 18.0 k g/m2 [facility] ([facility]) Heart rate 77 /min 77 /min [facility] ([facility]) Diastolic blood pressure 77 mm[Hg] 77 mm[Hg] [facility] ([facility]) Systolic blood pressure 129 mm[Hg] 129 mm[Hg] [facility] Body weight 92.00 [lb_av] 92.00 [...] blood pressure 123 mm[Hg] 123 mm[Hg] M [facility] ([facility]) Body weight 89.00 [lb_av] 89.00 [lb_av] [facility] ([facility]) Temp 97.9 Body height 60 [in_i] 60 [in_i] [facility] 5'0" Body mass index (BMI) [Ratio] 16.6 kg/m2 16.6 k g/m2 [facility] ([facility], [facility]) Body height 61 [in_i] 61 [in_i] [facility] ([facility], [facility]) 5'1" Body weight 88.00 [lb_av] 88.00 [lb_av] [facility] ([facility], [facility]) Body temperature 97.9 [degF] 97.9 [degF] [facility] ([facility], [facility]) Oxygen saturation in Arterial blood by Pulse oximetry 98 % 98 % [facility] ([facility], [facility]) Respiratory rate 12 /min 12 /min [facility] ( [facility], [facility]) Heart rate 71 /min 71 /min [facility] ([facility], [facility]) Diastolic blood pressure 54 mm[Hg] 54 mm[Hg] [facility] ([facility], [facility]) Systolic blood pressure 92 mm[Hg] 92 mm[Hg] [facility] Oxygen saturation in Arterial blood by Pulse oximetry 98 % 98 % [facility] ([facility]) Body mass index (BMI) [Ratio] 17.3 kg/m2 17.3 k g/m2 [facility] ([facility]) Body weight 91.50 [lb_av] 91.50 [lb_av] [facility] ([facility]) Body height 61 [in_i] 61 [in_i] [facility] ([facility]) 5'1" Heart rate 70 /min 70 /min [facility] ([facility]) Diastolic blood pressure 70 mm[Hg] 70 mm[Hg] [facility] ([facility] ) Systolic blood pressure 136 mm[Hg] 136 mm[Hg] M [facility] ([facility] ) Body weight 41.731 kg 41.731 kg [facility] [...] 60 [in_i] [facility] 5'0" Oxygen saturation in Arterial blood by Pulse oximetry 98 % 98 % [facility] ([facility] ) Body mass index (BMI) [Ratio] 17.4 kg/m2 17.4 k g/m2 [facility] ([facility] ) Body weight 92.00 [lb_av] 92.00 [lb_av] [facility] ([facility] ) Body height 61 [in_i] 61 [in_i] [facility] ([facility] ) 5'1" Heart rate 67 /min 67 /min [facility] ([facility] ) Diastolic blood pressure 88 mm[Hg] 88 mm[Hg] [facility] ([facility] ) Systolic blood pressure 110 mm[Hg] 110 mm[Hg] M [facility] ([facility] ) Body mass index (BMI) [Ratio] 17.8 kg/m2 17.8 k g/m2 [facility] ([facility] ) Body weight 91.00 [lb_av] 91.00 [lb_av] [facility] ([facility] ) Body height 60 [in_i] 60 [in_i] [facility] ([facility] ) 5'0" Oxygen saturation in Arterial blood by Pulse oximetry 97 % 97 % [facility] ([facility] ) Body mass index (BMI) [Ratio] 18.2 kg/m2 18.2 k g/m2 [facility] ([facility] ) Body weight 96.50 [lb_av] 96.50 [lb_av] [facility] ([facility]) Body height 61 [in_i] 61 [in_i] [facility] ([facility]) 5'1" Heart rate 88 /min 88 /min [facility] ([facility]) Diastolic blood pressure 70 mm[Hg] 70 mm[Hg] [facility] ([facility]) Systolic blood pressure 124 mm[Hg] 124 mm[Hg] M [facility] ([facility]) Patient Treatment Plan of Care Planned Activity Planned Date Details Description Data Source (s) Amlodipine 10 MG Oral Tablet 07/07/2020 12:00:00 AM [facility] Acetaminophen 325 MG / Hydrocodone Bitartrate 7.5 MG O ral Tablet [[place]] 06/23/2020 12:00:00 AM EST [facility] Amlodipine 5 MG Oral Tablet 05/05/2020 12:00:00 AM EST [facility] linaclotide 0.29 MG Oral Capsule 03/06/2020 12:00:00 AM EDT [facility] Sertraline 50 MG Oral Tablet 12/28/2019 12:00:00 AM EDT [facility] Ondansetron 4 MG Oral Tablet 11/26/2019 12:00:00 AM EDT [facility] Levothyroxine Sodium 0.112 MG Oral Tablet 11/22/2019 12:00:00 AM ED T [facility]
== END 2020-07-25 19:55 | disposition home or self-care (01) ==
LOC: M ED 16:31
DX: L03.012 Cellulitis of left finger (principal); M19.042 Primary osteoarthritis, left hand; Z86.73 Personal history of transient ischemic attack (TIA), and cerebral infarction without residual deficits; E07.9 Disorder of thyroid, unspecified; K59.00 Constipation, unspecified; K21.9 Gastro-esophageal reflux disease without esophagitis; M41.9 Scoliosis, unspecified; Z79.899 Other long term (current) drug therapy; Z88.0 Allergy status to penicillin; Z88.8 Allergy status to other drugs, medicaments and biological substances; Z88.1 Allergy status to other antibiotic agents; Z88.5 Allergy status to narcotic agent

== ENCOUNTER → 2020-08-01 | Outpatient (CLI) | payer MEDICARE, MEDICAID ==
[~2020-08-01] MED LIST changes: +CLEO300C2 PO; +PEPC1TAB5 PO
--- NOTE | 2020-08-01 15:09 | REP ---
INDICATION: LOCALIZED SWELLING MASS LUMP UPPER LIMB. Rule out osteomyelitis of the left upper extremity. Pain in the left fingers. Heberden's nodes with arthropathy. COMPARISON: Comparison radiographs of the left hand are from 05 July 2020. Comparison radiographs of the left long finger are from 25 July 2020.. TECHNIQUE: 21.4 mCi of technetium 99 M MDP is injected and 3 phase imaging of the upper extremities is performed bilaterally. FINDINGS: Anterior and posterior flow study of the upper extremities and thorax is normal. Delayed scan images of the upper arms and forearms are remarkable only for the injection site in the right antecubital fossa. There is evidence of thoracolumbar scoliosis. The right kidney is ptotic compared to the left. Immediate blood pool and 3-1/2 hour delayed images of the hands are performed. These demonstrate arthropathy associated uptake in the DIP joint of the left long finger and in the MCP joint of the right hand on blood pool images. There is MCP joint uptake bilaterally in the hands on delayed scan images. This is more prominent on the right than the left. Delayed scan images demonstrate DIP joint uptake in the left ring and small finger as well although not as avid as the long finger. IMPRESSION: Arthropathy associated uptake involving bilateral MCP joints, the left long finger DIP, and to a lesser extent, the left ring and small finger DIP joints. This is non-specific. <Electronically signed by Luke Hoffman > 08/01/20 [id number]
== END ==
LOC: M RAD 09:13
PROVIDERS: ATTEND Physician Assistant
DX: M15.1 Heberden's nodes (with arthropathy) (principal); R22.42 Localized swelling, mass and lump, left lower limb; M79.645 Pain in left finger(s)
CPT/HCPCS: 78315; A9503

== ENCOUNTER → 2020-08-02 | Outpatient (CLI) | payer MEDICARE, MEDICAID ==
[2020-08-02 13:12] LABS: CALCIUM LEVEL 9.1 MG/DL (8.8-10.2); THYROID STIMULATING HORMONE 20.1 uIU/ML (0.358-3.740)
== END ==
LOC: M LAB 09:55
PROVIDERS: ATTEND Internal Medicine Endocrinology, Diabetes & Metabolism
DX: M81.0 Age-related osteoporosis without current pathological fracture (principal)

== ENCOUNTER → 2020-08-14 | Outpatient (CLI) | payer MEDICARE, MEDICAID ==
[2020-08-14 13:55] LABS: BASO % 0.3 % (0.0-1.0); HEMATOCRIT 32.2 % (36.0-47.0); HEMOGLOBIN 10.1 g/dl (12.0-15.5); LYMPH # 1.2 10^3/uL (1.5-5.0); LYMPH % 14.7 % (24.0-44.0); MEAN CORPUSCULAR HEMOGLOBIN 31.2 pg (27.0-33.0); MEAN CORPUSCULAR HGB CONC 31.4 g/dl (32.0-36.5); MEAN CORPUSCULAR VOLUME 99.4 fl (80.0-96.0); MONO # 0.6 10^3/uL (0.0-0.8); MONO % 7.6 % (2.0-8.0); NEUTROPHILS % 76.9 % (36.0-66.0); PLATELET COUNT, AUTOMATED 273 10^3/uL (150-450); RED BLOOD COUNT 3.24 10^6/uL (4.00-5.40); WHITE BLOOD COUNT 7.8 10^3/uL (4.0-10.0)
[2020-08-14 14:16] LABS: C REACTIVE PROTEIN QUANTITATIV 4.84 MG/DL (0.00-0.30); URIC ACID 5.4 MG/DL (2.6-6.0)
[2020-08-14 14:20] LABS: ERYTHROCYTE SEDIMENTATION RATE 39 mm/hr (0-30)
== END ==
LOC: M LAB 12:59
PROVIDERS: ATTEND Physician Assistant
DX: M79.645 Pain in left finger(s) (principal); M10.9 Gout, unspecified

== ENCOUNTER → 2020-08-14 | Outpatient (REF) | payer MEDICARE, MEDICAID | LOC: M LAB REF 12:54 | PROVIDERS: ATTEND Physician Assistant | DX: M10.9 Gout, unspecified (principal) ==

== ENCOUNTER → 2020-10-13 | Outpatient (CLI) | payer MEDICARE, MEDICAID | LOC: M LAB 07:26 | PROVIDERS: ATTEND Internal Medicine Endocrinology, Diabetes & Metabolism | DX: E03.9 Hypothyroidism, unspecified (principal) ==

== ENCOUNTER → 2021-03-05 | Outpatient (CLI) | payer MEDICARE, MEDICAID ==
[~2021-03-05] MED LIST changes: +DOXY-443 PO; -DOXY100C37 PO; +LOSA25TA13 PO; -LOSA25TA14 PO
[2021-03-05 08:58] LABS: BLOOD UREA NITROGEN 17 MG/DL (7-18); CALCIUM LEVEL 8.9 MG/DL (8.8-10.2); CARBON DIOXIDE LEVEL 27 MEQ/L (21-32); CHLORIDE LEVEL 98 MEQ/L (98-107); CREATININE FOR GFR 0.61 MG/DL (0.55-1.30); GLOMERULAR FILTRATION RATE > 60.0 (>32); GLUCOSE, FASTING 94 MG/DL (70-100); MAGNESIUM LEVEL 1.8 MG/DL (1.8-2.4); POTASSIUM SERUM 4.2 MEQ/L (3.5-5.1); SODIUM LEVEL 132 MEQ/L (136-145)
== END ==
LOC: M LAB 06:56
PROVIDERS: ATTEND Physician Assistant
DX: I11.9 Hypertensive heart disease without heart failure (principal)

== ENCOUNTER → 2021-03-23 | Outpatient (CLI) | payer MEDICARE, MEDICAID ==
[~2021-03-23] MED LIST changes: -DOXY-443 PO; +DOXY1CAP62 PO; -LOSA25TA13 PO; +LOSA25TA14 PO
--- NOTE | 2021-03-25 23:29 | REPVR ---
PROCEDURE INFORMATION: Exam: MR Head Without Contrast Exam date and time: 03/23/2021 2:50 PM Age: 86 years old Clinical indication: Patient HX: PT states severe headaches PT order did states with contrast but was unsuccessfull of getting iv line; Additional info: Chronic paroxysmal hemicrania, not intractable TECHNIQUE: Imaging protocol: MR of the head without contrast. COMPARISON: CT Head without contrast 08/29/2018 10:56 AM FINDINGS: Brain: Moderate nonspecific T2/FLAIR hyperintensities of the periventricular and deep subcortical white matter, most likely secondary to chronic small vessel ischemic change. No intracranial hemorrhage or extra-axial fluid collection. No evidence of mass effect or midline shift. No restricted diffusion to suggest acute infarct. Cerebral ventricles: Mild prominence of the ventricles and sulci, likely attributed to parenchymal volume loss. Bones/joints: Unremarkable. Paranasal sinuses: Normal as visualized. No acute sinusitis. Mastoid air cells: No mastoid effusion. Orbital cavity: Unremarkable. Soft tissues: Unremarkable. IMPRESSION: 1. No acute intracranial pathology. 2. Chronic findings, as above. Electronically signed by: Pepe Iyer On 03/25/2021 23:29:31 PM
== END ==
LOC: M RAD 13:17
PROVIDERS: ATTEND Internal Medicine Endocrinology, Diabetes & Metabolism
DX: G44.049 Chronic paroxysmal hemicrania, not intractable (principal)

== ENCOUNTER → 2021-05-14 | Outpatient (CLI) | payer MEDICARE, MEDICAID ==
[~2021-05-14] MED LIST changes: +DOXY-443 PO; -DOXY1CAP62 PO; +LOSA25TA13 PO; -LOSA25TA14 PO
== END ==
LOC: M RAD 08:48
PROVIDERS: ATTEND Physician Assistant Medical
DX: R10.11 Right upper quadrant pain (principal); K59.00 Constipation, unspecified; R13.10 Dysphagia, unspecified; R14.3 Flatulence

== ENCOUNTER 2021-07-03 09:26 | Emergency (ER) | payer MEDICARE, MEDICAID ==
[~2021-07-03] VITALS: Ht 152.4 cm; Wt 41.8 kg
[2021-07-03] MEDS ORDERED: NORCO, ANEXSIA 5/325MG TABLET (HYDROcodone/ACETAMINOPHEN) PO ONE ×2 (10:05→14:30)
[2021-07-03 10:51] LABS: BASO % 0.3 % (0.0-1.0); HEMATOCRIT 34.8 % (36.0-47.0); HEMOGLOBIN 11.3 g/dl (12.0-15.5); LYMPH # 1.1 10^3/uL (1.5-5.0); LYMPH % 12.2 % (24.0-44.0); MEAN CORPUSCULAR HEMOGLOBIN 31.5 pg (27.0-33.0); MEAN CORPUSCULAR HGB CONC 32.5 g/dl (32.0-36.5); MEAN CORPUSCULAR VOLUME 96.9 fl (80.0-96.0); MONO # 0.7 10^3/uL (0.0-0.8); MONO % 7.4 % (2.0-8.0); NEUTROPHILS # 7.5 10^3/uL (1.5-8.5); NEUTROPHILS % 79.7 % (36.0-66.0); PLATELET COUNT, AUTOMATED 260 10^3/uL (150-450); RED BLOOD COUNT 3.59 10^6/uL (4.00-5.40); WHITE BLOOD COUNT 9.4 10^3/uL (4.0-10.0)
[2021-07-03 11:01] LABS: INR 0.9; PROTHROMBIN TIME 12.5 SECONDS (12.7-14.5)
[2021-07-03 11:14] LABS: BLOOD UREA NITROGEN 19 MG/DL (7-18); CALCIUM LEVEL 9.8 MG/DL (8.8-10.2); CARBON DIOXIDE LEVEL 28 MEQ/L (21-32); CHLORIDE LEVEL 101 MEQ/L (98-107); CREATININE FOR GFR 0.75 MG/DL (0.55-1.30); GLOMERULAR FILTRATION RATE > 60.0 (>32); GLUCOSE, FASTING 109 MG/DL (70-100); SODIUM LEVEL 136 MEQ/L (136-145)
[2021-07-03 11:15] LABS: POTASSIUM SERUM 4.3 MEQ/L (3.5-5.1)
[2021-07-03 11:16] LABS: MB/CK RELATIVE INDEX 2.08 (< OR =4)
[2021-07-03 12:22] LABS: ALBUMIN 3.9 GM/DL (3.2-5.2); ALT/SGPT 23 U/L (12-78); BILIRUBIN,DIRECT 0.1 MG/DL (0.0-0.2); BILIRUBIN,TOTAL 0.3 MG/DL (0.2-1.0); TOTAL PROTEIN 6.7 GM/DL (6.4-8.2)
[2021-07-03 12:29] LABS: CK-MB VALUE MASS 3.6 NG/ML (<3.6); MB/CK RELATIVE INDEX 2.01 (< OR =4)
[2021-07-03 13:45] VITALS: BP 140/75
[2021-07-03 14:22] LABS: CK-MB VALUE MASS 2.8 NG/ML (<3.6); MB/CK RELATIVE INDEX 1.47 (< OR =4)
[2021-07-03] MEDS ORDERED: PLAV1TAB2 PO (14:52)
== END 2021-07-03 15:38 | disposition home or self-care (01) ==
LOC: EDBD 09:26 → M ED 09:26
DX: R07.89 Other chest pain (principal); I50.9 Heart failure, unspecified; Z86.73 Personal history of transient ischemic attack (TIA), and cerebral infarction without residual deficits; K21.9 Gastro-esophageal reflux disease without esophagitis; M41.9 Scoliosis, unspecified; Z91.81 History of falling; R91.8 Other nonspecific abnormal finding of lung field; Z79.899 Other long term (current) drug therapy; Z88.0 Allergy status to penicillin; Z88.8 Allergy status to other drugs, medicaments and biological substances; Z88.1 Allergy status to other antibiotic agents; Z88.5 Allergy status to narcotic agent

== ENCOUNTER → 2021-09-14 | Outpatient (CLI) | payer MEDICARE, MEDICAID ==
[~2021-09-14] MED LIST changes: -D31000TA2 PO; +VITA100093 PO
[2021-09-14 08:54] LABS: BLOOD UREA NITROGEN 19 MG/DL (7-18); CALCIUM LEVEL 8.5 MG/DL (8.8-10.2); CARBON DIOXIDE LEVEL 30 MEQ/L (21-32); CHLORIDE LEVEL 104 MEQ/L (98-107); CREATININE FOR GFR 0.72 MG/DL (0.55-1.30); GLOMERULAR FILTRATION RATE > 60.0 (>32); GLUCOSE, FASTING 109 MG/DL (70-100); POTASSIUM SERUM 4.3 MEQ/L (3.5-5.1); SODIUM LEVEL 138 MEQ/L (136-145)
[2021-09-14 10:19] LABS: TOTAL 25(OH) VITAMIN D 104.2 NG/ML (30.0-100.0)
== END ==
LOC: M LAB 06:48
PROVIDERS: ATTEND Internal Medicine Endocrinology, Diabetes & Metabolism
DX: E03.9 Hypothyroidism, unspecified (principal); M81.0 Age-related osteoporosis without current pathological fracture

== ENCOUNTER 2021-10-07 22:49 | Observation (INO) | payer MEDICARE, MEDICAID ==
[~2021-10-07] VITALS: Ht 157.5 cm; Wt 39.5 kg
[2021-10-07] MEDS ORDERED: ISOS1TAB35 PO (22:57)
[2021-10-08 01:58] LABS: BASO % 0.3 % (0.0-1.0); HEMATOCRIT 30.3 % (36.0-47.0); HEMOGLOBIN 9.9 g/dl (12.0-15.5); LYMPH # 1.2 10^3/uL (1.5-5.0); LYMPH % 9.9 % (24.0-44.0); MEAN CORPUSCULAR HEMOGLOBIN 31.6 pg (27.0-33.0); MEAN CORPUSCULAR HGB CONC 32.7 g/dl (32.0-36.5); MEAN CORPUSCULAR VOLUME 96.8 fl (80.0-96.0); MONO # 1.3 10^3/uL (0.0-0.8); MONO % 10.4 % (2.0-8.0); NEUTROPHILS # 9.8 10^3/uL (1.5-8.5); NEUTROPHILS % 79.1 % (36.0-66.0); PLATELET COUNT, AUTOMATED 242 10^3/uL (150-450); RED BLOOD COUNT 3.13 10^6/uL (4.00-5.40); WHITE BLOOD COUNT 12.4 10^3/uL (4.0-10.0)
[2021-10-08 02:15] LABS: ALBUMIN 3.7 GM/DL (3.2-5.2); ALT/SGPT 23 U/L (12-78); BILIRUBIN,TOTAL 0.5 MG/DL (0.2-1.0); BLOOD UREA NITROGEN 22 MG/DL (7-18); CALCIUM LEVEL 8.4 MG/DL (8.8-10.2); CARBON DIOXIDE LEVEL 26 MEQ/L (21-32); CHLORIDE LEVEL 97 MEQ/L (98-107); CREATININE FOR GFR 0.79 MG/DL (0.55-1.30); GLOMERULAR FILTRATION RATE > 60.0 (>32); GLUCOSE, FASTING 94 MG/DL (70-100); POTASSIUM SERUM 3.9 MEQ/L (3.5-5.1); SODIUM LEVEL 131 MEQ/L (136-145); TOTAL PROTEIN 6.1 GM/DL (6.4-8.2)
[2021-10-08] MEDS ORDERED: HYDROMORPHONE HCL 0.5 MG/ 0.5 ML SYRINGE (J1170 PER 1) IV ONE (02:35)
[2021-10-08] MEDS ORDERED: ONDANSETRON 4MG/2ML VIAL IV ONE (02:35)
[2021-10-08] MEDS ORDERED: ISOVUE-370 76% 100ML VIAL As Ordered ONE (02:43)
[2021-10-08] MEDS ORDERED: LIDOCAINE 2% 5ML JELLY UROJET TOP ONE (03:35)
[2021-10-08] MEDS ORDERED: HYDR-4514 PO (05:00)
[2021-10-08] MEDS ORDERED: AMLO1TAB25 PO (05:00)
[2021-10-08] MEDS ORDERED: LINZ72CA PO (05:01)
[2021-10-08] MEDS ORDERED: HOME MED LIST COMPLETE! XX SCH (05:05)
[2021-10-08] MEDS ORDERED: KETOROLAC 30 MG/ML 1ML VIAL IV PRN (05:10)
[2021-10-08] MEDS ORDERED: NITROGLYCERIN 0.4 MG SUBL TABLET SL PRN (05:25)
[2021-10-08] MEDS ORDERED: GLYCERIN ADULT SUPP PR ONE (06:00)
[2021-10-08] MEDS: LEVOTHYROXINE 112MCG TABLET (0.112MG) PO SCH (06:00)
[2021-10-08 06:42] LABS: RSV AMPLIFICATION NEGATIVE (NEGATIVE)
[2021-10-08] MEDS ORDERED: **hydrALAZINE HCL** 25 MG TAB PO PRN (07:15)
[2021-10-08] MEDS: GLYCERIN ADULT SUPP PR SCH ×3 (09:53→20:57)
[2021-10-08] MEDS: ISOSORBIDE MON. (IMDUR) 30 MG XR TAB PO SCH (09:53)
[2021-10-08] MEDS: DOCUSATE SODIUM 100MG CAPSULE PO SCH ×2 (09:53→20:57)
[2021-10-08] MEDS ORDERED: FLEET ENEMA PR SCH (10:00)
[2021-10-08] MEDS: ANEXSIA, NORCO 7.5MG/325MG TABLET(HYDROCODONE/APAP) PO PRN ×2 (10:12→21:05)
[2021-10-08 13:25] VITALS: BP 113/53
[2021-10-08] MEDS: FLEET ENEMA PR SCH ×2 (14:15→20:57)
[2021-10-08 20:57] VITALS: BP 118/68
[2021-10-09 05:31] VITALS: BP 133/59
[2021-10-09] MEDS: LEVOTHYROXINE 112MCG TABLET (0.112MG) PO SCH (05:36)
[2021-10-09] MEDS: FLEET ENEMA PR SCH (05:37)
[2021-10-09] MEDS: ANEXSIA, NORCO 7.5MG/325MG TABLET(HYDROCODONE/APAP) PO PRN ×2 (05:39→13:47)
[2021-10-09 08:03] LABS: HEMATOCRIT 32.6 % (36.0-47.0); HEMOGLOBIN 10.8 g/dl (12.0-15.5); MEAN CORPUSCULAR HEMOGLOBIN 31.6 pg (27.0-33.0); MEAN CORPUSCULAR HGB CONC 33.1 g/dl (32.0-36.5); MEAN CORPUSCULAR VOLUME 95.3 fl (80.0-96.0); PLATELET COUNT, AUTOMATED 236 10^3/uL (150-450); RED BLOOD COUNT 3.42 10^6/uL (4.00-5.40); WHITE BLOOD COUNT 8.8 10^3/uL (4.0-10.0)
[2021-10-09 08:34] LABS: BLOOD UREA NITROGEN 11 MG/DL (7-18); CALCIUM LEVEL 8.1 MG/DL (8.8-10.2); CARBON DIOXIDE LEVEL 30 MEQ/L (21-32); CHLORIDE LEVEL 102 MEQ/L (98-107); CREATININE FOR GFR 0.44 MG/DL (0.55-1.30); FERRITIN 63 NG/ML (8-252); GLOMERULAR FILTRATION RATE > 60.0 (>32); GLUCOSE, FASTING 97 MG/DL (70-100); IRON (FE) 54 UG/DL (50-170); PERCENT SATURATION 16.6 % (13.2-45.0); POTASSIUM SERUM 3.7 MEQ/L (3.5-5.1); SODIUM LEVEL 139 MEQ/L (136-145); TOTAL IRON BINDING CAPACITY 326 UG/DL (250-450)
[2021-10-09] MEDS: DOCUSATE SODIUM 100MG CAPSULE PO SCH ×2 (08:35→20:03)
[2021-10-09] MEDS: GLYCERIN ADULT SUPP PR SCH (08:36)
[2021-10-09] MEDS: ISOSORBIDE MON. (IMDUR) 30 MG XR TAB PO SCH (08:37)
[2021-10-09] MEDS: MIRALAX *UNIT DOSE* 17GM PACKET PO SCH ×2 (12:04→20:03)
[2021-10-09 14:00] VITALS: BP 128/69
[2021-10-09 16:10] LABS: VITAMIN B12 LEVEL 564 PG/ML (247-911)
[2021-10-09 18:21] VITALS: BP 138/76
[2021-10-10 05:32] VITALS: BP 106/57
[2021-10-10] MEDS: LEVOTHYROXINE 112MCG TABLET (0.112MG) PO SCH (06:12)
[2021-10-10] MEDS: ISOSORBIDE MON. (IMDUR) 30 MG XR TAB PO SCH (09:00)
[2021-10-10] MEDS: MIRALAX *UNIT DOSE* 17GM PACKET PO SCH ×2 (09:55→20:49)
[2021-10-10] MEDS: DOCUSATE SODIUM 100MG CAPSULE PO SCH ×2 (09:56→20:49)
[2021-10-10] MEDS: ANEXSIA, NORCO 7.5MG/325MG TABLET(HYDROCODONE/APAP) PO PRN ×3 (09:56→20:50)
[2021-10-10] MEDS ORDERED: NS 1,000 ML IV ONE (12:05)
[2021-10-10 14:00] VITALS: BP 136/58
[2021-10-10] MEDS ORDERED: LIDOCAINE 5% (LIDODERM) PATCH TD ONE (18:00)
[2021-10-10 22:00] VITALS: BP 121/54
[2021-10-11] MEDS: LEVOTHYROXINE 112MCG TABLET (0.112MG) PO SCH (05:34)
[2021-10-11 05:43] VITALS: BP 129/58
[2021-10-11] MEDS ORDERED: **NOTE PATIENT COMMENT** MISC XX SCH (06:00)
[2021-10-11] MEDS: ANEXSIA, NORCO 7.5MG/325MG TABLET(HYDROCODONE/APAP) PO PRN (06:52)
[2021-10-11] MEDS: DOCUSATE SODIUM 100MG CAPSULE PO SCH (08:56)
[2021-10-11] MEDS: MIRALAX *UNIT DOSE* 17GM PACKET PO SCH (08:56)
[2021-10-11 08:57] VITALS: BP 133/61
[2021-10-11] MEDS: ISOSORBIDE MON. (IMDUR) 30 MG XR TAB PO SCH (08:57)
[2021-10-11 09:22] LABS: HEMATOCRIT 32.8 % (36.0-47.0); HEMOGLOBIN 10.7 g/dl (12.0-15.5); MEAN CORPUSCULAR HEMOGLOBIN 31.4 pg (27.0-33.0); MEAN CORPUSCULAR HGB CONC 32.6 g/dl (32.0-36.5); MEAN CORPUSCULAR VOLUME 96.2 fl (80.0-96.0); PLATELET COUNT, AUTOMATED 263 10^3/uL (150-450); RED BLOOD COUNT 3.41 10^6/uL (4.00-5.40); WHITE BLOOD COUNT 7.8 10^3/uL (4.0-10.0)
[2021-10-11 09:48] LABS: BLOOD UREA NITROGEN 6 MG/DL (7-18); CALCIUM LEVEL 7.9 MG/DL (8.8-10.2); CARBON DIOXIDE LEVEL 29 MEQ/L (21-32); CHLORIDE LEVEL 105 MEQ/L (98-107); CREATININE FOR GFR 0.49 MG/DL (0.55-1.30); GLOMERULAR FILTRATION RATE > 60.0 (>32); GLUCOSE, FASTING 94 MG/DL (70-100); POTASSIUM SERUM 3.1 MEQ/L (3.5-5.1); SODIUM LEVEL 141 MEQ/L (136-145)
[2021-10-11] MEDS ORDERED: MIRA1POW3 PO (09:55)
[2021-10-11] MEDS ORDERED: COLA100C5 PO (09:55)
== END 2021-10-11 13:11 | disposition home or self-care (01) ==
LOC: M ED 22:49 → M ED INP 22:50 → M MSPAV 10-08 13:31
PROVIDERS: ADMIT Internal Medicine; ATTEND Internal Medicine
DX: K59.00 Constipation, unspecified (principal); F11.20 Opioid dependence, uncomplicated; M41.9 Scoliosis, unspecified; I25.10 Atherosclerotic heart disease of native coronary artery without angina pectoris; I10 Essential (primary) hypertension; E03.9 Hypothyroidism, unspecified; Q43.8 Other specified congenital malformations of intestine; Q44.6 Cystic disease of liver; Q61.9 Cystic kidney disease, unspecified; K44.9 Diaphragmatic hernia without obstruction or gangrene; R33.9 Retention of urine, unspecified; D64.9 Anemia, unspecified; K83.8 Other specified diseases of biliary tract; Z79.899 Other long term (current) drug therapy; Z88.0 Allergy status to penicillin; Z88.8 Allergy status to other drugs, medicaments and biological substances; Z88.5 Allergy status to narcotic agent; Z87.891 Personal history of nicotine dependence
CPT/HCPCS: 36415; 51702; 74018; 74177; 80048; 80053; 82270; 82607; 82728; 83550; 83605; 84443; 85025; 85027; 87088; 87186; 87631; 96361; 96374; 96375; 99284; J1170; J2405; Q9967

== ENCOUNTER 2021-11-09 10:59 | Emergency (ER) | payer MEDICARE, MEDICAID ==
[~2021-11-09] VITALS: Ht 157.5 cm; Wt 63.2 kg
[~2021-11-09 10:59] MED LIST changes: +AMLO1TAB25 PO; +COLA100C5 PO; +HYDR-4514 PO; +ISOS1TAB35 PO; +LINZ72CA PO; +MIRA1POW3 PO
[2021-11-09 12:52] LABS: BASO % 0.4 % (0.0-1.0); HEMATOCRIT 32.8 % (36.0-47.0); HEMOGLOBIN 10.9 g/dl (12.0-15.5); LYMPH # 1.4 10^3/uL (1.5-5.0); LYMPH % 16.1 % (24.0-44.0); MEAN CORPUSCULAR HEMOGLOBIN 31.5 pg (27.0-33.0); MEAN CORPUSCULAR HGB CONC 33.2 g/dl (32.0-36.5); MEAN CORPUSCULAR VOLUME 94.8 fl (80.0-96.0); MONO # 0.9 10^3/uL (0.0-0.8); MONO % 10.4 % (2.0-8.0); NEUTROPHILS # 6.1 10^3/uL (1.5-8.5); NEUTROPHILS % 72.7 % (36.0-66.0); PLATELET COUNT, AUTOMATED 239 10^3/uL (150-450); RED BLOOD COUNT 3.46 10^6/uL (4.00-5.40); WHITE BLOOD COUNT 8.4 10^3/uL (4.0-10.0)
[2021-11-09 13:07] LABS: INR 0.92; PROTHROMBIN TIME 12.8 SECONDS (12.7-14.5)
[2021-11-09 13:08] LABS: PARTIAL THROMBOPLASTIN TIME 28.1 SECONDS (25.9-37.0)
[2021-11-09 13:10] LABS: CK-MB VALUE MASS 1.7 NG/ML (<3.6); MB/CK RELATIVE INDEX 2.1 (< OR =4)
[2021-11-09 13:22] LABS: ALBUMIN 3.5 GM/DL (3.2-5.2); ALT/SGPT 18 U/L (12-78); BILIRUBIN,DIRECT 0.1 MG/DL (0.0-0.2); BILIRUBIN,TOTAL 0.4 MG/DL (0.2-1.0); BLOOD UREA NITROGEN 18 MG/DL (7-18); CALCIUM LEVEL 9.4 MG/DL (8.8-10.2); CARBON DIOXIDE LEVEL 31 MEQ/L (21-32); CHLORIDE LEVEL 98 MEQ/L (98-107); CREATININE FOR GFR 0.75 MG/DL (0.55-1.30); GLOMERULAR FILTRATION RATE > 60.0 (>32); GLUCOSE, FASTING 97 MG/DL (70-100); LIPASE 134 U/L (73-393); POTASSIUM SERUM 4.4 MEQ/L (3.5-5.1); SODIUM LEVEL 133 MEQ/L (136-145); TOTAL PROTEIN 6.3 GM/DL (6.4-8.2)
[2021-11-09] MEDS ORDERED: ISOVUE-370 76% 100ML VIAL As Ordered ONE (13:56)
[2021-11-09 14:38] LABS: CK-MB VALUE MASS 1.5 NG/ML (<3.6); MB/CK RELATIVE INDEX 0.9 (< OR =4)
[2021-11-09] MEDS ORDERED: ACETAMINOPHEN *IV* 1,000 MG in IV 1 EA IV ONE (15:25)
[2021-11-09 16:20] VITALS: BP 125/58
== END 2021-11-09 17:56 | disposition home or self-care (01) ==
LOC: M ED 10:59
DX: T88.7XXA Unspecified adverse effect of drug or medicament, initial encounter (principal); I10 Essential (primary) hypertension; I25.10 Atherosclerotic heart disease of native coronary artery without angina pectoris; Z87.19 Personal history of other diseases of the digestive system; Z79.899 Other long term (current) drug therapy; Z88.0 Allergy status to penicillin; Z88.8 Allergy status to other drugs, medicaments and biological substances; Z88.1 Allergy status to other antibiotic agents; Z88.5 Allergy status to narcotic agent
CPT/HCPCS: 70450; 71045; 74177; 80047; 80048; 80076; 82550; 82553; 83605; 83690; 84484; 85025; 85610; 85730; 87040; 93005; 93041; 96365; 99285; J0131; Q9967

== ENCOUNTER → 2021-12-14 | Outpatient (CLI) | payer MEDICARE, MEDICAID | LOC: M RAD 15:17 | PROVIDERS: ATTEND Internal Medicine Cardiovascular Disease | DX: I65.23 Occlusion and stenosis of bilateral carotid arteries (principal) ==

== ENCOUNTER → 2021-12-21 | Outpatient (CLI) | payer MEDICARE, MEDICAID | LOC: M PLARAD 11:39 | PROVIDERS: ATTEND Internal Medicine Cardiovascular Disease | DX: G45.9 Transient cerebral ischemic attack, unspecified (principal) ==

== ENCOUNTER → 2022-02-21 | Outpatient (CLI) | payer MEDICARE, MEDICAID ==
[2022-02-21 11:18] LABS: BASO % 0.4 % (0.0-1.0); HEMATOCRIT 34.3 % (36.0-47.0); HEMOGLOBIN 11.3 g/dl (12.0-15.5); LYMPH # 0.8 10^3/uL (1.5-5.0); LYMPH % 10.5 % (24.0-44.0); MEAN CORPUSCULAR HEMOGLOBIN 30.6 pg (27.0-33.0); MEAN CORPUSCULAR HGB CONC 32.9 g/dl (32.0-36.5); MONO # 0.9 10^3/uL (0.0-0.8); MONO % 11.9 % (2.0-8.0); NEUTROPHILS # 6.1 10^3/uL (1.5-8.5); NEUTROPHILS % 76.8 % (36.0-66.0); PLATELET COUNT, AUTOMATED 255 10^3/uL (150-450); RED BLOOD COUNT 3.69 10^6/uL (4.00-5.40); WHITE BLOOD COUNT 7.9 10^3/uL (4.0-10.0)
[2022-02-21 11:46] LABS: ERYTHROCYTE SEDIMENTATION RATE 7 mm/hr (0-30)
[2022-02-21 12:09] LABS: ALBUMIN 3.6 GM/DL (3.2-5.2); ALT/SGPT 19 U/L (12-78); BILIRUBIN,TOTAL 0.2 MG/DL (0.2-1.0); BLOOD UREA NITROGEN 20 MG/DL (7-18); CARBON DIOXIDE LEVEL 28 MEQ/L (21-32); CHLORIDE LEVEL 98 MEQ/L (98-107); CREATININE FOR GFR 0.76 MG/DL (0.55-1.30); GLOMERULAR FILTRATION RATE > 60.0 (>32); GLUCOSE, FASTING 90 MG/DL (70-100); POTASSIUM SERUM 4.1 MEQ/L (3.5-5.1); RHEUMATOID FACTOR QUANT < 10.0 IU/ML (<15.0); SODIUM LEVEL 131 MEQ/L (136-145); TOTAL PROTEIN 6.3 GM/DL (6.4-8.2)
[2022-02-21 13:14] LABS: TOTAL 25(OH) VITAMIN D 34.3 NG/ML (30.0-100.0)
[2022-02-22 12:08] LABS: ANTINUCLEAR ANTIBODIES DIRECT Negative (Negative)
== END ==
LOC: M LAB 10:08
PROVIDERS: ATTEND Psychiatry & Neurology Neurology
DX: R51.9 Headache, unspecified (principal); R42 Dizziness and giddiness

== ENCOUNTER → 2022-03-12 | Outpatient (CLI) | payer MEDICARE, MEDICAID ==
[2022-03-12 08:14] LABS: BLOOD UREA NITROGEN 20 MG/DL (7-18); CALCIUM LEVEL 9.1 MG/DL (8.8-10.2); CARBON DIOXIDE LEVEL 31 MEQ/L (21-32); CHLORIDE LEVEL 103 MEQ/L (98-107); CREATININE FOR GFR 0.64 MG/DL (0.55-1.30); GLOMERULAR FILTRATION RATE > 60.0 (>32); GLUCOSE, FASTING 104 MG/DL (70-100); POTASSIUM SERUM 4.5 MEQ/L (3.5-5.1); SODIUM LEVEL 137 MEQ/L (136-145)
== END ==
LOC: M LAB 06:59
PROVIDERS: ATTEND Internal Medicine Endocrinology, Diabetes & Metabolism
DX: M81.0 Age-related osteoporosis without current pathological fracture (principal)

== ENCOUNTER 2022-05-19 13:49 | Emergency (ER) | payer MEDICARE, MEDICAID ==
[~2022-05-19] VITALS: Ht 152.4 cm; Wt 44.5 kg
[~2022-05-19 13:49] MED LIST changes: +CLOP75TA99 PO; -PLAV1TAB2 PO
[2022-05-19] MEDS ORDERED: CARV3.12 PO (14:14)
[2022-05-19] MEDS ORDERED: LISI2.5T9 PO (14:14)
[2022-05-19] MEDS ORDERED: B-12100021 PO (14:14)
[2022-05-19] MEDS ORDERED: CICL0.7739 TOP (14:14)
[2022-05-19] MEDS ORDERED: ATOR1TAB19 PO (14:14)
[2022-05-19] MEDS ORDERED: DOCU8.6T PO (14:14)
[2022-05-19] MEDS ORDERED: NOXI1TAB PO (14:14)
[2022-05-19] MEDS ORDERED: VITA100T59 PO (14:14)
[2022-05-19] MEDS ORDERED: DEPA1TAB PO (14:14)
[2022-05-19] MEDS ORDERED: PROL60SO SC (14:14)
[2022-05-19] MEDS ORDERED: ASPI81CH33 PO (14:14)
[2022-05-19] MEDS ORDERED: MIRA3350 PO (14:14)
[2022-05-19] MEDS ORDERED: RIVA1.5C23 PO (14:14)
[2022-05-19] MEDS ORDERED: FAMO10TA50 PO (14:14)
[2022-05-19] MEDS ORDERED: LIDOCAINE 2% MDV 20ML VIAL SC ONE (14:55)
[2022-05-19 16:05] VITALS: BP 218/80
== END 2022-05-19 16:15 | disposition home or self-care (01) ==
LOC: M ED 13:49
DX: S61.102A Unspecified open wound of left thumb with damage to nail, initial encounter (principal); I10 Essential (primary) hypertension; E03.9 Hypothyroidism, unspecified; E78.5 Hyperlipidemia, unspecified; Z86.73 Personal history of transient ischemic attack (TIA), and cerebral infarction without residual deficits; Z79.82 Long term (current) use of aspirin; Z79.890 Hormone replacement therapy; Z79.899 Other long term (current) drug therapy; Z88.0 Allergy status to penicillin; Z88.8 Allergy status to other drugs, medicaments and biological substances; Z88.1 Allergy status to other antibiotic agents; Z88.5 Allergy status to narcotic agent

== ENCOUNTER 2022-07-16 13:23 | Inpatient (IN) | payer MEDICARE, MEDICAID ==
[~2022-07-16] VITALS: Ht 152.4 cm; Wt 43.0 kg
[~2022-07-16 13:23] MED LIST changes: +ASPI81CH33 PO; +ATOR1TAB19 PO; +B-12100021 PO; +CARV3.12 PO; +CICL0.7739 TOP; +DEPA1TAB PO; +DOCU8.6T PO; +FAMO10TA50 PO; +LISI2.5T9 PO; +MIRA3350 PO; +NOXI1TAB PO; +RIVA1.5C23 PO; +VITA100T59 PO
[2022-07-16] MEDS ORDERED: ONDA-83 (13:43)
[2022-07-16] MEDS ORDERED: NS 500 ML IV ONE (16:40)
[2022-07-16] MEDS ORDERED: ACETAMINOPHEN 1000MG 100ML IV BAG IV ONE (16:50)
[2022-07-16] MEDS ORDERED: ERGO500029 (18:01)
[2022-07-16] MEDS ORDERED: ISOVUE-370 76% 100ML VIAL As Ordered ONE (18:04)
[2022-07-16 18:10] LABS: BASO % 0.5 % (0.0-1.0); EOS % 0.5 % (0.0-3.0); HEMOGLOBIN 11.4 g/dl (12.0-15.5); LYMPH # 1.2 10^3/uL (1.5-5.0); LYMPH % 19.9 % (24.0-44.0); MEAN CORPUSCULAR HEMOGLOBIN 30.6 pg (27.0-33.0); MEAN CORPUSCULAR HGB CONC 32.6 g/dl (32.0-36.5); MEAN CORPUSCULAR VOLUME 94.1 fl (80.0-96.0); MONO # 0.9 10^3/uL (0.0-0.8); MONO % 14.8 % (2.0-8.0); NEUTROPHILS # 3.8 10^3/uL (1.5-8.5); PLATELET COUNT, AUTOMATED 210 10^3/uL (150-450); RED BLOOD COUNT 3.72 10^6/uL (4.00-5.40); WHITE BLOOD COUNT 5.9 10^3/uL (4.0-10.0)
[2022-07-16 18:25] LABS: CK-MB VALUE MASS 4.1 NG/ML (<3.6); LIPASE 26 U/L (12-53)
[2022-07-16 18:26] LABS: CPK CREATINE PHOSPHOKINASE 184 U/L (34-145); MB/CK RELATIVE INDEX 2.22 (< OR =4)
[2022-07-16 18:27] LABS: ALBUMIN 3.5 G/DL (3.2-5.2); ALKALINE PHOSPHATASE 48 U/L (46-116); ALT/SGPT 15 U/L (7.0-40); AST/SGOT 25 U/L (<34); BILIRUBIN,DIRECT 0.2 MG/DL (<0.4); BILIRUBIN,TOTAL 0.4 MG/DL (0.3-1.2); BLOOD UREA NITROGEN 12 MG/DL (9-23); CALCIUM LEVEL 8.1 MG/DL (8.3-10.6); CARBON DIOXIDE LEVEL 24 MMOL/L (20-31); CHLORIDE LEVEL 99 MMOL/L (98-107); CREATININE FOR GFR 0.66 MG/DL (0.55-1.30); GLOMERULAR FILTRATION RATE > 60.0 (>32); GLUCOSE, FASTING 87 MG/DL (74-106); POTASSIUM SERUM 4.9 MMOL/L (3.5-5.1); SODIUM LEVEL 132 MMOL/L (136-145); TOTAL PROTEIN 5.9 G/DL (5.7-8.2)
[2022-07-16 19:37] LABS: FREE T4 1.26 NG/DL (0.89-1.76); THYROID STIMULATING HORMONE 3.108 uIU/ML (0.55-4.78)
[2022-07-16 20:54] LABS: CK-MB VALUE MASS 3.5 NG/ML (<3.6)
[2022-07-16 20:57] LABS: MB/CK RELATIVE INDEX 1.72 (< OR =4)
[2022-07-16] MEDS ORDERED: MIRA1POW3 PO (22:37)
[2022-07-16] MEDS ORDERED: ERGO500029 PO (22:37)
[2022-07-16] MEDS ORDERED: LIPI10TA PO (22:37)
[2022-07-16] MEDS ORDERED: DICL20GE TOP (22:37)
[2022-07-16] MEDS ORDERED: ONDA-195 PO (22:37)
[2022-07-16] MEDS ORDERED: CORE3.12 PO (22:37)
[2022-07-16] MEDS ORDERED: FAMO1TAB11 PO (22:37)
[2022-07-16] MEDS ORDERED: HYDR-3716 PO (22:37)
[2022-07-16] MEDS ORDERED: ASPI1CHW3 PO (22:37)
[2022-07-16] MEDS ORDERED: RIVA1.5C23 PO (22:37)
[2022-07-16] MEDS ORDERED: LISI2.5T9 PO (22:37)
[2022-07-16] MEDS ORDERED: CYAN100049 PO (22:37)
[2022-07-16] MEDS ORDERED: SIME125C4 PO (22:37)
[2022-07-16] MEDS ORDERED: VITMTA PO (22:37)
[2022-07-16] MEDS ORDERED: DOCU100C16 PO (22:37)
[2022-07-16] MEDS ORDERED: HOME MED LIST COMPLETE! XX SCH (22:40)
[2022-07-16 22:52] VITALS: BP 188/86
[2022-07-16] MEDS: LR 1,000 ML IV SCH (23:05)
[2022-07-17 00:54] VITALS: BP 162/80
[2022-07-17] MEDS ORDERED: ONDANSETRON 4MG 2ML VIAL IV PRN (01:30)
[2022-07-17] MEDS ORDERED: ACETAMINOPHEN 1000MG 100ML IV BAG IV ONE (01:30)
[2022-07-17] MEDS ORDERED: diphenhydrAMINE 50MG/ML VIAL IV PRN (01:35)
[2022-07-17] MEDS ORDERED: MORPHINE 2 MG/ML 1ML VIAL IV PRN (01:35)
[2022-07-17 05:45] VITALS: BP 173/82
[2022-07-17 06:52] LABS: ALBUMIN 3.2 G/DL (3.2-5.2); ALKALINE PHOSPHATASE 44 U/L (46-116); ALT/SGPT 15 U/L (7.0-40); AST/SGOT 26 U/L (<34); BILIRUBIN,TOTAL 0.4 MG/DL (0.3-1.2); BLOOD UREA NITROGEN 10 MG/DL (9-23); CALCIUM LEVEL 7.8 MG/DL (8.3-10.6); CARBON DIOXIDE LEVEL 24 MMOL/L (20-31); CHLORIDE LEVEL 105 MMOL/L (98-107); CREATININE FOR GFR 0.59 MG/DL (0.55-1.30); GLOMERULAR FILTRATION RATE > 60.0 (>32); GLUCOSE, FASTING 76 MG/DL (74-106); POTASSIUM SERUM 3.8 MMOL/L (3.5-5.1); SODIUM LEVEL 139 MMOL/L (136-145); TOTAL PROTEIN 5.3 G/DL (5.7-8.2)
[2022-07-17] MEDS ORDERED: LIDOCAINE 5% (LIDODERM) PATCH TD ONE (08:30)
[2022-07-17] MEDS: LR 1,000 ML IV SCH (09:06)
[2022-07-17] MEDS ORDERED: LEVOTHYROXINE 100MCG (0.1MG) 5ML SDV PF (SOLUTION FORM) IV SCH (11:05)
[2022-07-17] MEDS: D5W/LR 1,000 ML IV SCH (11:42)
[2022-07-17] MEDS: HYDROMORPHONE HCL 0.5 MG/ 0.5 ML SYRINGE IV PRN ×2 (13:52→14:45)
[2022-07-17 14:00] VITALS: BP 181/81
[2022-07-17 14:30] VITALS: BP 162/82
[2022-07-17] MEDS ORDERED: GLUCOSE 4GM CHEW TABLET PO PRN (16:20)
[2022-07-17] MEDS ORDERED: MIRALAX *UNIT DOSE* 17GM PACKET PO PRN (16:20)
[2022-07-17] MEDS ORDERED: SIMETHICONE 80MG CHEW TAB PO PRN (16:20)
[2022-07-17] MEDS ORDERED: DEXTROSE 50% 50ML SYRINGE IV PRN (16:20)
[2022-07-17] MEDS ORDERED: SENOKOT S TAB PO PRN (16:20)
[2022-07-17] MEDS ORDERED: ANEXSIA, NORCO 7.5MG/325MG TABLET(HYDROCODONE/APAP) PO PRN (16:20)
[2022-07-17] MEDS ORDERED: GLUCAGON INJ 1MG VIAL SC PRN (16:20)
[2022-07-17] MEDS ORDERED: PILL CUTTER 1 EACH XX PRN (16:45)
[2022-07-17] MEDS: HEPARIN SOD (PORCINE) 5000UNITS/ML 1ML VIAL/SYRINGE SC SCH (18:00)
[2022-07-17 20:00] VITALS: BP 160/80
[2022-07-17] MEDS: ATORVASTATIN 10 MG TAB PO SCH (20:14)
[2022-07-17] MEDS: DOCUSATE SODIUM 100MG CAPSULE PO SCH (20:14)
[2022-07-17] MEDS: CARVedilol 3.125 MG TAB PO SCH (20:16)
[2022-07-17] MEDS: FAMOTIDINE 20 MG TAB PO SCH (20:16)
[2022-07-17] MEDS: ANEXSIA, NORCO 7.5MG/325MG TABLET(HYDROCODONE/APAP) PO PRN (20:17)
[2022-07-18] MEDS: D5W/LR 1,000 ML IV SCH (00:01)
[2022-07-18] MEDS: HEPARIN SOD (PORCINE) 5000UNITS/ML 1ML VIAL/SYRINGE SC SCH ×2 (05:20→17:10)
[2022-07-18] MEDS ORDERED: ANEXSIA, NORCO 7.5MG/325MG TABLET(HYDROCODONE/APAP) As Ordered ONE (05:24)
[2022-07-18] MEDS ORDERED: LEVOTHYROXINE 112MCG TABLET (0.112MG) As Ordered ONE (05:26)
[2022-07-18] MEDS: LEVOTHYROXINE 112MCG TABLET (0.112MG) PO SCH (05:27)
[2022-07-18 06:00] VITALS: BP 173/86
[2022-07-18 07:00] LABS: ALKALINE PHOSPHATASE 44 U/L (46-116); ALT/SGPT 19 U/L (7.0-40); AST/SGOT 45 U/L (<34); BILIRUBIN,DIRECT 0.1 MG/DL (<0.4); BILIRUBIN,TOTAL 0.4 MG/DL (0.3-1.2); TOTAL PROTEIN 5.4 G/DL (5.7-8.2)
[2022-07-18 07:42] LABS: HEMATOCRIT 32.1 % (36.0-47.0); HEMOGLOBIN 10.6 g/dl (12.0-15.5); MEAN CORPUSCULAR HEMOGLOBIN 30.6 pg (27.0-33.0); MEAN CORPUSCULAR VOLUME 92.8 fl (80.0-96.0); PLATELET COUNT, AUTOMATED 226 10^3/uL (150-450); RED BLOOD COUNT 3.46 10^6/uL (4.00-5.40); WHITE BLOOD COUNT 5.4 10^3/uL (4.0-10.0)
[2022-07-18 07:48] LABS: BLOOD UREA NITROGEN 9 MG/DL (9-23); CALCIUM LEVEL 7.3 MG/DL (8.3-10.6); CARBON DIOXIDE LEVEL 26 MMOL/L (20-31); CHLORIDE LEVEL 104 MMOL/L (98-107); CREATININE FOR GFR 0.52 MG/DL (0.55-1.30); GLOMERULAR FILTRATION RATE > 60.0 (>32); GLUCOSE, FASTING 105 MG/DL (74-106); POTASSIUM SERUM 3.5 MMOL/L (3.5-5.1); SODIUM LEVEL 139 MMOL/L (136-145)
[2022-07-18 08:12] VITALS: BP 152/78
[2022-07-18] MEDS ORDERED: MIRALAX *UNIT DOSE* 17GM PACKET PO SCH (09:00)
[2022-07-18] MEDS: FAMOTIDINE 20 MG TAB PO SCH ×2 (09:00→20:16)
[2022-07-18] MEDS ORDERED: E-Z-HD 98% w/w 340GM SUSP BTL As Ordered ONE (11:21)
[2022-07-18] MEDS ORDERED: E-Z-GAS II EFFERVESCENT PACKET (SODIUM BICARB./CITRIC ACID/SIMETHICONE) As Ordered ONE (11:21)
[2022-07-18] MEDS ORDERED: E-Z-PAQUE 96% w/w SUSP 176GM BTL As Ordered ONE (11:21)
[2022-07-18] MEDS ORDERED: ACETAMINOPHEN 500 MG TAB PO PRN (13:45)
[2022-07-18 14:00] VITALS: BP 150/78
[2022-07-18] MEDS ORDERED: ISOVUE-370 76% 100ML VIAL As Ordered ONE (14:05)
[2022-07-18] MEDS: GASTROGRAFIN SOLUTION 30ML PO SCH ×2 (15:17→15:54)
[2022-07-18] MEDS: MULTIVITAMINS/MINERALS THERAP 1 TAB PO SCH (16:12)
[2022-07-18] MEDS: LISINOPRIL *2.5 MG* TAB PO SCH (16:13)
[2022-07-18] MEDS: CYANOCOBALAMIN 500 MCG TAB PO SCH (16:14)
[2022-07-18] MEDS: ASPIRIN 81MG CHEW TABLET PO SCH (16:14)
[2022-07-18] MEDS: DOCUSATE SODIUM 100MG CAPSULE PO SCH ×2 (16:14→20:16)
[2022-07-18] MEDS: CARVedilol 3.125 MG TAB PO SCH ×2 (16:15→22:24)
[2022-07-18] MEDS: ANEXSIA, NORCO 7.5MG/325MG TABLET(HYDROCODONE/APAP) PO PRN (17:04)
[2022-07-18] MEDS ORDERED: D5W/LR 1,000 ML IV SCH (18:30)
[2022-07-18 20:00] VITALS: BP 154/79
[2022-07-18] MEDS: ATORVASTATIN 10 MG TAB PO SCH (20:16)
[2022-07-19 05:31] VITALS: BP 138/74
[2022-07-19] MEDS: LEVOTHYROXINE 112MCG TABLET (0.112MG) PO SCH (05:37)
[2022-07-19] MEDS: HEPARIN SOD (PORCINE) 5000UNITS/ML 1ML VIAL/SYRINGE SC SCH (05:42)
[2022-07-19 06:17] LABS: MEAN CORPUSCULAR HGB CONC 32.4 g/dl (32.0-36.5); MEAN CORPUSCULAR VOLUME 92.6 fl (80.0-96.0); PLATELET COUNT, AUTOMATED 224 10^3/uL (150-450); RED BLOOD COUNT 3.67 10^6/uL (4.00-5.40); WHITE BLOOD COUNT 6.1 10^3/uL (4.0-10.0)
[2022-07-19 06:38] LABS: ALBUMIN 3.1 G/DL (3.2-5.2); ALKALINE PHOSPHATASE 44 U/L (46-116); ALT/SGPT 21 U/L (7.0-40); AST/SGOT 62 U/L (<34); BILIRUBIN,TOTAL 0.4 MG/DL (0.3-1.2); BLOOD UREA NITROGEN 7 MG/DL (9-23); CALCIUM LEVEL 8.4 MG/DL (8.3-10.6); CARBON DIOXIDE LEVEL 28 MMOL/L (20-31); CHLORIDE LEVEL 102 MMOL/L (98-107); CREATININE FOR GFR 0.58 MG/DL (0.55-1.30); GLOMERULAR FILTRATION RATE > 60.0 (>32); GLUCOSE, FASTING 103 MG/DL (74-106); POTASSIUM SERUM 3.3 MMOL/L (3.5-5.1); SODIUM LEVEL 139 MMOL/L (136-145); TOTAL PROTEIN 5.5 G/DL (5.7-8.2)
[2022-07-19] MEDS ORDERED: POTASSIUM CHLORIDE 10MEQ SR TABLET PO ONE (07:20)
[2022-07-19 09:00] VITALS: BP 100/50
[2022-07-19] MEDS: LISINOPRIL *2.5 MG* TAB PO SCH (09:00)
[2022-07-19] MEDS: CARVedilol 3.125 MG TAB PO SCH (09:00)
[2022-07-19] MEDS: FAMOTIDINE 20 MG TAB PO SCH (09:18)
[2022-07-19] MEDS: DOCUSATE SODIUM 100MG CAPSULE PO SCH (09:18)
[2022-07-19] MEDS: ANEXSIA, NORCO 7.5MG/325MG TABLET(HYDROCODONE/APAP) PO PRN (09:19)
[2022-07-19] MEDS: CYANOCOBALAMIN 500 MCG TAB PO SCH (12:22)
[2022-07-19] MEDS: MULTIVITAMINS/MINERALS THERAP 1 TAB PO SCH (12:22)
[2022-07-19] MEDS: ASPIRIN 81MG CHEW TABLET PO SCH (12:22)
== END 2022-07-19 14:08 | disposition home or self-care (01) | DRG 390 ==
LOC: M ED 13:23 → M ED INP 21:03 → M MSPAV 22:52
PROVIDERS: ADMIT Internal Medicine; ATTEND Student in an Organized Health Care Education/Training Program
DX: K56.51 Intestinal adhesions [bands], with partial obstruction (principal); F03.90 Unspecified dementia, unspecified severity, without behavioral disturbance, psychotic disturbance, mood disturbance, and anxiety; I73.9 Peripheral vascular disease, unspecified; I10 Essential (primary) hypertension; E78.00 Pure hypercholesterolemia, unspecified; K21.9 Gastro-esophageal reflux disease without esophagitis; K59.00 Constipation, unspecified; K58.9 Irritable bowel syndrome, unspecified; E03.9 Hypothyroidism, unspecified; Z66 Do not resuscitate; Z79.890 Hormone replacement therapy; Z79.82 Long term (current) use of aspirin; Z79.899 Other long term (current) drug therapy; Z79.891 Long term (current) use of opiate analgesic; Z88.0 Allergy status to penicillin; Z88.5 Allergy status to narcotic agent; Z88.6 Allergy status to analgesic agent; Z88.8 Allergy status to other drugs, medicaments and biological substances

== ENCOUNTER → 2022-09-09 | Outpatient (CLI) | payer MEDICARE, MEDICAID ==
[~2022-09-09] MED LIST changes: +ASPI1CHW3 PO; +CORE3.12 PO; +CYAN100049 PO; +DICL20GE TOP; +DOCU100C16 PO; +ERGO500029; +ERGO500029 PO; +FAMO1TAB11 PO; +LIPI10TA PO; +ONDA-195 PO; +ONDA-83; +SIME125C4 PO; +VITMTA PO
[2022-09-09 11:09] LABS: CALCIUM LEVEL 8.4 MG/DL (8.3-10.6)
[2022-09-09 11:14] LABS: THYROID STIMULATING HORMONE 2.362 uIU/ML (0.55-4.78); TOTAL 25(OH) VITAMIN D 54.8 NG/ML (20.0-100.0)
== END ==
LOC: M LAB 09:34
PROVIDERS: ATTEND Internal Medicine Endocrinology, Diabetes & Metabolism
DX: M81.0 Age-related osteoporosis without current pathological fracture (principal); E55.9 Vitamin D deficiency, unspecified; G45.9 Transient cerebral ischemic attack, unspecified; I35.8 Other nonrheumatic aortic valve disorders; R07.2 Precordial pain; I11.9 Hypertensive heart disease without heart failure; Z79.899 Other long term (current) drug therapy

== ENCOUNTER → 2022-09-09 | Outpatient (CLI) | payer MEDICARE, MEDICAID ==
[2022-09-09 10:47] LABS: HEMATOCRIT 34.5 % (36.0-47.0); HEMOGLOBIN 11.1 g/dl (12.0-15.5); MEAN CORPUSCULAR HEMOGLOBIN 30.6 pg (27.0-33.0); MEAN CORPUSCULAR HGB CONC 32.2 g/dl (32.0-36.5); PLATELET COUNT, AUTOMATED 241 10^3/uL (150-450); RED BLOOD COUNT 3.63 10^6/uL (4.00-5.40); WHITE BLOOD COUNT 5.7 10^3/uL (4.0-10.0)
[2022-09-09 11:10] LABS: ALBUMIN 3.6 G/DL (3.2-5.2); ALKALINE PHOSPHATASE 44 U/L (46-116); ALT/SGPT 14 U/L (7.0-40); AST/SGOT 21 U/L (<34); BILIRUBIN,TOTAL 0.3 MG/DL (0.3-1.2); BLOOD UREA NITROGEN 18 MG/DL (9-23); CALCIUM LEVEL 8.4 MG/DL (8.3-10.6); CARBON DIOXIDE LEVEL 28 MMOL/L (20-31); CHLORIDE LEVEL 105 MMOL/L (98-107); GLOMERULAR FILTRATION RATE > 60.0 (>32); GLUCOSE, FASTING 64 MG/DL (74-106); POTASSIUM SERUM 4.2 MMOL/L (3.5-5.1); SODIUM LEVEL 140 MMOL/L (136-145); TOTAL PROTEIN 5.8 G/DL (5.7-8.2)
== END ==
LOC: M LAB 09:30
PROVIDERS: ATTEND Internal Medicine Cardiovascular Disease
DX: G45.9 Transient cerebral ischemic attack, unspecified (principal); I35.8 Other nonrheumatic aortic valve disorders; R07.2 Precordial pain; I11.9 Hypertensive heart disease without heart failure

== ENCOUNTER → 2022-12-13 | Outpatient (CLI) | payer MEDICARE, MEDICAID ==
[~2022-12-13] MED LIST changes: +ASPI-655 PO; -ASPI1CHW3 PO
[2022-12-13 09:15] LABS: BASO % 0.4 % (0.0-1.0); HEMATOCRIT 35.1 % (36.0-47.0); HEMOGLOBIN 11.2 g/dl (12.0-15.5); LYMPH # 1.1 10^3/uL (1.5-5.0); LYMPH % 14.2 % (24.0-44.0); MEAN CORPUSCULAR HGB CONC 31.9 g/dl (32.0-36.5); MEAN CORPUSCULAR VOLUME 94.1 fl (80.0-96.0); MONO # 0.8 10^3/uL (0.0-0.8); MONO % 10.3 % (2.0-8.0); NEUTROPHILS # 5.6 10^3/uL (1.5-8.5); NEUTROPHILS % 74.7 % (36.0-66.0); PLATELET COUNT, AUTOMATED 219 10^3/uL (150-450); RED BLOOD COUNT 3.73 10^6/uL (4.00-5.40); WHITE BLOOD COUNT 7.5 10^3/uL (4.0-10.0)
[2022-12-13 09:45] LABS: ALBUMIN 3.7 G/DL (3.2-5.2); BLOOD UREA NITROGEN 17 MG/DL (9-23); CALCIUM LEVEL 7.9 MG/DL (8.3-10.6); CARBON DIOXIDE LEVEL 29 MMOL/L (20-31); CHLORIDE LEVEL 106 MMOL/L (98-107); CREATININE FOR GFR 0.74 MG/DL (0.55-1.30); GLOMERULAR FILTRATION RATE > 60.0 (>32); GLUCOSE, FASTING 76 MG/DL (74-106); PHOSPHORUS LEVEL 3.7 MG/DL (2.4-5.1); POTASSIUM SERUM 4.1 MMOL/L (3.5-5.1); SODIUM LEVEL 139 MMOL/L (136-145)
[2022-12-13 09:50] LABS: THYROID STIMULATING HORMONE 0.641 uIU/ML (0.55-4.78)
== END ==
LOC: M LAB 08:39
PROVIDERS: ATTEND Internal Medicine Cardiovascular Disease
DX: R07.2 Precordial pain (principal); I35.8 Other nonrheumatic aortic valve disorders; I11.9 Hypertensive heart disease without heart failure; E03.9 Hypothyroidism, unspecified

== ENCOUNTER → 2023-03-17 | Outpatient (CLI) | payer OTHER, MEDICAID | LOC: M LAB 10:09 | PROVIDERS: ATTEND Nurse Practitioner Family | DX: M81.0 Age-related osteoporosis without current pathological fracture (principal) ==

== ENCOUNTER → 2023-07-29 | Outpatient (REF) | payer OTHER, MEDICAID, MEDICARE | LOC: M SFHCDERM 12:28 | PROVIDERS: ATTEND Physician Assistant | DX: L60.1 Onycholysis (principal) ==

== ENCOUNTER 2023-09-25 15:43 | Emergency (ER) | payer OTHER, MEDICAID ==
[~2023-09-25] VITALS: Ht 147.3 cm; Wt 41.8 kg
[~2023-09-25 15:43] MED LIST changes: -MIRA1POW3 PO; +MIRA33506 PO
[2023-09-25 16:31] VITALS: TEMP 97.5
[2023-09-25 16:53] VITALS: BP 208/102
[2023-09-25] MEDS: CARVedilol 3.125 MG TAB PO STA (16:53)
[2023-09-25 17:28] VITALS: O2SAT 98
[2023-09-25 17:56] LABS: BASO % 0.4 % (0.0-1.0); HEMATOCRIT 33.5 % (36.0-47.0); LYMPH # 1.4 10^3/uL (1.5-5.0); LYMPH % 19.5 % (24.0-44.0); MEAN CORPUSCULAR HEMOGLOBIN 29.9 pg (27.0-33.0); MEAN CORPUSCULAR HGB CONC 32.8 g/dl (32.0-36.5); MONO # 0.7 10^3/uL (0.0-0.8); MONO % 9.8 % (2.0-8.0); NEUTROPHILS # 4.9 10^3/uL (1.5-8.5); PLATELET COUNT, AUTOMATED 260 10^3/uL (150-450); RED BLOOD COUNT 3.68 10^6/uL (4.00-5.40); WHITE BLOOD COUNT 6.9 10^3/uL (4.0-10.0)
[2023-09-25 18:13] LABS: INR 0.99; PARTIAL THROMBOPLASTIN TIME 26.5 SECONDS (24.8-34.2); PROTHROMBIN TIME 12.8 SECONDS (12.5-14.5)
[2023-09-25 18:27] LABS: CK-MB VALUE MASS 2.5 NG/ML (<3.6)
[2023-09-25 18:28] LABS: LIPASE 28 U/L (12-53)
[2023-09-25 18:30] LABS: ALKALINE PHOSPHATASE 98 U/L (46-116); ALT/SGPT 19 U/L (7.0-40); AST/SGOT 24 U/L (<34); BILIRUBIN,DIRECT 0.1 MG/DL (<0.4); BILIRUBIN,TOTAL 0.4 MG/DL (0.3-1.2); BLOOD UREA NITROGEN 22 MG/DL (9-23); CALCIUM LEVEL 10.2 MG/DL (8.3-10.6); CARBON DIOXIDE LEVEL 29 MMOL/L (20-31); CHLORIDE LEVEL 100 MMOL/L (98-107); CREATININE FOR GFR 0.71 MG/DL (0.55-1.30); GLOMERULAR FILTRATION RATE > 60.0 (>32); GLUCOSE, FASTING 77 MG/DL (74-106); SODIUM LEVEL 139 MMOL/L (136-145); TOTAL PROTEIN 6.3 G/DL (5.7-8.2)
[2023-09-25 18:31] LABS: FREE T4 1.73 NG/DL (0.89-1.76)
[2023-09-25 18:32] LABS: THYROID STIMULATING HORMONE 0.324 uIU/ML (0.55-4.78)
[2023-09-25 18:33] LABS: CPK CREATINE PHOSPHOKINASE 123 U/L (34-145); MB/CK RELATIVE INDEX 2.03 (< OR =4)
[2023-09-25 19:57] LABS: MB/CK RELATIVE INDEX 2.2 (< OR =4)
[2023-09-25 20:19] VITALS: BP 168/98
== END 2023-09-25 20:44 | disposition home or self-care (01) ==
LOC: M ED 15:43
DX: R07.9 Chest pain, unspecified (principal); I10 Essential (primary) hypertension; K21.9 Gastro-esophageal reflux disease without esophagitis; Z86.79 Personal history of other diseases of the circulatory system; Z86.73 Personal history of transient ischemic attack (TIA), and cerebral infarction without residual deficits; Z88.0 Allergy status to penicillin; Z88.5 Allergy status to narcotic agent; Z88.6 Allergy status to analgesic agent; Z88.8 Allergy status to other drugs, medicaments and biological substances; Z79.82 Long term (current) use of aspirin; Z79.02 Long term (current) use of antithrombotics/antiplatelets; Z79.811 Long term (current) use of aromatase inhibitors; Z79.83 Long term (current) use of bisphosphonates; Z79.899 Other long term (current) drug therapy

== ENCOUNTER → 2023-11-03 | Outpatient (CLI) | payer OTHER, MEDICAID ==
[~2023-11-03] MED LIST changes: +DOXY-323 PO; -DOXY-443 PO
[2023-11-03 16:25] LABS: THYROID STIMULATING HORMONE 0.741 uIU/ML (0.55-4.78)
[2023-11-03 16:30] LABS: CALCIUM LEVEL 9.1 MG/DL (8.3-10.6)
== END ==
LOC: M LAB 14:53
PROVIDERS: ATTEND Internal Medicine Endocrinology, Diabetes & Metabolism
DX: M81.0 Age-related osteoporosis without current pathological fracture (principal); E03.9 Hypothyroidism, unspecified

== ENCOUNTER 2024-02-04 14:08 | Emergency (ER) | payer OTHER, MEDICAID ==
[~2024-02-04] VITALS: Ht 152.4 cm; Wt 39.6 kg
[~2024-02-04 14:08] MED LIST changes: +ONDA-282 PO; -ONDA4TAB6 PO
[2024-02-04] MEDS ORDERED: MIRT1TAB (15:30)
[2024-02-04] MEDS ORDERED: NYST100084 (15:30)
[2024-02-04] MEDS ORDERED: PANT40TA29 (15:30)
[2024-02-04] MEDS: ANEXSIA, NORCO 7.5MG/325MG TABLET(HYDROCODONE/APAP) PO ONE (16:41)
[2024-02-04 18:34] VITALS: BP 171/81; TEMP 96.7; O2SAT 100
== END 2024-02-04 18:36 | disposition home or self-care (01) ==
LOC: M ED 14:08
DX: S06.0X0A Concussion without loss of consciousness, initial encounter (principal); S70.01XA Contusion of right hip, initial encounter; S40.011A Contusion of right shoulder, initial encounter; Y92.019 Unspecified place in single-family (private) house as the place of occurrence of the external cause; Y93.9 Activity, unspecified; Y99.9 Unspecified external cause status; W06.XXXA Fall from bed, initial encounter; K21.9 Gastro-esophageal reflux disease without esophagitis; Z88.0 Allergy status to penicillin; Z88.1 Allergy status to other antibiotic agents; Z88.5 Allergy status to narcotic agent; Z88.8 Allergy status to other drugs, medicaments and biological substances; Z79.1 Long term (current) use of non-steroidal anti-inflammatories (NSAID); Z79.810 Long term (current) use of selective estrogen receptor modulators (SERMs); Z79.899 Other long term (current) drug therapy

== ENCOUNTER → 2024-03-01 | Outpatient (CLI) | payer OTHER, MEDICAID ==
[~2024-03-01] MED LIST changes: +MIRT1TAB; +NYST100084; +PANT40TA29
[2024-03-01 15:31] LABS: BASO % 0.4 % (0.0-1.0); HEMATOCRIT 31.7 % (36.0-47.0); HEMOGLOBIN 10.2 g/dl (12.0-15.5); LYMPH # 0.9 10^3/uL (1.5-5.0); LYMPH % 11.1 % (24.0-44.0); MEAN CORPUSCULAR HEMOGLOBIN 29.6 pg (27.0-33.0); MEAN CORPUSCULAR HGB CONC 32.2 g/dl (32.0-36.5); MEAN CORPUSCULAR VOLUME 91.9 fl (80.0-96.0); MONO # 0.7 10^3/uL (0.0-0.8); MONO % 8.4 % (2.0-8.0); NEUTROPHILS # 6.3 10^3/uL (1.5-8.5); NEUTROPHILS % 79.6 % (36.0-66.0); PLATELET COUNT, AUTOMATED 242 10^3/uL (150-450); RED BLOOD COUNT 3.45 10^6/uL (4.00-5.40); WHITE BLOOD COUNT 7.9 10^3/uL (4.0-10.0)
[2024-03-01 15:52] LABS: ALBUMIN 3.6 G/DL (3.2-5.2); ALKALINE PHOSPHATASE 59 U/L (46-116); ALT/SGPT 11 U/L (7.0-40); AST/SGOT 15 U/L (<34); BILIRUBIN,TOTAL 0.3 MG/DL (0.3-1.2); BLOOD UREA NITROGEN 17 MG/DL (9-23); CALCIUM LEVEL 7.8 MG/DL (8.3-10.6); CARBON DIOXIDE LEVEL 30 MMOL/L (20-31); CHLORIDE LEVEL 96 MMOL/L (98-107); CREATININE FOR GFR 0.91 MG/DL (0.55-1.30); GLOMERULAR FILTRATION RATE > 60.0 (>32); GLUCOSE, FASTING 115 MG/DL (74-106); POTASSIUM SERUM 3.9 MMOL/L (3.5-5.1); SODIUM LEVEL 131 MMOL/L (136-145)
== END ==
LOC: M LAB 14:37
PROVIDERS: ATTEND Internal Medicine Cardiovascular Disease
DX: I34.0 Nonrheumatic mitral (valve) insufficiency (principal); I11.9 Hypertensive heart disease without heart failure; E78.5 Hyperlipidemia, unspecified; G45.9 Transient cerebral ischemic attack, unspecified

== ENCOUNTER → 2024-05-12 | Outpatient (CLI) | payer OTHER, MEDICAID ==
[~2024-05-12] MED LIST changes: -CYCL5TAB PO; +CYCL5TAB4 PO; -DOXY-323 PO; +DOXY-441 PO
[2024-05-12 15:40] LABS: CALCIUM LEVEL 8.4 MG/DL (8.3-10.6); CREATININE FOR GFR 1.01 MG/DL (0.55-1.30); GLOMERULAR FILTRATION RATE 55.2 (>32)
== END ==
LOC: M LAB 14:35
PROVIDERS: ATTEND Internal Medicine Endocrinology, Diabetes & Metabolism
DX: M81.0 Age-related osteoporosis without current pathological fracture (principal)

== ENCOUNTER 2024-08-29 09:58 | Inpatient (IN) | payer MEDICAID, OTHER ==
[~2024-08-29] VITALS: Ht 167.6 cm; Wt 41.0 kg
[~2024-08-29 09:58] MED LIST changes: +DENO60SY2 SC; -PANT40TA29; +PANT40TA29 PO; -PROL60SO SC
[2024-08-29] MEDS ORDERED: LIDOCAINE 2% 5ML JELLY UROJET TOP ONE (10:05)
[2024-08-29 11:04] LABS: BASO % 0.6 % (0.0-1.0); HEMATOCRIT 33.1 % (36.0-47.0); HEMOGLOBIN 10.8 g/dl (12.0-15.5); LYMPH # 0.9 10^3/uL (1.5-5.0); LYMPH % 12.3 % (24.0-44.0); MEAN CORPUSCULAR HGB CONC 32.6 g/dl (32.0-36.5); MEAN CORPUSCULAR VOLUME 91.9 fl (80.0-96.0); MONO # 0.7 10^3/uL (0.0-0.8); MONO % 10.3 % (2.0-8.0); NEUTROPHILS # 5.5 10^3/uL (1.5-8.5); NEUTROPHILS % 76.7 % (36.0-66.0); PLATELET COUNT, AUTOMATED 215 10^3/uL (150-450); WHITE BLOOD COUNT 7.2 10^3/uL (4.0-10.0)
[2024-08-29] MEDS ORDERED: ISOVUE-370 76% 100ML VIAL As Ordered ONE (11:06)
[2024-08-29 11:15] LABS: INR 0.92; PROTHROMBIN TIME 12.7 SECONDS (12.5-14.5)
[2024-08-29 11:38] LABS: CK-MB VALUE MASS 16.5 NG/ML (<3.6); LIPASE 22 U/L (12-53)
[2024-08-29 11:40] LABS: AMYLASE 71 U/L (30-118)
[2024-08-29 11:43] LABS: ALKALINE PHOSPHATASE 82 U/L (35-104); ALT/SGPT 18 U/L (7.0-40); AST/SGOT 48 U/L (<34); BILIRUBIN,DIRECT 0.3 MG/DL (<0.4); BILIRUBIN,TOTAL 0.8 MG/DL (0.3-1.2); BLOOD UREA NITROGEN 19 MG/DL (9-23); CALCIUM LEVEL 10.3 MG/DL (8.3-10.6); CARBON DIOXIDE LEVEL 31 MMOL/L (20-31); CHLORIDE LEVEL 100 MMOL/L (98-107); CPK CREATINE PHOSPHOKINASE 739 U/L (34-145); CREATININE FOR GFR 0.96 MG/DL (0.55-1.30); GLOMERULAR FILTRATION RATE 58.5 (>32); GLUCOSE, FASTING 95 MG/DL (74-106); MB/CK RELATIVE INDEX 2.23 (< OR =4); POTASSIUM SERUM 3.7 MMOL/L (3.5-5.1); SODIUM LEVEL 140 MMOL/L (136-145); TOTAL PROTEIN 6.6 G/DL (5.7-8.2)
[2024-08-29] MEDS: LIDOCAINE 2% 5ML JELLY UROJET TOP ONE (12:00)
[2024-08-29 12:21] LABS: KETONE, URINE AUTO RFX NEGATIVE (NEGATIVE); LEUKOCYTE ESTERASE UR AUTO RFX NEGATIVE (NEGATIVE); NITRITE, URINE AUTO RFX NEGATIVE (NEGATIVE); RBC, URINE AUTO RFX 2 /HPF (0-3); SQUAM EPITHELIAL CELL UR AURFX 0 /HPF (0-6); WBC, URINE AUTO RFX 0 /HPF (0-3)
[2024-08-29 12:45] LABS: CK-MB VALUE MASS 16.5 NG/ML (<3.6)
[2024-08-29 12:52] LABS: MB/CK RELATIVE INDEX 2.03 (< OR =4)
[2024-08-29 13:52] LABS: ETHYL ALCOHOL (ETHANOL) < 0.003 % (0.000-0.010)
[2024-08-29 13:54] LABS: SALICYLATE LEVEL < 3.0 MG/DL (<30)
[2024-08-29 13:56] LABS: THYROID STIMULATING HORMONE 0.681 uIU/ML (0.55-4.78)
[2024-08-29] MEDS: NS 500 ML IV ONE (14:49)
[2024-08-29] MEDS: ACETAMINOPHEN *IV* 1,000 MG in IV 1 EA IV ONE ×2 (14:51→22:30)
[2024-08-29] MEDS: LORazepam 2 MG/ML 1ML VIAL IV STA (18:09)
[2024-08-29] MEDS: hydrALAZINE 20MG/ML 1ML VIAL IV STA (18:57)
[2024-08-29] MEDS ORDERED: MOM 30ML SUSPENSION UDC PO PRN (19:10)
[2024-08-29] MEDS ORDERED: ACETAMINOPHEN 325 MG TAB PO PRN (19:10)
[2024-08-29] MEDS: CARVedilol 3.125 MG TAB PO SCH (20:01)
[2024-08-29] MEDS ORDERED: ONDANSETRON 4MG 2ML VIAL IV PRN (20:15)
[2024-08-29] MEDS: LR 1,000 ML IV SCH (20:48)
[2024-08-29 21:45] VITALS: BP 174/90; TEMP 97.5; O2SAT 99
[2024-08-29] MEDS ORDERED: CLOB0.0548 TOP (22:14)
[2024-08-29] MEDS ORDERED: CITA10TA7 PO (22:14)
[2024-08-29] MEDS ORDERED: CLOB5CR TOP (22:14)
[2024-08-29] MEDS ORDERED: RIVA1CAP3 PO (22:14)
[2024-08-29] MEDS ORDERED: HOME MED LIST COMPLETE! XX SCH (22:20)
[2024-08-29] MEDS: FLEET ENEMA PR ONE (22:37)
[2024-08-29 23:18] VITALS: BP 181/88; TEMP 97.4; O2SAT 96
[2024-08-29] MEDS: hydrALAZINE 20MG/ML 1ML VIAL IV SCH (23:54)
[2024-08-30] VITALS (10 sets, daily range): BP systolic 158–182; BP diastolic 68–98; TEMP 97.5–98.9; O2SAT 93–98
[2024-08-30 05:13] LABS: HEMATOCRIT 33.2 % (36.0-47.0); HEMOGLOBIN 11.2 g/dl (12.0-15.5); MEAN CORPUSCULAR HEMOGLOBIN 30.5 pg (27.0-33.0); MEAN CORPUSCULAR HGB CONC 33.7 g/dl (32.0-36.5); MEAN CORPUSCULAR VOLUME 90.5 fl (80.0-96.0); PLATELET COUNT, AUTOMATED 226 10^3/uL (150-450); RED BLOOD COUNT 3.67 10^6/uL (4.00-5.40); WHITE BLOOD COUNT 12.1 10^3/uL (4.0-10.0)
[2024-08-30 05:43] LABS: ALBUMIN 3.7 G/DL (3.2-5.2); ALKALINE PHOSPHATASE 81 U/L (35-104); ALT/SGPT 26 U/L (7.0-40); AST/SGOT 113 U/L (<34); BLOOD UREA NITROGEN 20 MG/DL (9-23); CALCIUM LEVEL 9.8 MG/DL (8.3-10.6); CARBON DIOXIDE LEVEL 28 MMOL/L (20-31); CHLORIDE LEVEL 100 MMOL/L (98-107); CREATININE FOR GFR 0.85 MG/DL (0.55-1.30); GLOMERULAR FILTRATION RATE > 60.0 (>32); GLUCOSE, FASTING 78 MG/DL (74-106); POTASSIUM SERUM 3.3 MMOL/L (3.5-5.1); SODIUM LEVEL 140 MMOL/L (136-145)
[2024-08-30] MEDS ORDERED: LEVOTHYROXINE 112MCG TABLET (0.112MG) PO SCH (06:00)
[2024-08-30] MEDS ORDERED: HYDROMORPHONE HCL 0.5 MG/ 0.5 ML SYRINGE IV PRN ×2 (06:50→16:00)
[2024-08-30] MEDS: ENOXAPARIN 30MG/0.3ML SYRINGE (J1650 PER 10MG) SC SCH (08:18)
[2024-08-30] MEDS: PANTOPRAZOLE 40MG VIAL IV SCH (08:18)
[2024-08-30] MEDS: HYDROMORPHONE HCL 0.5 MG/ 0.5 ML SYRINGE IV PRN ×2 (08:18→16:10)
[2024-08-30] MEDS: KCL 10MEQ/100ML SWI (KRUN) 10 MEQ in IV 1 EA IV SCH (08:19)
[2024-08-30] MEDS ORDERED: CARVedilol 6.25 MG TAB PO SCH (09:00)
[2024-08-30] MEDS ORDERED: ENOXAPARIN 40MG/0.4ML SYRINGE (J1650 PER 10MG) SC SCH (09:00)
[2024-08-30] MEDS ORDERED: CitaloPRAM (CeleXA) 10 MG TABLET PO SCH (09:00)
[2024-08-30] MEDS ORDERED: TAMSULOSIN 0.4 MG CAP PO SCH (09:00)
[2024-08-30] MEDS ORDERED: PANTOPRAZOLE 40MG TAB (PROTONIX) PO SCH (09:00)
[2024-08-30] MEDS ORDERED: ASPIRIN 81MG CHEW TABLET PO SCH (09:00)
[2024-08-30] MEDS ORDERED: DEXTROSE 50% 50ML SYRINGE IV PRN (14:45)
[2024-08-30] MEDS ORDERED: GLUCAGON INJ 1MG VIAL SC PRN (14:45)
[2024-08-30] MEDS ORDERED: GLUCOSE 4 GM CHEW PO PRN (14:45)
[2024-08-30] MEDS: D5W/0.45% SODIUM CHLORIDE 1,000 ML IV SCH (16:10)
[2024-08-30] MEDS: hydrALAZINE 20MG/ML 1ML VIAL IV PRN (20:46)
[2024-08-30] MEDS ORDERED: ATORVASTATIN 10 MG TAB PO SCH (21:00)
[2024-08-31] MEDS: LORazepam 2 MG/ML 1ML VIAL IV STA (02:49)
[2024-08-31 03:38] VITALS: BP 180/84; TEMP 97.4; O2SAT 97
[2024-08-31 04:07] VITALS: BP 180/84
[2024-08-31 05:10] VITALS: BP 177/71
[2024-08-31 05:38] LABS: BASO % 0.2 % (0.0-1.0); HEMATOCRIT 34.7 % (36.0-47.0); HEMOGLOBIN 11.6 g/dl (12.0-15.5); LYMPH # 1.2 10^3/uL (1.5-5.0); LYMPH % 7.8 % (24.0-44.0); MEAN CORPUSCULAR HEMOGLOBIN 30.4 pg (27.0-33.0); MEAN CORPUSCULAR HGB CONC 33.4 g/dl (32.0-36.5); MEAN CORPUSCULAR VOLUME 91.1 fl (80.0-96.0); MONO # 1.4 10^3/uL (0.0-0.8); MONO % 8.7 % (2.0-8.0); NEUTROPHILS # 13.2 10^3/uL (1.5-8.5); NEUTROPHILS % 82.9 % (36.0-66.0); PLATELET COUNT, AUTOMATED 216 10^3/uL (150-450); RED BLOOD COUNT 3.81 10^6/uL (4.00-5.40); WHITE BLOOD COUNT 15.9 10^3/uL (4.0-10.0)
[2024-08-31 06:04] LABS: BLOOD UREA NITROGEN 34 MG/DL (9-23); CARBON DIOXIDE LEVEL 28 MMOL/L (20-31); CHLORIDE LEVEL 101 MMOL/L (98-107); CREATININE FOR GFR 0.93 MG/DL (0.55-1.30); GLOMERULAR FILTRATION RATE > 60.0 (>32); GLUCOSE, FASTING 137 MG/DL (74-106); POTASSIUM SERUM 3.9 MMOL/L (3.5-5.1); SODIUM LEVEL 139 MMOL/L (136-145)
[2024-08-31 07:49] VITALS: BP 140/63; TEMP 99.3; O2SAT 95
[2024-08-31] MEDS: LEVOTHYROXINE 100MCG (0.1MG) 5ML SDV PF (SOLUTION FORM) IV SCH (09:00)
[2024-08-31] MEDS: SCOPOLAMINE 1MG TRANSDERMAL PATCH TOP SCH (09:35)
[2024-08-31] MEDS ORDERED: ONDANSETRON 4MG ORAL DISINTEGRATING TAB PO PRN (10:40)
[2024-08-31] MEDS ORDERED: ATROPINE SULFATE 1% OPHTH SOLN 2ML BTL SL PRN (10:40)
[2024-08-31] MEDS ORDERED: HYOSCYAMINE SULFATE 0.125 MG SUBL TABLET PO PRN (10:40)
[2024-08-31] MEDS ORDERED: LORazepam 1 MG TAB PO PRN (10:40)
[2024-08-31] MEDS: MORPHINE 10MG/0.5ML ORAL CONCENTRATE SOLUTION U/D SL PRN (12:34)
[2024-08-31] MEDS: LORazepam 0.5 MG TAB PO PRN (15:24)
[2024-09-01] MEDS: LEVOTHYROXINE 112MCG TABLET (0.112MG) PO SCH (06:00)
[2024-09-01] MEDS: MORPHINE 10MG/0.5ML ORAL CONCENTRATE SOLUTION U/D SL SCH ×2 (11:43→17:13)
[2024-09-01] MEDS: LORazepam 1 MG TAB PO SCH ×2 (12:59→17:13)
[2024-09-01] MEDS: MORPHINE 10MG/0.5ML ORAL CONCENTRATE SOLUTION U/D SL PRN (15:22)
[2024-09-01] MEDS: LORazepam 1 MG TAB PO PRN (15:23)
[2024-09-01] MEDS: OLANZapine ORAL DISINTEGRATING TAB 5MG PO SCH (20:38)
== END 2024-09-03 08:21 | disposition expired | DRG 199 ==
LOC: M ED 09:58 → EDBD 09:58 → M ED INP 19:09 → M PCU 21:34 → M MSPAV 08-31 16:45
PROVIDERS: ADMIT Internal Medicine; ATTEND Internal Medicine
DX: I16.0 Hypertensive urgency (principal); R57.1 Hypovolemic shock; E43 Unspecified severe protein-calorie malnutrition; F02.811 Dementia in other diseases classified elsewhere, unspecified severity, with agitation; G31.83 Neurocognitive disorder with Lewy bodies; D64.9 Anemia, unspecified; R13.10 Dysphagia, unspecified; Z66 Do not resuscitate; I25.10 Atherosclerotic heart disease of native coronary artery without angina pectoris; K21.9 Gastro-esophageal reflux disease without esophagitis; K59.09 Other constipation; R33.9 Retention of urine, unspecified; E03.9 Hypothyroidism, unspecified; G89.29 Other chronic pain; M81.0 Age-related osteoporosis without current pathological fracture; E78.5 Hyperlipidemia, unspecified; Z90.49 Acquired absence of other specified parts of digestive tract; Z90.79 Acquired absence of other genital organ(s); Z79.82 Long term (current) use of aspirin; Z79.890 Hormone replacement therapy; Z79.899 Other long term (current) drug therapy; Z88.0 Allergy status to penicillin; Z88.5 Allergy status to narcotic agent; Z88.6 Allergy status to analgesic agent; Z88.8 Allergy status to other drugs, medicaments and biological substances; R62.7 Adult failure to thrive; I10 Essential (primary) hypertension